=== PATIENT | female | born 1955 | race Caucasian/White ===

== ENCOUNTER → 2022-06-27 13:56 | Outpatient (BNVA) | payer MEDICARE, SELFPAY | PROVIDERS: PCP Internal Medicine; Referring Provider Family Medicine; Visit Provider Internal Medicine Cardiovascular Disease | DX: R00.2 Palpitations (principal) | CPT/HCPCS: 93005; 99202 ==

== ENCOUNTER → 2022-07-16 07:16 | Outpatient (REF) | payer MEDICARE, SELFPAY ==
--- NOTE | 2022-07-16 07:19 | HM_ITS ---
conclusion: 1. Patient was monitored for total period of 14 days 2. Baseline was normal sinus rhythm with average heart of 75 beats per minute 3. No significant pauses or bradycardia noted 4. Rare PACs noted with total burden of 0.03% 5. Five SVT events with longest lasting 11 beats and the fastest at 145 beats per minute 6. Patient reported 12 events including chest pain and fluttering in her chest correlated with sinus rhythm MTDD
== END ==
LOC: HO.CARD 07:16
PROVIDERS: PCP Family Medicine; Visit Provider Internal Medicine Cardiovascular Disease
DX: R00.2 Palpitations (principal)
CPT/HCPCS: 93246

== ENCOUNTER → 2022-08-26 14:53 | Outpatient (BNVA) | payer MEDICARE, SELFPAY | PROVIDERS: PCP Family Medicine; Referring Provider Family Medicine; Visit Provider Internal Medicine Cardiovascular Disease | DX: I49.9 Cardiac arrhythmia, unspecified (principal) | CPT/HCPCS: 99212 ==

== ENCOUNTER 2023-09-12 13:55 | Outpatient (AMB) | payer MEDICARE, SELFPAY ==
[2023-09-12 13:57] VITALS: BP 141/63; PULSE 92; BMI 20.5
--- NOTE | 2023-09-12 13:57 | A.OFFVIS_ITS ---
Vital Signs 09/12/23 13:57 Height 5 ft Weight 105 lb BMI 20.5 BP 141/63 H Blood Pressure Location Lt brachial Position Sitting Pulse 92 Comment Wt stated per PT Intake Visit Reasons: Gastroparesis Intake Note: New patient in office today for gastroparesis. CC:Patient states that she is a double mastectomy breast cancer survivor, with gastroparesis as a result of chemotherapy treatment. She states that she also fought SIBO . Per patient she ended up in the hospital with constipation and was given of lactulose and sent home, per patient the sugar from the lactulose exacerbated her SIBO. Patient states that her weight was 140 lb and that in the morning when she weights herself she is now 105.5 lb. She states that she is not able to eat because she gets a lot of abdominal pain and everything blows up because I'm so constipated . She also c/o gas. 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 Accompanied by: partner Allergies Benzodiazepines Allergy (Severe, Verified 09/12/23 14:21) Agitated codeine Allergy (Severe, Verified 09/12/23 14:21) Vomiting gluten Allergy (Severe, Verified 09/12/23 14:21) Gastrointestinal Upset hydroxyzine Allergy (Severe, Verified 09/12/23 14:21) Agitated metoprolol Allergy (Severe, Verified 09/12/23 14:21) throat swelling, confusion Milk Containing Products (Dairy) Allergy (Severe, Verified 09/12/23 14:21) Gastrointestinal Upset propranolol Allergy (Severe, Verified 09/12/23 14:21) Throat swelling, confusion soy Allergy (Severe, Verified 09/12/23 14:21) gastric problems levofloxacin [From Levaquin] Allergy (Mild, Verified 09/12/23 14:21) Rash pseudoephedrine [From Sudafed] Adverse Reaction (Intermediate, Verified 09/12/23 14:21) Palpitations Sulcrafate Allergy (Severe, Uncoded 05/26/23 10:23) Swelling in throat HPI HPI Gastroparesis: Details: 67-year-old female with past medical history of hypothyroidism, hyponatremia since April of 2023, anxiety, bilateral breast malignant neoplasm and bilateral mastectomy in 1999, SIBO, gastroparesis is here today for initial consultation. Patient was supposed to be seen by Nadira Urena CNP today, however provider absent. Patient reports that her cell phone has no service as she lives in [place], in the [facility]. Patient came hoping to be seen by a provider. Patient was very upset in the waiting room, tearful. This provider agreed to see patient today. Total of 33 lb weight loss since March. Patient reports that back in April she end up with hyponatremia and was hospitalized. Upon reviewing ED records from April and then May patient had normal blood work her April visit sodium was 131 and normal blood work in May. Patient developed epigastric discomfort inability to move her bowels regularly, not having the urge to move her bowels or urinating. Patient had upper endoscopy diagnosed with inflammation and no other significant report was given to her. Prior to that patient was treated with Xifaxan for SIBO 1 round, however was never retested. Patient states that she was given lactulose and that is what irritated her stomach and it caused all those issues that she has been dealing with. Patient also reports that she was going through radiation therapy and that is also why she is having so many issues. During the visit patient is extremely anxious. Patient is accompanied by her . Patient is tearful, multiple times I had to redirect her so she can focus on telling me her history. Patient has seen multiple GI specialist as well as alternative medicine doctors. Patient traveled as far as to [place] to see a functional medicine provider. Patient was placed on SIBO diet. Was given medication other than [id number] Senokot although she did try smooth move tea that did not help her to go to the bathroom. Patient tried herbal supplement that included josesito and turmeric that could be also causing her to have abdominal pain and bloating. Patient currently is not drinking protein shakes. Patient brought with her shakes that she is trying to replace electolytes as she was diagnosed h yponatremia, however these shakes to not have any protein. Patient has lost weight. Is only eating few things. Her reports that she is only eating carrots that are cooked and blended, white fish. Patient states that she tried chicken, however she felt like she had a histamine reaction to it. Patient reports that she was unable to move her bowels and she was very bloated. Patient reports that she has gastroparesis, however I do not believe that there was any testing mentioned to truly diagnosed her with gastroparesis. Patient is having trouble moving her bowels and feeling constipated. No postprandial fullness. Patient denies any melena or hematochezia. Patient denies any nausea or vomiting. [facility] Surgical History History of esophagogastroduodenoscopy (EGD) H/O wrist surgery History of hysterectomy History of appendectomy H/O bilateral mastectomy Hx of colonoscopy with polypectomy Family History Father No problems noted. Mother No problems noted. Brother Heart valve replaced Social History Patient Tobacco Use Status: Never used Tobacco Physical Exam Vital Signs: Last Vital Signs Pulse 92 09/12/23 13:57 BP 141/63 H 09/12/23 13:57 BMI result Body Mass Index 20.5 Assessment & Plan Assessment & Plan (1) Multiple food allergies: Code(s): Z91.018 - Allergy to other foods Category: Medical (2) Panic disorder: Code(s): F41.0 - Panic disorder [episodic paroxysmal anxiety] Category: Medical (3) Hyponatremia: Code(s): E87.1 - Hypo-osmolality and hyponatremia Category: Medical (4) Constipation: Code(s): K59.00 - Constipation, unspecified Qualifiers: Constipation type: slow transit constipation Qualified Code(s): K59.01 - Slow transit constipation (5) Postprandial abdominal bloating: Code(s): R14.0 - Abdominal distension (gaseous) (6) Abdominal pain: Code(s): R10.9 - Unspecified abdominal pain Qualifiers: Abdominal location: generalized Qualified Code(s): R10.84 - Generalized abdominal pain Plan Patient was encouraged to increase protein in her diet. We did discuss low FODMAP diet. List of food recommended as well as list of food to avoid given to patient. Patient was encouraged to try to stay come and reasonable throughout the whole visit. Will rule out pancreatic insufficiency and H pylori. Will rule out celiac disease and will check her lipase as well. Patient will be started on senna, she can take it after breakfast. Patient would like not to take it in the evening as she is having trouble sleeping and would like to avoid going to the bathroom at night time.. Patient can take sucralfate at bedtime, we did discuss this that this could be little constipating for her, however if Senokot will not be helpful we can use Dulcolax tablets or add MiraLax in the morning. She will try to take Nexium 1st thing in the morning. Patient had other blood work done by her PCP. Patient was encouraged to eat smaller meals and more often. Patient will stop supplements that include garlic, josesito as th is could also be the culprit. She will follow-up with Dr. Zimmerman next week. Patient is scheduled for the . Please get upper endoscopy results and any other testing that patient had in the past that would include CT scan of abdomen and pelvis, barium swallow, gastric emptying study. Patient was to stop taking supplements that most likely are causing her to have those symptoms. Stress reduction techniques encouraged. Patient was encouraged to see therapist to help her deal with her emotions better. Patient was extremely anxious. Patient's states that patient has been like this for the past few months. Both patient and her are agreeable to current plan of care and verbalize understanding of instructions. They were given the opportunity to ask questions and all questions answered. Thank you for allowing me to participate in her care Orders: Orders Pancreatic Elastase-1 Today R10.9 - Unspecified abdominal pain Vitamin B12 and Folate Today R19.7 - Diarrhea, unspecified Vitamin D 25-OH (D2 and D3) Today E55.9 - Vitamin D deficiency, unspecified H pylori Ag Stool Today K21.9 - Gastro-esophageal reflux disease without esophagitis Transglutaminase Ab IgG Today R10.9 - Unspecified abdominal pain Transglutaminase IgA Today R10.9 - Unspecified abdominal pain Lipase Today R10.9 - Unspecified abdominal pain Magnesium Today N18.9 - Chronic kidney disease, unspecified Medications: New esomeprazole magnesium (Nexium 24HR) 20 mg PO DAILY 30 tabs 2RF sennosides (Natural Senna Laxative) 17.2 mg (2 x 8.6 mg) PO BEDTIME 60 tabs 3RF constipation K59.00 - Constipation, unspecified Coding Level of Care Code New Pt Level 5 (28862) Diagnoses Multiple food allergies Z91.018 Panic disorder F41.0 Hyponatremia E87.1 Slow transit constipation K59.01 Constipation type: slow transit constipation Postprandial abdominal bloating R14.0 Generalized abdominal pain R10.84 Abdominal location: generalized Time Spent (min) 55 Comment 35 minutes spent with patient and additional 20 minutes spent reviewing her records
== END 2023-09-12 15:38 | disposition home or self-care (01) ==
LOC: HO.HGI 13:55
PROVIDERS: PCP Family Medicine; Visit Provider Nurse Practitioner Family
DX: K59.01 Slow transit constipation (principal); R14.0 Abdominal distension (gaseous); Z91.018 Allergy to other foods; E87.1 Hypo-osmolality and hyponatremia; F41.0 Panic disorder [episodic paroxysmal anxiety]
CPT/HCPCS: 99205

== ENCOUNTER 2023-09-12 13:55 | Outpatient (REF) | payer MEDICARE, SELFPAY ==
[2023-09-12 16:38] LABS: Lipase 45 U/L (8-78); Magnesium 2.3 mg/dL (1.6-2.6)
[2023-09-12 17:11] LABS: Folate 7.6 ng/mL (> or = 4.0); Vitamin B12 916 pg/mL (200-900)
[2023-09-18 13:17] LABS: Vitamin D 25-OH, D2 <4 ng/mL; Vitamin D 25-OH, D3 33 ng/mL; Vitamin D 25-OH, Total 33 ng/mL (30-100)
[2023-09-19 12:58] LABS: Transglutaminase Ab IgG <1.0 U/mL; Transglutaminase IgA <1.0 U/mL
== END 2023-09-12 13:56 | disposition home or self-care (01) ==
LOC: HO.LAB 13:55
PROVIDERS: PCP Family Medicine; Visit Provider Nurse Practitioner Family
DX: R19.7 Diarrhea, unspecified (principal); E55.9 Vitamin D deficiency, unspecified; R10.9 Unspecified abdominal pain; N18.9 Chronic kidney disease, unspecified; K31.84 Gastroparesis; T45.1X5A Adverse effect of antineoplastic and immunosuppressive drugs, initial encounter; F41.0 Panic disorder [episodic paroxysmal anxiety]; E87.1 Hypo-osmolality and hyponatremia; K59.01 Slow transit constipation; R14.0 Abdominal distension (gaseous); R10.84 Generalized abdominal pain; X58.XXXA Exposure to other specified factors, initial encounter; Y93.9 Activity, unspecified; Y92.9 Unspecified place or not applicable; Y99.9 Unspecified external cause status; Z85.3 Personal history of malignant neoplasm of breast; Z90.13 Acquired absence of bilateral breasts and nipples; Z91.018 Allergy to other foods
CPT/HCPCS: 36415; 82306; 82607; 82746; 83690; 83735; 86364; 99202

== ENCOUNTER 2023-09-15 | Outpatient (REF) | payer MEDICARE, SELFPAY ==
[2023-09-23 20:54] LABS: Pancreatic Elastase-1 >500 mcg/g
== END 2023-09-15 00:01 | disposition home or self-care (01) ==
LOC: HO.LNP
PROVIDERS: Visit Provider Nurse Practitioner Family
DX: R10.9 Unspecified abdominal pain (principal); K21.9 Gastro-esophageal reflux disease without esophagitis
CPT/HCPCS: 82656; 87338

== ENCOUNTER 2023-09-17 15:20 | Outpatient (AMB) | payer MEDICARE, SELFPAY ==
--- NOTE | 2023-09-17 15:22 | MHC.OFFVIS ---
Vital Signs 09/17/23 15:26 Height 5 ft Weight 105 lb BMI 20.5 BP 142/74 H Blood Pressure Location Lt brachial Position Sitting Pulse 85 Intake Visit Reasons: Follow up 2nd opinion Intake Note: Rufina presents in the office as a follow up 2nd opinion. CC: She states that she was seen by Alyssa and that was a mistake - states she was meant to see July. She is having pains in her stomach. She states they have been going on for so long it is effecting her life. She states she has been fighting to be seen by a Dr. Nothing seems to be working for her. Cognitive skills are dropping, cannot stand up, weak, weight loss. She is unable to care for herself. Allergies Benzodiazepines Allergy (Severe, Verified 09/17/23 15:26) Agitated codeine Allergy (Severe, Verified 09/17/23 15:26) Vomiting gluten Allergy (Severe, Verified 09/17/23 15:26) Gastrointestinal Upset hydroxyzine Allergy (Severe, Verified 09/17/23 15:26) Agitated metoprolol Allergy (Severe, Verified 09/17/23 15:26) throat swelling, confusion Milk Containing Products (Dairy) Allergy (Severe, Verified 09/17/23 15:26) Gastrointestinal Upset propranolol Allergy (Severe, Verified 09/17/23 15:26) Throat swelling, confusion soy Allergy (Severe, Verified 09/17/23 15:26) gastric problems levofloxacin [From Levaquin] Allergy (Mild, Verified 09/17/23 15:26) Rash pseudoephedrine [From Sudafed] Adverse Reaction (Intermediate, Verified 09/17/23 15:26) Palpitations Sulcrafate Allergy (Severe, Uncoded 09/17/23 15:26) Swelling in throat HPI Comments Details: 67 y.o F who is here for abd pain and unintentional weight loss ongoing x 6 months. Pt reports similar constellation of sx back in 2009 - saw Dr García and was determined to have gastroparesis and SIBO. Pt recalls getting a GES and EGD as part of work up. Was started on Senna/smooth move tea. Was doing well until 2021 until she had back to back 3 colonoscopies and then sx worsened. [place] was done was flat 2-3 cm T.A with HGD (Dr Mcnair, [facility]). Tried to manage sx through most of 2022 but got significantly worse in 2023. Pt reports sx started in end of Jan 2023. At that time pain was primarily in the center of her chest and therefore main focus was cardiac work up. Had an echo through her PCP. (of note, also noted to have seen cardiology in spring of last year for chest discomfort, shortness of breath and palpitations and workup at time was negative) By the beginning of this year, she had significantly declined. Reports has very little appetite due to the severe pains she gets. Has gone from riding horses around Feb 2023 to not being able to take a shower and now wheelchair bound. Lost around 20lbs in this duration. Presented to [facility] for lower chest/upper abd pain as well as confusion. Pt reports at that time Na was 120 and was admitted for 4 days for management. No GI workup was pursued at that time. She then was seen by [facility] as outpatient in the following months and reports having an upper endoscopy as well as a repeat gastric emptying study. EGD per her report was normal. Gastric emptying study showed rapid emptying of her stomach. Records are not available at this time. Meds so far: Sucralfate didnt help- made her constipated. Xifaxan 550 - June 2023. Was better on it but reports stool consistency was off . Famotidine PPIs Pt also reports severe constipation. Has been seen by [facility] as well as Colorectal surgery for this. Had testing done through Dr. Tammy Jasso including defecography and noted to have rectocele and pelvic floor dysfunction. Previously had terrible experience with lactulose enema and p.o. lactulose for treatment of constipation at [facility]. Is also concerned whether the chemotherapy that she had for breast cancer in early is causing GI toxicity. [facility] Surgical History History of esophagogastroduodenoscopy (EGD) H/O wrist surgery History of hysterectomy History of appendectomy H/O bilateral mastectomy Hx of colonoscopy with polypectomy Family History Father No problems noted. Mother No problems noted. Brother Heart valve replaced Social History Patient Tobacco Use Status: Never used Tobacco Review of Systems Const All systems reviewed & are unremarkable except as noted in HPI and below Physical Exam Vital Signs: Last Vital Signs Pulse 85 09/17/23 15:26 BP 142/74 H 09/17/23 15:26 BMI result Body Mass Index 20.5 Frail elderly female Nonicteric Alert and oriented x3 Seated in a wheelchair Assessment & Plan Assessment & Plan (1) Gastroparesis: Code(s): K31.84 - Gastroparesis Category: Medical (2) Abdominal pain: Code(s): R10.9 - Unspecified abdominal pain Category: Medical (3) Pelvic floor dysfunction: Code(s): M62.89 - Other specified disorders of muscle Category: Medical (4) Unintentional weight loss: Code(s): R63.4 - Abnormal weight loss Category: Medical (5) Frailty: Code(s): R54 - Age-related physical debility Category: Medical Plan Attempted to set expectations that will likely not be able to go through her entire constellation of GI issues today, but will attempt to address the most bothersome symptoms to her. We also reviewed that at this time, we do not have records from [facility] and [facility] for review. - reassured her that chemotherapy related GI toxicity generally last the duration of treatment, and very unlikely that it is still present 2 decades after chemo has been completed. In addition, her recent colonoscopies document normal mucosa. - In terms of her abdominal pain with unintentional weight loss, will need to rule out chronic infection, malignancy, chronic mesenteric ischemia, gastroparesis etc. She seems to have had workup done recently for this through [facility] as well, so we will obtain those records to make sure we are not ordering repeat testing such as CTA. (already requested by Dayanara Smith NP). - For ?SIBO - given severe constipation, there is a chance that this is IMO and may need combo neomycin and rifaximin for complete response. We discussed breath testing, patient is hesitant to proceed, as previously whenever she is taken lactulose for relief of constipation and has made her more bloated. I educated her that is a known side effect of lactulose since it is a nonabsorbable disaccharide however this will only be a 1 time dose for the breath test, and not prescribing her for long-term treatment for constipation. - Agree with testing to r/o celiac which is pending. Stool tests results pending as well. - lastly I informed her, that she will be seeing a different provider (Nadira Urena SEAM RUBBING MACHINE OPERATOR) for follow-up, as this production underwriter will will not be in office at the time of her next follow-up appointment. Patient has already been in contact with her and agreeable to seeing her for next visit. - in the meantime, since her main complaint is abdominal bloating which cause her discomfort, she was encouraged to take simethicone. Patient tends to do better with pediatric formulations of medications - okay to take mylicon. - her function declined is quite worrisome, and I strongly encouraged her to talk to her PCP for PT evaluation. She may even need for short stay at acute rehab/SNF. - cont protein shakes as reviewed by previous provider. Follow up in 4 weeks Coding Level of Care Code Est Pt Level 5 (20585) Diagnoses Gastroparesis K31.84 Abdominal pain R10.9 Pelvic floor dysfunction M62.89 Unintentional weight loss R63.4 Frailty R54
[2023-09-17 15:26] VITALS: BP 142/74; PULSE 85; BMI 20.5
== END 2023-09-17 16:28 | disposition home or self-care (01) ==
LOC: HO.HGI 15:20
PROVIDERS: PCP Family Medicine; Visit Provider Internal Medicine
DX: K31.84 Gastroparesis (principal); M62.89 Other specified disorders of muscle; R63.4 Abnormal weight loss; R54 Age-related physical debility
CPT/HCPCS: 99214

== ENCOUNTER → 2023-09-17 15:20 | Outpatient (BNVA) | payer MEDICARE, SELFPAY | PROVIDERS: PCP Family Medicine; Visit Provider Internal Medicine | DX: R63.4 Abnormal weight loss (principal); K31.84 Gastroparesis; R10.9 Unspecified abdominal pain; M62.89 Other specified disorders of muscle; R54 Age-related physical debility; Z99.3 Dependence on wheelchair | CPT/HCPCS: 99212 ==

== ENCOUNTER 2023-09-24 12:20 | Outpatient (AMB) | payer MEDICARE, SELFPAY ==
--- NOTE | 2023-09-24 12:23 | A.OFFVIS_ITS ---
Vital Signs 09/24/23 12:27 Height 5 ft Weight 105 lb BMI 20.5 BP 135/72 Blood Pressure Location Lt brachial Position Sitting Pulse 91 Intake Visit Reasons: 1 week follow up Intake Note: Rufina presents in the office as a 1 week follow up. CC: She states nexium made the burn even worse. Senior Auditor Required: No Allergies Benzodiazepines Allergy (Severe, Verified 10/10/23 13:33) Agitated codeine Allergy (Severe, Verified 10/10/23 13:33) Vomiting gluten Allergy (Severe, Verified 10/10/23 13:33) Gastrointestinal Upset hydroxyzine Allergy (Severe, Verified 10/10/23 13:33) Agitated metoprolol Allergy (Severe, Verified 10/10/23 13:33) throat swelling, confusion Milk Containing Products (Dairy) Allergy (Severe, Verified 10/10/23 13:33) Gastrointestinal Upset propranolol Allergy (Severe, Verified 10/10/23 13:33) Throat swelling, confusion soy Allergy (Severe, Verified 10/10/23 13:33) gastric problems levofloxacin [From Levaquin] Allergy (Mild, Verified 10/10/23 13:33) Rash pseudoephedrine [From Sudafed] Adverse Reaction (Intermediate, Verified 10/10/23 13:33) Palpitations Sulcrafate Allergy (Severe, Uncoded 09/24/23 12:26) Swelling in throat HPI HPI 1 week follow up: Details: 67-YEAR-OLD female here for initial evaluation of gastroparesis. She is referred by [facility] in [place]. PMX History of breast cancer Hypothyroid Hyponatremia Atrial septal aneurysm Attention deficit disorder Gastroparesis Migraines Depression/panic disorder/insomnia Pelvic floor dysfunction Visceral hypersensitivity Atrophic vaginitis Urinary incontinence * SURGICAL HISTORY Bilateral mastectomy Wrist tendon repair Appendectomy Hysterectomy * ALLERGIES Albuterol Buspirone Codeine Gluten Levaquin Lorazepam Metoprolol Mirtazapine Motegrity Omeprazole Pantoprazole Propranolol Risperidone Sertraline Sudafed Zolpidem Caffeine General anesthesia Dairy, soy, bone broth, gluten [employer] LABS: Laboratory Tests 09/12/23 09/15/23 15:48 07:35 Magnesium 2.3 Lipase 45 Vitamin B12 916 H 25-OH Vitamin D Total 33 Folate 7.6 Stool Pancreat Elastase >500 Stool H. pylori Ag negative Tiss Transglutamin IgG <1.0 Tiss Transglutamin IgA <1.0 Ordered by Alyssa Pancreatic Elastase-1 Today R10.9 - Unspecified abdominal pain Vitamin B12 and Folate Today R19.7 - Diarrhea, unspecified Vitamin D 25-OH (D2 and D3) Today E55.9 - Vitamin D deficiency, unspecified H pylori Ag Stool Today K21.9 - Gastro-esophageal reflux disease without esophagitis Transglutaminase Ab IgG Today R10.9 - Unspecified abdominal pain Transglutaminase IgA Today R10.9 - Unspecified abdominal pain Lipase Today R10.9 - Unspecified abdominal pain Magnesium Today N18.9 - Chronic kidney disease, unspecified Medications: New esomeprazole magnesium (Nexium 24HR) 20 mg PO DAILY 30 tabs 2RF sennosides (Natural Senna Laxative) 17.2 mg (2 x 8.6 mg) PO BEDTIME [address] Reynaldo humphrey On 09/18/23 @ 11:22 Farnaz Tabor Wrote To Juanita Zimmerman [employer] covers Medicare. I placed order slip on your desk. It requires your signature, the dx and what kit you are requesting. I will be out of the office tomorrow, just FYI! but Katelyn can fax it once it is complete to #[phone] On 09/18/23 @ 10:58 Juanita Zimmerman Wrote To Farnaz Tabor Yohan, could you pls send out a request for SIBO testing for her? Thank you! On 09/18/23 @ 10:58 Juanita Zimmerman Wrote To Nadira Urena (2) Katie, when you get these, kindly forward to July, thanks! On 09/12/23 @ 21:09 Dayanara Smith Wrote To Katie Rosales Please call Shante Carvaj[facility] and [facility] to see if we can get any records on CT scan of abdomen and pelvis, barium swallow, gastric emptying testing. You may also call PCP T see if patient has any records. She is seeing Dr. Zimmerman next week. Please see if we can get the before the patient comes TODAY'S VISIT She is accompanied today by her who seems overwhelmed by his 's illness She saw a senior systems software engineer recently. She has been unable to eat well since her chemo adrymycin and cytoxin caused her stomach problems. She had a double mastectomy as well. She was dx'ed with gastroparesis by Dr. Zhang, then she went natruopathic. 04/2023 she was hospitalized for stomach burning, ? Confusion and weakness and her Na+ was only 120. She feels the low Na was r/t her poor intake - she was on a special naturopathic diet for SIBO at the time. This was [facility]. She typically has trouble with bloating, burning and gas. This will cause her to stop eating. She was also admitted almost every month since then - she also was seen at [facility] as well for this. She says she CAN eat but if she does she will hve severe bloating and abd pain. There is so much gas it upsets her pelvic floor and will cause urinary incontinence and fecal incontinence. He was to have a rectal manometry in July at [facility] but she ended up hospitalized at [facility]. She used to have horses and she was very active in 2021. She lost her job at [employer] r/t this. She now has to use a commode and she is so weak she can't stand alone. She was sent to SNF for some physical rehab but they could not feed me. Her care is a burden for her at [facility] as well. The pain will start in the upper abd and spread across then down the midline and across the lower abd into the linda area. She is also having a sharp pain, Like you ran a sword through me in her chest. It is a burning pain in the abdomen. She has CIC but she has been able to manage this with smooth move tea. She has tried senna pills but they caused severe burning. Her PCP thinks that mast cell syndrome may be a problems as she has histamine problems, she had seen Dr. Garcia in the past but she does not do well with pharmaceuticals . She can't remember if she tried reglan in the past. Her sleep is poor r/t pain. They have tried feeding her small frequent meals 5-6 times a day. She has multiple food allergies. She had an EGD at [facility] that she was told was normal. She will have odynophagia along the esophagus with swallowing food. BUT even drinking water will cause belching and she does not pass much gas. She has had some mild relief in the past with xifaxin, but was only treated once last time and she had some fecal problems. We may revisit this. I think we will try reglan 1/2 tablet qid for a week, then creon the next week, and since she has not been able to use PPI's baking soda dissolved in water bid- tid. ROV 2 weeks. Getting fecal calprotectin to address her inflammation concerns..... [facility] Surgical History History of esophagogastroduodenoscopy (EGD) H/O wrist surgery History of hysterectomy History of appendectomy H/O bilateral mastectomy Hx of colonoscopy with polypectomy Family History Father No problems noted. Mother No problems noted. Brother Heart valve replaced Social History Patient Tobacco Use Status: Never used Tobacco Review of Systems Const Reports fatigue, Denies fever(s), Denies night sweats, Denies poor appetite, Reports weakness and Reports weight loss Eyes Details: glasses Reports requires corrective lenses ENT Reports Normal hearing present, Denies dental pain, Denies dysphagia, Reports vertigo, Denies hearing loss, Denies mouth pain, Denies odynophagia, Denies throat swelling, Denies tongue swelling and Reports other (Dentition adequate) Card Reports chest pain Resp Reports no additional complaints GI Details: Reports abdominal pain, Denies melena, Reports bloating, Denies hematochezia, Reports constipation, Denies GI cramping, Denies dysphagia, Denies excessive flatus, Denies early satiety, Reports heartburn, Denies diarrhea, Denies nausea, Denies odynophagia, Denies vomiting and Denies hematemesis Reports difficulty voiding Musc Reports muscle weakness Skin/Breast Denies pruritus, Denies lesions, Denies rash and Denies jaundice Neuro Reports Normal hearing present, Denies Abnormal speech present, Reports vertigo, Reports memory loss and Reports weakness Psych Reports abnormal sleep pattern, Reports anxiety, Reports change in appetite and Reports memory loss Endo Reports fatigue Aller/Immun Reports GI upset with certain foods, Denies throat swelling and Denies tongue swelling Physical Exam Vital Signs: Last Vital Signs Pulse 91 09/24/23 12:27 BP 135/72 09/24/23 12:27 BMI result Body Mass Index 20.5 Const General: cooperative, no acute distress, well developed, anxious and well groomed Nutritional Appearance: average body habitus and well nourished Orientation/consciousness: oriented to person, oriented to place and oriented to time Limitations: No language barrier and wheelchair HEENT Head: Yes normocephalic and Yes atraumatic Eyes General: appearance normal, both eyes and all related structures Pupils: Equal, round and reactive pupils present Neck Neck: Yes normal visual inspection and Yes no lymphadenopathy Thyroid: Thyroid normal Resp Effort & Inspection: normal respiratory effort and able to speak in complete sentences Auscultation: clear to auscultation bilaterally Cardio Rate: regular rate Rhythm: regular rhythm Heart sounds: Normal, physiologic split S2 sound present Peripheral pulses: radial pulses present and posterior tibial pulses present GI Inspection: No distended and No Abdominal panniculus present Palpation (GI): Soft to palpation, Tenderness to palpation present (GI) in the RLQ and periumbilically, no guarding, not rigid and No hepatosplenomegaly present Percussion: Yes normal to percussion Auscultation: normal bowel sounds Rectal Exam - Female: deferred Back/Spine/Pelvis Other: LEVOSCOLIOSIS Skin Other: MULTIPLE SENILE NEVI General skin exam: no rashes or lesions noted, turgor normal, skin not dry, no jaundice, No spider nevi and no striae Rashes: no rashes Nails: normal Neuro General: oriented to person, oriented to place and oriented to time Cranial nerves: Yes Equal, round and reactive pupils present and Yes Normal hearing present Speech: No Abnormal speech present Extrem General: Yes normal to inspection, No clubbing, No cyanosis and No edema Psych Appearance: grossly normal and well kempt Mental Status: mental status grossly normal Speech and movement: Pressured speech present Affect: Labile affect present, Sad affect present and Anxious affect present Attitude: cooperative Thought process: Circumstantial thought process present, not confabulating, Impoverished thought process present and Perseverating thought process present Thought content: Depressive thoughts present and Obsession(s) present Insight: Poor insight present (Psych) Judgement: Poor judgement present (Psych) Results Reviewed Results Reviewed: Laboratory Tests 09/12/23 09/15/23 15:48 07:35 Magnesium 2.3 Lipase 45 Vitamin B12 916 H 25-OH Vitamin D Total 33 Folate 7.6 Stool Pancreat Elastase >500 Stool H. pylori Ag negative Tiss Transglutamin IgG <1.0 Tiss Transglutamin IgA <1.0 Assessment & Plan Assessment & Plan (1) Multiple food allergies: Code(s): Z91.018 - Allergy to other foods Category: Medical (2) Adult failure to thrive: Code(s): R62.7 - Adult failure to thrive Category: Medical (3) Abdominal pain: Code(s): R10.9 - Unspecified abdominal pain Category: Medical (4) Gastroparesis: Code(s): K31.84 - Gastroparesis Category: Medical Plan She is accompanied today by her who seems overwhelmed by his 's illness She saw a senior systems software engineer recently. She has been unable to eat well since her chemo adrymycin and cytoxin caused her stomach problems. She had a double mastectomy as well. She was dx'ed with gastroparesis by Dr. Zhang, then she went natruopathic. 04/2023 she was hospitalized for stomach burning, ? Confusion and weakness and her Na+ was only 120. She feels the low Na was r/t her poor intake - she was on a special naturopathic diet for SIBO at the time. This was [facility]. She typically has trouble with bloating, burning and gas. This will cause her to stop eating. She was also admitted almost every month since then - she also was seen at [facility] as well for this. She says she CAN eat but if she does she will hve severe bloating and abd pain. There is so much gas it upsets her pelvic floor and will cause urinary incontinence and fecal incontinence. He was to have a rectal manometry in July at [facility] but she ended up hospitalized at [facility]. She used to have horses and she was very active in 2021. She lost her job at [employer] r/t this. She now has to use a commode and she is so weak she can't stand alone. She was sent to SNF for some physical rehab but they could not feed me. Her care is a burden for her at [facility] as well. The pain will start in the upper abd and spread across then down the midline and across the lower abd into the linda area. She is also having a sharp pain, Like you ran a sword through me in her chest. It is a burning pain in the abdomen. She has CIC but she has been able to manage this with smooth move tea. She has tried senna pills but they caused severe burning. Her PCP thinks that mast cell syndrome may be a problems as she has histamine problems, she had seen Dr. Garcia in the past but she does not do well with pharmaceuticals . She can't remember if she tried reglan in the past. Her sleep is poor r/t pain. They have tried feeding her small frequent meals 5-6 times a day. She has multiple food allergies. She had an EGD at [facility] that she was told was normal. She will have odynophagia along the esophagus with swallowing food. BUT even drinking water will cause belching and she does not pass much gas. She has had some mild relief in the past with xifaxin, but was only treated once last time and she had some fecal problems. We may revisit this. I think we will try reglan 1/2 tablet qid for a week, then creon the next week, and since she has not been able to use PPI's baking soda dissolved in water bid- tid. ROV 2 weeks. Getting fecal calprotectin to address her inflammation concerns..... Orders: Orders Calprotectin, Fecal 09/30/23 R10.9 - Unspecified abdominal pain Medications: New metoclopramide HCl (Reglan) 0.5 mg (0.1 x 5 mg) PO QIDACHS 60 tabs 3RF K31.84 - Gastroparesis ilxyyz-fttzrsoh-tixqscm 3,000-9,500- 15,000 unit (Creon) do not exceed 10,000 unit/kg lipase per 24 hrs 2 caps PO BID 120 caps 3RF 30 days K59.04 - Chronic idiopathic constipation Coding Level of Care Code Est Pt Level 4 (65163) Diagnoses Multiple food allergies Z91.018 Adult failure to thrive R62.7 Abdominal pain R10.9 Gastroparesis K31.84 Time Spent (min) 47
[2023-09-24 12:27] VITALS: BP 135/72; PULSE 91; BMI 20.5
== END 2023-09-24 15:30 | disposition home or self-care (01) ==
LOC: HO.HGI 12:20
PROVIDERS: PCP Family Medicine; Visit Provider Nurse Practitioner
DX: Z91.018 Allergy to other foods (principal); R62.7 Adult failure to thrive; R10.9 Unspecified abdominal pain; K31.84 Gastroparesis
CPT/HCPCS: 99214

== ENCOUNTER → 2023-09-24 12:20 | Outpatient (BNVA) | payer MEDICARE, SELFPAY | PROVIDERS: PCP Family Medicine; Visit Provider Nurse Practitioner | DX: K31.84 Gastroparesis (principal); R10.9 Unspecified abdominal pain; R62.7 Adult failure to thrive; Z91.018 Allergy to other foods | CPT/HCPCS: 99212 ==

== ENCOUNTER 2023-09-30 14:22 | Outpatient (REF) | payer MEDICARE, SELFPAY ==
[2023-10-04 20:54] LABS: Calprotectin, Fecal 18 mcg/g
== END 2023-09-30 14:23 | disposition home or self-care (01) ==
LOC: HO.LNP 14:22
PROVIDERS: Visit Provider Nurse Practitioner
DX: R10.9 Unspecified abdominal pain (principal)
CPT/HCPCS: 83993

== ENCOUNTER → 2023-10-10 13:22 | Outpatient (BNVA) | payer MEDICARE, SELFPAY | PROVIDERS: PCP Family Medicine; Visit Provider Nurse Practitioner ==

== ENCOUNTER 2023-10-14 13:25 | Outpatient (AMB) | payer MEDICARE, SELFPAY ==
--- NOTE | 2023-10-14 13:28 | A.OFFVIS_ITS ---
Vital Signs 10/14/23 13:33 Height 5 ft Weight 106 lb BMI 20.7 BP 102/58 L Blood Pressure Location Lt brachial Position Sitting Pulse 89 Intake Visit Reasons: Overdue follow-up Intake Note: Overdue follow-up has been waiting to get into in GI has not been able eat over the last 7 months low sodium bp has been low Chemical Educator Required: No Allergies Benzodiazepines Allergy (Severe, Verified 10/10/23 13:33) Agitated codeine Allergy (Severe, Verified 10/10/23 13:33) Vomiting gluten Allergy (Severe, Verified 10/10/23 13:33) Gastrointestinal Upset hydroxyzine Allergy (Severe, Verified 10/10/23 13:33) Agitated metoprolol Allergy (Severe, Verified 10/10/23 13:33) throat swelling, confusion Milk Containing Products (Dairy) Allergy (Severe, Verified 10/10/23 13:33) Gastrointestinal Upset propranolol Allergy (Severe, Verified 10/10/23 13:33) Throat swelling, confusion soy Allergy (Severe, Verified 10/10/23 13:33) gastric problems levofloxacin [From Levaquin] Allergy (Mild, Verified 10/10/23 13:33) Rash pseudoephedrine [From Sudafed] Adverse Reaction (Intermediate, Verified 10/10/23 13:33) Palpitations Sulcrafate Allergy (Severe, Uncoded 09/24/23 12:26) Swelling in throat Medication List - Last Reconciled 10/14/23 by Morris Sharpe MD [children's benadryl dye free 30 mL PO BEDTIME] cromolyn 200 mg PO QID PRN estradiol mcg vaginal [hystagest KATARZYNA 3 pills daily] sennosides (Natural Senna Laxative) 17.2 mg (2 x 8.6 mg) PO BEDTIME thyroid (pork) (FISHERIES TECHNICIAN Thyroid) 15 mg PO DAILY zolpidem 5 mg PO BID PRN HPI Comments Details: Rufina Selby comes accompanied by her in a wheelchair. She says since April she is lost about 35 lb due to not able to feed herself well. She says she is very malnourished and has lot of fatigue and difficulty doing any activity without having issues. She also complains of irregular heartbeat occasional fluttering in her chest. She is worried about flat lining although she says that her heart rate becomes plateau after a sudden time. The lowest heart rate she recorded watches a 59 beats per minute. She does have prior PACs and short runs of SVT. She occasionally feels flutter/strong heartbeat in her chest. She is worried about with her weight loss that she might have cardiac issues and complaints related to it as she is also having skeletal muscle loss. She has no heart failure syndrome. I extensively tried to comfort her by saying that a prior cardiac workup has been within normal limits an echocardiogram done at [facility] in April was within normal limits. She does not seem convinced that she does not have any cardiac issues related to malnourishment [facility] Surgical History History of esophagogastroduodenoscopy (EGD) H/O wrist surgery History of hysterectomy History of appendectomy H/O bilateral mastectomy Hx of colonoscopy with polypectomy Family History Father No problems noted. Mother No problems noted. Brother Heart valve replaced Social History Patient Tobacco Use Status: Never used Tobacco Review of Systems Const Denies chills, Denies fatigue, Denies fever(s), Denies frequent falls, Denies weakness, Denies weight gain and Denies weight loss ENT Denies dizziness Card Denies chest pain, Denies leg edema, Denies lightheadedness, Denies palpita tions, Denies dyspnea, Denies dyspnea on exertion, Denies orthopnea and Denies other (loss of consciousness) Resp Denies cough, Denies dyspnea and Denies dyspnea on exertion GI Denies hematochezia and Denies change in stool character Musc Denies abnormal gait, Denies muscle weakness, Denies numbness, Denies radiating pain into limb and Denies tingling Neuro Denies Abnormal speech present, Denies abnormal gait, Denies dizziness, Denies frequent falls, Denies numbness, Denies tingling and Denies weakness Endo Denies fatigue and Denies palpitations Physical Exam Vital Signs: Last Vital Signs Pulse 89 10/14/23 13:33 BP 102/58 L 10/14/23 13:33 BMI result Body Mass Index 20.7 Const General: cooperative, comfortable, no acute distress, alert, awake, Physically active and anxious Nutritional Appearance: other (Frail) Orientation/consciousness: patient oriented x3 Limitations: no limitations and wheelchair Neck Neck: Yes trachea midline, Yes supple and Yes no JVD Chest Chest palpation & inspection: normal inspection of the chest Resp Effort & Inspection: normal respiratory effort Auscultation: clear to auscultation bilaterally Cardio Jugular venous distension: no JVD Palpation: normal PMI Rate: regular rate and tachycardic Rhythm: regular rhythm Heart sounds: S1 normal heart sound present, S2 normal heart sound present, no click, no gallops and no murmurs Neuro General: patient oriented x3 and no focal motor deficits Speech: No Abnormal speech present Assessment & Plan Assessment & Plan (1) Cardiac arrhythmia: Code(s): I49.9 - Cardiac arrhythmia, unspecified Category: Medical Plan: Cardiac arrhythmias of PACs and short runs of SVT in this elderly woman with no active significant cardiac issues. She continues to have intermittent symptoms of palpitation although she has had significant weight loss in his result has low blood pressures now. She occasionally has orthostatic lightheadedness. Would not suggest that she be treated with any form pharmacotherapy and benign nature of her arrhythmias was discussed with her. However she has not convinced. Will suggest a 3 day Holter monitor. Also suggest echocardiogram on her insistence to assess LV systolic function. Otherwise no further cardiac workup is indicated. Stress mitigation strategies discussed. Should avoid stimulants. Will follow up in the clinic if need be. Orders: Orders CA echo limited Today I49.9 - Cardiac arrhythmia, unspecified ECG 3 day holter monitor Today I49.9 - Cardiac arrhythmia, unspecified Coding Level of Care Code Est Pt Level 3 (80554) Diagnoses Cardiac arrhythmia I49.9
[2023-10-14 13:33] VITALS: BP 102/58; PULSE 89; BMI 20.7
== END 2023-10-14 14:22 | disposition home or self-care (01) ==
PROVIDERS: PCP Family Medicine; Visit Provider Internal Medicine Cardiovascular Disease
DX: I49.9 Cardiac arrhythmia, unspecified (principal)
CPT/HCPCS: 99213

== ENCOUNTER → 2023-10-14 13:25 | Outpatient (BNVA) | payer MEDICARE, SELFPAY | PROVIDERS: PCP Family Medicine; Visit Provider Internal Medicine Cardiovascular Disease | DX: I49.9 Cardiac arrhythmia, unspecified (principal) | CPT/HCPCS: 99212 ==

== ENCOUNTER → 2023-10-17 12:20 | Outpatient (BNVA) | payer MEDICARE, SELFPAY | PROVIDERS: PCP Family Medicine; Visit Provider Nurse Practitioner ==

== ENCOUNTER → 2023-10-24 12:44 | Outpatient (BNVA) | payer MEDICARE, SELFPAY | PROVIDERS: PCP Family Medicine; Visit Provider Nurse Practitioner ==

== ENCOUNTER → 2023-11-12 11:00 | Outpatient (REF) | payer MEDICARE, SELFPAY ==
--- NOTE | 2023-11-12 11:03 | HM_ITS ---
Conclusion: 1. Patient was monitored for total period of 2 days and 23 hours 2. Baseline was normal sinus rhythm with average heart of 78 beats per minute 3. No significant pauses noted 4. Frequent mostly isolated PVCs noted with total burden of 2.8% 5. Patient complained of 5 events correlating with either fatigue or chest pain showing either normal sinus rhythm or isolated PVCs MTDD
--- NOTE | 2023-11-12 11:03 | CA_ITS ---
Transthoracic Echocardiogram Patient (Last, First, Middle): Rufina Reyes Ann Gender: Female Date of : 1955 Age: 67 Procedure Date: 11/12/2023 Procedure Type: Transthoracic Echocardiogram Location: OP Height: 152.4 cm Weight: 49.9 kg BSA: 1.45 m2 Heart Rate: bpm BP: 124 / 86 mmHg School Age Program Associate: TIEN Referring MD: Morris Sharpe MD Symptoms: I49.9 - Cardiac arrhythmia, unspecified Study Quality: Adequate Conclusions: - Normal LV ejection fraction at 60-65% with impaired relaxation filling pattern Findings Left Ventricle Normal left ventricular size, thickness, and systolic function. The visually estimated ejection fraction is between 60-65%. Spectral Doppler is indicative of an impaired relaxation filling pattern. E/E prime ratio is <8, consistent with normal filling pressures. Evidence suggests grade I (mild) diastolic dysfunction. Prior Study Comparison No prior study available for comparison. Measurements 2D Linear Measurements IVSd: 0.74 0.6-0.9/0.6-1.0 cm LVIDd: 3.82 3.9-5.3/4.2-5.9 cm LVIDd Index: 2.63 2.4-3.2/2.2-3.1 cm/m2 LVIDs: 2.86 2.0-3.6 cm LVPWd: 0.74 0.7-1.1 cm LA Diam: 2.60 2.7-3.8/3.0-4.0 cm LAIDs Index: 1.79 1.5-2.3 cm/m2 LV Mass: 96.60 67-162/88-224 g LV Mass Index: 66.62 43-95/49-115 g/m2 LVOT Diam: 2.00 3.0+(-)1.3 cm 2D Systolic Function EF 4C: 63.00 >55% EF 2C: 58.50 >55% EF BiP: 60.30 >55% Mitral Valve MV Pk E: 0.75 MV PK A: 0.93 MV Decel Time: 256.00 E/A: 0.80 E'Lateral: 7.07 E'Medial: 6.85 E/E' Med: 10.90 E/E' Lat: 10.60 PHT: 75.00 MVA PHT: 2.93 Decel George: 2.91 Aortic Valve AoV Pk Samm: 0.70 AoV Mn Samm: 0.46 AoV VTI: 0.15 AoV Pk Grad: 2.00 Aov Mn Grad: 1.00 LVOT LVOT Diam: 2.00 LVOT Area: 3.14 Diastolic Function MV Pk E: 0.75 MV Pk A: 0.93 E/A: 0.80 E'Medial: 6.85 E/E' Med: 10.90 E' Laterial: 7.07 E/E' Lat: 10.60 Tricuspid Valve RA Press: 3.00 Updated in Other Vendor System with Status of Final Morris Sharpe MD electronically signed on 11/13/2023 5:26:49 PM with status of Final
== END ==
LOC: HO.CARD 11:00
PROVIDERS: PCP Family Medicine; Visit Provider Internal Medicine Cardiovascular Disease
DX: I49.8 Other specified cardiac arrhythmias (principal)
CPT/HCPCS: 93242; 93308

== ENCOUNTER → 2023-11-12 11:03 | Outpatient (BNV) | payer MEDICARE, SELFPAY | PROVIDERS: PCP Family Medicine; Visit Provider Internal Medicine Cardiovascular Disease | DX: I49.3 Ventricular premature depolarization (principal) | CPT/HCPCS: 93244; 93308; 93321; 93325 ==

== ENCOUNTER 2023-11-18 13:29 | Outpatient (REF) | payer MEDICARE, SELFPAY ==
--- NOTE | ~2023-11-18 | MM_ITS ---
EXAMINATION: BONE DENSITOMETRY CLINICAL INDICATION: Osteoporosis. COMPARISON: This is the patient's baseline examination. TECHNIQUE: Using a [employer] DXA System (software version: 13.1) manufactured by [employer], dual-energy x-ray absorptiometry was performed of the lumbar spine and left hip. The images are of good technical quality. Summary results are attached. FINDINGS: LEFT FEMUR, NECK: BMD 0.625 g/cm2, Z-score -1.0, T-score -3.0, osteoporosis. LEFT FEMUR, TOTAL: BMD 0.651 g/cm2, Z-score -1.1, T-score -2.8, osteoporosis. AP SPINE L1-L2 (excluding L3 and L4): The data of L1-L4 has been changed to exclude the L3 and L4 vertebral bodies, because degenerative sclerosis at these levels may cause overestimation of lumbar spine density. BMD 0.795 g/cm2, Z-score -0.9, T-score -3.1, osteoporosis. IDENTIFIED RISK FACTORS: Osteoporosis, low calcium intake. Early menopause, secondary osteoporosis, hysterectomy, right oophorectomy. HISTORY OF FRACTURE: None listed. MEDICATIONS: None listed. MM/XR DEXA axial skeleton IMPRESSION: 1. DIAGNOSIS: Osteoporosis based on the lowest T-score value of -3.1 in the lumbar spine applying World Health Organization criteria. 2. 10-YEAR FRACTURE RISK PREDICTION, FRAX: According to the guidelines, FRAX calculation should only be performed on patients in the osteopenia bone density category. Therefore, FRAX was not performed on this patient. 3. Treatment Recommendations: NOF guidelines recommend consideration for treatment in postmenopausal women and men age 50 and older presenting with the following: -A hip or vertebral (clinical or morphometric) fracture. -T-score less than or equal to -2.5 at the femoral neck or spine after appropriate evaluation to exclude secondary causes. -Low bone mass at the hip or spine and a 10-year fracture probability by FRAX of greater than or equal to 3% for hip fracture or greater than or equal to 20% for major osteoporotic fracture based on the [place] adapted WHO algorithm. 4. Other Recommendations: All treatment decisions require clinical judgment and consideration of individual patient factors, including patient preferences, comorbidities, previous drug use, risk factors not captured in the FRAX model (e.g. frailty, falls, vitamin D deficiency, increased bone turnover, interval significant decline in bone density) and possible under or overestimation of fracture risk by FRAX. Additional medical evaluation for secondary cause of low bone mineral density may be appropriate. FUTURE SCAN RECOMMENDATION: People with diagnosed cases of osteoporosis or at high risk for fracture should have regular bone mineral density tests. For patients eligible for Medicare, routine testing is allowed once every 2 years. The testing frequency can be increased to one year for patients who have rapidly progressing disease, those who are receiving or discontinuing medical therapy to restore bone mass, or have additional risk factors.
[2023-11-18 14:53] LABS: MANUAL DIFF FLAG NO
[2023-11-18 15:32] LABS: Basophils Absolute Auto 0.1 X10*3/uL (0.0-0.2); Basophils Percent Auto 1.2 % (0-2); Eosinophils Absolute Auto 0.1 X10*3/uL (0.0-0.4); Hematocrit 42.3 % (37.0-47.0); Hemoglobin 13.7 g/dl (12.0-16.0); Imm Gran Abs Auto 0.02 X10*3/uL (0.00-0.03); Imm Gran Pct Auto 0.3 % (0.0-0.4); Lymphocytes Absolute Auto 1.3 X10*3/uL (1.2-4.9); Lymphocytes Percent Auto 19.2 % (20-40); Mean Corpuscular HGB Conc 32.4 g/dl (31.0-35.0); Mean Corpuscular Hemoglobin 29.2 pg (27.0-33.0); Mean Corpuscular Volume 90.2 fL (80.0-98.0); Mean Platelet Volume 10.4 fL (9.4-12.3); Monocytes Absolute Auto 0.5 X10*3/uL (0.1-1.2); Monocytes Percent Auto 7.1 % (2-11); Neutrophils Absolute Auto 4.9 x10*3/uL (2.0-8.3); Neutrophils Percent Auto 70.2 % (45-73); Platelet Count 276 X10*3/uL (160-400); Red Blood Count 4.69 X10*6/uL (4.20-5.50); Red Cell Distribution Width 14.7 % (11.0-16.0); White Blood Count 6.9 X10*3/uL (4.8-10.8)
[2023-11-18 16:05] LABS: Alanine Aminotransferase 16 U/L (0-31); Albumin Level 4.3 g/dL (3.5-5.0); Alkaline Phosphatase 92 U/L (39-117); Anion Gap 14 (12-20); Aspartate Amino Transferase 20 U/L (5-31); Bilirubin Total 0.3 mg/dL (0.0-1.0); Blood Urea Nitrogen 30 mg/dL (9-16); Calcium 9.9 mg/dL (8.4-10.2); Carbon Dioxide 26 mmol/L (22-29); Chloride 105 mmol/L (96-108); Estimated Glomerular Filt Rate > 60; Glucose Random 97 mg/dL (60-115); Phosphorus 4.2 mg/dL (2.7-4.5); Potassium 4.3 mmol/L (3.3-5.1); Sodium 141 mmol/L (135-145); Total Protein 7.5 g/dL (6.5-8.0)
[2023-11-18 16:15] LABS: Iron 73 mcg/dL (30-160); Magnesium 2.3 mg/dL (1.6-2.6); Percent Iron Saturation 22 % (15-50); Total Iron Binding Capacity 330 mcg/dL (228-428); Unsaturated Iron Binding 257 ug/dL
[2023-11-18 16:31] LABS: Ferritin 43 ng/mL (10-250)
== END 2023-11-18 13:30 | disposition home or self-care (01) ==
LOC: HO.MAMMO 13:29
PROVIDERS: Nurse Practitioner; PCP Family Medicine; Visit Provider Family Medicine
DX: E87.8 Other disorders of electrolyte and fluid balance, not elsewhere classified (principal); E46 Unspecified protein-calorie malnutrition; R53.83 Other fatigue; M81.0 Age-related osteoporosis without current pathological fracture
CPT/HCPCS: 36415; 77080; 80053; 82728; 83540; 83735; 84100; 84134; 85025

== ENCOUNTER → 2023-11-19 11:53 | Outpatient (BNVA) | payer MEDICARE, SELFPAY | PROVIDERS: PCP Family Medicine; Visit Provider Nurse Practitioner ==

== ENCOUNTER 2023-12-12 14:56 | Outpatient (REF) | payer MEDICARE, SELFPAY ==
[2023-12-12 16:52] LABS: Urine Cytology See Pathology rpt
== END 2023-12-12 14:57 | disposition home or self-care (01) ==
LOC: HO.LAB 14:56
PROVIDERS: PCP Family Medicine; Visit Provider Urology
DX: R32 Unspecified urinary incontinence (principal); N95.2 Postmenopausal atrophic vaginitis; M62.89 Other specified disorders of muscle; R39.14 Feeling of incomplete bladder emptying; N39.42 Incontinence without sensory awareness
CPT/HCPCS: 51798; 81003; 87086; 88112; 99202

== ENCOUNTER 2023-12-12 15:04 | Outpatient (AMB) | payer MEDICARE, SELFPAY ==
--- NOTE | 2023-12-12 13:27 | MHC.OFFVIS ---
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: No Allergies Benzodiazepines Allergy (Severe, Verified 12/12/23 13:30) Agitated codeine Allergy (Severe, Verified 12/12/23 13:30) Vomiting gluten Allergy (Severe, Verified 12/12/23 13:30) Gastrointestinal Upset hydroxyzine Allergy (Severe, Verified 12/12/23 13:30) Agitated metoprolol Allergy (Severe, Verified 12/12/23 13:30) throat swelling, confusion Milk Containing Products (Dairy) Allergy (Severe, Verified 12/12/23 13:30) Gastrointestinal Upset propranolol Allergy (Severe, Verified 12/12/23 13:30) Throat swelling, confusion soy Allergy (Severe, Verified 12/12/23 13:30) gastric problems levofloxacin [From Levaquin] Allergy (Mild, Verified 12/12/23 13:30) Rash pseudoephedrine [From Sudafed] Adverse Reaction (Intermediate, Verified 12/12/23 13:30) Palpitations Sulcrafate Allergy (Severe, Uncoded 12/12/23 13:30) Swelling in throat HPI Comments Details: Rufina Selby (Sola) is here with complaints of changes in urination. She states that in April, she was hospitalized for low sodium. She was rehospitalized in May, june, and July. She states that she has had issues with her GI system and has lost about 25 lb since April,. She states that she leaks urine. She states she was treated for urinary tract infection. She does not feel like she completely empties her bladder. States had hysterectomy age 27 for endometriosis and then she states she was told she did not have endometriosis. On examination- vaginal atrophy, no pelvic floor prolapse visualized, positive leakage with coughing. Catheterized urine 160 mL. [facility], [facility] Surgical History History of esophagogastroduodenoscopy (EGD) H/O wrist surgery History of hysterectomy History of appendectomy H/O bilateral mastectomy Hx of colonoscopy with polypectomy Family History Father No problems noted. Mother No problems noted. Brother Heart valve replaced Social History Patient Tobacco Use Status: Never used Tobacco Review of Systems Const All systems reviewed & are unremarkable except as noted in HPI and below Reports no additional complaints Eyes Reports no additional complaints ENT Reports no additional complaints Card Reports no additional complaints Resp Reports no additional complaints GI Reports no additional complaints Reports as per HPI Musc Reports no additional complaints Skin/Breast Reports system reviewed and no additional complaints, except as documented Neuro Reports no additional complaints Psych Reports no additional complaints Endo Reports no additional complaints Eleazar/Lymph Reports no additional complaints Aller/Immun Reports no additional complaints Physical Exam Const General: cooperative, healthy appearing and no acute distress Orientation/consciousness: patient oriented x3 HEENT Head: Yes normal to inspection, Yes normocephalic and Yes atraumatic Eyes Conjunctivae: conjunctivae normal Neck Neck: Yes normal visual inspection and Yes trachea midline Chest Chest palpation & inspection: normal inspection of the chest Resp Effort & Inspection: normal respiratory effort Cardio Rate: regular rate GI Inspection: Yes normal to inspection Palpation (GI): Soft to palpation General: No no CVA tenderness External Female Exam: normal external appearance Speculum Exam - Vagina: vagina atrophic Back/Spine/Pelvis Back: No no CVA tenderness Skin General skin exam: no rashes or lesions noted Neuro General: patient oriented x3 Extrem General: No edema Psych Appearance: grossly normal Office Procedures Post Void Residual Post Residual Void Post Void Residual (PVR): 83 [id number] Void Residual by ultrasound Results AMB Urinalysis, Automated UA Leukoctes 0 Boo/uL Last Edit by Demetrio Langford LPN on 12/12/23 16:49 UA Nitrite Negative Last Edit by Demetrio Langford LPN on 12/12/23 16:49 UA Urobilinogen 0.2 mg/dL Last Edit by Demetrio Langford LPN on 12/12/23 16:49 UA Protein 15 mg/dL Last Edit by Demetrio Langford LPN on 12/12/23 16:49 UA pH 6.5 Last Edit by Demetrio Langford LPN on 12/12/23 16:49 UA Blood 25 Omid/uL Last Edit by Demetrio Langford LPN on 12/12/23 16:49 UA Specific [place] 1.010 Last Edit by Demetrio Langford LPN on 12/12/23 16:49 UA Ketone Negative Last Edit by Demetrio Langford LPN on 12/12/23 16:49 UA Bilirubin 0 mg/dL Last Edit by Demetrio Langford LPN on 12/12/23 16:49 UA Glucose 0 mg/dL Last Edit by Demetrio Langford LPN on 12/12/23 16:49 Assessment & Plan Assessment & Plan (1) Urinary incontinence: Code(s): R32 - Unspecified urinary incontinence Category: Medical (2) Feeling of incomplete bladder emptying: Code(s): R39.14 - Feeling of incomplete bladder emptying Category: Medical (3) Urinary incontinence without sensory awareness: Code(s): N39.42 - Incontinence without sensory awareness Category: Medical Plan Renal Bladder US Urodynamics Orders: Orders US retroperitoneal comp Today R32 - Unspecified urinary incontinence, R39.14 - Feeling of incomplete bladder emptying AMB Post Void Residual by ultrasound Today M62.89 - Other specified disorders of muscle, R32 - Unspecified urinary incontinence Urine Culture Today N95.2 - Postmenopausal atrophic vaginitis, R32 - Unspecified urinary incontinence Urine Cytology Today M62.89 - Other specified disorders of muscle, N95.2 - Postmenopausal atrophic vaginitis, R32 - Unspecified urinary incontinence AMB Urinalysis Automated Today M62.89 - Other specified disorders of muscle, N95.2 - Postmenopausal atrophic vaginitis, R32 - Unspecified urinary incontinence Patient Instructions: The patient had an opportunity to ask questions regarding treatment plan. The patient expressed understanding and agreement with the above treatment plan. The patient is aware they should contact our office by phone for worsening of their current condition or the appearance of new symptoms. Compliance is encouraged with any medications and followup testing that is ordered. It is a privilege to be allowed the opportunity to participate in the urologic care of your patient. If you have any questions or concerns regarding treatment for the above conditions please do not hesitate to contact me. The office telephone contact is [phone]. This note is constructed in part using voice recognition software. While every effort has been made to ensure accuracy associate professor of criminal justice errors may have been included. Yours sincerely, Yasmin Walsh MD Coding Level of Care Code New Pt Level 4 (17606) Diagnoses Urinary incontinence R32 Feeling of incomplete bladder emptying R39.14 Urinary incontinence without sensory awareness N39.42 CPT Codes Post Residual Void - PVR CPT Code: 52690-Dkbl Void Residual by ultrasound ([id number])
== END 2023-12-12 16:06 | disposition home or self-care (01) ==
PROVIDERS: PCP Family Medicine; Visit Provider Urology
DX: R39.14 Feeling of incomplete bladder emptying (principal); N39.42 Incontinence without sensory awareness; N95.2 Postmenopausal atrophic vaginitis; M62.89 Other specified disorders of muscle
CPT/HCPCS: 99204

== ENCOUNTER → 2023-12-17 11:54 | Outpatient (BNVA) | payer MEDICARE, SELFPAY | PROVIDERS: PCP Family Medicine; Visit Provider Nurse Practitioner ==

== ENCOUNTER 2024-01-09 11:25 | Outpatient (AMB) | payer MEDICARE, SELFPAY ==
--- NOTE | 2024-01-09 11:36 | A.OFFVIS_ITS ---
Vital Signs 01/09/24 11:38 Height 5 ft Weight 107 lb 2 oz BMI 20.9 BP 143/77 H Blood Pressure Location Lt brachial Position Sitting Pulse 96 Intake Visit Reasons: MAST CELL SYNDROME (Nadira Urena pt) Intake Note: Umm presents in the office as a follow up. CC: States she was supposed to see Lisandra to begin with. Allergies Benzodiazepines Allergy (Severe, Verified 01/09/24 11:38) Agitated codeine Allergy (Severe, Verified 01/09/24 11:38) Vomiting gluten Allergy (Severe, Verified 01/09/24 11:38) Gastrointestinal Upset hydroxyzine Allergy (Severe, Verified 01/09/24 11:38) Agitated metoprolol Allergy (Severe, Verified 01/09/24 11:38) throat swelling, confusion Milk Containing Products (Dairy) Allergy (Severe, Verified 01/09/24 11:38) Gastrointestinal Upset propranolol Allergy (Severe, Verified 01/09/24 11:38) Throat swelling, confusion soy Allergy (Severe, Verified 01/09/24 11:38) gastric problems levofloxacin [From Levaquin] Allergy (Mild, Verified 01/09/24 11:38) Rash pseudoephedrine [From Sudafed] Adverse Reaction (Intermediate, Verified 01/09/24 11:38) Palpitations Sulcrafate Allergy (Severe, Uncoded 01/09/24 11:38) Swelling in throat HPI HPI MAST CELL SYNDROME (Nadira Urena pt): Details: 68 yr old f w hx of breast ca and b/l mastectomy here for f/u She has histamine intolerance, she has issues with abdominal pain with food she can get immediate pain with food she has tried rifaximin and it maybe helped --tried 07/19 she has belching and bloating she is scared to eat she was taking simethicone she is wheelchair bound now and waiting to see neurologist --up till recently she was independent and horse riding etc so dramatic change she has tingling in hands and feet she had colonoscopy 2021- surgical resection --repeat colonoscopy was ok last EGD 2022--- normal she has raynauds she denies joint swelling EXAM: GENERAL: The patient is well developed and nontoxic. VITAL SIGNS:see workflow HEENT: Nonicteric sclerae, PERRLA, EOMI. Oropharynx clear. Moist mucous membranes. Conjunctivae appear well perfused. No thyroid mass. CHEST: Chest wall is nontender. HEART: Regular rate and rhythm without murmurs. LUNGS: Clear to auscultation bilaterally. ABDOMEN: Soft, positive bowel sounds, nontender, no organomegaly.no flank tenderness SKIN: No rash, no excessive bruising, petechiae, or purpura. NEUROLOGIC: Cranial nerves II-XII intact, some past pointing, some redish discoloration of toes -slightly cold, unable to stand and walk Psych: normal affect A/P: 1/ Sitophobia, weight loss, neurological sx, and raynauds, need to r/o vasculitis, mesenteric ischemia etc, small nerve fiber neuropathy, SLE, less likely FMF, porphyria or phaechromocytoma, maybe related to her prior exposure chemo exposure for breast ca 20 yrs ago. PLAN: 1/ PCP ordered MR brain 2/ I will order doppler, if pos then CTA 3/ meantime labs as below incl heavy metal screen, EP, tick serologies, CPK, anti neuronal AB 4/ might need skin bx for nerve fiber neuropathy 5/ for nutrition might need PEG, vs PEJ or TPN 6/ meantime repeat course of rifaximin and can try probiotic see if helps some of her bloating, although this may be due to dysmotility. [facility] Surgical History History of esophagogastroduodenoscopy (EGD) H/O wrist surgery History of hysterectomy History of appendectomy H/O bilateral mastectomy Hx of colonoscopy with polypectomy Family History Father No problems noted. Mother No problems noted. Brother Heart valve replaced Social History Patient Tobacco Use Status: Never used Tobacco Physical Exam Vital Signs: Last Vital Signs Pulse 96 01/09/24 11:38 BP 143/77 H 01/09/24 11:38 BMI result Body Mass Index 20.9 Assessment & Plan Assessment & Plan (1) Abdominal pain: Code(s): R10.9 - Unspecified abdominal pain Category: Medical Plan: see above (2) Unintentional weight loss: Code(s): R63.4 - Abnormal weight loss Category: Medical Plan: see above (3) Adult failure to thrive: Code(s): R62.7 - Adult failure to thrive Category: Medical Plan: see above (4) Small intestinal bacterial overgrowth (SIBO), hydrogen subtype: Code(s): K63.8211 - Small intestinal bacterial overgrowth, hydrogen-subtype Category: Medical Plan: see Orders: Orders Comprehensive Met. Panel Today K63.8211 - Small intestinal bacterial overgrowth, hydrogen-subtype, K75.81 - Nonalcoholic steatohepatitis (PEARL), R10.9 - Unspecified abdominal pain, R62.7 - Adult failure to thrive, R63.4 - Abnormal weight loss C Reactive Protein Today K63.8211 - Small intestinal bacterial overgrowth, hydrogen-subtype, R10.9 - Unspecified abdominal pain, R62.7 - Adult failure to thrive, R63.4 - Abnormal weight loss Lactoferrin, Fecal, Quant. Today K51.50 - Left sided colitis without complications, K63.8211 - Small intestinal bacterial overgrowth, hydrogen- subtype, R10.9 - Unspecified abdominal pain, R62.7 - Adult failure to thrive, R63.4 - Abnormal weight loss Angiotensin Converting Enzyme Today K63.8211 - Small intestinal bacterial overgrowth, hydrogen-subtype, R10.9 - Unspecified abdominal pain, R62.7 - Adult failure to thrive, R63.4 - Abnormal weight loss ANCA Vasculitides Today K63.8211 - Small intestinal bacterial overgrowth, hydrogen-subtype, R10.9 - Unspecified abdominal pain, R62.7 - Adult failure to thrive, R63.4 - Abnormal weight loss LEEROY Reflex Titer and Pattern Today K63.8211 - Small intestinal bacterial overgrowth, hydrogen-subtype, R10.9 - Unspecified abdominal pain, R62.7 - Adult failure to thrive, R63.4 - Abnormal weight loss, R79.82 - Elevated C-reactive protein (CRP) H pylori Ag Stool Today K63.8211 - Small intestinal bacterial overgrowth, hydrogen-subtype, R10.9 - Unspecified abdominal pain, R62.7 - Adult failure to thrive, R63.4 - Abnormal weight loss TSH reflex Free T4 Today K63.8211 - Small intestinal bacterial overgrowth, hydrogen-subtype, R10.9 - Unspecified abdominal pain, R62.7 - Adult failure to thrive, R63.4 - Abnormal weight loss Magnesium Today K63.8211 - Small intestinal bacterial overgrowth, hydrogen- subtype, R10.9 - Unspecified abdominal pain, R62.7 - Adult failure to thrive, R63.4 - Abnormal weight loss Vitamin B6 Today K63.8211 - Small intestinal bacterial overgrowth, hydrogen- subtype, R10.9 - Unspecified abdominal pain, R62.7 - Adult failure to thrive, R63.4 - Abnormal weight loss Vitamin C Today K63.8211 - Small intestinal bacterial overgrowth, hydrogen- subtype, R10.9 - Unspecified abdominal pain, R62.7 - Adult failure to thrive, R63.4 - Abnormal weight loss Vitamin E Today K63.8211 - Small intestinal bacterial overgrowth, hydrogen- subtype, R10.9 - Unspecified abdominal pain, R62.7 - Adult failure to thrive, R63.4 - Abnormal weight loss Zinc Today K63.8211 - Small intestinal bacterial overgrowth, hydrogen-subtype, R10.9 - Unspecified abdominal pain, R62.7 - Adult failure to thrive, R63.4 - Abnormal weight loss Protein Electrophoresis, Serum Today K63.8211 - Small intestinal bacterial overgrowth, hydrogen-subtype, R10.9 - Unspecified abdominal pain, R62.7 - Adult failure to thrive, R63.4 - Abnormal weight loss Protein Electrophoresis,Ran Ur Today K63.8211 - Small intestinal bacterial overgrowth, hydrogen-subtype, R10.9 - Unspecified abdominal pain, R62.7 - Adult failure to thrive, R63.4 - Abnormal weight loss Fecal Fat Qualitative Today K63.8211 - Small intestinal bacterial overgrowth, hydrogen-subtype, R10.9 - Unspecified abdominal pain, R62.7 - Adult failure to thrive, R63.4 - Abnormal weight loss Ferritin Today K63.8211 - Small intestinal bacterial overgrowth, hydrogen- subtype, R10.9 - Unspecified abdominal pain, R62.7 - Adult failure to thrive, R63.4 - Abnormal weight loss Erythrocyte Sedimentation Rate Today K63.8211 - Small intestinal bacterial overgrowth, hydrogen-subtype, R10.9 - Unspecified abdominal pain, R62.7 - Adult failure to thrive, R63.4 - Abnormal weight loss Ehrlichia Anaplasma Ab Panel Today K63.8211 - Small intestinal bacterial overgrowth, hydrogen-subtype, R10.9 - Unspecified abdominal pain, R62.7 - Adult failure to thrive, R63.4 - Abnormal weight loss Lyme IgG/IgM w/reflex to WB Today K63.8211 - Small intestinal bacterial overgrowth, hydrogen-subtype, R10.9 - Unspecified abdominal pain, R62.7 - Adult failure to thrive, R63.4 - Abnormal weight loss Lipase Today K63.8211 - Small intestinal bacterial overgrowth, hydrogen- subtype, R10.9 - Unspecified abdominal pain, R62.7 - Adult failure to thrive, R63.4 - Abnormal weight loss Complete Blood Count Auto Diff Today K63.8211 - Small intestinal bacterial overgrowth, hydrogen-subtype, R10.9 - Unspecified abdominal pain, R62.7 - Adult failure to thrive, R63.4 - Abnormal weight loss Aldolase Today K63.8211 - Small intestinal bacterial overgrowth, hydrogen- subtype, R10.9 - Unspecified abdominal pain, R62.7 - Adult failure to thrive, R63.4 - Abnormal weight loss Transglutaminase Ab IgG Today G89.29 - Other chronic pain, K63.8211 - Small intestinal bacterial overgrowth, hydrogen-subtype, R10.33 - Periumbilical pain, R10.9 - Unspecified abdominal pain, R62.7 - Adult failure to thrive, R63.4 - Abnormal weight loss Transglutaminase IgA Today K63.8211 - Small intestinal bacterial overgrowth, hydrogen-subtype, R10.9 - Unspecified abdominal pain, R62.7 - Adult failure to thrive, R63.4 - Abnormal weight loss Tryptase Today K63.8211 - Small intestinal bacterial overgrowth, hydrogen- subtype, R10.9 - Unspecified abdominal pain, R19.7 - Diarrhea, unspecified, R62.7 - Adult failure to thrive, R63.4 - Abnormal weight loss UA CC w/rflx Micro + Cult Today K63.8211 - Small intestinal bacterial overgrowth, hydrogen-subtype, R10.9 - Unspecified abdominal pain, R30.0 - Dysuria, R62.7 - Adult failure to thrive, R63.4 - Abnormal weight loss Vitamin A Today K63.8211 - Small intestinal bacterial overgrowth, hydrogen- subtype, R10.9 - Unspecified abdominal pain, R62.7 - Adult failure to thrive, R63.4 - Abnormal weight loss Vitamin B1 Today K63.8211 - Small intestinal bacterial overgrowth, hydrogen- subtype, R10.9 - Unspecified abdominal pain, R62.7 - Adult failure to thrive, R63.4 - Abnormal weight loss Vitamin B12 and Folate Today K63.8211 - Small intestinal bacterial overgrowth, hydrogen-subtype, R10.9 - Unspecified abdominal pain, R62.7 - Adult failure to thrive, R63.4 - Abnormal weight loss Vitamin B3 (Niacin) Today K63.8211 - Small intestinal bacterial overgrowth, hydrogen-subtype, R10.9 - Unspecified abdominal pain, R62.7 - Adult failure to thrive, R63.4 - Abnormal weight loss Vitamin B5 (Pantothenic Acid) Today K63.8211 - Small intestinal bacterial overgrowth, hydrogen-subtype, R10.9 - Unspecified abdominal pain, R62.7 - Adult failure to thrive, R63.4 - Abnormal weight loss Vitamin D 25-OH Total Today K63.8211 - Small intestinal bacterial overgrowth, hydrogen-subtype, R10.9 - Unspecified abdominal pain, R62.7 - Adult failure to thrive, R63.4 - Abnormal weight loss Vitamin K1 Today K63.8211 - Small intestinal bacterial overgrowth, hydrogen- subtype, R10.9 - Unspecified abdominal pain, R62.7 - Adult failure to thrive, R63.4 - Abnormal weight loss Metanephrines, Plasma Today K63.8211 - Small intestinal bacterial overgrowth, hydrogen-subtype, R10.9 - Unspecified abdominal pain, R62.7 - Adult failure to thrive, R63.4 - Abnormal weight loss Immunoglobulins,IgG IgA IgM Today K63.8211 - Small intestinal bacterial overgrowth, hydrogen-subtype, R10.9 - Unspecified abdominal pain, R62.7 - Adult failure to thrive, R63.4 - Abnormal weight loss Immunoglobulin E Today K63.8211 - Small intestinal bacterial overgrowth, hydrogen-subtype, R10.9 - Unspecified abdominal pain, R62.7 - Adult failure to t hrive, R63.4 - Abnormal weight loss Histamine Plasma Today K63.8211 - Small intestinal bacterial overgrowth, hydrogen-subtype, R10.9 - Unspecified abdominal pain, R62.7 - Adult failure to thrive, R63.4 - Abnormal weight loss Hepatitis A,B,C Profile Today K63.8211 - Small intestinal bacterial overgrowth, hydrogen-subtype, R10.9 - Unspecified abdominal pain, R62.7 - Adult failure to thrive, R63.4 - Abnormal weight loss Heavy Metals Screen Blood Today K63.8211 - Small intestinal bacterial overgrowth, hydrogen-subtype, R10.9 - Unspecified abdominal pain, R62.7 - Adult failure to thrive, R63.4 - Abnormal weight loss HU Antibody Today K63.8211 - Small intestinal bacterial overgrowth, hydrogen- subtype, R10.9 - Unspecified abdominal pain, R62.7 - Adult failure to thrive, R63.4 - Abnormal weight loss Creatine Kinase Total Today K63.8211 - Small intestinal bacterial overgrowth, hydrogen-subtype, R10.9 - Unspecified abdominal pain, R62.7 - Adult failure to thrive, R63.4 - Abnormal weight loss Babesia IgG/IgM Today K63.8211 - Small intestinal bacterial overgrowth, hydrogen-subtype, R10.9 - Unspecified abdominal pain, R62.7 - Adult failure to thrive, R63.4 - Abnormal weight loss US duplex arterial venous comp Today R10.9 - Unspecified abdominal pain Medications: New rifaximin 550 mg PO TID 42 tabs 0RF 2 weeks Discontinued sod phos di, mono-K phos mono 250 mg (Phosphorous) Discontinued Reason: Patient no longer taking 1 tab PO TID 90 tabs 6RF E87.8 - Other disorders of electrolyte and fluid balance, not elsewhere classified sennosides (Natural Senna Laxative) Discontinued Reason: Patient no longer taking 17.2 mg (2 x 8.6 mg) PO BEDTIME 60 tabs 3RF constipation K59.00 - Constipation, unspecified potassium, sodium phosphates 280-160-250 mg (Phosphorous Supplement) Discontinued Reason: Patient no longer taking 1 packet PO QID 100 ea 6RF E87.8 - Other disorders of electrolyte and fluid balance, not elsewhere classified Coding Level of Care Code Est Pt Level 4 (16933) Diagnoses Abdominal pain R10.9 Unintentional weight loss R63.4 Adult failure to thrive R62.7 Small intestinal bacterial overgrowth (SIBO), hydrogen subtype K63.8211
[2024-01-09 11:38] VITALS: BP 143/77; PULSE 96; BMI 20.9
== END 2024-01-09 13:34 | disposition home or self-care (01) ==
PROVIDERS: PCP Family Medicine; Visit Provider Internal Medicine Gastroenterology
DX: R10.9 Unspecified abdominal pain (principal); R63.4 Abnormal weight loss; R62.7 Adult failure to thrive; K63.8211 Small intestinal bacterial overgrowth, hydrogen-subtype
CPT/HCPCS: 99214

== ENCOUNTER 2024-01-09 11:25 | Outpatient (REF) | payer MEDICARE, SELFPAY | END 2024-01-09 11:26 | disposition home or self-care (01) | LOC: HO.LAB 11:25 | PROVIDERS: PCP Family Medicine; Visit Provider Internal Medicine Gastroenterology | DX: K63.8211 Small intestinal bacterial overgrowth, hydrogen-subtype (principal); K75.81 Nonalcoholic steatohepatitis (NASH); K59.00 Constipation, unspecified; R63.4 Abnormal weight loss; R62.7 Adult failure to thrive; E87.8 Other disorders of electrolyte and fluid balance, not elsewhere classified | CPT/HCPCS: 99212 ==

== ENCOUNTER 2024-01-12 14:27 | Outpatient (REF) | payer MEDICARE, SELFPAY ==
[2024-01-12 15:59] LABS: MANUAL DIFF FLAG NO
[2024-01-12 16:16] LABS: Basophils Absolute Auto 0.1 X10*3/uL (0.0-0.2); Basophils Percent Auto 0.9 % (0-2); Eosinophils Absolute Auto 0.1 X10*3/uL (0.0-0.4); Eosinophils Percent Auto 1.2 % (0-4); Hematocrit 44.4 % (37.0-47.0); Hemoglobin 14.8 g/dl (12.0-16.0); Imm Gran Abs Auto 0.03 X10*3/uL (0.00-0.03); Imm Gran Pct Auto 0.4 % (0.0-0.4); Lymphocytes Absolute Auto 1.9 X10*3/uL (1.2-4.9); Lymphocytes Percent Auto 24.1 % (20-40); Mean Corpuscular HGB Conc 33.3 g/dl (31.0-35.0); Mean Corpuscular Hemoglobin 29.1 pg (27.0-33.0); Mean Corpuscular Volume 87.2 fL (80.0-98.0); Mean Platelet Volume 10.5 fL (9.4-12.3); Monocytes Absolute Auto 0.5 X10*3/uL (0.1-1.2); Monocytes Percent Auto 6.2 % (2-11); Neutrophils Absolute Auto 5.4 x10*3/uL (2.0-8.3); Neutrophils Percent Auto 67.2 % (45-73); Platelet Count 308 X10*3/uL (160-400); Red Blood Count 5.09 X10*6/uL (4.20-5.50); Red Cell Distribution Width 14.2 % (11.0-16.0)
[2024-01-12 16:47] LABS: Alanine Aminotransferase 17 U/L (0-31); Albumin Level 4.8 g/dL (3.5-5.0); Alkaline Phosphatase 113 U/L (39-117); Anion Gap 15 (12-20); Aspartate Amino Transferase 21 U/L (5-31); Bilirubin Total 0.4 mg/dL (0.0-1.0); Blood Urea Nitrogen 28 mg/dL (9-16); C Reactive Protein < 0.10 mg/dL (< or = 0.50); Calcium 10.4 mg/dL (8.4-10.2); Carbon Dioxide 25 mmol/L (22-29); Chloride 100 mmol/L (96-108); Estimated Glomerular Filt Rate > 60; Glucose Random 99 mg/dL (60-115); Lipase 62 U/L (8-78); Magnesium 2.2 mg/dL (1.6-2.6); Potassium 3.9 mmol/L (3.3-5.1); Sodium 136 mmol/L (135-145); Total Protein 8.6 g/dL (6.5-8.0)
[2024-01-12 17:10] LABS: Ferritin 66 ng/mL (10-250); TSH reflex Free T4 1.62 uIU/mL (0.32-4.0); Vitamin D 25-OH Total 48.7 ng/mL (>30)
[2024-01-12 17:21] LABS: Erythrocyte Sedimentation Rate 17 MM/HR (0-20)
[2024-01-12 17:26] LABS: Folate 8.4 ng/mL (> or = 4.0); Vitamin B12 931 pg/mL (200-900)
[2024-01-13 08:27] LABS: HBS Num1 0.61 mIU/mL (0-7.99); HBc Num1 0.13 S/CO (0.00-0.79); HBsAGNum1 0.42 S/CO (0.00-0.99); Hepatitis B Core Antibody Nonreactive (Nonreactive); Hepatitis B Surface Antigen Negative (Negative); ~HepC Num1 0.31 S/CO (0.00-0.79); ~Hepatitis A Antibody IgM Nonreactive (Nonreactive); ~Hepatitis B Surface Antibody NONREACTIVE (Nonreactive); ~Hepatitis C Antibody Nonreactive (Nonreactive)
[2024-01-13 20:34] LABS: Myeloperoxidase Antibody <1.0 AI; Proteinase 3 PR3 Antibodies <1.0 AI
[2024-01-13 20:38] LABS: Prot Elec - Albumin 4.8 g/dL (3.8-4.8); Prot Elec - Alpha1 0.3 g/dL (0.2-0.3); Prot Elec - Alpha2 0.7 g/dL (0.5-0.9); Prot Elec - Beta 1 0.5 g/dL (0.4-0.6); Prot Elec - Beta 2 0.5 g/dL (0.2-0.5); Prot Elec - Gamma 1.3 g/dL (0.8-1.7); Prot Elec - Total Protein 8.1 g/dL (6.1-8.1)
[2024-01-13 20:42] LABS: Transglutaminase Ab IgG <1.0 U/mL; Transglutaminase IgA <1.0 U/mL
[2024-01-13 22:13] LABS: IgA 353 mg/dL (70-320); IgG 1328 mg/dL (600-1540); IgM 195 mg/dL (50-300)
[2024-01-13 22:43] LABS: Lyme Abs Screen <0.90 index
[2024-01-15 22:48] LABS: Aldolase 3.6 U/L (<=8.1); Arsenic, Blood 117 mcg/L (<23); Lead, Blood 3.1 mcg/dL (<3.5); Mercury, Blood 76 mcg/L (<=10)
[2024-01-15 22:52] LABS: Immunoglobulin E 13 kU/L (<OR=114)
[2024-01-16 00:18] LABS: Angiotensin Converting Enzyme 43 U/L (9-67)
[2024-01-16 01:13] LABS: Zinc 62 mcg/dL (60-130)
[2024-01-16 06:58] LABS: Babesia IgG <1:64 titer (<1:64); Babesia IgM <1:20 titer (<1:20)
[2024-01-16 07:08] LABS: Anti Nuclear Antibody Screen POSITIVE (NEGATIVE)
[2024-01-16 17:08] LABS: Histamine Plasma <1.5 ng/mL (< OR = 1.8)
[2024-01-16 17:18] LABS: Vitamin B6 14.5 ng/mL (2.1-21.7)
[2024-01-16 17:59] LABS: Beta-Gamma Tocopherol <1.0 mg/L (<=4.3)
[2024-01-16 18:18] LABS: Vitamin A 73 mcg/dL (38-98)
[2024-01-17 12:33] LABS: Nicotinamide <20 ng/mL (see note); Vit B3 - Nicotinic Acid <20 ng/mL (see note)
[2024-01-17 14:28] LABS: Vitamin B5 (Pantothenic Acid) <=40 ng/mL (<275)
[2024-01-18 07:54] LABS: Metanephrine, Free 35 pg/mL (<=57); Normetanephrines, Free 70 pg/mL (<=148); Total Metanephrine, Free 105 pg/mL (<=205)
[2024-01-18 20:54] LABS: Fecal Fat Qualitative Normal (Normal)
[2024-01-18 21:59] LABS: A. Phagocytophilum Ab IgG <1:64 (<1:64); A. Phagocytophilum Ab IgM <1:20 (<1:20); E. Chaffeensis Ab IgG <1:64 (<1:64); E. Chaffeensis Ab IgM <1:20 (<1:20)
[2024-01-19 06:18] LABS: Vitamin B1 8 nmol/L (8-30)
[2024-01-21 21:33] LABS: Lactoferrin, Fecal, Quant. <6.25 mcg/mL (<7.25)
[2024-01-22 22:33] LABS: Hu Antibody Screen, IFA Serum FLUORESCENCE NOTED (NEGATIVE); Hu Antibody Western Blot NEGATIVE (NEGATIVE)
== END 2024-01-12 14:28 | disposition home or self-care (01) ==
LOC: HO.LAB 14:27
PROVIDERS: PCP Family Medicine; Visit Provider Internal Medicine Gastroenterology
DX: K51.50 Left sided colitis without complications (principal); R79.82 Elevated C-reactive protein (CRP); K75.81 Nonalcoholic steatohepatitis (NASH); G89.29 Other chronic pain; R10.33 Periumbilical pain; K63.8211 Small intestinal bacterial overgrowth, hydrogen-subtype; R62.7 Adult failure to thrive; R63.4 Abnormal weight loss; R10.9 Unspecified abdominal pain; R30.0 Dysuria; R19.7 Diarrhea, unspecified
CPT/HCPCS: 80053; 82085; 82164; 82175; 82180; 82306; 82550; 82607; 82705; 82728; 82746; 82784; 82785; 83088; 83520; 83631; 83655; 83690; 83735; 83825; 83835; 84165; 84181; 84207; 84425; 84443; 84446; 84590; 84591; 84630; 85025; 85652; 86021; 86038; 86039; 86140; 86255; 86256; 86364; 86617; 86618; 86666; 86704; 86706; 86709; 86753; 86803; 87338; 87340

== ENCOUNTER 2024-01-16 11:15 | Outpatient (REF) | payer MEDICARE, SELFPAY ==
--- NOTE | ~2024-01-16 | MR_ITS ---
EXAMINATION: MR BRAIN WITHOUT CONTRAST CLINICAL INFORMATION: Transient vision loss bilaterally. COMPARISON: None available. TECHNIQUE: MRI of the brain was obtained using routine sequences without contrast. FINDINGS: No focal restricted diffusion is demonstrated to suggest acute or subacute cerebral ischemia. No evidence of acute or chronic hemorrhagic products on heme-sensitive imaging. Scattered periventricular and deep white matter T2 FLAIR hyperintensities consistent with mild underlying microangiopathy. Proportional prominence of the ventricles and sulcal spaces without evidence of obstructive hydrocephalus. No abnormal mass effect. No midline shift. Normal appearance of the pituitary gland. Normal positioning of the cerebellar tonsils. Normal arterial and venous vascular flow voids are present. Normal, homogeneous marrow signal. Mild mucosal thickening of the paranasal sinuses. No signal abnormalities within the mastoids. No demonstrated abnormalities of the orbits on limited evaluation. MR/MR head/brain wo con IMPRESSION: 1. No acute intracranial abnormalities. 2. Mild underlying microangiopathy and generalized cerebral volume loss. Electronically signed by: Sidney Dailey DO 02/06/2024 10:44 PM EDT
== END 2024-01-16 11:16 | disposition home or self-care (01) ==
LOC: HO.MRI 11:15
PROVIDERS: PCP Family Medicine; Visit Provider Family Medicine
DX: H53.123 Transient visual loss, bilateral (principal)
CPT/HCPCS: 70551

== ENCOUNTER 2024-01-16 18:42 | Inpatient (IN) | payer MEDICARE, OTHER, SELFPAY ==
--- NOTE | ~2024-01-16 | US_ITS ---
EXAMINATION: Ultrasound abdominal arterial Doppler CLINICAL INFORMATION: Abdominal pain with eating, weight loss. COMPARISON: None. TECHNIQUE: Doppler abdominal ultrasound was done to evaluate the visceral arteries for celiac artery compression syndrome. Grayscale, color Doppler, and spectral Doppler evaluation was performed with provocative maneuvers. FINDINGS: ABDOMINAL AORTA: Proximal to SMA: PSV 89 cm/s. Normal waveform. Distal to SMA: PSV 62 cm/s. Normal waveform. CELIAC ARTERY: Supine inspiration: PSV 139 cm/s. Normal waveform. Supine expiration: PSV 182 cm/s. Normal waveform. Erect inspiration: PSV 167 cm/s. Normal waveform. Erect expiration: PSV 154 cm/s. Normal waveform. SUPERIOR MESENTERIC ARTERY: Proximal: PSV 121 cm/s. Normal waveform. Mid: PSV 116 cm/s. Normal waveform. Distal: PSV 161 cm/s. Normal waveform. GERRY: PSV 146 cm/s. Normal waveform. SPLENIC ARTERY: PSV 71 cm/s. Normal waveform. HEPATIC ARTERY: PSV 73 cm/s. Normal waveform. An irregular rhythm is intermittently noted. US/US SMA IMPRESSION: Mesenteric ischemia and/or vasculitis cannot be excluded solely by ultrasound and requires clinical correlation. No evidence of hemodynamically significant large vessel disease. Intermittent irregular heart rhythm is noted. Electronically signed by: Wisam Dunaway MD 01/21/2024 10:56 AM EDT
--- NOTE | ~2024-01-16 | US_ITS ---
EXAMINATION: US RETROPERITONEAL COMPLETE (RENAL) CLINICAL INFORMATION: Incontinence. COMPARISON: None available. TECHNIQUE: Real-time imaging of the kidneys and bladder. FINDINGS: RIGHT KIDNEY: 10.3 x 3.4 x 4.8 cm (SAG x AP x TRV). The kidney is normal in size, contour, and echogenicity. Renal cortical thickness is normal. No calculi or focal parenchymal lesions. There is mild fullness in the right renal pelvis without caliectasis or significant hydronephrosis. LEFT KIDNEY: 11.3 x 3.6 x 4.4 cm (SAG x AP x TRV). The kidney is normal in size, contour, and echogenicity. Renal cortical thickness is normal. No focal parenchymal lesions or hydronephrosis. There is an echogenic focus measuring 4 mm in the upper pole of the left kidney consistent with a nonobstructing calculus. BLADDER: Well distended and normal. Right ureteral jet is demonstrated; left is not. Prevoid bladder volume is 234 mL. Postvoid bladder volume is 5.0 mL. US/US retroperitoneal comp IMPRESSION: Nonobstructing 4 mm left upper pole renal calculus. Electronically signed by: Wu Lopez MD 01/22/2024 08:54 AM EDT
--- NOTE | 2024-01-16 18:58 | ECG_ITS ---
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 Rate : 083 BPM Atrial Rate : 083 BPM P-R Int : 178 ms QRS Dur : 090 ms QT Int : 400 ms P-R-T Axes : 065 076 057 degrees QTc Int : 470 ms Sinus rhythm with occasional Premature ventricular complexes Otherwise normal ECG No previous ECGs available Referred By: Venus Ferro Electronically Signed By:LISY SAMUEL
[2024-01-16 19:04] VITALS: BP 166/86; BP 172/88; PULSE 94; RESP 16; TEMP 36.9; O2SAT 98; BMI 22.0
--- NOTE | 2024-01-16 19:27 | PC.NURSE ---
called poison contral R/T the mercury levels and arsenic level. Poison control recommends no treatment based on the results, r/t to the fact that pt eats a lot of fish and had fish right before she had the lab work done
--- NOTE | 2024-01-16 19:30 | PC.NURSE ---
Dr Ferro aware of what the Poison control recommendation
[2024-01-16 19:41] LABS: MANUAL DIFF FLAG NO
[2024-01-16 19:45] LABS: Basophils Absolute Auto 0.1 X10*3/uL (0.0-0.2); Basophils Percent Auto 1.2 % (0-2); Eosinophils Absolute Auto 0.1 X10*3/uL (0.0-0.4); Eosinophils Percent Auto 1.7 % (0-4); Hematocrit 42.9 % (37.0-47.0); Hemoglobin 14.5 g/dl (12.0-16.0); Imm Gran Abs Auto 0.02 X10*3/uL (0.00-0.03); Imm Gran Pct Auto 0.3 % (0.0-0.4); Lymphocytes Percent Auto 26.4 % (20-40); Mean Corpuscular HGB Conc 33.8 g/dl (31.0-35.0); Mean Corpuscular Hemoglobin 29.1 pg (27.0-33.0); Mean Platelet Volume 10.1 fL (9.4-12.3); Monocytes Absolute Auto 0.7 X10*3/uL (0.1-1.2); Monocytes Percent Auto 8.4 % (2-11); Neutrophils Absolute Auto 4.8 x10*3/uL (2.0-8.3); Platelet Count 284 X10*3/uL (160-400); Red Blood Count 4.99 X10*6/uL (4.20-5.50); Red Cell Distribution Width 14.4 % (11.0-16.0); White Blood Count 7.7 X10*3/uL (4.8-10.8)
[2024-01-16 19:47] LABS: Appearance Urine Clear; Color Urine Yellow; Glucose Urine UA Negative (Negative); Leukocyte Esterase Urine Negative (Negative); Nitrite Urine Negative (Negative); PH 6.5 (5.0-9.0); UMIC TRIGGER UACC YES; Urine Blood Trace (Negative); Urine Ketones Negative (Negative); Urine Protein Negative (Neg-Trace)
[2024-01-16 19:49] LABS: Bacteria Urine None Seen (None Seen); Hyaline Casts Urine 0-2 /LPF (0-2); RBC Urine 0-2 /HPF (0-2); Squamous Epithelial Cell Urine 0-2 /HPF (0-2); WBC Urine 0-5 /HPF (0-5)
[2024-01-16 19:50] LABS: INTERNATIONAL NORM RATIO 0.9 (0.9-1.1); Prothrombin Time 10.7 SEC (10.9-12.4)
--- NOTE | 2024-01-16 20:01 | PC.NURSE ---
spoke with nurse from [facility] and per pt's permission, update given
[2024-01-16 20:04] LABS: Alanine Aminotransferase 14 U/L (0-31); Albumin Level 4.3 g/dL (3.5-5.0); Alkaline Phosphatase 99 U/L (39-117); Amphetamine Screen Urine Not Detected (Not Detect); Anion Gap 14 (12-20); Aspartate Amino Transferase 20 U/L (5-31); Barbiturates, Urine Not Detected (Not Detect); Benzodiazepines Screen Urine Not Detected (Not Detect); Bilirubin Direct 0.1 mg/dL (0.0-0.5); Bilirubin Total 0.3 mg/dL (0.0-1.0); Blood Urea Nitrogen 26 mg/dL (9-16); Buprenorphine Scr Not Detected (Not Detect); Calcium 9.7 mg/dL (8.4-10.2); Cannabinoid Screen Urine Not Detected (Not Detect); Carbon Dioxide 25 mmol/L (22-29); Chloride 104 mmol/L (96-108); Cocaine Screen Urine Not Detected (Not Detect); Creatinine Clr Calc Pharmacy 64.6; Estimated Glomerular Filt Rate > 60; Fentanyl, urine Not Detected (Not Detect); Glucose Random 102 mg/dL (60-115); Magnesium 2.3 mg/dL (1.6-2.6); Methadone Screen, Urine Not Detected (Not Detect); Opiate Screen Urine Not Detected (Not Detect); Oxycodone Screen Urine Not Detected (Not Detect); Phencyclidine Screen Urine Not Detected (Not Detect); Potassium 3.6 mmol/L (3.3-5.1); Sodium 139 mmol/L (135-145); Total Protein 7.7 g/dL (6.5-8.0)
[2024-01-16 20:11] LABS: Troponin-I High Sensitivity 6.1 ng/L (<3.5-17.0)
--- NOTE | 2024-01-16 22:37 | PC.NURSE ---
Dr Ferro in room, with pt and pt is crying, loudly. Pt is very upset about the plan of care .
[2024-01-16 23:58] LABS: Ethanol < 10 mg/dL
[2024-01-17] VITALS (8 sets, daily range): BP systolic 92–136; BP diastolic 49–84; PULSE 61–86; RESP 16–18; TEMP 36–37.3; O2SAT 98–100
--- NOTE | 2024-01-17 00:03 | ED_ITS ---
HPI - General Adult General Chief complaint: General Medical Stated complaint: ABNORMAL BLOODWORK Time Seen by Provider: 01/16/24 18:46 Source: patient and EMS Mode of arrival: EMS Limitations: no limitations History of Present Illness ED Provider: Dr. Venus Ferro HPI narrative: Patient comes to the emergency room via ambulance from home. Earlier today, she received a phone call from Dr. 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 Patient states that for almost 9 months, she has been complaining of various symptoms including severe abdominal pain, numbness tingling in both arms. Patient has had multiple workups in different hospitals and has never gotten an answer. Patient had blood work done for heavy metals and tested positive for mercury and arsenic. Patient arrives crying, very anxious. Patient has no new symptoms, all of her symptoms are chronic for at least 9 months. Patient states that the only thing that she can think of that would have exposed her to mercury and arsenic, patient eats white fish t.i.d. every day for several months. Patient states that she has a significant history of intolerance to foods and the only thing that she can eat is white fish Related Data Home Medications ?Medication ?Instructions ?Recorded ?Confirmed thyroid (pork) 15 mg tablet (SERVICE ADMINISTRATOR 15 mg PO DAILY 06/27/22 10/14/23 Thyroid) children's benadryl dye free 30 ml PO BEDTIME 09/12/23 10/14/23 estradiol 10 mcg vaginal tablet mcg vaginal 09/17/23 10/14/23 zolpidem 5 mg tablet 5 mg PO BID PRN 09/17/23 10/14/23 cromolyn 100 mg/5 mL oral 200 mg PO QID PRN 10/14/23 10/14/23 concentrate Previous Rx's ?Medication ?Instructions ?Recorded rifaximin 550 mg tablet 550 mg PO TID 2 weeks #42 tabs 01/09/24 Allergies Allergy/AdvReac Type Severity Reaction Status Date / Time Benzodiazepines Allergy Severe Agitated Verified 01/16/24 19:08 codeine Allergy Severe Vomiting Verified 01/16/24 19:08 gluten Allergy Severe Gastrointestinal Verified 01/16/24 19:08 Upset hydroxyzine Allergy Severe Agitated Verified 01/16/24 19:08 metoprolol Allergy Severe throat Verified 01/16/24 19:08 swelling, confusion Milk Containing Products Allergy Severe Gastrointestinal Verified 01/16/24 19:08 (Dairy) Upset propranolol Allergy Severe Throat Verified 01/16/24 19:08 swelling, confusion soy Allergy Severe gastric Verified 01/16/24 19:08 problems levofloxacin [From Levaquin] Allergy Mild Rash Verified 01/16/24 19:08 pseudoephedrine AdvReac Intermediate Palpitation Verified 01/16/24 19:08 [From Sudafed] s Sulcrafate Allergy Severe Swelling Uncoded 01/09/24 11:38 in throat Review of Systems 2 Review of Systems: Constitutional : Reports weight loss and months due to the inability to eat No Fever, No Chills, No Night Sweats, No Fatigue, No Malaise ENT/Mouth : No Hearing loss, No Ear Pain, No Nasal Congestion, No Sinus Pain, No Hoarseness, No sore throat, No Rhinorrhea, No Swallowing Difficulty Eyes: No Eye Pain, No Swelling, No Redness, No Foreign Body, No Discharge, No Vision Changes Cardiovascular : No Chest Pain, No SOB, No Dyspnea on Exertion, No Orthopnea, No Edema, No Palpitations Respiratory : No Cough, No Sputum, No Wheezing, No Smoke Exposure, No Dyspnea Gastrointestinal : Complaining of severe intolerance to any food, severe abdominal pain with eating on a daily basis Genitourinary : no irregular bleeding, No Dysuria, No Urinary Frequency, No Hematuria, No Urinary Incontinence, No Urgency, No Flank Pain, No Urinary Flow Changes, No Hesitancy Musculoskeletal : No joint pain, No Myalgias, No Joint Swelling Skin : No Skin Lesions, No rash Neuro : Complaining of severe weakness in all extremities for months, severe nerve pain in all extremities and the whole-body Psych : No Anxiety/Panic, No Depression, No SI/HI/AH/VH, No Social Issues, Heme/Lymph: No Bruising, No Bleeding,No Lymphadenopathy Endocrine : No Polyuria, No Polydipsia, No Temperature Intolerance [facility] Past Medical History Medical History (Updated 01/17/24 @ 01:17 by Venus Ferro MD) Depression with anxiety Panic disorder Adult failure to thrive 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 Mother No problems noted. Brother Heart valve replaced Social History Social History Patient Tobacco Use Status: Never used Tobacco Smoked in Last 30 Days: No Use of substances other than those prescribed or required for medical reasons: No Advance Directives: No Advance Directives Information Provided: No Do you have a plan to hurt others: No Plan Physical Exam ED Vital Signs: Vital Signs - 24 hr 01/16/24 19:04 Temperature 98.4 F Pulse Rate 94 Respiratory Rate 16 Blood Pressure 166/86 H Pulse Oximetry 98 Oxygen Delivery Method Room Air BMI result Body Mass Index 22.0 Const Other: Appearance: Alert. Oriented X3. Significantly anxious, crying Eyes: Pupils equal, round and reactive to light. ENT: Pharynx normal. Neck: Normal inspection. Neck supple. No lymph nodes noted. No crepitus CVS: Normal heart rate and rhythm. Pulses normal. Normal S1 and S2 Respiratory: No respiratory distress. Breath sounds normal. No Wheezing. No rales Abdomen: Soft and nontender. No rigidity. No distention. Skin: Skin warm and dry. Normal skin color. Normal skin turgor. Extremities: No lower extremity edema. No Lacerations. No Rash Neuro: Oriented X 3. No motor deficit. No sensory deficit. Moving all extremities. No slurred speech. CN 2 through 12 grossly intact Psych: Very anxious Course Course Course Narrative: -I discussed the patient with poison control. At this time, they are sending levels can be managed by not eating fish same as mercury. chelation tx not needed. -when I discussed with the patient that her side laster staple Dr. Fry is not on-call, patient went to another full-blown panic attack. We called poison control, patient's levels of arsenic and mercury, may be secondary to eating white fish TID for months. However, at this time, chelation is not indicated for Hg at this levels, for arsenic, they only treatment would be avoiding the source which for the patient most likely is fish. -overall, the main treatment for the patient is to stop eating fish. When patient was told that she can not eat fish, patient started having at [place] which eventually turned into a full-blown panic attack, stating that that is the only thing that she can eat, if she goes home she will not be able to eat anything else, then she will start herself to , stating that she no longer wants to live this way. -after a very prolonged conversation with the patient and her , seems that most of patient's symptoms are driven by very high anxiety. Patient has been treated for anxiety in the past but not by provider, seems that PCP manages her medications. I believe the patient may have underlying OCD, maybe? For sure she has severe anxiety and vague SI. Overall, after an exhaustive conversation, patient admits to be evaluated by psych for anxiety. -I discussed the above-mentioned with Dr. Fry from Gastroenterology. The best course of action for this patient would be to keep her in the hospital in inpatient Del psych aunt on Friday, they can consult medicine and gastroenterology if needed. At this time, there is no reason to admit the patient to the medical floor. However, if patient goes home, she will refused to eat and drink, patient feeling hopeless the nothing else other than fish can nurse her -Patient's at bedside, would like very much to have his evaluated for anxiety. According to the patient's , the anxiety is so severe home that she can not function Medical Decision Making Medical Decision Making MDM Narrative: We called poison control, patient's levels of arsenic and mercury, may be secondary to eating white fish TID for months. However, at this time, chelation is not indicated for Hg at this levels, for arsenic, they only treatment would be avoiding the source which for the patient most likely is fish. -overall, the main treatment for the patient is to stop eating fish. When patient was told that she can not eat fish, patient started having at [place] which eventually turned into a full-blown panic attack, stating that that is the only thing that she can eat, if she goes home she will not be able to eat anything else, then she will start herself to , stating that she no longer wants to live this way. -after a very prolonged conversation with the patient and her , seems that most of patient's symptoms are driven by very high anxiety. Patient has been treated for anxiety in the past but not by provider, seems that PCP manages her medications. I believe the patient may have underlying OCD, maybe? For sure she has severe anxiety and vague SI. Overall, after an exhaustive conversation, patient admits to be evaluated by psych for anxiety. -I discussed the above-mentioned with Dr. Fry from Gastroenterology. Dr. Fry on I believe that the best course of action for this patient would be to keep the patient in as inpatient Del psych. This would significantly help to facilitate patient's treatment and consult with Gastroenterology if needed. On Friday, psychiatry can consult medicine and gastroenterology if needed. At this time, there is no reason to admit the patient to the medical floor. However, if patient goes home, she will refused to eat and drink, patient feeling hopeless the nothing else other than fish can nurse her -Patient's at bedside, would like very much to have his evaluated for anxiety and agrees with the above-mentioned. According to the patient's , the anxiety is so severe home that she can not function -I discussed the patient with the care team, patient would significantly benefit from inpatient level of care and a full psychiatric evaluation Differential Diagnosis Differential Diagnoses: The differential diagnosis associated with the presentation includes (Anxiety, depression, OCD, arsenic toxicity, Hg toxicity) Admission/Observation Consideration of admission/observation: Escalation of care including admission/observation considered (Patient will likely need inpatient level of care) Lab Data MDM Lab Attestation statement: I reviewed the patient's lab results. 01/16/24 19:35 01/16/24 19:35 Labs: Lab Results 01/16/24 01/16/24 Range/Units 19:35 23:36 WBC 7.7 (4.8-10.8) X10*3/uL RBC 4.99 (4.20-5.50) X10*6/uL Hgb 14.5 (12.0-16.0) g/dl Hct 42.9 (37.0-47.0) % MCV 86.0 (80.0-98.0) fL MCH 29.1 (27.0-33.0) pg MCHC 33.8 (31.0-35.0) g/dl RDW 14.4 (11.0-16.0) % Plt Count 284 (160-400) X10*3/uL MPV 10.1 (9.4-12.3) fL Immature Gran % (Auto) 0.3 (0.0-0.4) % Neut % (Auto) 62.0 (45-73) % Lymph % (Auto) 26.4 (20-40) % [place] % (Auto) 8.4 (2-11) % Eos % (Auto) 1.7 (0-4) % Baso % (Auto) 1.2 (0-2) % Lymph # (Auto) 2.0 (1.2-4.9) X10*3/uL [place] # (Auto) 0.7 (0.1-1.2) X10*3/uL Eos # (Auto) 0.1 (0.0-0.4) X10*3/uL Baso # (Auto) 0.1 (0.0-0.2) X10*3/uL Abs Immat Gran (auto) 0.02 (0.00-0.03) X10*3/uL Absolute Neuts (auto) 4.8 (2.0-8.3) x10*3/uL Absolute Nucleated RBC 0.000 (0.0-0.012) X10*3/uL Nucleated RBC % (auto) 0.0 (0.0-0.2) /100WBC PT 10.7 L (10.9-12.4) SEC INR 0.9 (0.9-1.1) Sodium 139 (135-145) mmol/L Potassium 3.6 (3.3-5.1) mmol/L Chloride 104 (96-108) mmol/L Carbon Dioxide 25 (22-29) mmol/L Anion Gap 14 (12-20) BUN 26 H (9-16) mg/dL Creatinine 0.62 (0.5-1.4) mg/dL Estim Creat Clear Calc 64.6 Estimated GFR > 60 Random Glucose 102 (60-115) mg/dL Calcium 9.7 D (8.4-10.2) mg/dL Magnesium 2.3 (1.6-2.6) mg/dL Total Bilirubin 0.3 (0.0-1.0) mg/dL Direct Bilirubin 0.1 (0.0-0.5) mg/dL AST 20 (5-31) U/L ALT 14 (0-31) U/L Alkaline Phosphatase 99 (39-117) U/L Troponin I High Sens 6.1 (<3.5-17.0) ng/L Total Protein 7.7 (6.5-8.0) g/dL Albumin 4.3 (3.5-5.0) g/dL Urine Color Yellow Urine Appearance Clear Urine pH 6.5 (5.0-9.0) Ur Specific [place] 1.010 (1.005-1.025) Urine Protein Negative (Neg-Trace) mg/dL Urine Glucose (UA) Negative (Negative) mg/dL Urine Ketones Negative (Negative) mg/dL Urine Blood Trace H (Negative) Urine Nitrite Negative (Negative) Ur Leukocyte Esterase Negative (Negative) Urine RBC 0-2 (0-2) /HPF Urine WBC 0-5 (0-5) /HPF Ur Squamous Epith Cells 0-2 (0-2) /HPF Urine Bacteria None Seen (None Seen) Hyaline Casts 0-2 (0-2) /LPF Urine Opiates Screen Not Detected (Not Detect) Ur Buprenorphine Scrn Not Detected (Not Detect) ng/mL Ur Oxycodone Screen Not Detected (Not Detect) ng/mL Urine Methadone Screen Not Detected (Not Detect) ng/mL Urine Fentanyl Screen Not Detected (Not Detect) Ur Barbiturates Screen Not Detected (Not Detect) Ur Phencyclidine Scrn Not Detected (Not Detect) Ur Amphetamines Screen Not Detected (Not Detect) U Benzodiazepines Scrn Not Detected (Not Detect) Urine Cocaine Screen Not Detected (Not Detect) U Marijuana (THC) Screen Not Detected (Not Detect) Ethyl Alcohol < 10 mg/dL Critical Care Time Critical Care Time Critical Care Time: Yes Total Critical Care Time: 90 Attestation: I have personally provided critical care time. Time includes review of lab data, radiology results, discussion with consultants, and monitoring for potential decompensation. Intervention performed as documented. Discharge Plan Discharge Clinical Impression: Mild arsenic poisoning, Organic mercury poisoning, Severe anxiety Patient Disposition: Still a Patient Prescriptions: No Action cromolyn 100 mg/5 mL concentrate 200 mg PO QID PRN Rx Instructions: 1 vial TID thyroid (pork) [SERVICE ADMINISTRATOR Thyroid] 15 mg tablet 15 mg PO DAILY rifaximin 550 mg tablet 550 mg PO TID 14 Days Qty: 42 0RF estradiol 10 mcg tablet vaginal children's benadryl dye free 30 ml PO BEDTIME zolpidem 5 mg tablet 5 mg PO BID PRN Rx Instructions: one tablet at bedtime and one tablet if PT wakes up in the middle of the night. Print Language: Spanish
--- NOTE | 2024-01-17 02:02 | MHC.EDTECH ---
This pct assumed care of Patient at 0130 ,,Patient was change into green gown by this pct and security ,all Patient belongings are locked up in [place] locker # c2 ,Vitals taken ,Pure wick canister empty for 1100 ml ,Call brown within Pt reach ,Patient belongings list done .Snacks and fluids offer ,and Pt refused .
[2024-01-17] MEDS: Zolpidem Tartrate 5 MG TABLET PO ×2 (02:08→22:14)
[2024-01-17] MEDS: diphenhydrAMINE HCl 12.5 MG/5 ML LIQUID 25 MG PO (02:08)
[2024-01-17] MEDS: OLANZapine 10 MG TABLET PO (02:08)
--- NOTE | 2024-01-17 02:55 | PC.NURSE ---
after medication, pt resting quetly, with eyes closed, resp with ease,
--- NOTE | 2024-01-17 06:15 | PC.NURSE ---
resting quietly, on stretcher, eyes closed, resp with ease,
--- NOTE | 2024-01-17 06:24 | MHC.EDTECH ---
0600 rounding done ,Patient awake ,vitals taken ,600 ml empty from purewick canister ,Call brown within Pt reach .
--- NOTE | 2024-01-17 06:56 | PC.NURSE ---
report given to Bruna ORTIZ
--- NOTE | 2024-01-17 08:28 | MHC.EDTECH ---
pt partner called- meghan, was worried about pt, pt awake, given her cell phone so she can reach out to Meghan. RN aware, call brown within reach.
--- NOTE | 2024-01-17 11:10 | PC.NURSE ---
Call received from Mandy self/ [facility] who reports she is working with Pt. Mandy would like to be updated with Pts plan of care as things progress. She can be reached at [phone]
--- NOTE | 2024-01-17 14:00 | PC.NURSE ---
PT at bedside for eval, pt had an episode of diaphoresis, warm to touch, not answering questions. pt improved after a few minutes of rest, vss, ED provider notified in change of pt condition. PT returned to bedside and completed eval - 1 assist w ambulation recommended. pt appears increasingly anxious, has questions regarding plan of care w regard to GI consult and cont'd testing for GI issues. reviewed plan of care w pt and partner at bedside: per provider note from last night plan for [facility] bed search d/t increased anxiety/vague SI statements in relation to her undiagnosed GI issues. pt continues to have questions regarding plan and location in pod. explained to pt and partner that the pod is part of the emergency department, but offers a single room w closed door and some decreased stimulation in comparison to the main ED. CARE team notified of pt and partners questions regarding plan of care.
--- NOTE | 2024-01-17 15:52 | PC.NURSE ---
spoke w [facility] regarding plan of care, per chart pt is an inpt [facility] bed search, no additional labs/consults ordered at this time - deferred to psychiatry per MD note. rn case manager mentioned that pt has been [facility] [place]. pt recently completed an intake meeting, and is waiting for bed availability to open up.
--- NOTE | 2024-01-17 16:59 | PC.NURSE ---
pt expressing concern at missing poss outpt u/d appts organized by Dr Fry's office and would like to make sure that she is still able to go to the appt/get the testing performed while in the ED. med rec completed w pt and partner at bedside. JENNIFER coreas'mar Jade and damien orourke at nursing desk pending pharmacy. per pharmacy they will mixing picker tender meds.
--- NOTE | 2024-01-17 19:31 | PC.NURSE ---
patient appears to remain at rest- t/w contacted pharmacy in an attempt to enter patients meds from home which the arnica gel has a broken seal (not ok) and benadryl we have in our formulary. patient appears to remain at rest at present.
[2024-01-18 05:39] VITALS: BP 109/68; PULSE 81; RESP 16; TEMP 36.7; O2SAT 98
[2024-01-18] MEDS: Thyroid,Pork 30 MG TABLET 15 MG PO (06:27)
--- NOTE | 2024-01-18 07:36 | PC.NURSE ---
Assumed care of patient at 0645, patient appears to be in no apparent distress this am, calm and cooperative, offering no complaints or concerns to this RN. Pt ambulating around [facility] pod independently to the bathroom and around her room. Pt ate breakfast as well. Continue plan of care for inpatient bedsearch at this time
--- NOTE | 2024-01-18 10:38 | MHC.CARE ---
PT seen today for ongoing crisis assessment, she remains agreeable to inpatient level of care for diagnostic clarification and medication evaluation. Patient is an inpatient [facility]-bed search. Please see ongoing assessment in [facility] for more details.
[2024-01-18] MEDS: rifAXIMin 550 MG TABLET PO (11:06)
--- NOTE | 2024-01-18 13:06 | PC.NURSE ---
Addendum entered by Katherine Alexander 01/18/24 16:06: Pt was provided with clear ensure for lunch however, she declined it stating that it had too many carbs. This RN explained to the patient that due to her limited food intake the amount of carbs in the ensure drink would be okay to have in her diet. Pt remained skeptical of this and reported she would try it if she got hungry Original Note: This RN sat and spoke with patient who explained her diet thoroughly to this RN. Pt reports her safe foods recently have been fish, carrots, blueberries, cucumbers and under-ripe bananas. This RN made the suggestion of adding clear ensures to her diet in order to maintain a proper nutrition balance, pt on board with this idea. diet order updated. She also reports that she is good with eggs and gluten free toast for breakfast
--- NOTE | 2024-01-18 19:28 | PC.NURSE ---
patient making phone calls and relaxing in milieu asked staff to put food in fridge. patient appears in no distress
[2024-01-18 19:46] VITALS: BP 134/72; PULSE 87; RESP 18; O2SAT 99
[2024-01-18] MEDS: Zolpidem Tartrate 5 MG TABLET PO (21:04)
[2024-01-19] MEDS: Zolpidem Tartrate 5 MG TABLET PO ×3 (01:19→23:10)
[2024-01-19] MEDS: Thyroid,Pork 30 MG TABLET 15 MG PO (06:21)
--- NOTE | 2024-01-19 07:26 | PC.NURSE ---
Assumed care of patient at 0645. At this time the patient is eating breakfast in their room. No signs of distress observed.
[2024-01-19 08:13] VITALS: BP 91/62; PULSE 91; RESP 12; O2SAT 100
--- NOTE | 2024-01-19 16:24 | PC.NURSE ---
Nursing Communication - Medications Patient reports taking Benadryl 12.5mg/5mL - 25mg/10mL PO TID with meals as well as HS for sleep. Patient also reports taking Ambien 5mg PO HS for sleep and having another 5mg available incase the patient wakes up. MD was made aware. No new orders.
[2024-01-19 17:34] VITALS: BMI 20.5
[2024-01-19 17:36] VITALS: BP 158/81; PULSE 90; RESP 18; TEMP 36.2; O2SAT 99
--- NOTE | 2024-01-19 17:49 | PC.NURSE ---
Call from Dr. Paulson, patient's PCP varsha. She would like to be called tomorrow morning by patient's MD to go over patient's care including special diet. Numbers are [phone] or [phone] [facility].
--- NOTE | 2024-01-19 18:10 | PC.ADMIT ---
Patient was transferred to the unit from the POD at 1650 on a CV for treatment of SI and depression with anxiety. Patient was initially admitted to [facility] after being directed by her teaching pastor DR. Fry, who stated the patient had high levels of metal in her blood . Upon admission to the ED, elevated levels or Mercury and Arsenic were noted and reported to be related to high consumptions of fish. Patient presented as severely anxious in the POD and stated she just wanted to . Upon admission to our unit, patient continues to be anxious, is somatically focused and has been perseverating on her GI issues throughout the admission assessment. She denies SI/HI/AVH but reports poor sleep at night and relying on medications such as Benadryl in order to sleep. Patient also reports poor po intake r/t her GI issues, when assessing foods she is able to eat or asking pt to describe her GI symptoms to better understand, patient becomes agitated and emotional, crying hysterically and states I'm not mentally capable right now to go through explaining everything again! This was a mistake being here . Patient is independent with ADL's reports needing a wheelchair for getting around due to malnutrition but has been noted ambulating independently out in the milieu this evening. A skin check was completed with another nurse (all skin is warm, dry and intact), vitals obtained and patient has been placed on 5 minute checks.
[2024-01-19 20:00] VITALS: BP 127/88; PULSE 88; RESP 18; TEMP 36.2; O2SAT 100
[2024-01-20] MEDS: Thyroid,Pork 30 MG TABLET 15 MG PO (05:59)
[2024-01-20 08:00] VITALS: BP 123/79; PULSE 103; RESP 18; TEMP 36.1; O2SAT 98
[2024-01-20 08:04] LABS: Estimated Average Glucose 108 mg/dL; Hemoglobin A1c % 5.4 % (<6.0)
[2024-01-20 08:30] LABS: Alanine Aminotransferase 17 U/L (0-31); Albumin Level 4.4 g/dL (3.5-5.0); Alkaline Phosphatase 100 U/L (39-117); Anion Gap 12 (12-20); Aspartate Amino Transferase 20 U/L (5-31); Bilirubin Total 0.4 mg/dL (0.0-1.0); Blood Urea Nitrogen 20 mg/dL (9-16); Calcium 10.3 mg/dL (8.4-10.2); Carbon Dioxide 27 mmol/L (22-29); Chloride 106 mmol/L (96-108); Cholesterol 197 mg/dL (<200); Creatinine Clr Calc Pharmacy 56.4; Estimated Glomerular Filt Rate > 60; Glucose Fasting 108 mg/dL (60-99); HDL Cholesterol 54 mg/dL (>40); LDL Cholesterol Calculated 126 mg/dL (<100); Potassium 4.1 mmol/L (3.3-5.1); Sodium 141 mmol/L (135-145); Total Protein 7.8 g/dL (6.5-8.0); Triglycerides 89 mg/dL (<150)
[2024-01-20 08:44] LABS: Thyroid Stimulating Hormone 1.71 uIU/mL (0.32-4.0)
--- NOTE | 2024-01-20 09:35 | PC.NURSE ---
Patient requested it'd be documented that she is experiencing some burning after breakfast this morning. I want it noted that this is happening after meals and I need my Benadryl changed to PRN post-meals in order to prevent this . Provider Jennifer Najera notified.
--- NOTE | 2024-01-20 09:49 | HO.PSYADMNOT ---
HPI Date of Service: 01/21/24 Chief Complaint: si Sources of Information: patient interviewed, chart reviewed and crisis/core team assessment reviewed Additional Sources of Information: - Patrick HPI Subjective Notes: Shafer Warning and Conditional Voluntary Narrative: Mrs. Lux is a 68 year-old woman who self presented with her initially at the recommendation of her GI physician due to recent results of high arsenic (117) and mercury (76). Pt has been experiencing for the past 9 months severe abdominal pain when eating, tingling and burning sensation on upper and lower extremities. She has lost over 10% of her body weight due to abdominal pain, bloating limited food options as most exacerbate symptoms. While in the ED, poison control was called. They recommended removing source of arcenic, which pt suspect most likely is white fish which is one of the few things she can eat. They did not recommend chelation. She recently saw Dr. Fry who ordered blood work to rule out inflammatory causes, mesenteric ischemia, vasculitis, small nerve neuropathy. While in the ED, pt was very overwhelmed with recommendation to limit even more options to eat and ongoing pain without clear cause. She made statements related to not wanting to live like this anymore but denied any plan or intent to end her life. On the unit, pt presents as very dysphoric. She is tearful, feels unheard by healthcare system and discourage as she has not been given definite diagnosis for her symptoms that are progressing. She reports feeling overwhelmed, defeated but recently after meeting Dr. Fry pt had a glimpse of hope to once again have new work up and possible finding cause cause of her symptoms. She expressed suicidal ideation but denies any plan or intent. She also reports poor sleep. No hx of VH/AH. No hx of delusions. She has been on medication for anxiety and depression but has had side effects. She is hesitant to start antidepressant due to sensitivity to medications. Past Psychiatric History: Inpt: none OP: none Past medical hx: sertraline (unclear side effect, thinks it increase anxiety), remeron (sedating), olanzapine (apparently prescribed by GI in [place], sedating), ativan (groggy, blurry vision, out of it ), amitriptyline (groggy), gabapentin (too sedating). Medical Evaluation Reviewed: Yes [facility] Medical History (Updated 01/24/24 @ 00:02 by Background Daemon) Depression with anxiety Panic disorder Adult failure to thrive Refeeding syndrome Urinary incontinence without sensory awareness Surgical History History of esophagogastroduodenoscopy (EGD) H/O wrist surgery History of hysterectomy History of appendectomy H/O bilateral mastectomy Hx of colonoscopy with polypectomy Family History: none Social History: Pt has been with current partner for 30 years. 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 No children. Substance History: none Trauma History: medical trauma Diagnostics Vital Signs (24Hr): Vital Signs - 24 hr 01/19/24 17:36 01/19/24 20:00 01/20/24 08:00 Temperature 97.2 F 97.1 F 97 F Pulse Rate 90 88 103 H Respiratory Rate 18 18 18 Blood Pressure 158/81 H 127/88 123/79 Pulse Oximetry 99 100 98 Oxygen Delivery Method Room Air Room Air Room Air BMI result Body Mass Index 20.5 Labs 01/16/24 19:35 01/20/24 07:50 Labs: Laboratory Results - last 48 hr 01/20/24 07:50 Sodium 141 Potassium 4.1 Chloride 106 Carbon Dioxide 27 Anion Gap 12 BUN 20 H Creatinine 0.71 Estim Creat Clear Calc 56.4 Estimated GFR > 60 Fasting Glucose 108 H Estimat Average Glucose 108 Hemoglobin A1c % 5.4 Calcium 10.3 H D Total Bilirubin 0.4 AST 20 ALT 17 Alkaline Phosphatase 100 Total Protein 7.8 Albumin 4.4 Triglycerides 89 Cholesterol 197 LDL Cholesterol, Calc 126 H HDL Cholesterol 54 TSH 1.71 Meds/Allergies Meds Home Medications ?Medication ?Instructions ?Recorded ?Confirmed ?Type Benadryl Dye-Free Allergy 12.5 - 25 mg PO BEDTIME PRN 01/17/24 01/17/24 History Insomnia arnica 1 ea topical TID PRN Joint Pain 01/17/24 01/17/24 History rifaximin 550 mg tablet (Xifaxan) 550 mg PO TID 01/17/24 01/17/24 History thyroid (pork) 15 mg tablet ([employer]PERATOR 15 mg PO DAILY@0630 01/17/24 01/17/24 History Thyroid) zolpidem 5 mg tablet 5 - 10 mg PO BEDTIME PRN Insomnia 01/17/24 01/17/24 History Allergies Allergies Allergy/AdvReac Type Severity Reaction Status Date / Time Benzodiazepines Allergy Severe Agitated Verified 01/16/24 19:08 codeine Allergy Severe Vomiting Verified 01/16/24 19:08 gluten Allergy Severe Gastrointestinal Verified 01/16/24 19:08 Upset hydroxyzine Allergy Severe Agitated Verified 01/16/24 19:08 metoprolol Allergy Severe throat Verified 01/16/24 19:08 swelling, confusion Milk Containing Products Allergy Severe Gastrointestinal Verified 01/16/24 19:08 (Dairy) Upset propranolol Allergy Severe Throat Verified 01/16/24 19:08 swelling, confusion soy Allergy Severe gastric Verified 01/16/24 19:08 problems levofloxacin [From Levaquin] Allergy Mild Rash Verified 01/16/24 19:08 pseudoephedrine AdvReac Intermediate Palpitation Verified 01/16/24 19:08 [From Sudafed] s Sulcrafate Allergy Severe Swelling Uncoded 01/09/24 11:38 in throat Mental Status Exam Mental Status Exam Narrative: Appearance: wearing hospital gown, fair hygiene, in NAD Behavior: cooperative Psychomotor: no agitation or retardation noted Speech: clear, talkative, not pressured, spontaneous TP: tangential TC: wanting to have medical answers to her symptoms Mood: overwhelmed Affect: congruent, dysphoric SI: passive HI: none VH/AH: none Delusions: none Insight/judgment: fair x 2. Memory/cog: alert, oriented x 3. pending MOCA/ACL. Assessment & Plan Assessment & Plan (1) MDD (major depressive disorder), recurrent episode, moderate: Status: Acute Code(s): F33.1 - Major depressive disorder, recurrent, moderate Plan Mrs. Reyes is a 68 year-old woman who initially presented to [facility] ED at request of her GI physician due to results of high arcenic and mercury. poison control contracted but did not recommend chelation. Pt has been experiencing severe abdominal pain, tingling and burning sensation of upper and lower extremities in context of eating. She has lost significant weight as most food trigger symptoms. Pt increasingly more overwhelmed and frustrated due to unclear etiology of symptoms. We discussed risks, benefits and alternative treatment options, discussed trial of effexor as antidepressant given that may have some effect on neuropathic pain. PLAN 1. Admit to S1, CV, 5 minutes checks 2. start effexor 37.5mg po daily 3. collateral information gathered from her , dr. Fry (GI) and her PCP Dr. Paulson. 4. aftercare planning. Patient educated on: diagnosis and medication risk/benefits Informed Consent: understands Reason for continued inpatient stay Substantial Risk for: inability to function Statement Statement: I have reviewed the history and physical and performed a pertinent examination on my patient. No changes have occurred unless specified. If the History and Physical was not performed prior to admission, the Hospitalist's service will be consulted for completing the admission physical. Time Spent With Patient Time: Total time managing care of this patient today ____ minutes.
--- NOTE | 2024-01-20 14:02 | PM.NEUROCN ---
History of Present Illness Data of Consult Service Date: 01/20/24 Primary Care Provider: Katrin Paulson MD HPI Reason for consult: numbness and tingling and multiple somatic complaints 68 yr old woman with h/o Depression with anxiety, Panic disorder and adult failure to thrive cam ein because of elevated WBC levels of Arsenic and mercury. She eats fish daily. Also reports Urinary incontinence without sensory awareness. MRI brain normal. Has been losing weight for the last 9-12 months and has had vague diffuse abdominal pain and some numbness and tingling across her lower chest. About 6 months ago she started noticing tingling and numbness in her hands and feet with the hands that come and go and feet that are fairly persistent sometimes going up to the knees. She also feels that she has difficulty walking. Past History of esophagogastroduodenoscopy (EGD), H/O wrist surgery, hysterectomy, appendectomy, bilateral mastectomy, colonoscopy with polypectomy PMFSH Past Medical History Medical History (Updated 01/21/24 @ 15:02 by Nathaly Conner MD) Depression with anxiety Panic disorder Adult failure to thrive Refeeding syndrome Urinary incontinence without sensory awareness Family History Family History Father No problems noted. Mother No problems noted. Brother Heart valve replaced Surgical History Surgical History History of esophagogastroduodenoscopy (EGD) H/O wrist surgery History of hysterectomy History of appendectomy H/O bilateral mastectomy Hx of colonoscopy with polypectomy Social History Social History Household Members: Significant Other Housing: House Do you presently have visiting nurse or other home services: Yes Patient Tobacco Use Status: Never used Tobacco Smoked in Last 30 Days: No e-Cigarette/Vaping Use: Never Used Patient Interested in Nicotine Replacement: No Patient Given Instructions on How to Stop Smoking: No Second Hand Smoke Exposure: No Use of substances other than those prescribed or required for medical reasons: No Currently Displaying Signs/Symptoms of Drug Intoxication Withdrawal: No Any prior treatment program specific to substance use: No Have you been hit, kicked, punched, or otherwise hurt by someone within the past year? If so, by whom?: No Do you feel safe in your current relationship?: No Is there a partner from a previous relationship who is making you feel unsafe now?: No Are you made to feel afraid or neglected: No Advance Directives: No Advance Directives Information Provided: No Do you have thoughts of harming others: None Do you have a plan to hurt others: No Plan Recently lost weight without trying: Yes How much weight loss: 24-33 pounds Eating poorly because of decreased appetite: No Nutrition screen score: 5 Nutrition Risks: Binging/Purging Patient : No : No Poor oral hygiene: No service: No Sexual orientation: Straight/Heterosexual Meds Allergies Allergy/AdvReac Type Severity Reaction Status Date / Time Benzodiazepines Allergy Severe Agitated Verified 01/16/24 19:08 codeine Allergy Severe Vomiting Verified 01/16/24 19:08 gluten Allergy Severe Gastrointestinal Verified 01/16/24 19:08 Upset hydroxyzine Allergy Severe Agitated Verified 01/16/24 19:08 metoprolol Allergy Severe throat Verified 01/16/24 19:08 swelling, confusion Milk Containing Products Allergy Severe Gastrointestinal Verified 01/16/24 19:08 (Dairy) Upset propranolol Allergy Severe Throat Verified 01/16/24 19:08 swelling, confusion soy Allergy Severe gastric Verified 01/16/24 19:08 problems levofloxacin [From Levaquin] Allergy Mild Rash Verified 01/16/24 19:08 pseudoephedrine AdvReac Intermediate Palpitation Verified 01/16/24 19:08 [From Sudafed] s Sulcrafate Allergy Severe Swelling Uncoded 01/09/24 11:38 in throat Active Medications: Current Medications Acetaminophen (Acetaminophen 325 Mg Tablet) 650 mg PO Q6H PRN PRN Reason: Headache/Pain Mild Scale (1-3) Al Hydroxide/Mg Hydroxide (Magnesium Hydrox/Alum Hydrox 30 Ml Oral.Susp) 30 ml PO Q6H PRN PRN Reason: Heartburn/Nausea Magnesium Hydroxide (Milk Of Magnesia 30 Ml Oral.Susp) 30 ml PO DAILY PRN PRN Reason: Constipation Patient Own Medication ( Diphenhydramine Hcl 12.5 Mg/5 Ml Liquid) 1 each PO Q3H PRN; Protocol PRN Reason: allergic rx, sleep Last Admin: 01/20/24 11:54 Dose: 1 each Rifaximin (Rifaximin 550 Mg Tablet) 550 mg PO TID [facility] Last Admin: 01/20/24 10:09 Dose: Not Given Thyroid (Thyroid,Pork 30 Mg Tablet) 15 mg PO DAILY@0600 [facility] Last Admin: 01/20/24 05:59 Dose: 15 mg Trazodone HCl (Trazodone Hcl 50 Mg Tablet) 50 mg PO BEDTIME MRX1 PRN PRN Reason: Insomnia Zolpidem Tartrate (Zolpidem Tartrate 5 Mg Tablet) 5 mg PO BEDTIME [facility] Last Admin: 01/19/24 21:16 Dose: 5 mg Zolpidem Tartrate (Zolpidem Tartrate 5 Mg Tablet) 5 mg PO BEDTIME PRN PRN Reason: Insomnia Last Admin: 01/19/24 23:10 Dose: 5 mg Home Medications ?Medication ?Instructions ?Recorded ?Confirmed ?Last Taken ?Type Benadryl Dye-Free Allergy 12.5 - 25 mg PO BEDTIME PRN 01/17/24 01/17/24 Unknown History Insomnia arnica 1 ea topical TID PRN Joint Pain 01/17/24 01/17/24 Unknown History rifaximin 550 mg tablet (Xifaxan) 550 mg PO TID 01/17/24 01/17/24 Unknown History thyroid (pork) 15 mg tablet (TACK PICKER 15 mg PO DAILY@0630 01/17/24 01/17/24 Unknown History Thyroid) zolpidem 5 mg tablet 5 - 10 mg PO BEDTIME PRN Insomnia 01/17/24 01/17/24 Unknown History Physical Exam Vital Signs: Vital Signs: Last Vital Signs Temp 97 F 01/20/24 08:00 Pulse 103 H 01/20/24 08:00 Resp 18 01/20/24 08:00 BP 123/79 01/20/24 08:00 Pulse Ox 98 01/20/24 08:00 O2 Del Method Room Air 01/20/24 08:00 BMI result Body Mass Index 20.5 Neuro: Other: Cranial nerves II through XII are normal. Muscle tone and strength are normal in all 4 extremities. Reflexes are absent in the lower extremities. Plantar response are flexor. No definite sensory deficits to touch, vibration, position and pinprick. Results Labs 01/16/24 19:35 01/20/24 07:50 Labs: BMP 01/20/24 07:50 Sodium 141 Potassium 4.1 Chloride 106 Carbon Dioxide 27 BUN 20 H Creatinine 0.71 Calcium 10.3 H D Liver Function 01/20/24 Range/Units 07:50 Total Bilirubin 0.4 (0.0-1.0) mg/dL AST 20 (5-31) U/L ALT 17 (0-31) U/L Alkaline Phosphatase 100 (39-117) U/L Albumin 4.4 (3.5-5.0) g/dL Assessment and Plan (1) Paresthesia: Status: Acute For limb paresthesia or for several months, some persistent another transient. Rule out sensory neuropathy Recommendations: 24-hour urine for heavy metal screen. Urine porphobilinogen. Nerve conduction EMG study of upper and lower extremities, either as inpatient or outpatient. A repeat WBC arsenic and mercury levels Procedures Date of Service Date of Service: 01/21/24
[2024-01-20 20:00] VITALS: BP 113/61; PULSE 85; RESP 18; TEMP 36.6; O2SAT 98
[2024-01-20] MEDS: Zolpidem Tartrate 5 MG TABLET PO ×2 (21:16→23:33)
[2024-01-21 08:07] VITALS: BP 134/73; PULSE 86; RESP 18; TEMP 36.8; O2SAT 100
[2024-01-21] MEDS: Thyroid,Pork 30 MG TABLET 15 MG PO (08:53)
--- NOTE | 2024-01-21 15:22 | P.PNPSI_ITS ---
Subjective Subjective Date of Service: 01/21/24 Reason For Visit: si Subjective Notes: Conditional Voluntary Interim History: Pt slept about 6 hrs. She presents less dysphoric. She denies SI/HI. She had abdominal doppler. She was also seen by neurology, they recommend nerve conduction studies done OP. Did not take effexor, worried about side effects. Medication Compliance: Yes Side effects from medications: No Attending Groups: No Diagnostics Vital Signs (24Hr): Vital Signs - 24 hr 01/20/24 20:00 01/21/24 08:07 Temperature 97.8 F 98.2 F Pulse Rate 85 86 Respiratory Rate 18 18 Blood Pressure 113/61 134/73 Pulse Oximetry 98 100 Oxygen Delivery Method Room Air Room Air BMI result Body Mass Index 20.5 Labs 01/16/24 19:35 01/20/24 07:50 Labs: Laboratory Results - last 48 hr 01/20/24 07:50 Sodium 141 Potassium 4.1 Chloride 106 Carbon Dioxide 27 Anion Gap 12 BUN 20 H Creatinine 0.71 Estim Creat Clear Calc 56.4 Estimated GFR > 60 Fasting Glucose 108 H Estimat Average Glucose 108 Hemoglobin A1c % 5.4 Calcium 10.3 H D Total Bilirubin 0.4 AST 20 ALT 17 Alkaline Phosphatase 100 Total Protein 7.8 Albumin 4.4 Triglycerides 89 Cholesterol 197 LDL Cholesterol, Calc 126 H HDL Cholesterol 54 TSH 1.71 Imaging Radiology Impressions: ITS Impressions Mesenteric US 01/21/24 07:23 IMPRESSION: Mesenteric ischemia and/or vasculitis cannot be excluded solely by ultrasound and requires clinical correlation. No evidence of hemodynamically significant large vessel disease. Intermittent irregular heart rhythm is noted. Electronically signed by: Wisam Dunaway MD 01/21/2024 10:56 AM EDT Medications Medications Current Medications Acetaminophen (Acetaminophen 325 Mg Tablet) 650 mg PO Q6H PRN PRN Reason: Headache/Pain Mild Scale (1-3) Al Hydroxide/Mg Hydroxide (Magnesium Hydrox/Alum Hydrox 30 Ml Oral.Susp) 30 ml PO Q6H PRN PRN Reason: Heartburn/Nausea Magnesium Hydroxide (Milk Of Magnesia 30 Ml Oral.Susp) 30 ml PO DAILY PRN PRN Reason: Constipation Patient Own Medication ( Diphenhydramine Hcl 12.5 Mg/5 Ml Liquid) 1 each PO Q3H PRN; Protocol PRN Reason: allergic rx, sleep Last Admin: 01/21/24 13:32 Dose: 1 each Patient Own Medication ( Electropure Hydration) 1 each PO BID [facility] Last Admin: 01/21/24 08:45 Dose: 1 each Non-Formulary Medication (Patient Own Medication) 1 each PO BEDTIME [facility] Rifaximin (Rifaximin 550 Mg Tablet) 550 mg PO TID [facility] Last Admin: 01/21/24 14:13 Dose: Not Given Simethicone (Simethicone 40 Mg/0.6 Ml Oral.Susp) 10 mg PO QID PRN PRN Reason: bloating Thyroid (Thyroid,Pork 30 Mg Tablet) 15 mg PO DAILY@0600 [facility] Last Admin: 01/21/24 08:53 Dose: 15 mg Trazodone HCl (Trazodone Hcl 50 Mg Tablet) 50 mg PO BEDTIME MRX1 PRN PRN Reason: Insomnia Venlafaxine HCl (Venlafaxine Hcl Er 37.5 Mg Cap.Er.24h) 37.5 mg PO DAILY [facility] Last Admin: 01/21/24 12:42 Dose: Not Given Zolpidem Tartrate (Zolpidem Tartrate 5 Mg Tablet) 5 mg PO BEDTIME [facility] Last Admin: 01/20/24 21:16 Dose: 5 mg Zolpidem Tartrate (Zolpidem Tartrate 5 Mg Tablet) 5 mg PO BEDTIME PRN PRN Reason: Insomnia Last Admin: 01/20/24 23:33 Dose: 5 mg Allergies Allergies Allergy/AdvReac Type Severity Reaction Status Date / Time Benzodiazepines Allergy Severe Agitated Verified 01/16/24 19:08 codeine Allergy Severe Vomiting Verified 01/16/24 19:08 gluten Allergy Severe Gastrointestinal Verified 01/16/24 19:08 Upset hydroxyzine Allergy Severe Agitated Verified 01/16/24 19:08 metoprolol Allergy Severe throat Verified 01/16/24 19:08 swelling, confusion Milk Containing Products Allergy Severe Gastrointestinal Verified 01/16/24 19:08 (Dairy) Upset propranolol Allergy Severe Throat Verified 01/16/24 19:08 swelling, confusion soy Allergy Severe gastric Verified 01/16/24 19:08 problems levofloxacin [From Levaquin] Allergy Mild Rash Verified 01/16/24 19:08 pseudoephedrine AdvReac Intermediate Palpitation Verified 01/16/24 19:08 [From Sudafed] s Sulcrafate Allergy Severe Swelling Uncoded 01/09/24 11:38 in throat Assessment & Plan Assessment & Plan (1) MDD (major depressive disorder), recurrent episode, moderate: Status: Acute Code(s): F33.1 - Major depressive disorder, recurrent, moderate (2) Paresthesia: Status: Acute Code(s): R20.2 - Paresthesia of skin Assessment and Plan: For limb paresthesia or for several months, some persistent another transient. Rule out sensory neuropathy Recommendations: 24-hour urine for heavy metal screen. Urine porphobilinogen. Nerve conduction EMG study of upper and lower extremities, either as inpatient or outpatient. A repeat WBC arsenic and mercury levels Plan 01/20 may dc effexor. planning for dc on 01/22 or 01/21. Reason for continued inpatient stay Substantial Risk for: inability to function Time Spent With Patient Time: Total time managing care of this patient today ____ minutes.
[2024-01-21 20:00] VITALS: BP 133/59; PULSE 82; RESP 18; TEMP 36.3
[2024-01-21] MEDS: Zolpidem Tartrate 5 MG TABLET PO ×2 (20:04→23:04)
[2024-01-22 07:00] VITALS: BMI 20.9
[2024-01-22 08:40] VITALS: BP 135/63; PULSE 90; RESP 18; TEMP 35.9; O2SAT 99
[2024-01-22] MEDS: Venlafaxine HCl ER 37.5 MG CAP.ER.24H PO (08:59)
[2024-01-22] MEDS: Thyroid,Pork 30 MG TABLET 15 MG PO (09:04)
--- NOTE | 2024-01-22 10:04 | P.DS_ITS ---
DS: Providers Provider Date of Service: 01/22/24 Date of admission: 01/19/24 15:02 Date of discharge: 01/22/24 Primary care physician: Katrin Paulson MD Consults: 01/20/24 12:44 Consult to Neurology Routine Consulting Provider: [facility] Reason for consultation: tingling/burning UE/LE after eating Has provider been notified: Yes Discharging clinician: Jennifer Najera DS: Diagnosis Discharge Diagnosis (1) MDD (major depressive disorder), recurrent episode, moderate: Status: Acute (2) Paresthesia: Status: Deleted DS: Medications Discharge Medications Home Medications: Home Medications ?Medication ?Instructions ?Recorded ?Confirmed Benadryl Dye-Free Allergy 12.5 - 25 mg PO BEDTIME PRN 01/17/24 01/17/24 Insomnia arnica 1 ea topical TID PRN Joint Pain 01/17/24 01/17/24 rifaximin 550 mg tablet (Xifaxan) 550 mg PO TID 01/17/24 01/17/24 thyroid (pork) 15 mg tablet (OUTSIDE PRODUCTION INSPECTOR 15 mg PO DAILY@0630 01/17/24 01/17/24 Thyroid) zolpidem 5 mg tablet 5 - 10 mg PO BEDTIME PRN Insomnia 01/17/24 01/17/24 Mental Status Exam Mental Status Exam Narrative: Appearance: wearing hospital gown, fair hygiene, in NAD Behavior: cooperative Psychomotor: no agitation or retardation noted Speech: clear, talkative, not pressured, spontaneous TP: tangential TC: wanting to have medical answers to her symptoms Mood: better Affect: less dysphoric SI:none HI: none VH/AH: none Delusions: none Insight/judgment: fair x 2. Memory/cog: alert, oriented x 3. Data Data Completed and Pending Completed studies during hospitalization [Text1]: 01/16/24 01/16/24 01/20/24 19:35 23:36 07:50 WBC 7.7 RBC 4.99 Hgb 14.5 Hct 42.9 MCV 86.0 MCH 29.1 MCHC 33.8 RDW 14.4 Plt Count 284 MPV 10.1 Immature Gran % (Auto) 0.3 Neut % (Auto) 62.0 Lymph % (Auto) 26.4 Caroline % (Auto) 8.4 Eos % (Auto) 1.7 Baso % (Auto) 1.2 Lymph # (Auto) 2.0 Caroline # (Auto) 0.7 Eos # (Auto) 0.1 Baso # (Auto) 0.1 Abs Immat Gran (auto) 0.02 Absolute Neuts (auto) 4.8 Absolute Nucleated RBC 0.000 Nucleated RBC % (auto) 0.0 PT 10.7 L INR 0.9 Sodium 139 141 Potassium 3.6 4.1 Chloride 104 106 Carbon Dioxide 25 27 Anion Gap 14 12 BUN 26 H 20 H Creatinine 0.62 0.71 Estim Creat Clear Calc 64.6 56.4 Estimated GFR > 60 > 60 Random Glucose 102 Fasting Glucose 108 H Estimat Average Glucose 108 Hemoglobin A1c % 5.4 Calcium 9.7 D 10.3 H D Magnesium 2.3 Total Bilirubin 0.3 0.4 Direct Bilirubin 0.1 AST 20 20 ALT 14 17 Alkaline Phosphatase 99 100 Troponin I High Sens 6.1 Total Protein 7.7 7.8 Albumin 4.3 4.4 Triglycerides 89 Cholesterol 197 LDL Cholesterol, Calc 126 H HDL Cholesterol 54 TSH 1.71 Urine Color Yellow Urine Appearance Clear Urine pH 6.5 Ur Specific [place] 1.010 Urine Protein Negative Urine Glucose (UA) Negative Urine Ketones Negative Urine Blood Trace H Urine Nitrite Negative Ur Leukocyte Esterase Negative Urine RBC 0-2 Urine WBC 0-5 Ur Squamous Epith Cells 0-2 Urine Bacteria None Seen Hyaline Casts 0-2 Stool Fat, Qual Stool Lactoferrin Stool H. pylori Ag Urine Opiates Screen Not Detected Ur Buprenorphine Scrn Not Detected Ur Oxycodone Screen Not Detected Urine Methadone Screen Not Detected Urine Fentanyl Screen Not Detected Ur Barbiturates Screen Not Detected Ur Phencyclidine Scrn Not Detected Ur Amphetamines Screen Not Detected U Benzodiazepines Scrn Not Detected Urine Cocaine Screen Not Detected U Marijuana (THC) Screen Not Detected Ethyl Alcohol < 10 01/21/24 15:57 WBC RBC Hgb Hct MCV MCH MCHC RDW Plt Count MPV Immature Gran % (Auto) Neut % (Auto) Lymph % (Auto) Caroline % (Auto) Eos % (Auto) Baso % (Auto) Lymph # (Auto) Caroline # (Auto) Eos # (Auto) Baso # (Auto) Abs Immat Gran (auto) Absolute Neuts (auto) Absolute Nucleated RBC Nucleated RBC % (auto) PT INR Sodium Potassium Chloride Carbon Dioxide Anion Gap BUN Creatinine Estim Creat Clear Calc Estimated GFR Random Glucose Fasting Glucose Estimat Average Glucose Hemoglobin A1c % Calcium Magnesium Total Bilirubin Direct Bilirubin AST ALT Alkaline Phosphatase Troponin I High Sens Total Protein Albumin Triglycerides Cholesterol LDL Cholesterol, Calc HDL Cholesterol TSH Urine Color Urine Appearance Urine pH Ur Specific [place] Urine Protein Urine Glucose (UA) Urine Ketones Urine Blood Urine Nitrite Ur Leukocyte Esterase Urine RBC Urine WBC Ur Squamous Epith Cells Urine Bacteria Hyaline Casts Stool Fat, Qual Pending Stool Lactoferrin Pending Stool H. pylori Ag Pending Urine Opiates Screen Ur Buprenorphine Scrn Ur Oxycodone Screen Urine Methadone Screen Urine Fentanyl Screen Ur Barbiturates Screen Ur Phencyclidine Scrn Ur Amphetamines Screen U Benzodiazepines Scrn Urine Cocaine Screen U Marijuana (THC) Screen Ethyl Alcohol Imaging Diagnostic Imaging Impressions Mesenteric US 01/21/24 07:23 IMPRESSION: Mesenteric ischemia and/or vasculitis cannot be excluded solely by ultrasound and requires clinical correlation. No evidence of hemodynamically significant large vessel disease. Intermittent irregular heart rhythm is noted. Electronically signed by: Wisam Dunaway MD 01/21/2024 10:56 AM EDT RP Retroperitoneum Ultrasound 01/21/24 17:11 IMPRESSION: Nonobstructing 4 mm left upper pole renal calculus. Electronically signed by: Wu Lopez MD 01/22/2024 08:54 AM EDT RP DS: Summary Hospital Course Hospital Course: Mrs. Lux is a 68 year-old woman who self presented with her initially at the recommendation of her GI physician due to recent results of high arsenic (117) and mercury (76). Pt has been experiencing for the past 9 months severe abdominal pain when eating, tingling and burning sensation on upper and lower extremities. She has lost over 10% of her body weight due to abdominal pain, bloating limited food options as most exacerbate symptoms. While in the ED, poison control was called. They recommended removing source of arcenic, which pt suspect most likely is white fish which is one of the few things she can eat. They did not recommend chelation. She recently saw Dr. Fry who ordered blood work to rule out inflammatory causes, mesenteric ischemia, vasculitis, small nerve neuropathy. While in the ED, pt was very overwhelmed with recommendation to limit even more options to eat and ongoing pain without clear cause. She made statements related to not wanting to live like this anymore but denied any plan or intent to end her life. On the unit, pt presents as very dysphoric. She is tearful, feels unheard by healthcare system and discourage as she has not been given definite diagnosis for her symptoms that are progressing. She reports feeling overwhelmed, defeated but recently after meeting Dr. Fry pt had a glimpse of hope to once again have new work up and possible finding cause cause of her symptoms. She expressed suicidal ideation but denies any plan or intent. She also reports poor sleep. No hx of VH/AH. No hx of delusions. She has been on medication for anxiety and depression but has had side effects. She is hesitant to start antidepressant due to sensitivity to medications. Past Psychiatric History: Inpt: none OP: none Past medical hx: sertraline (unclear side effect, thinks it increase anxiety), remeron (sedating), olanzapine (apparently prescribed by GI in [place], sedating), ativan (groggy, blurry vision, out of it ), amitriptyline (groggy), gabapentin (too sedating). Medical Evaluation Reviewed: Yes HOSPITAL COURSE On the unit, pt was admitted on a CV and placed on 15 minutes checks for safety. She reported abdominal pain, buring and tingling sensation to upper and lower extremities when eating. She expressed frustration as to worsening medical con dition with no definite medical diagnosis. She had recently seen GI Dr. Fry and pending few medical exams, including doppler of abdomen to r/o mesenteric ischemia, vasculitis. She was also seen by neurologist for tingling/numbing sensation who recommended OP nerve conduction studies. In terms of antidepressant for depression, we discussed trial of effexor with idea that since it has norepinephrine properties may aid with what seems to be neuropathic pain of some sort. She was started on low dose of effexor 37.5mg po daily. She was sleeping with ambien and benadryl. She denied SI/HI. No psychosis or delusions. Periods of dysphoric mood in setting of feeling overwhelmed by medical condition.There were no incidences of disruptive behaviors nor need for restraints. Status at Discharge Cognitive/behavioral status at discharge: Pt with brighter, non labile affect. No SI/HI. No VH/AH. No delusions. Sleeping fairly well with ambien. Future oriented. Functional status at discharge: uses cane/walker Overall status at discharge: patient is progressing back to baseline Time Spent with Patient Time attestation: Total time managing care of this patient today ___35_ minutes. Time spent: Greater than 30 minutes Discharge Plan Discharge Anticipated Discharge Date/Time: 01/22/24 10:10 Patient Disposition: Home, Self-Care Discharge Diagnosis: MDD, recurrent, moderate Referrals: Margaux Dougherty MS PMHNP Psychiatry [Other] - 02/03/24 9:40 am (Your scheduled appointment with outpatient psychiatry behavioral health team is scheduled in person on 02/03/24 at 9:40am. Following this in person appointment virtual appointments are available. ) [facility] [Other] - 02/10/24 10:30 am (Your first scheduled appointment with a skilled nursing therapist at [facility] is scheduled for 02/10/24 at 10:30am and these appointments will be virtual. You will receive a link for the appointment via your email. ) [facility] [Other] - 01/23/24 (Request to resume your services was made with [facility]. ) Chuy Fry MD [Physician] - 1 Week Nathaly Conner MD [Physician] - 03/24/24 2:30 pm Katrin Paulson MD [Primary Care Provider] - 02/04/24 12:00 pm (Your next appointment with your PCP is scheduled for 02/04/24 at 12PM.) Discharge Medications: New venlafaxine 37.5 mg Capsule,Extended Release 24hr 37.5 mg PO DAILY Qty: 30 0RF Continued zolpidem 5 mg tablet 5 - 10 mg PO BEDTIME PRN (Reason: Insomnia) thyroid (pork) [OUTSIDE PRODUCTION INSPECTOR Thyroid] 15 mg tablet 15 mg PO DAILY@0630 Rx Instructions: 30 min prior to food Benadryl Dye-Free Allergy 12.5 mg/5 ml liquid 12.5 - 25 mg PO BEDTIME PRN (Reason: Insomnia) arnica Tincture 1 ea TOPICAL TID PRN (Reason: Joint Pain) Xifaxan 550 mg tablet 550 mg PO TID Discharge Orders: Discharge Order (Routine); Ordered 01/22/24 Ordered By: Jennifer Najera Diet: Regular diet Activity on Discharge: As tolerated Stand Alone Forms: Patient Portal Discharge page, Community Support Print Language: Azeri Care Plan Goals: maintain mood no si/hi Health Concerns: follow up with PCP follow up with urology follow up with GI follow up with neurology Plan of Treatment: 1. take medications as prescribed 2. go to nearest ED or call 911 in event of emergency Assessment: Pt with less dysphoric affect. No SI/HI. future oriented. No signs of VH/AH. Discharge Date/Time: 01/22/24 12:59
[2024-01-25 13:19] LABS: Fecal Fat Qualitative Normal (Normal)
[2024-01-28 14:23] LABS: Lactoferrin, Fecal, Quant. <6.25 mcg/mL (<7.25)
== END 2024-01-22 12:59 | disposition home or self-care (01) | DRG 885 ==
LOC: HO.ED 01-17 11:43 → HO.PGERI 01-19 15:13
PROVIDERS: Admitting Provider Social Worker; Emergency Provider Emergency Medicine; PCP Family Medicine; Visit Provider Social Worker
DX: F33.1 Major depressive disorder, recurrent, moderate (principal); R20.2 Paresthesia of skin; R78.79 Finding of abnormal level of heavy metals in blood; Z79.899 Other long term (current) drug therapy
CPT/HCPCS: 36415; 76770; 80048; 80053; 80061; 80076; 80307; 81001; 82705; 83036; 83631; 83735; 84443; 84484; 85025; 85610; 87338; 93005; 93976; 97162; 99285; S9485

== ENCOUNTER → 2024-01-19 15:02 | Outpatient (BNV) | payer MEDICARE, SELFPAY | PROVIDERS: Admitting Provider Social Worker; Emergency Provider Emergency Medicine; PCP Family Medicine; Visit Provider Psychiatry & Neurology Neurology | DX: R20.2 Paresthesia of skin (principal) | CPT/HCPCS: 99221 ==

== ENCOUNTER → 2024-01-19 15:02 | Outpatient (BNV) | payer MEDICARE, SELFPAY | PROVIDERS: Admitting Provider Social Worker; Emergency Provider Emergency Medicine; PCP Family Medicine; Visit Provider Social Worker | DX: F33.1 Major depressive disorder, recurrent, moderate (principal); R20.2 Paresthesia of skin | CPT/HCPCS: 90792; 99232; 99239 ==

== ENCOUNTER 2024-01-28 13:45 | Outpatient (REF) | payer MEDICARE, OTHER, SELFPAY ==
[2024-01-28 15:50] LABS: Appearance Urine Clear; Color Urine Yellow; Glucose Urine UA Negative (Negative); Leukocyte Esterase Urine Negative (Negative); Nitrite Urine Negative (Negative); Urine Blood Negative (Negative); Urine Ketones Negative (Negative); Urine Protein Negative (Neg-Trace)
[2024-02-01 00:44] LABS: Arsenic, Blood 31 mcg/L (<23); Lead, Blood 2.8 mcg/dL (<3.5); Mercury, Blood 67 mcg/L (<=10)
== END 2024-01-28 13:46 | disposition home or self-care (01) ==
LOC: HO.LAB 13:45
PROVIDERS: PCP Family Medicine; Visit Provider Internal Medicine Gastroenterology
DX: K63.8211 Small intestinal bacterial overgrowth, hydrogen-subtype (principal); R62.7 Adult failure to thrive; R63.4 Abnormal weight loss; R10.9 Unspecified abdominal pain; R30.0 Dysuria; T57.0X1A Toxic effect of arsenic and its compounds, accidental (unintentional), initial encounter
CPT/HCPCS: 81003; 82175; 83655; 83825

== ENCOUNTER 2024-01-29 13:08 | Outpatient (AMB) | payer MEDICARE, SELFPAY ==
[2024-01-29 13:11] VITALS: BP 122/62; PULSE 91; O2SAT 97; BMI 21.3
--- NOTE | 2024-01-29 13:11 | HO.NEPHOV_ITS ---
Vital Signs 01/29/24 13:11 Height 5 ft Weight 109 lb BMI 21.3 BP 122/62 Blood Pressure Location Lt brachial Position Sitting Pulse 91 Pulse Source Pulse Oximeter Pulse Oximetry (%) 97 Oxygen Delivery Method Room Air Intake Visit Reasons: Hypo-osmolality and hyponatremia/ Conf [place] Ere[employer] Helper Required: No Accompanied by: Spouse Allergies Benzodiazepines Allergy (Severe, Verified 01/29/24 13:15) Agitated codeine Allergy (Severe, Verified 01/29/24 13:15) Vomiting gluten Allergy (Severe, Verified 01/29/24 13:15) Gastrointestinal Upset hydroxyzine Allergy (Severe, Verified 01/29/24 13:15) Agitated metoprolol Allergy (Severe, Verified 01/29/24 13:15) throat swelling, confusion Milk Containing Products (Dairy) Allergy (Severe, Verified 01/29/24 13:15) Gastrointestinal Upset propranolol Allergy (Severe, Verified 01/29/24 13:15) Throat swelling, confusion soy Allergy (Severe, Verified 01/29/24 13:15) gastric problems levofloxacin [From Levaquin] Allergy (Mild, Verified 01/29/24 13:15) Rash pseudoephedrine [From Sudafed] Adverse Reaction (Intermediate, Verified 01/29/24 13:15) Palpitations Sulcrafate Allergy (Severe, Uncoded 01/09/24 11:38) Swelling in throat Medication List - Last Reconciled 01/29/24 by Sterling Pritchett MD [Benadryl Dye-Free Allergy 12.5 - 25 mg PO BEDTIME PRN] thyroid (pork) (PREPARATION SUPERVISOR Thyroid) 15 mg PO DAILY@0630 zolpidem 5 - 10 mg PO BEDTIME PRN HPI Comments Details: Rufina Selby is a pleasant 68-year-old woman who has been referred for hyponatremia. In April of 2023 she had significant hyponatremia in the range of 123 millimoles. Since then she has been on p.o. water restriction and she has been consuming excessive amounts of salt to maintain serum sodium in the normal range. The recent serum sodium has been between 135 and 142 millimoles. Renal function has been stable with a creatinine of 0.9 mg/dL. She has a history of hypothyroidism and she is on supplementation. History of breast cancer more than 20 years ago she was treated with mastectomy and Adriamycin and cyclophosphamide. No history of radiation. Since April she has lost about 30 lb in voluntarily. She is undergoing GI workup. Recent blood work revealed elevated arsenic level of 117 and elevated Mercury and lead levels in her blood. No history of smoking or alcohol abuse. No history of smoking. Up until April she was able to walk and ride a horse however currently she is in a wheelchair she is unable to walk because of weakness. She is waiting for neurological evaluation. Review of system was positive for loss of weight of about 30 lb which is involuntary. She is she is having difficulty eating foods which causes pain all over her abdomen and upper chest and sensation of flushing. She has weakness and tingling in her extremities. No definite polyuria or polydipsia. No hematuria. 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 Mother No problems noted. Brother Heart valve replaced Social History Household Members: Significant Other Housing: House Do you presently have visiting nurse or other home services: Yes Patient Tobacco Use Status: Never used Tobacco e-Cigarette/Vaping Use: Never Used Second Hand Smoke Exposure: No service: No Sexual orientation: Straight/Heterosexual Physical Exam Vital Signs: Last Vital Signs Pulse 91 01/29/24 13:11 BP 122/62 01/29/24 13:11 Pulse Ox 97 01/29/24 13:11 Oxygen Delivery Method Room Air 01/29/24 13:11 BMI result Body Mass Index 21.3 Tyesha is in a wheelchair she was very emotional. Neck supple no JVD mucosa is moist Lungs equal to percussion no rales heart has been S2 heard no gallop no rub abdomen is slightly distended soft nontender bowel sounds normal neuro she is alert and awake . No involuntary movements gait not tested Extremities no edema. No rash. Results Reviewed Nephrology Results: Hgb 14.5 g/dl (12.0-16.0) 01/16/24 WBC 7.7 X10*3/uL (4.8-10.8) 01/16/24 Plt Count 284 X10*3/uL (160-400) 01/16/24 Sodium 141 mmol/L (135-145) 01/20/24 Potassium 4.1 mmol/L (3.3-5.1) 01/20/24 Chloride 106 mmol/L (96-108) 01/20/24 Carbon Dioxide 27 mmol/L (22-29) 01/20/24 BUN 20 mg/dL (9-16) H 01/20/24 Creatinine 0.71 mg/dL (0.5-1.4) 01/20/24 Calcium 10.3 mg/dL (8.4-10.2) H 01/20/24 Urine Protein Negative mg/dL (Neg-Trace) 01/28/24 Assessment & Plan Assessment & Plan (1) Hyponatremia: Code(s): E87.1 - Hypo-osmolality and hyponatremia Category: Medical (2) Unintentional weight loss: Code(s): R63.4 - Abnormal weight loss Category: Medical (3) Hypothyroid: Code(s): E03.9 - Hypothyroidism, unspecified Category: Medical Plan . 68-year-old woman with unexplained weight loss of 30 lb with significant GI symptoms has had hyponatremia. Currently serum sodium is in normal range with salt supplementation. Initiated workup for hyponatremia. Check urine for sodium, osmolality, creatinine. Check serum osmolality TSH and cortisol levels. Meantime she should be on a p.o. water restriction Agree with salt supplementation since this seems to be maintaining serum sodium in the normal range. Obtain 24 hour urine collection to document the volume and to calculate creatinine clearance. He is source of elevated arsenic and lead in blood remains unclear. Await GI workup She needs neurological evaluation as well. She will follow along with the team. Orders: Orders Creatinine Urine Today E03.9 - Hypothyroidism, unspecified, E87.1 - Hypo- osmolality and hyponatremia, R35.89 - Other polyuria, R63.4 - Abnormal weight loss UA and rflx microscopic Today E03.9 - Hypothyroidism, unspecified, E87.1 - Hypo-osmolality and hyponatremia, R35.89 - Other polyuria, R63.4 - Abnormal weight loss Total Protein Urine Random Today E03.9 - Hypothyroidism, unspecified, E87.1 - Hypo-osmolality and hyponatremia, R35.89 - Other polyuria, R63.4 - Abnormal weight loss Sodium Urine Random Today E03.9 - Hypothyroidism, unspecified, E87.1 - Hypo- osmolality and hyponatremia, R35.89 - Other polyuria, R63.4 - Abnormal weight loss Creatinine, 24 Hr Group Today E03.9 - Hypothyroidism, unspecified, E87.1 - Hypo-osmolality and hyponatremia, R35.89 - Other polyuria, R63.4 - Abnormal weight loss Cortisol, Free Today E03.9 - Hypothyroidism, unspecified, E87.1 - Hypo- osmolality and hyponatremia, R35.89 - Other polyuria, R63.4 - Abnormal weight loss Comprehensive Met. Panel Today E03.9 - Hypothyroidism, unspecified, E87.1 - Hypo-osmolality and hyponatremia, R35.89 - Other polyuria, R63.4 - Abnormal weight loss Osmolality, Serum Today E03.9 - Hypothyroidism, unspecified, E87.1 - Hypo- osmolality and hyponatremia, R35.89 - Other polyuria, R63.4 - Abnormal weight loss Uric Acid Today E03.9 - Hypothyroidism, unspecified, E87.1 - Hypo-osmolality and hyponatremia, R35.89 - Other polyuria, R63.4 - Abnormal weight loss TSH reflex Free T4 Today E03.9 - Hypothyroidism, unspecified, E87.1 - Hypo- osmolality and hyponatremia, R35.89 - Other polyuria, R63.4 - Abnormal weight loss Sodium, 24Hr Urine Group Today E03.9 - Hypothyroidism, unspecified, E87.1 - Hypo-osmolality and hyponatremia, R35.89 - Other polyuria, R63.4 - Abnormal weight loss Parathyroid Hormone Intact Today E03.9 - Hypothyroidism, unspecified, E87.1 - Hypo-osmolality and hyponatremia, R35.89 - Other polyuria, R63.4 - Abnormal weight loss Phosphorus Today E03.9 - Hypothyroidism, unspecified, E87.1 - Hypo-osmolality and hyponatremia, R35.89 - Other polyuria, R63.4 - Abnormal weight loss Complete Blood Count Auto Diff Today E03.9 - Hypothyroidism, unspecified, E87.1 - Hypo-osmolality and hyponatremia, R35.89 - Other polyuria, R63.4 - Abnormal weight loss Osmolality Urine Today E03.9 - Hypothyroidism, unspecified, E87.1 - Hypo- osmolality and hyponatremia, R35.89 - Other polyuria, R63.4 - Abnormal weight loss Calcium, 24 Hr Ur Today E03.9 - Hypothyroidism, unspecified, E87.1 - Hypo- osmolality and hyponatremia, R35.89 - Other polyuria, R63.4 - Abnormal weight loss Magnesium Today E03.9 - Hypothyroidism, unspecified, E87.1 - Hypo-osmolality and hyponatremia, R35.89 - Other polyuria, R63.4 - Abnormal weight loss Coding Level of Care Code New Pt Level 5 (90162) Diagnoses Hyponatremia E87.1 Unintentional weight loss R63.4 Hypothyroid E03.9
== END 2024-01-29 14:05 | disposition home or self-care (01) ==
LOC: HO.HKA 13:08
PROVIDERS: PCP Family Medicine; Referring Provider Nurse Practitioner; Visit Provider Internal Medicine Hypertension Specialist
DX: E87.1 Hypo-osmolality and hyponatremia (principal); R63.4 Abnormal weight loss; E03.9 Hypothyroidism, unspecified
CPT/HCPCS: 99204

== ENCOUNTER → 2024-01-29 13:08 | Outpatient (BNVA) | payer MEDICARE, SELFPAY | PROVIDERS: PCP Family Medicine; Referring Provider Nurse Practitioner; Visit Provider Internal Medicine Hypertension Specialist | DX: E87.1 Hypo-osmolality and hyponatremia (principal); E03.9 Hypothyroidism, unspecified; R63.4 Abnormal weight loss | CPT/HCPCS: 99202 ==

== ENCOUNTER 2024-02-02 08:36 | Outpatient (REF) | payer MEDICARE, SELFPAY ==
[2024-02-06 04:33] LABS: Arsenic, 24H Urine <10 mcg/L (<=80); Cadmium, 24H Urine <0.5 mcg/L (<=5.0); Lead, 24H Urine <10 mcg/L (<80); Mercury, 24H Urine <4 mcg/L (<=20)
== END 2024-02-02 08:37 | disposition home or self-care (01) ==
LOC: HO.LNP 08:36
PROVIDERS: Visit Provider Internal Medicine Gastroenterology
DX: T56.1X1A Toxic effect of mercury and its compounds, accidental (unintentional), initial encounter (principal); T57.0X1A Toxic effect of arsenic and its compounds, accidental (unintentional), initial encounter
CPT/HCPCS: 82175; 82300; 83655; 83825

== ENCOUNTER 2024-02-10 14:50 | Outpatient (REF) | payer MEDICARE, SELFPAY ==
--- NOTE | ~2024-02-10 | CT_ITS ---
EXAMINATION: CT ANGIOGRAM ABDOMEN AND PELVIS CLINICAL INFORMATION: Postprandial abdominal pain with weight loss. COMPARISON: None available. TECHNIQUE: Multiple axial images were obtained through the abdomen and pelvis following the administration of 80 mL of Omnipaque 350 intravenous contrast. Images were reviewed on a dedicated 3-D workstation. This CT examination was performed using dose optimization techniques as appropriate, variously including the following: *Automated exposure control *Adjustment of mA and/or kV according to patient size (this includes techniques or standardized protocols for targeted exams where dose is matched to indication/reason for exam; i.e. extremities or head) *Use of iterative reconstruction technique DLP: 162 mGy-cm FINDINGS: VASCULAR: 1. Mesenteric arteries: Normal variant origin of the right hepatic artery from the superior mesenteric artery. Otherwise unremarkable no evidence of hemodynamically significant stenosis. 2. Renal arteries: Unremarkable. 3. Abdominal aorta: Unremarkable. 4. Right iliofemoral system: Unremarkable. 5. Left iliofemoral system: Unremarkable. 6. Other: Normal variant retroaortic left renal vein. NONVASCULAR ABDOMEN/PELVIS: Lung Bases: Liver, Gallbladder, Biliary Tree: The liver appears unremarkable in size, shape, and attenuation. No focal hepatic lesion or biliary ductal dilatation is appreciated. Unremarkable appearance of the gallbladder. Pancreas: Unremarkable. Spleen: Unremarkable. Adrenal Glands: Unremarkable. Kidneys and Ureters: The kidneys appear unremarkable in size, shape, and attenuation. No hydronephrosis or hydroureter or calculi seen. Bladder: Unremarkable. Gastrointestinal Tract: The small and large bowel appear unremarkable. No diverticulosis. Normal-appearing distal ileum. No evidence of appendicitis. Abdominal Wall: No hernia is appreciated. Lymph Nodes: No evidence of adenopathy by size criteria. Pelvic Viscera: Status post hysterectomy. Osseous Structures: Decreased bone mineral density. Degenerative changes of the spine with thoracolumbar levoscoliosis. Disc space narrowing most notable at L3-L4. CT/CT angio abdomen pelvis IMPRESSION: No evidence of significant mesenteric arterial abnormality. Additional findings as above. Electronically signed by: Constantin Trinidad MD 02/11/2024 09:21 AM EDT
[2024-02-10] MEDS: iohexoL 350 MG/ML 100 ML INFUS..BTL IV (15:55)
== END 2024-02-10 14:51 | disposition home or self-care (01) ==
LOC: HO.CT 14:50
PROVIDERS: PCP Family Medicine; Visit Provider Internal Medicine Gastroenterology
DX: R10.9 Unspecified abdominal pain (principal)
CPT/HCPCS: 74174; Q9967

== ENCOUNTER 2024-02-13 12:12 | Outpatient (REF) | payer MEDICARE, SELFPAY ==
[2024-02-13 14:23] LABS: MANUAL DIFF FLAG NO
[2024-02-13 14:54] LABS: Basophils Percent Auto 0.4 % (0-2); Eosinophils Absolute Auto 0.1 X10*3/uL (0.0-0.4); Eosinophils Percent Auto 1.1 % (0-4); Hematocrit 42.3 % (37.0-47.0); Hemoglobin 14.1 g/dl (12.0-16.0); Imm Gran Abs Auto 0.03 X10*3/uL (0.00-0.03); Imm Gran Pct Auto 0.4 % (0.0-0.4); Lymphocytes Absolute Auto 1.6 X10*3/uL (1.2-4.9); Lymphocytes Percent Auto 22.2 % (20-40); Mean Corpuscular HGB Conc 33.3 g/dl (31.0-35.0); Mean Corpuscular Hemoglobin 29.4 pg (27.0-33.0); Mean Corpuscular Volume 88.1 fL (80.0-98.0); Mean Platelet Volume 9.9 fL (9.4-12.3); Monocytes Absolute Auto 0.5 X10*3/uL (0.1-1.2); Neutrophils Absolute Auto 4.8 x10*3/uL (2.0-8.3); Neutrophils Percent Auto 68.9 % (45-73); Platelet Count 292 X10*3/uL (160-400); Red Cell Distribution Width 13.7 % (11.0-16.0)
[2024-02-13 14:55] LABS: Appearance Urine Clear; Color Urine Yellow; Glucose Urine UA Negative (Negative); Leukocyte Esterase Urine Negative (Negative); Nitrite Urine Negative (Negative); UMIC TRIGGER UA YES; Urine Blood Trace (Negative); Urine Ketones Negative (Negative); Urine Protein Negative (Neg-Trace)
[2024-02-13 14:57] LABS: Bacteria Urine None Seen (None Seen); Hyaline Casts Urine 0-2 /LPF (0-2); RBC Urine 0-2 /HPF (0-2); Squamous Epithelial Cell Urine 0-2 /HPF (0-2); WBC Urine 0-5 /HPF (0-5)
[2024-02-13 15:21] LABS: Parathyroid Hormone Intact 73.9 pg/mL (8.7-77.1)
[2024-02-13 15:23] LABS: Alanine Aminotransferase 17 U/L (0-31); Albumin Level 4.4 g/dL (3.5-5.0); Alkaline Phosphatase 94 U/L (39-117); Anion Gap 11 (12-20); Aspartate Amino Transferase 21 U/L (5-31); Bilirubin Total 0.6 mg/dL (0.0-1.0); Blood Urea Nitrogen 12 mg/dL (9-16); Calcium 9.8 mg/dL (8.4-10.2); Carbon Dioxide 27 mmol/L (22-29); Chloride 98 mmol/L (96-108); Estimated Glomerular Filt Rate > 60; Glucose Random 104 mg/dL (60-115); Magnesium 2.1 mg/dL (1.6-2.6); Phosphorus 3.1 mg/dL (2.7-4.5); Potassium 4.6 mmol/L (3.3-5.1); Sodium 131 mmol/L (135-145); Total Protein 7.6 g/dL (6.5-8.0); Uric Acid 2.8 mg/dL (2.4-5.7)
[2024-02-13 15:30] LABS: Creatinine Urine 30.64 mg/dL; Total Protein Urine Random < 7 mg/dL (<12)
[2024-02-13 15:37] LABS: TSH reflex Free T4 1.26 uIU/mL (0.32-4.0)
[2024-02-13 15:52] LABS: Osmolality, Serum 281 mosm/kg (281-305)
[2024-02-13 15:52] LABS: Osmolality Urine 296 mosm/kg (373-1093)
[2024-02-17 07:49] LABS: PEU-Protein Creat Ratio Rand 0.121 (0.024-0.184); PEU-Rand. Prot/Creat Ratio 121 mg/g creat (24-184); PEU-Random Ur. Gamma Globulin 0 %; PEU-Random Urine A1 Globulin 0 %; PEU-Random Urine A2 Globulin 0 %; PEU-Random Urine Albumin 100 %; PEU-Random Urine Beta Globulin 0 %; PEU-Random Urine Creatinine 33 mg/dL (20-275); PEU-Random Urine Protein 4 mg/dL (5-24)
[2024-02-17 16:58] LABS: Arsenic, Blood 10 mcg/L (<23); Mercury, Blood 60 mcg/L (<=10)
[2024-02-19 13:07] LABS: Vitamin C 1.5 mg/dL (0.3-2.7)
[2024-02-20 00:48] LABS: Vitamin K1 674 pg/mL (130-1500)
[2024-02-21 17:49] LABS: Cortisol, Free 1.34 mcg/dL
== END 2024-02-13 12:13 | disposition home or self-care (01) ==
LOC: HO.LAB 12:12
PROVIDERS: Absent Provider Internal Medicine Hypertension Specialist; PCP Family Medicine; Visit Provider Internal Medicine Gastroenterology
DX: R63.4 Abnormal weight loss (principal); E87.1 Hypo-osmolality and hyponatremia; E03.9 Hypothyroidism, unspecified; R35.89 Other polyuria; G93.9 Disorder of brain, unspecified; R07.9 Chest pain, unspecified; R19.7 Diarrhea, unspecified; R10.13 Epigastric pain; G62.9 Polyneuropathy, unspecified; Z91.018 Allergy to other foods; T57.0X Toxic effect of arsenic and its compounds; X58.XXXA Exposure to other specified factors, initial encounter; Y93.9 Activity, unspecified; Y92.9 Unspecified place or not applicable; Y99.9 Unspecified external cause status
CPT/HCPCS: 36415; 80053; 81001; 82175; 82180; 82530; 82570; 83655; 83735; 83825; 83930; 83935; 83970; 84100; 84156; 84166; 84300; 84443; 84550; 84597; 85025; 86003; 99212

== ENCOUNTER 2024-02-13 12:12 | Outpatient (AMB) | payer MEDICARE, SELFPAY ==
--- NOTE | 2024-02-13 12:17 | MHC.OFFVIS ---
Vital Signs 02/13/24 12:22 Height 5 ft 7 in BP 130/76 Blood Pressure Location Lt brachial Position Sitting Pulse 84 Intake Visit Reasons: 4 week follow up Intake Note: Patient follow up Patient cc: severe pain chest and her abdomen, loose stool, no tolerance the food due the pain. Wheel Assembler Required: No Accompanied by: Self / Same As Patient Allergies Benzodiazepines Allergy (Severe, Verified 02/16/24 13:57) Agitated codeine Allergy (Severe, Verified 02/16/24 13:57) Vomiting gluten Allergy (Severe, Verified 02/16/24 13:57) Gastrointestinal Upset hydroxyzine Allergy (Severe, Verified 02/16/24 13:57) Agitated metoprolol Allergy (Severe, Verified 02/16/24 13:57) throat swelling, confusion Milk Containing Products (Dairy) Allergy (Severe, Verified 02/16/24 13:57) Gastrointestinal Upset propranolol Allergy (Severe, Verified 02/16/24 13:57) Throat swelling, confusion soy Allergy (Severe, Verified 02/16/24 13:57) gastric problems levofloxacin [From Levaquin] Allergy (Mild, Verified 02/16/24 13:57) Rash pseudoephedrine [From Sudafed] Adverse Reaction (Intermediate, Verified 02/16/24 13:57) Palpitations Sulcrafate Allergy (Severe, Uncoded 02/16/24 13:57) Swelling in throat HPI HPI 4 week follow up: Details: 68 yr old f w hx of breast ca and b/l mastectomy here for f/u RECAP: She has histamine intolerance, she has issues with abdominal pain with food she can get immediate pain with food she has tried rifaximin and it maybe helped --tried 07/19 she has belching and bloating she is scared to eat she was taking simethicone she is wheelchair bound now and waiting to see neurologist --up till recently she was independent and horse riding etc so dramatic change she has tingling in hands and feet she had colonoscopy 2021- surgical resection --repeat colonoscopy was ok last EGD 2022--- normal she has raynauds she denies joint swelling I checked her labs which revealed high levels of arsenic and mercury she was advised to come to the ED she was seen by psych and advised to stop eating fish, considered as likely cause of her elevated heavy metals I had ordered a CTA-- no evidence of vasculitis, no ischemia, or impingement syndromes, degenerative pain noted in spine LABS: Tick serologies- neg INTERIM: she has ongoing pain with food she is also having pins and needles in hands and feet very weepy, pressure of speech she has difficulty walking as well ongoing not done all labs from renal EXAM: GENERAL: The patient is well developed and nontoxic. VITAL SIGNS:see workflow HEENT: Nonicteric sclerae, PERRLA, EOMI. Oropharynx clear. Moist mucous membranes. Conjunctivae appear well perfused. No thyroid mass. CHEST: Chest wall is nontender. HEART: Regular rate and rhythm without murmurs. LUNGS: Clear to auscultation bilaterally. ABDOMEN: Soft, positive bowel sounds, nontender, no organomegaly.no flank tenderness SKIN: No rash, no excessive bruising, petechiae, or purpura. NEUROLOGIC: Cranial nerves II-XII intact, some past pointing, some redish discoloration of toes -slightly cold, unable to stand and walk Psych: normal affect A/P: 1/ Sitophobia, weight loss, neurological sx, and raynauds, need to r/o vasculitis, mesenteric ischemia etc, small nerve fiber neuropathy, SLE, less likely FMF, porphyria or phaechromocytoma, maybe related to her prior exposure chemo exposure for breast ca 20 yrs ago. 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 Mother No problems noted. Brother Heart valve replaced Social History Household Members: Significant Other Housing: House Do you presently have visiting nurse or other home services: Yes Patient Tobacco Use Status: Never used Tobacco e-Cigarette/Vaping Use: Never Used Second Hand Smoke Exposure: No service: No Sexual orientation: Straight/Heterosexual Physical Exam Vital Signs: Last Vital Signs Pulse 84 02/13/24 12:22 BP 130/76 02/13/24 12:22 Assessment & Plan Assessment & Plan (1) Postprandial epigastric pain: Code(s): R10.13 - Epigastric pain Category: Medical Plan: see above (2) Neuropathy: Code(s): G62.9 - Polyneuropathy, unspecified Category: Medical Plan: see above Orders: Orders Rast Allergen 02/13/24 Z91.018 - Allergy to other foods [place] small bowel follow through 02/13/24 R10.13 - Epigastric pain Referrals Neurology Referral G62.9 - Polyneuropathy, unspecified Coding Level of Care Code Est Pt Level 4 (99606) Diagnoses Postprandial epigastric pain R10.13 Neuropathy G62.9
[2024-02-13 12:22] VITALS: BP 130/76; PULSE 84
== END 2024-02-13 13:07 | disposition home or self-care (01) ==
PROVIDERS: PCP Family Medicine; Visit Provider Internal Medicine Gastroenterology
DX: R10.13 Epigastric pain (principal); G62.9 Polyneuropathy, unspecified
CPT/HCPCS: 99214

== ENCOUNTER 2024-02-16 13:53 | Outpatient (AMB) | payer MEDICARE, SELFPAY ==
--- NOTE | 2024-02-16 13:57 | MHC.OFFVIS ---
Vital Signs 02/16/24 13:59 Height 5 ft 7 in Weight 107 lb 8 oz BMI 16.8 Intake Visit Reasons: 1 week follow up Intake Note: Umm presents in the office as a 1 week follow up. CC: states that she lost her sight last night - that is something new. Still pains all over her body and everyday that her symptoms get worse. She wants to change around some tests that Fry wants to get done. As soon as she ate when she got in the car today her pulse goes up - at the moment it is 106 just sitting here. In her chest heart area she feels like there is sharp pains. Informatics Specialist Required: No Allergies Benzodiazepines Allergy (Severe, Verified 02/16/24 13:57) Agitated codeine Allergy (Severe, Verified 02/16/24 13:57) Vomiting gluten Allergy (Severe, Verified 02/16/24 13:57) Gastrointestinal Upset hydroxyzine Allergy (Severe, Verified 02/16/24 13:57) Agitated metoprolol Allergy (Severe, Verified 02/16/24 13:57) throat swelling, confusion Milk Containing Products (Dairy) Allergy (Severe, Verified 02/16/24 13:57) Gastrointestinal Upset propranolol Allergy (Severe, Verified 02/16/24 13:57) Throat swelling, confusion soy Allergy (Severe, Verified 02/16/24 13:57) gastric problems levofloxacin [From Levaquin] Allergy (Mild, Verified 02/16/24 13:57) Rash pseudoephedrine [From Sudafed] Adverse Reaction (Intermediate, Verified 02/16/24 13:57) Palpitations Sulcrafate Allergy (Severe, Uncoded 02/16/24 13:57) Swelling in throat HPI HPI 1 week follow up: Details: 68 yr old f here for focussed exam for neuro assessment she had visual loss, sudden onset both eyes slowly improving she had expressive dysphasia as well speech was slurred she had no facial droop tingling in her face and head she had numbness in her hand --2 fingers and also left foot as well burning pain in legs EXAM: GENERAL: The patient is thin VITAL SIGNS:see workflow HEENT: Nonicteric sclerae, PERRLA, EOMI. Oropharynx clear. Moist mucous membranes. Conjunctivae appear well perfused. No thyroid mass. CHEST: Chest wall is nontender. HEART: Regular rate and rhythm without murmurs. LUNGS: Clear to auscultation bilaterally. ABDOMEN: Soft, positive bowel sounds, nontender, no organomegaly.no flank tenderness SKIN: No rash, no excessive bruising, petechiae, or purpura. NEUROLOGIC: Cranial nerves II-XII --facial symmetry noted, pupils dilated, poor response to light and accommodation, optic discs look normal, Right side, global reduced power 3/5 upper and lower, reduced reflexes Left- hyperreflexia left side with few myoclonic beats, Gait- unable to stand unaided, pin prick normal, proprioception normal fie touch, reduced left foot Psych: hysteria, weepy at times, A/P: 1/ Multitude of sx, suspect this is mostly neurological in origin, possibly from arsenic and mercury poisioning or another pathology, CT Abdo neg for vasculitis, other labs neg thus far--ddx: CJD or other neurodegenerative disease PLAN: 1/ await referral to neuro--may nee dMEG< repet MRI with contrast or skin bx 2/ cancel GES as she had one CDH which was normal 3/ await last labs few days back incl repeat heavy metal screen 4/ if has further attack advised to go to ED [facility] Medical History Depression with anxiety Panic disorder Adult failure to thrive 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 Mother No problems noted. Brother Heart valve replaced Social History Household Members: Significant Other Housing: House Do you presently have visiting nurse or other home services: Yes Patient Tobacco Use Status: Never used Tobacco e-Cigarette/Vaping Use: Never Used Second Hand Smoke Exposure: No service: No Sexual orientation: Straight/Heterosexual Physical Exam Vital Signs: BMI result Body Mass Index 16.8 Assessment & Plan Assessment & Plan (1) Neuropathy: Code(s): G62.9 - Polyneuropathy, unspecified Category: Medical Plan: see above Orders: Orders Comprehensive Met. Panel Today K75.81 - Nonalcoholic steatohepatitis (PEARL) Coding Level of Care Code Est Pt Level 4 (40834) Diagnoses Neuropathy G62.9
[2024-02-16 13:59] VITALS: BMI 16.8
== END 2024-02-16 14:58 | disposition home or self-care (01) ==
PROVIDERS: PCP Family Medicine; Visit Provider Internal Medicine Gastroenterology
DX: G62.9 Polyneuropathy, unspecified (principal)
CPT/HCPCS: 99214

== ENCOUNTER → 2024-02-16 13:53 | Outpatient (BNVA) | payer MEDICARE, SELFPAY | PROVIDERS: PCP Family Medicine; Visit Provider Internal Medicine Gastroenterology | DX: G62.9 Polyneuropathy, unspecified (principal); K75.81 Nonalcoholic steatohepatitis (NASH) | CPT/HCPCS: 99212 ==

== ENCOUNTER 2024-02-18 12:55 | Outpatient (REF) | payer MEDICARE, SELFPAY ==
[2024-02-18 13:07] LABS: Appearance Urine Clear; Color Urine Yellow; Glucose Urine UA Negative (Negative); Leukocyte Esterase Urine Negative (Negative); Nitrite Urine Negative (Negative); PH 6.5 (5.0-9.0); Urine Blood Negative (Negative); Urine Ketones Negative (Negative); Urine Protein Negative (Neg-Trace)
[2024-02-18 13:57] LABS: CDiff Gene PCR NEGATIVE (Negative)
[2024-02-22 21:53] LABS: Fecal Fat Qualitative Normal (Normal)
[2024-02-26 00:48] LABS: Lactoferrin, Fecal, Quant. <6.25 mcg/mL (<7.25)
[2024-02-28 02:24] LABS: Pancreatic Elastase-1 >500 mcg/g
== END 2024-02-18 12:56 | disposition home or self-care (01) ==
LOC: HO.LNP 12:55
PROVIDERS: Internal Medicine Hypertension Specialist; Visit Provider Internal Medicine Gastroenterology
DX: R19.7 Diarrhea, unspecified (principal); K51.50 Left sided colitis without complications; R63.4 Abnormal weight loss; E87.1 Hypo-osmolality and hyponatremia; E03.9 Hypothyroidism, unspecified; R35.89 Other polyuria
CPT/HCPCS: 81003; 82656; 82705; 83631; 87329; 87493

== ENCOUNTER 2024-02-19 08:21 | Outpatient (REF) | payer MEDICARE, SELFPAY ==
[2024-02-19 09:17] LABS: Creatinine, mg/dL 31.66
[2024-02-19 09:39] LABS: Sodium 24 Hr Urine 137.6 mmol/Day (40-220); Total Volume 24 Hour Urine 3200 mL
[2024-02-20 16:48] LABS: Calcium, 24 Hr Urine 304 mg/24 h; Calcium/Creatinine Ratio 279 mg/g creat (30-275); Creatinine 24Hr Urine 1.09 g/24 h (0.50-2.15)
== END 2024-02-19 08:22 | disposition home or self-care (01) ==
LOC: HO.LNP 08:21
PROVIDERS: Visit Provider Internal Medicine Hypertension Specialist
DX: R63.4 Abnormal weight loss (principal); E87.1 Hypo-osmolality and hyponatremia; E03.9 Hypothyroidism, unspecified; R35.89 Other polyuria
CPT/HCPCS: 82340; 84300

== ENCOUNTER 2024-02-23 12:01 | Emergency (ER) | payer MEDICARE, SELFPAY ==
--- NOTE | ~2024-02-23 | XR_ITS ---
EXAMINATION: XR CHEST CLINICAL INFORMATION: Chest pain. COMPARISON: None available. TECHNIQUE: 2 views of the chest were obtained. FINDINGS: The lungs appear hyperexpanded. No focal consolidation. No pleural effusion. Cardiac silhouette is within normal limits. There are surgical clips in the right axilla. XR/XR chest 2V IMPRESSION: Hyperexpanded lungs. Electronically signed by: Suleiman Rockwell MD 02/23/2024 02:49 PM EDT
[2024-02-23 12:10] VITALS: BP 152/76; PULSE 82; O2SAT 95
[2024-02-23 12:17] VITALS: BP 170/87; PULSE 91; RESP 20; TEMP 36.5; O2SAT 100; BMI 21.3
--- NOTE | 2024-02-23 12:18 | ECG_ITS ---
Test Reason : CHEST PAIN Blood Pressure : / mmHG Vent. Rate : 080 BPM Atrial Rate : 080 BPM P-R Int : 170 ms QRS Dur : 080 ms QT Int : 384 ms P-R-T Axes : 044 059 047 degrees QTc Int : 442 ms Normal sinus rhythm Normal ECG When compared with ECG of 16-JAN-2024 19:09, Premature ventricular complexes are no longer Present Referred By: Vamshi Ann Electronically Signed By:MANI SINGH
--- NOTE | 2024-02-23 12:19 | ED.CHESTPAIN ---
HPI - Chest Pain General Chief Complaint: Chest Pain Stated Complaint: BURNING CP TO L ARM,HR 89,BP182/79,SEEN RECENTLY Time Seen by Provider: 02/23/24 12:12 Source: patient Mode of arrival: EMS History of Present Illness HPI narrative: This is 68 years old patient presented to the emergency department with a chief complaint of chest pain radiated to the left arm. She has history of anxiety disorder MD complaint: chest pain Onset (ago): day(s) (3) Timing of current episode: constant Onset: during rest Pain location: substernal Pain radiation: left arm Severity: moderate Quality: aching Relieving factors: nothing Exacerbating factors: nothing Context: recent illness Associated symptoms: nausea Risk Factors Thoracic aortic dissection risk factors: none Related Data Home Medications ?Medication ?Instructions ?Recorded ?Confirmed Benadryl Dye-Free Allergy 12.5 - 25 mg PO BEDTIME PRN 01/17/24 02/24/24 Insomnia thyroid (pork) 15 mg tablet (ORTHOPAEDIC TECHNOLOGIST 15 mg PO DAILY@0630 01/17/24 02/24/24 Thyroid) zolpidem 5 mg tablet 5 - 10 mg PO BEDTIME PRN Insomnia 01/17/24 02/24/24 Previous Rx's ?Medication ?Instructions ?Recorded clonazepam 0.5 mg tablet 0.5 mg PO BID ANXIETY #10 tabs 02/23/24 cinacalcet 30 mg tablet 30 mg PO DAILY #30 tabs 02/24/24 Allergies Allergy/AdvReac Type Severity Reaction Status Date / Time Benzodiazepines Allergy Severe Agitated Verified 02/24/24 10:23 codeine Allergy Severe Vomiting Verified 02/24/24 10:23 gluten Allergy Severe Gastrointestinal Verified 02/24/24 10:23 Upset hydroxyzine Allergy Severe Agitated Verified 02/24/24 10:23 metoprolol Allergy Severe throat Verified 02/24/24 10:23 swelling, confusion Milk Containing Products Allergy Severe Gastrointestinal Verified 02/24/24 10:23 (Dairy) Upset propranolol Allergy Severe Throat Verified 02/24/24 10:23 swelling, confusion soy Allergy Severe gastric Verified 02/24/24 10:23 problems levofloxacin [From Levaquin] Allergy Mild Rash Verified 02/24/24 10:23 pseudoephedrine AdvReac Intermediate Palpitation Verified 02/24/24 10:23 [From Sudafed] s Sulcrafate Allergy Severe Swelling Uncoded 02/16/24 13:57 in throat Review of Systems Constitutional: Constitutional: Reports no additional constitutional complaints Eyes: Eyes: Reports no additional eye complaints ENT: Reports system reviewed and no additional complaints, except as documented Cardiovascular: Cardiovascular: Reports no additional cardiovascular complaints PMFSH Past Medical History Attestation statement: The following information was validated with the patient. Medical History Depression with anxiety Panic disorder Adult failure to thrive 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 Mother No problems noted. Brother Heart valve replaced Social History Social History Household Members: Significant Other Housing: House Do you presently have visiting nurse or other home services: Yes Patient Tobacco Use Status: Never used Tobacco e-Cigarette/Vaping Use: Never Used Second Hand Smoke Exposure: No service: No Sexual orientation: Straight/Heterosexual Physical Exam Vital Signs: Vital Signs: Last Vital Signs Temp 97.6 F 02/23/24 16:22 Pulse 87 02/23/24 16:22 Resp 16 02/23/24 16:22 BP 147/81 H 02/23/24 16:22 Pulse Ox 99 02/23/24 16:22 O2 Del Method Room Air 02/23/24 16:22 BMI result Body Mass Index 21.3 Const: General: cooperative Nutritional Appearance: average body habitus Orientation/consciousness: patient oriented x3 Limitations: no limitations HEENT: Head: Yes normal to inspection Ears: hearing grossly normal bilaterally Neck: Neck: Yes normal visual inspection and Yes full ROM Chest: Chest palpation & inspection: normal inspection of the chest Resp: Effort & Inspection: normal respiratory effort Auscultation: clear to auscultation bilaterally Cardio: Jugular venous distension: no JVD Rate: regular rate Rhythm: regular rhythm GI: Inspection: Yes normal to inspection Palpation (GI): Soft to palpation, not firm and nontender Percussion: Yes normal to percussion Skin: General skin exam: no rashes or lesions noted and elasticity normal Neuro: General: patient oriented x3 Course Reevaluation(s) Reevaluation #1: PATIENT 1ST TROPONIN IS NEGATIVE EKG IS NORMAL, SHE IS EXTREMELY ANXIOUS CRYING, SHE IS HAVING SEVERE ANXIETY. SHE IS REFUSING BENZODIAZEPINE SHE STATES SHE IS ALLERGIC TO BENZODIAZEPINE. I THINK IT IS REASONABLE TO CONSULT CARE TEAM Time: 14:59 Reevaluation #2: DELTA TROP IS FLAT AT THIS POINT I THINK THE PATIENT CAN BE DISCHARGED HOME SHE APPEAR VERY ANXIOUS SHE DOES NOT WANT TO WAIT FOR CARE TEAM, I THINK SHE PANIC ATTACK. I DISCUSSED WITH PATIENT TREATMENT SHE IS WILLING TO TRY CLONAZEPAM 0.5 MG AT THIS POINT WE WILL DISCHARGE THE PATIENT HOME I WILL GIVE 10. TABLETS OF 0.5 CLONAZEPAM. THE PATIENT IS VERY COMFORTABLE WITH THIS Time: 15:59 Medical Decision Making Medical Decision Making MDM Narrative: Patient presented to the emergency department with a chief complaint of chest pain radiated to left arm, we will check labs EKG chest x-ray and reassessed Differential Diagnosis ACS /pericarditis/noncardiac chest pain/anxiety Lab Data 02/23/24 12:52 02/23/24 12:52 Labs: Lab Results 02/23/24 02/23/24 02/23/24 Range/Units 12:51 12:52 13:28 WBC 7.5 (4.8-10.8) X10*3/uL RBC 5.15 (4.20-5.50) X10*6/uL Hgb 15.1 (12.0-16.0) g/dl Hct 44.9 (37.0-47.0) % MCV 87.2 (80.0-98.0) fL MCH 29.3 (27.0-33.0) pg MCHC 33.6 (31.0-35.0) g/dl RDW 13.9 (11.0-16.0) % Plt Count 366 D (160-400) X10*3/uL MPV 9.1 L (9.4-12.3) fL Immature Gran % (Auto) 0.1 (0.0-0.4) % Neut % (Auto) 72.6 (45-73) % Lymph % (Auto) 18.5 L (20-40) % [place] % (Auto) 7.2 (2-11) % Eos % (Auto) 0.8 (0-4) % Baso % (Auto) 0.8 (0-2) % Lymph # (Auto) 1.4 (1.2-4.9) X10*3/uL [place] # (Auto) 0.5 (0.1-1.2) X10*3/uL Eos # (Auto) 0.1 (0.0-0.4) X10*3/uL Baso # (Auto) 0.1 (0.0-0.2) X10*3/uL Abs Immat Gran (auto) 0.01 (0.00-0.03) X10*3/uL Absolute Neuts (auto) 5.4 (2.0-8.3) x10*3/uL Absolute Nucleated RBC 0.000 (0.0-0.012) X10*3/uL Nucleated RBC % (auto) 0.0 (0.0-0.2) /100WBC Sodium 133 L (135-145) mmol/L Potassium 4.6 (3.3-5.1) mmol/L Chloride 99 (96-108) mmol/L Carbon Dioxide 26 (22-29) mmol/L Anion Gap 13 (12-20) BUN 14 (9-16) mg/dL Creatinine 0.68 (0.5-1.4) mg/dL Estim Creat Clear Calc 56.0 Estimated GFR > 60 Random Glucose 119 H (60-115) mg/dL Calcium 10.2 (8.4-10.2) mg/dL Total Bilirubin 0.4 (0.0-1.0) mg/dL AST 29 (5-31) U/L ALT 20 (0-31) U/L Alkaline Phosphatase 98 (39-117) U/L Troponin I High Sens < 2.7 D (<3.5-17.0) ng/L Total Protein 7.7 (6.5-8.0) g/dL Albumin 4.4 (3.5-5.0) g/dL Urine Color Yellow Urine Appearance Clear Urine pH 7.0 (5.0-9.0) Ur Specific [place] 1.010 (1.005-1.025) Urine Protein Negative (Neg-Trace) mg/dL Urine Glucose (UA) Negative (Negative) mg/dL Urine Ketones Negative (Negative) mg/dL Urine Blood Negative (Negative) Urine Nitrite Negative (Negative) Ur Leukocyte Esterase Negative (Negative) Urine RBC 0-2 (0-2) /HPF Urine WBC 0-5 (0-5) /HPF Ur Squamous Epith Cells 0-2 (0-2) /HPF Urine Bacteria None Seen (None Seen) Hyaline Casts 0-2 (0-2) /LPF Urine Opiates Screen Not Detected (Not Detect) Ur Buprenorphine Scrn Not Detected (Not Detect) ng/mL Ur Oxycodone Screen Not Detected (Not Detect) ng/mL Urine Methadone Screen Not Detected (Not Detect) ng/mL Urine Fentanyl Screen Not Detected (Not Detect) Ur Barbiturates Screen Not Detected (Not Detect) Ur Phencyclidine Scrn Not Detected (Not Detect) Ur Amphetamines Screen Not Detected (Not Detect) U Benzodiazepines Scrn Not Detected (Not Detect) Urine Cocaine Screen Not Detected (Not Detect) U Marijuana (THC) Screen Not Detected (Not Detect) 02/23/24 Range/Units 15:09 WBC (4.8-10.8) X10*3/uL RBC (4.20-5.50) X10*6/uL Hgb (12.0-16.0) g/dl Hct (37.0-47.0) % MCV (80.0-98.0) fL MCH (27.0-33.0) pg MCHC (31.0-35.0) g/dl RDW (11.0-16.0) % Plt Count (160-400) X10*3/uL MPV (9.4-12.3) fL Immature Gran % (Auto) (0.0-0.4) % Neut % (Auto) (45-73) % Lymph % (Auto) (20-40) % [place] % (Auto) (2-11) % Eos % (Auto) (0-4) % Baso % (Auto) (0-2) % Lymph # (Auto) (1.2-4.9) X10*3/uL [place] # (Auto) (0.1-1.2) X10*3/uL Eos # (Auto) (0.0-0.4) X10*3/uL Baso # (Auto) (0.0-0.2) X10*3/uL Abs Immat Gran (auto) (0.00-0.03) X10*3/uL Absolute Neuts (auto) (2.0-8.3) x10*3/uL Absolute Nucleated RBC (0.0-0.012) X10*3/uL Nucleated RBC % (auto) (0.0-0.2) /100WBC Sodium (135-145) mmol/L Potassium (3.3-5.1) mmol/L Chloride (96-108) mmol/L Carbon Dioxide (22-29) mmol/L Anion Gap (12-20) BUN (9-16) mg/dL Creatinine (0.5-1.4) mg/dL Estim Creat Clear Calc Estimated GFR Random Glucose (60-115) mg/dL Calcium (8.4-10.2) mg/dL Total Bilirubin (0.0-1.0) mg/dL AST (5-31) U/L ALT (0-31) U/L Alkaline Phosphatase (39-117) U/L Troponin I High Sens < 2.7 (<3.5-17.0) ng/L Total Protein (6.5-8.0) g/dL Albumin (3.5-5.0) g/dL Urine Color Urine Appearance Urine pH (5.0-9.0) Ur Specific [place] (1.005-1.025) Urine Protein (Neg-Trace) mg/dL Urine Glucose (UA) (Negative) mg/dL Urine Ketones (Negative) mg/dL Urine Blood (Negative) Urine Nitrite (Negative) Ur Leukocyte Esterase (Negative) Urine RBC (0-2) /HPF Urine WBC (0-5) /HPF Ur Squamous Epith Cells (0-2) /HPF Urine Bacteria (None Seen) Hyaline Casts (0-2) /LPF Urine Opiates Screen (Not Detect) Ur Buprenorphine Scrn (Not Detect) ng/mL Ur Oxycodone Screen (Not Detect) ng/mL Urine Methadone Screen (Not Detect) ng/mL Urine Fentanyl Screen (Not Detect) Ur Barbiturates Screen (Not Detect) Ur Phencyclidine Scrn (Not Detect) Ur Amphetamines Screen (Not Detect) U Benzodiazepines Scrn (Not Detect) Urine Cocaine Screen (Not Detect) U Marijuana (THC) Screen (Not Detect) Independent Interpretation I performed an independent interpretation of an: EKG Interpretation: Normal sinus rhythm rate [address]-T changes normal EKG EKG was reviewed interpreted by me Discharge Plan Discharge Clinical Impression: Chest pain, Anxiety Patient Disposition: Home, Self-Care Instructions: Chest Pain (DC) Additional Instructions: FOLLOW-UP WITH YOUR PRIMARY CARE PHYSICIAN . I DISCUSSED WITH YOU POSSIBLE CLONAZEPAM FOR ANXIETY I WILL GIVE YOU A 0.5 MG 10 TABLETS I SENT HER TO [facility] Prescriptions: New clonazepam 0.5 mg tablet 0.5 mg PO BID Qty: 10 0RF No Action zolpidem 5 mg tablet 5 - 10 mg PO BEDTIME PRN (Reason: Insomnia) thyroid (pork) [ORTHOPAEDIC TECHNOLOGIST Thyroid] 15 mg tablet 15 mg PO DAILY@0630 Rx Instructions: 30 min prior to food Benadryl Dye-Free Allergy 12.5 mg/5 ml liquid 12.5 - 25 mg PO BEDTIME PRN (Reason: Insomnia) cinacalcet 30 mg tablet 30 mg PO DAILY Qty: 30 3RF Referrals: Katrin Paulson MD [Primary Care Provider] - 2 days Interventions: ED Discharge Assessment Last Done: 02/23/24 16:22 Discharge Date/Time: 02/23/24 16:25 Print Language: Tuvaluan
[2024-02-23 12:56] LABS: MANUAL DIFF FLAG NO
[2024-02-23 12:58] LABS: Basophils Absolute Auto 0.1 X10*3/uL (0.0-0.2); Basophils Percent Auto 0.8 % (0-2); Eosinophils Absolute Auto 0.1 X10*3/uL (0.0-0.4); Eosinophils Percent Auto 0.8 % (0-4); Hematocrit 44.9 % (37.0-47.0); Hemoglobin 15.1 g/dl (12.0-16.0); Imm Gran Abs Auto 0.01 X10*3/uL (0.00-0.03); Imm Gran Pct Auto 0.1 % (0.0-0.4); Lymphocytes Absolute Auto 1.4 X10*3/uL (1.2-4.9); Lymphocytes Percent Auto 18.5 % (20-40); Mean Corpuscular HGB Conc 33.6 g/dl (31.0-35.0); Mean Corpuscular Hemoglobin 29.3 pg (27.0-33.0); Mean Corpuscular Volume 87.2 fL (80.0-98.0); Mean Platelet Volume 9.1 fL (9.4-12.3); Monocytes Absolute Auto 0.5 X10*3/uL (0.1-1.2); Monocytes Percent Auto 7.2 % (2-11); Neutrophils Absolute Auto 5.4 x10*3/uL (2.0-8.3); Neutrophils Percent Auto 72.6 % (45-73); Platelet Count 366 X10*3/uL (160-400); Red Blood Count 5.15 X10*6/uL (4.20-5.50); Red Cell Distribution Width 13.9 % (11.0-16.0); White Blood Count 7.5 X10*3/uL (4.8-10.8)
[2024-02-23 12:59] LABS: Appearance Urine Clear; Color Urine Yellow; Glucose Urine UA Negative (Negative); Leukocyte Esterase Urine Negative (Negative); Nitrite Urine Negative (Negative); Urine Blood Negative (Negative); Urine Ketones Negative (Negative); Urine Protein Negative (Neg-Trace)
[2024-02-23 13:01] LABS: Bacteria Urine None Seen (None Seen); Hyaline Casts Urine 0-2 /LPF (0-2); RBC Urine 0-2 /HPF (0-2); Squamous Epithelial Cell Urine 0-2 /HPF (0-2); WBC Urine 0-5 /HPF (0-5)
[2024-02-23 13:13] LABS: Alanine Aminotransferase 20 U/L (0-31); Albumin Level 4.4 g/dL (3.5-5.0); Alkaline Phosphatase 98 U/L (39-117); Anion Gap 13 (12-20); Aspartate Amino Transferase 29 U/L (5-31); Bilirubin Total 0.4 mg/dL (0.0-1.0); Blood Urea Nitrogen 14 mg/dL (9-16); Calcium 10.2 mg/dL (8.4-10.2); Carbon Dioxide 26 mmol/L (22-29); Chloride 99 mmol/L (96-108); Estimated Glomerular Filt Rate > 60; Glucose Random 119 mg/dL (60-115); Potassium 4.6 mmol/L (3.3-5.1); Sodium 133 mmol/L (135-145); Total Protein 7.7 g/dL (6.5-8.0)
[2024-02-23 13:23] LABS: Troponin-I High Sensitivity < 2.7 ng/L (<3.5-17.0)
[2024-02-23 13:46] LABS: Amphetamine Screen Urine Not Detected (Not Detect); Barbiturates, Urine Not Detected (Not Detect); Benzodiazepines Screen Urine Not Detected (Not Detect); Buprenorphine Scr Not Detected (Not Detect); Cannabinoid Screen Urine Not Detected (Not Detect); Cocaine Screen Urine Not Detected (Not Detect); Fentanyl, urine Not Detected (Not Detect); Methadone Screen, Urine Not Detected (Not Detect); Opiate Screen Urine Not Detected (Not Detect); Oxycodone Screen Urine Not Detected (Not Detect); Phencyclidine Screen Urine Not Detected (Not Detect)
[2024-02-23 14:11] VITALS: BP 156/84; PULSE 81; RESP 16; TEMP 36.2; O2SAT 99
[2024-02-23 15:35] LABS: Troponin-I High Sensitivity < 2.7 ng/L (<3.5-17.0)
[2024-02-23 16:22] VITALS: BP 147/81; PULSE 87; RESP 16; TEMP 36.4; O2SAT 99
== END 2024-02-23 16:25 | disposition home or self-care (01) ==
PROVIDERS: Emergency Provider Emergency Medicine; PCP Family Medicine
DX: R07.9 Chest pain, unspecified (principal); F41.9 Anxiety disorder, unspecified; Z79.899 Other long term (current) drug therapy
CPT/HCPCS: 36415; 71046; 80053; 80307; 81001; 84484; 85025; 93005; 99284

== ENCOUNTER → 2024-02-23 12:18 | Outpatient (BNV) | payer MEDICARE, SELFPAY | PROVIDERS: Emergency Provider Emergency Medicine; PCP Family Medicine; Visit Provider Internal Medicine | DX: R07.9 Chest pain, unspecified (principal) | CPT/HCPCS: 93010 ==

== ENCOUNTER 2024-02-24 10:16 | Outpatient (AMB) | payer MEDICARE, SELFPAY ==
--- NOTE | 2024-02-24 10:18 | HO.NEPHOV_ITS ---
Vital Signs 02/24/24 10:19 02/24/24 10:53 Height 5 ft 7 in BP 98/56 L 120/70 Blood Pressure Location Lt brachial Lt brachial Position Sitting Sitting Pulse 93 Pulse Source Pulse Oximeter Pulse Oximetry (%) 98 Oxygen Delivery Method Room Air Intake Visit Reasons: 2-3 wk follow up/ Conf Clothing Examiner Required: No Accompanied by: Spouse Allergies Benzodiazepines Allergy (Severe, Verified 02/24/24 10:23) Agitated codeine Allergy (Severe, Verified 02/24/24 10:23) Vomiting gluten Allergy (Severe, Verified 02/24/24 10:23) Gastrointestinal Upset hydroxyzine Allergy (Severe, Verified 02/24/24 10:23) Agitated metoprolol Allergy (Severe, Verified 02/24/24 10:23) throat swelling, confusion Milk Containing Products (Dairy) Allergy (Severe, Verified 02/24/24 10:23) Gastrointestinal Upset propranolol Allergy (Severe, Verified 02/24/24 10:23) Throat swelling, confusion soy Allergy (Severe, Verified 02/24/24 10:23) gastric problems levofloxacin [From Levaquin] Allergy (Mild, Verified 02/24/24 10:23) Rash pseudoephedrine [From Sudafed] Adverse Reaction (Intermediate, Verified 02/24/24 10:23) Palpitations Sulcrafate Allergy (Severe, Uncoded 02/16/24 13:57) Swelling in throat Medication List - Last Reconciled 02/24/24 by Sterling Pritchett MD [Benadryl Dye-Free Allergy 12.5 - 25 mg PO BEDTIME PRN] clonazepam 0.5 mg PO BID thyroid (pork) (EXTRUDING DEPARTMENT SUPERVISOR Thyroid) 15 mg PO DAILY@0630 zolpidem 5 - 10 mg PO BEDTIME PRN HPI Comments Details: Rufina Selby is a pleasant 68-year-old woman who has been referred for hyponatremia. In April of 2023 she had significant hyponatremia in the range of 123 millimoles. Since then she has been on p.o. water restriction and she has been consuming excessive amounts of salt to maintain serum sodium in the normal range. The recent serum sodium has been between 135 and 142 millimoles. Renal function has been stable with a creatinine of 0.9 mg/dL. She has a history of hypothyroidism and she is on supplementation. History of breast cancer more than 20 years ago she was treated with mastectomy and Adriamycin and cyclophosphamide. No history of radiation. Since April she has lost about 30 lb in voluntarily. She is undergoing GI workup. Recent blood work revealed elevated arsenic level of 117 and elevated Mercury and lead levels in her blood. No history of smoking or alcohol abuse. No history of smoking. Up until April she was able to walk and ride a horse however currently she is in a wheelchair she is unable to walk because of weakness. She is waiting for neurological evaluation. Review of system was positive for loss of weight of about 30 lb which is involuntary. She is she is having difficulty eating foods which causes pain all over her abdomen and upper chest and sensation of flushing. She has weakness and tingling in her extremities. No definite polyuria or polydipsia. No hematuria. 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 Mother No problems noted. Brother Heart valve replaced Social History Household Members: Significant Other Housing: House Do you presently have visiting nurse or other home services: Yes Patient Tobacco Use Status: Never used Tobacco e-Cigarette/Vaping Use: Never Used Second Hand Smoke Exposure: No service: No Sexual orientation: Straight/Heterosexual Physical Exam Vital Signs: Last Vital Signs Pulse 93 02/24/24 10:19 BP 120/70 02/24/24 10:53 Pulse Ox 98 02/24/24 10:19 Oxygen Delivery Method Room Air 02/24/24 10:19 Const General: comfortable; No acute distress Orientation/consciousness: patient oriented x3 Eyes General: appearance normal, both eyes and all related structures Visual Rangel: normal visual rangel by confrontation Neck Neck: Yes supple and Yes no JVD Resp Effort & Inspection: normal respiratory effort and respiratory effort not decreased Auscultation: rhonchi Cardio Palpation: no palpable S3 and no palpable S4 Heart sounds: no rubs GI Inspection: Yes normal to inspection Palpation (GI): Soft to palpation Percussion: Yes normal to percussion Auscultation: normal bowel sounds General: Yes no CVA tenderness Back/Spine/Pelvis Back: no CVA tenderness Skin General skin exam: no petechiae and no purpura Neuro General: patient oriented x3 and no focal motor deficits Extrem General: No clubbing and No edema Results Reviewed Nephrology Results: Hgb 15.1 g/dl (12.0-16.0) 02/23/24 WBC 7.5 X10*3/uL (4.8-10.8) 02/23/24 Plt Count 366 X10*3/uL (160-400) 02/23/24 Sodium 133 mmol/L (135-145) L 02/23/24 Potassium 4.6 mmol/L (3.3-5.1) 02/23/24 Chloride 99 mmol/L (96-108) 02/23/24 Carbon Dioxide 26 mmol/L (22-29) 02/23/24 BUN 14 mg/dL (9-16) 02/23/24 Creatinine 0.68 mg/dL (0.5-1.4) 02/23/24 Calcium 10.2 mg/dL (8.4-10.2) 02/23/24 Phosphorus 3.1 mg/dL (2.7-4.5) 02/13/24 PTH Intact 73.9 pg/mL (8.7-77.1) 02/13/24 Urine Protein Negative mg/dL (Neg-Trace) 02/23/24 Urine Creatinine 30.64 mg/dL 02/13/24 Protein/Creatinin Ratio 121 mg/g creat (24-184) 02/13/24 Assessment & Plan Assessment & Plan (1) Hyponatremia: Code(s): E87.1 - Hypo-osmolality and hyponatremia Category: Medical (2) Unintentional weight loss: Code(s): R63.4 - Abnormal weight loss Category: Medical (3) Hypothyroid: Code(s): E03.9 - Hypothyroidism, unspecified Category: Medical (4) Polyuria: Code(s): R35.89 - Other polyuria Category: Medical (5) Hypercalcemia: Code(s): E83.52 - Hypercalcemia Category: Medical Plan . 68-year-old woman with unexplained weight loss of 30 lb with significant GI symptoms has had hyponatremia. Mild hyponatremia due to decreased free water clearance and excessive free water intake. TSH/Cortisol were normal UOsm 296. Serum osm 281 Currently serum sodium is in normal range with salt supplementation. she should be on a p.o. water restriction 24 hour urine collection shows volume of 3200 cc ; She has polyuria Most likely due to hypercalcemia vs polydipsia With hypercalcemia and borderline elevation of iPTH and hypercalcemia, she probably has primary hyperparathyroidism Await completion of GI workup Await neurological follow up including EMG/Nerve conduction study Orders: Orders Basic Metabolic Panel 1 Month E83.52 - Hypercalcemia, R35.89 - Other polyuria Electrolytes 2 Weeks E87.1 - Hypo-osmolality and hyponatremia, R35.89 - Other polyuria Calcium 6 Weeks E83.52 - Hypercalcemia, E87.1 - Hypo-osmolality and hyponatremia Electrolytes 03/09/24 E83.52 - Hypercalcemia, R35.89 - Other polyuria Electrolytes 03/23/24 E83.52 - Hypercalcemia, R35.89 - Other polyuria Electrolytes 04/06/24 E83.52 - Hypercalcemia, R35.89 - Other polyuria Calcium 2 Weeks R35.89 - Other polyuria Electrolytes 4 Weeks E83.52 - Hypercalcemia, R35.89 - Other polyuria Calcium 4 Weeks E83.52 - Hypercalcemia, R35.89 - Other polyuria Electrolytes 6 Weeks E83.52 - Hypercalcemia, E87.1 - Hypo-osmolality and hyponatremia Electrolytes Today E83.52 - Hypercalcemia, R35.89 - Other polyuria Calcium Today E83.52 - Hypercalcemia, R35.89 - Other polyuria Electrolytes Today E83.52 - Hypercalcemia, R35.89 - Other polyuria Electrolytes 04/20/24 E83.52 - Hypercalcemia, R35.89 - Other polyuria Electrolytes 05/04/24 E83.52 - Hypercalcemia, R35.89 - Other polyuria Medications: New cinacalcet 30 mg PO DAILY 30 tabs 3RF Coding Level of Care Code Est Pt Level 4 (88982) Diagnoses Hyponatremia E87.1 Unintentional weight loss R63.4 Hypothyroid E03.9 Polyuria R35.89 Hypercalcemia E83.52
[2024-02-24 10:19] VITALS: BP 98/56; PULSE 93; O2SAT 98
[2024-02-24 10:53] VITALS: BP 120/70
== END 2024-02-24 10:59 | disposition home or self-care (01) ==
LOC: HO.HKA 10:17
PROVIDERS: PCP Family Medicine; Visit Provider Internal Medicine Hypertension Specialist
DX: E87.1 Hypo-osmolality and hyponatremia (principal); R63.4 Abnormal weight loss; E03.9 Hypothyroidism, unspecified; R35.89 Other polyuria; E83.52 Hypercalcemia
CPT/HCPCS: 99214

== ENCOUNTER → 2024-02-24 10:16 | Outpatient (BNVA) | payer MEDICARE, SELFPAY | PROVIDERS: PCP Family Medicine; Visit Provider Internal Medicine Hypertension Specialist | DX: E87.1 Hypo-osmolality and hyponatremia (principal); R35.89 Other polyuria; R63.4 Abnormal weight loss; E03.9 Hypothyroidism, unspecified; E83.52 Hypercalcemia | CPT/HCPCS: 99212 ==

== ENCOUNTER 2024-04-09 10:44 | Outpatient (REF) | payer MEDICARE, SELFPAY | END 2024-04-09 10:45 | disposition home or self-care (01) | LOC: HO.LAB 10:44 | PROVIDERS: PCP Family Medicine; Referring Provider Psychiatry & Neurology Neurology; Visit Provider Internal Medicine Gastroenterology | DX: G62.9 Polyneuropathy, unspecified (principal); I73.00 Raynaud's syndrome without gangrene | CPT/HCPCS: 99212 ==

== ENCOUNTER 2024-04-09 10:44 | Outpatient (AMB) | payer MEDICARE, SELFPAY ==
--- NOTE | 2024-04-09 10:52 | A.OFFVIS_ITS ---
Vital Signs 04/09/24 11:09 Height 5 ft 7 in Weight 122 lb BMI 19.1 BP 145/84 H Blood Pressure Location Lt brachial Position Sitting Pulse 89 Intake Visit Reasons: 4 week follow up r/s from 03/15 Intake Note: Patient follow up for Neuropathy. Patient cc: Nauseas, abdominal pain with bloating, fatigue with headaches, and acid reflex. Automotive Drivability Technician Required: No Accompanied by: Spouse Allergies Benzodiazepines Allergy (Severe, Verified 04/09/24 11:02) Agitated codeine Allergy (Severe, Verified 04/09/24 11:02) Vomiting gluten Allergy (Severe, Verified 04/09/24 11:02) Gastrointestinal Upset hydroxyzine Allergy (Severe, Verified 04/09/24 11:02) Agitated metoprolol Allergy (Severe, Verified 04/09/24 11:02) throat swelling, confusion Milk Containing Products (Dairy) Allergy (Severe, Verified 04/09/24 11:02) Gastrointestinal Upset propranolol Allergy (Severe, Verified 04/09/24 11:02) Throat swelling, confusion soy Allergy (Severe, Verified 04/09/24 11:02) gastric problems levofloxacin [From Levaquin] Allergy (Mild, Verified 04/09/24 11:02) Rash pseudoephedrine [From Sudafed] Adverse Reaction (Intermediate, Verified 04/09/24 11:02) Palpitations Sulcrafate Allergy (Severe, Uncoded 02/16/24 13:57) Swelling in throat HPI HPI 4 week follow up r/s from 03/15: Details: 68 yr old f w hx of breast ca and b/l mastectomy here for f/u RECAP: She has histamine intolerance, she has issues with abdominal pain with food she can get immediate pain with food she has tried rifaximin and it maybe helped --tried 07/19 she has belching and bloating she is scared to eat she was taking simethicone she is wheelchair bound now and waiting to see neurologist --up till recently she was independent and horse riding etc so dramatic change she has tingling in hands and feet she had colonoscopy 2021- surgical resection --repeat colonoscopy was ok last EGD 2022--- normal she has raynauds she denies joint swelling I checked her labs which revealed high levels of arsenic and mercury she was advised to come to the ED she was seen by psych and advised to stop eating fish, considered as likely cause of her elevated heavy metals I had ordered a CTA-- no evidence of vasculitis, no ischemia, or impingement syndromes, degenerative pain noted in spine LABS: Tick serologies- neg INTERIM: She was admitted to [facility] while there she lost her eye sight and had MR brain which was normal PCP checked heavy metals, and improving-also referred her to [facility] for comp assessment she saw dr Conner and having work up, waiting for EMG walking has improved slightly no real Gi sx apart from burning abdominal pain, whihc I suspect is neurological in origin EXAM: GENERAL: The patient is thin VITAL SIGNS:see workflow HEENT: Nonicteric sclerae, PERRLA, EOMI. Oropharynx clear. Moist mucous membranes. Conjunctivae appear well perfused. No thyroid mass. CHEST: Chest wall is nontender. HEART: Regular rate and rhythm without murmurs. LUNGS: Clear to auscultation bilaterally. ABDOMEN: Soft, positive bowel sounds, nontender, no organomegaly.no flank tenderness SKIN: No rash, no excessive bruising, petechiae, or purpura. NEUROLOGIC: Cranial nerves II-XII --facial symmetry noted, pupils dilated, poor response to light and accommodation, optic discs look normal, Right side, global reduced power 3/5 upper and lower, reduced reflexes Left- hyperreflexia left side with few myoclonic beats, Gait- unable to stand unaided, pin prick normal, proprioception normal fie touch, reduced left foot Psych: apropariate A/P: 1/ Multitude of sx, suspect this is mostly neurological in origin, possibly from arsenic and mercury poisioning or another pathology, CT Abdo neg for vasculitis, other labs neg thus far--ddx: CJD or other neurodegenerative disease PLAN: 1/ hold on further GI w/u, await neuro assessmen and [facility] referal, depending on that might cnsider rescoping and biopsies [facility] Medical History Depression with anxiety Panic disorder Adult failure to thrive 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 Mother No problems noted. Brother Heart valve replaced Social History Household Members: Significant Other Housing: House Do you presently have visiting nurse or other home services: Yes Patient Tobacco Use Status: Never used Tobacco e-Cigarette/Vaping Use: Never Used Second Hand Smoke Exposure: No service: No Sexual orientation: Straight/Heterosexual Physical Exam Vital Signs: Last Vital Signs Pulse 89 04/09/24 11:09 BP 145/84 H 04/09/24 11:09 BMI result Body Mass Index 19.1 Assessment & Plan Assessment & Plan (1) Neuropathy: Code(s): G62.9 - Polyneuropathy, unspecified Category: Medical Plan: as above Orders: Orders Heavy Metals Screen Blood 04/09/24 G62.9 - Polyneuropathy, unspecified Medications: New cromolyn 200 mg (10 mL) PO QID 1,200 mL 3RF 30 days Coding Level of Care Code Est Pt Level 3 (77347) Diagnoses Neuropathy G62.9
[2024-04-09 11:09] VITALS: BP 145/84; PULSE 89; BMI 19.1
== END 2024-04-09 12:51 | disposition home or self-care (01) ==
PROVIDERS: PCP Family Medicine; Visit Provider Internal Medicine Gastroenterology
DX: G62.9 Polyneuropathy, unspecified (principal)
CPT/HCPCS: 99213

== ENCOUNTER 2024-04-24 07:43 | Outpatient (REF) | payer MEDICARE, SELFPAY ==
[2024-05-01 10:49] LABS: Coproporphyrin I, 24Hr 26.5 mcg/24 h (7.1-48.7); Coproporphyrin III, 24Hr 67.8 mcg/24 h (11.0-148.5); Heptacarboxylporphyrin, 24U 1.9 mcg/24 h (< OR = 3.3); Total Volume, Porphyrins 24Hr 2650 mL; Uroporphyrin I, 24 Hr 8.2 mcg/24 h (4.1-22.4); Uroporphyrin III, 24Hr 1.6 mcg/24 h (0.7-7.4)
[2024-05-10 10:38] LABS: Porphobilinogen, 24U 0.196
== END 2024-04-24 07:44 | disposition home or self-care (01) ==
LOC: HO.LNP 07:43
PROVIDERS: Visit Provider Psychiatry & Neurology Neurology
DX: I73.00 Raynaud's syndrome without gangrene (principal)
CPT/HCPCS: 84110; 84120

== ENCOUNTER 2024-06-01 15:02 | Outpatient (AMB) | payer MEDICARE, SELFPAY ==
--- NOTE | 2024-06-01 15:01 | HO.NEPHOV_ITS ---
Vital Signs 06/01/24 15:03 Height 5 ft 7 in BP 112/60 Blood Pressure Location Rt brachial Position Sitting Pulse 82 Pulse Source Pulse Oximeter Pulse Oximetry (%) 98 Oxygen Delivery Method Room Air Intake Visit Reasons: Hypercalcemia/ Conf Sap Senior Developer Required: No Accompanied by: Spouse Allergies Benzodiazepines Allergy (Severe, Verified 06/01/24 15:13) Agitated codeine Allergy (Severe, Verified 06/01/24 15:13) Vomiting gluten Allergy (Severe, Verified 06/01/24 15:13) Gastrointestinal Upset hydroxyzine Allergy (Severe, Verified 06/01/24 15:13) Agitated metoprolol Allergy (Severe, Verified 06/01/24 15:13) throat swelling, confusion Milk Containing Products (Dairy) Allergy (Severe, Verified 06/01/24 15:13) Gastrointestinal Upset propranolol Allergy (Severe, Verified 06/01/24 15:13) Throat swelling, confusion soy Allergy (Severe, Verified 06/01/24 15:13) gastric problems levofloxacin [From Levaquin] Allergy (Mild, Verified 06/01/24 15:13) Rash nortriptyline Allergy (Unknown, Verified 06/01/24 15:13) Unknown pseudoephedrine [From Sudafed] Adverse Reaction (Intermediate, Verified 06/01/24 15:13) Palpitations Sulcrafate Allergy (Severe, Uncoded 02/16/24 13:57) Swelling in throat Medication List - Last Reconciled 06/01/24 by Sterling Pritchett MD [Benadryl Dye-Free Allergy 12.5 - 25 mg PO BEDTIME PRN] cromolyn 200 mg (10 mL) PO QID 30 days thyroid (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 In April of 2023 she had significant hyponatremia in the range of 123 millimoles. Since then she has been on p.o. water restriction and she has been consuming excessive amounts of salt to maintain serum sodium in the normal range. The recent serum sodium has been between 135 and 142 millimoles. Renal function has been stable with a creatinine of 0.9 mg/dL. She has a history of hypothyroidism and she is on supplementation. History of breast cancer more than 20 years ago she was treated with mastectomy and Adriamycin and cyclophosphamide. No history of radiation. Since April she has lost about 30 lb in voluntarily. She is undergoing GI workup. Recent blood work revealed elevated arsenic level of 117 and elevated Mercury and lead levels in her blood. No history of smoking or alcohol abuse. No history of smoking. Up until April she was able to walk and ride a horse however currently she is in a wheelchair she is unable to walk because of weakness. She is waiting for neurological evaluation. Review of system was positive for loss of weight of about 30 lb which is involuntary. She is she is having difficulty eating foods which causes pain all over her abdomen and upper chest and sensation of flushing. She has weakness and tingling in her extremities. No definite polyuria or polydipsia. No hematuria. 06/01/2024 Here for follow-up Currently being seen at [facility] for GI she was. She had hypercalcemia in the past which has resolved recent serum calcium was normal She claims to see some Crystal's when she urinates [facility] Medical History Depression with anxiety Panic disorder Adult failure to thrive 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 Mother No problems noted. Brother Heart valve replaced Social History Household Members: Significant Other Housing: House Do you presently have visiting nurse or other home services: Yes Patient Tobacco Use Status: Never used Tobacco e-Cigarette/Vaping Use: Never Used Second Hand Smoke Exposure: No service: No Sexual orientation: Straight/Heterosexual Physical Exam Vital Signs: Last Vital Signs Pulse 82 06/01/24 15:03 BP 112/60 06/01/24 15:03 Pulse Ox 98 06/01/24 15:03 Oxygen Delivery Method Room Air 06/01/24 15:03 Const General: comfortable; No acute distress Orientation/consciousness: patient oriented x3 Eyes General: appearance normal, both eyes and all related structures Visual Rangel: normal visual rangel by confrontation Neck Neck: Yes supple and Yes no JVD Resp Effort & Inspection: normal respiratory effort and respiratory effort not decreased Auscultation: rhonchi Cardio Palpation: no palpable S3 and no palpable S4 Heart sounds: no rubs GI Inspection: Yes normal to inspection Palpation (GI): Soft to palpation Percussion: Yes normal to percussion Auscultation: normal bowel sounds General: Yes no CVA tenderness Back/Spine/Pelvis Back: no CVA tenderness Skin General skin exam: no petechiae and no purpura Neuro General: patient oriented x3 and no focal motor deficits Extrem General: No clubbing and No edema Results Reviewed Nephrology Results: Hgb 15.1 g/dl (12.0-16.0) 02/23/24 WBC 7.5 X10*3/uL (4.8-10.8) 02/23/24 Plt Count 366 X10*3/uL (160-400) 02/23/24 Sodium 133 mmol/L (135-145) L 02/23/24 Potassium 4.6 mmol/L (3.3-5.1) 02/23/24 Chloride 99 mmol/L (96-108) 02/23/24 Carbon Dioxide 26 mmol/L (22-29) 02/23/24 BUN 14 mg/dL (9-16) 02/23/24 Creatinine 0.68 mg/dL (0.5-1.4) 02/23/24 Calcium 10.2 mg/dL (8.4-10.2) 02/23/24 Urine Protein Negative mg/dL (Neg-Trace) 02/23/24 Assessment & Plan Assessment & Plan (1) Hyponatremia: Code(s): E87.1 - Hypo-osmolality and hyponatremia Category: Medical (2) Unintentional weight loss: Code(s): R63.4 - Abnormal weight loss Category: Medical (3) Hypothyroid: Code(s): E03.9 - Hypothyroidism, unspecified Category: Medical (4) Polyuria: Code(s): R35.89 - Other polyuria Category: Medical (5) Hypercalcemia: Code(s): E83.52 - Hypercalcemia Category: Medical Plan . 68-year-old woman with unexplained weight loss of 30 lb with significant GI symptoms has had hyponatremia. Mild hyponatremia due to decreased free water clearance and excessive free water intake. TSH/Cortisol were normal UOsm 296. Serum osm 281 Currently serum sodium is in normal range with salt supplementation. she should be on a p.o. water restriction 24 hour urine collection shows volume of 3200 cc ; Repeat 24 hour urine collection showed a volume of 2950. Hypokalemia stance corrected. Since she has lost some crystals I will repeat a 24 urine collection. Orders: Orders Sodium, 24Hr Urine Group 06/01/24 E83.52 - Hypercalcemia Creatinine, 24 Hr Group 06/01/24 E83.52 - Hypercalcemia Oxalate, 24 Hr 06/01/24 E83.52 - Hypercalcemia UA and rflx microscopic 06/01/24 E83.52 - Hypercalcemia Calcium, 24 Hr Ur 06/01/24 E83.52 - Hypercalcemia Citric Acid 24hr Urine 06/01/24 E83.52 - Hypercalcemia Coding Level of Care Code Est Pt Level 4 (43862) Diagnoses Hyponatremia E87.1 Unintentional weight loss R63.4 Hypothyroid E03.9 Polyuria R35.89 Hypercalcemia E83.52
[2024-06-01 15:03] VITALS: BP 112/60; PULSE 82; O2SAT 98
--- OUTSIDE RECORDS SUMMARY | 2024-06-01 15:05 | XMS_ITS | Clinical Summary ---
Author Organization [facility] Address [address] [place] [address] Care Team Providers Care Silk Spooler Name Role Phone Katrin Paulson Primary Care Provider [phone] Allergies No known active allergies Medications thyroid (ARMOUR THYROID) 30 mg tablet Take 15 mg by mouth daily. Active zolpidem (AMBIEN) 5 mg tablet Take 10 mg by mouth nightly as needed for sleep. Pt states taking 2 tablets at night 5mg a piece 1 at bedtime 1 when you wake up during the night. Active diphenhydrAMINE (BENADRYL) 12.5 mg/5 mL liquid Take 12.5 mg by mouth every 6 hours as needed for itching. 5,10 ml at bed time then 5ml as needed during the day Active estradioL (VAGIFEM) 10 mcg tablet Insert 10 mcg into the vagina once a day. 2 times weekly if needed Active Social History Tobacco Use Types Packs/Day Years Used Date Smoking Tobacco: Never Assessed Comments Unknown Sex and Gender Information Value Date Recorded Sex Assigned at Female 12/27/2023 12:17 PM EDT Legal Sex Female 8:54 AM EDT Gender Identity Female 12/27/2023 12:17 PM EDT Sexual Orientation Straight 12/27/2023 12 :17 PM EDT Last Filed Vital Signs Vital Sign Reading Time Taken Comments Blood Pressure 132/64 01/02/2024 10:38 AM EDT Pulse 104 01/02/2024 10:38 AM EDT Temperature 36.8 ??C (98.2 ??F) 01/02/2024 10:38 AM E DT Respiratory Rate 18 01/02/2024 10:38 AM EDT Oxygen Saturation - - Inhaled Oxygen Concentration - - Weight 49.9 kg (110 lb) 01/02/2024 10:38 AM EDT Height - - Body Mass Index - - Plan of Treatment Upcoming Encounters Date Type Department Care Team (Late st Contact Info) Description 10/06/2024 10:30 AM EDT Office Visit [facility] [address] [place] [address] Vladimir Rodas MD [address] [place] [id number] Scheduled Procedures Name Priority Associated Diagnoses Date/Ti me UPPER ENDOSCOPY WITH POSSIBL E BIOPSY AND/OR POLYPECTOMY AND POSSIBLE MODERATE SEDATION Functional dyspepsia Bloating Health Maintenance Due Date Last Done Comments Cologuard 1954 Colon Cancer Screening 1954 Colonoscopy 1954 FOBT / Fit Test 1954 Hepatitis C Screening 1954 Sigmoidoscopy 1954 Mammogram 1994 Osteoporosis Screening 2004 Zoster Vaccines (1 of 2) 2004 Pneumococcal Vaccine: 65+ Years (1 of 1 - PCV) 11/25/2019 DTaP,Tdap,and Td Vaccines (2 - Td or Tdap) 04/28/2021 04/28/2011 COVID-19 Vaccine (1 - 2023-2 5 season) 2023 Influenza Vaccine (#1) 2023 0, 02/11/2019 Alcohol/Substance Use Screening 04/28/2024 Depression Screening and Follow-Up 04/28/2024 Health Care Proxy Review 04/28/2024 Social Drivers of Health Annual Screening 04/28/2024 RSV Vaccine (60+ years old a nd patients) (1 - 1-dose 75+ series) 2029 Hepatitis B Vaccines Aged Out No long er eligible based on patient's age to complete this topic Insurance BCBS MCR REPLACE PPO Care Teams Silk Spooler Relationship Specialty Start Date End Date Katrin Paulson [address] [place] [id number] PCP - General 12/23/23
--- OUTSIDE RECORDS SUMMARY | 2024-06-01 15:05 | XMS_ITS | Clinical Summary ---
Author Organization [facility] Facility Address [address] [address] Care Team Providers Care Boring Machine Feeder Name Role Phone Katrin Paulson MD Primary Care Provider Social History Tobacco Use Types Packs/Day Years Used Date Smoking Tobacco: Never Assessed Comments Unknown Sex and Gender Information Value Date Recorded Sex Assigned at Not on file Legal Sex Female 10:18 AM EST Gender Identity Not on file Sexual Orientation Not on file Plan of Treatment Health Maintenance Due Date Last Done Comments Breast Cancer Screening 1954 Pneumococcal Vaccine: 65+ Years (1 of 2 - PCV) 1960 Colorectal Cancer Screening: Annual FOBT 11/25/2003 Colorectal Cancer Screening: Colonoscopy 11/25/2003 Colorectal Cancer Screening: Sigmoidoscopy 11/25/2003 Influenza Vaccine (#1) 2023 0, 02/11/2019 Hepatitis B Vaccine Aged Out No longe r eligible based on patient's age to complete this topic Insurance [facility] Care Teams Boring Machine Feeder Relationship Specialty Start Date End Date Katrin Paulson MD [address] [place] [phone] PCP - General Family Medicine 05/15/23
--- OUTSIDE RECORDS SUMMARY | 2024-06-01 15:05 | XMS_ITS | Data Portability ---
Author Organization [facility], FP, EHC, OFFICE Address [address] [place] [address] Care Team Providers Care Respiratory Scientist Name Role Phone PAULSON ALEX Primary Care Provider [phone] [facility] OTHER [phone] [facility] R[facility]K ASSESSMENT O THER SLICK ROGER Brim Stiffener JORGE MANCIA General Surgeon DELFINA [facility] Phys. Med. & R ehab [facility] Votator Machine Operator RU FLYNN Recreation Programmer VINNIE BARBOSA Wildlife Technician [phone] NAMRATA LOPEZ Urologist CALLY JOHNSON Wildlife Technician [phone] Assessment Encounter Date Assessment Date Assessment LastModified by Organization Details LastModified Time 03/31/2024 03/31/2024 Patient agreed t o this visit via a secure telehealth platform. Patient understands this is a scheduled visit and the usual procedures with regard to billing and confidentiality apply. Patient was notified that the provider [place] [facility] [place] During the visit the patient? s medical history and medical record were reviewed. The patient was notified to call our office for worsening or urgent symptoms. Over 40 minutes spent coordinating care, conducting visit, coming up with follow-up plan and contacting other specialist. Not available 03/31/2024 12:44:20 05/04/2024 05/04/2024 Patient agreed t o this visit via a secure telehealth platform. Patient understands this is a scheduled visit and the usual procedures with regard to billing and confidentiality apply. Patient was notified that the provider location is [facility] [place] During the visit the patient? s medical history and medical record were reviewed. The patient was notified to call our office for worsening or urgent symptoms. Not available 05/04/2024 13:09:05 05/11/2024 05/11/2024 Patient agreed t o this visit via a secure telehealth platform. Patient understands this is a scheduled visit and the usual procedures with regard to billing and confidentiality apply. Patient was notified that the provider location is [facility] [place] During the visit the patient? s medical history and medical record were reviewed. The patient was notified to call our office for worsening or urgent symptoms. Over 40 minutes spent with patient and reviewing specialist notes and making plan Not available 05/11/2024 12:26:37 05/20/2024 05/20/2024 Pt seeking psychopharm consultation management of: Sleep difficulty and overwhelm in the context of elevated blood pressure and history of aneurysm with head chest pain and tingling. Primary care at: [facility] Initial Therapy History: Working with [email or web address]'s therapist on and off. Prior to 2021 had been working with other therapist more longitudinally in [place]. Also works with a [employer] Linda Hernandez. Initial HISTORIC (Dx/ Tx/ life events): in 1979. Lives with partner Patrick with whom he tries but he does not know how to help me... Terminated into long term with redundancy at age 63. 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 Originally from this area [place]. Only family in the areas of brother in [place]. No prior psychiatric hospitalizations, but was interested in a BH/ detox assistance from [facility] when she last went to the ED but was directed to a medical hospitalization for hyponatremia. No prior suicide attempts. No prior psychosis. No prior zack. Some history of difficulties with depression disappointment and stress reaction, but considers main behavioral health difficulties be insomnia historically. Primary CARE provider was interested in alternative to Ambien continued since cancer treatment. Working with other psychopharmacologic performance management consultant here, was offered trials for alternatives. Patient recalls these alternatives to be unhelpful. Connects this with her naturapath assessment for having a problematic histamine pathway but a good erma pathway... However her naturapath is feels that her symptoms are beyond what she can help her with. Patient directed herself for alternative consultation with these questions: Is Ativan out of my system? (Yes.) Is there any way that stopping Ativan 1.5 mg per day after 3 months could have messed up my system? (Not this duration). Currently most bothered by concern for starting and stopping medications, to which she feels she experiences paradoxical effects if not initially later. She is most concerned for her blood pressure and the possibility that her heart will blow up. Secondary concern for chest and head pain as well as tingling both persistent and flaring with anxious overwhelm. Her chief concern regarding behavioral health medication, is for continued access to Ambien as the only behavioral health medication she is consistently felt to be helpful. UPDATE Apr 2024: Since a prior consult encounter Apr 2023 reports that soon after this was hospitalized for low sodium and loosing 30# ([facility] hosp Apr-Jun) feeling destroyed... A psychiatric hosp was offered to coordinate BH and GI distress at [facility] (did not find it theraputic) May 2023. Quickly signed out. At home feeling Patrick couldn't/ wouldn't provided sufficient support. Subsequent medical hosp could not arrange the level of a care she feel she needs. Currently feels doesn't believe her needs and limitations. Worked with [facility] she was not happy with and changed to [facility] (was horrific). Reports continued terrible pain, weakness and frustration about her diet continues. Now regrets that her difficulty is, by some, misattributed to being (functional) because of anxiety/ stress. Not feeling she can drive, care for herself, and using wheelchair due to weakness. An additional psychiatric hosp followed Hg and arsenic level elevation she attributed to eating white fish 3x day. When told to stop she expressed hopelessness about her diet and care. This distressed interpreted she might be suicidal related to this. A baljit-psych stay was offered, again hoping for a team support, but didn't have gains. Very upset by this. Today asking for recommendation/ endorsements for supports. Review that much of what should would like is outside of my scope. Is receptive to an novel antidepressant trial with lower risk of [Na] effects. CURRENT psycho/ social context and associated dysfunction: See HPI. Initial Subs Discussion: Denies. Initial Biologic factors of note: See chart. UPDATE Apr 2024: See ?functional GI distress with dietary concerns and low sodium issues. Initial Review of lab work: See chart. Initial Encounter Exam findings: Intense please do not hang up on me... Mildly circumferential. Ultimately engageable, after she is allowed to ventilate. Initial Encounter DDx Discussion: Adjustment with anxiety, generalized anxiety with secondary insomnia versus other insomnia. Initial Encounter Medication Discussion: Discussed adverse effects of current and considered medication: pt understands and accepts risk. Prior medications reported as ineffective or not tolerated: See prior consultations. Patient giving specific critique of, noneffective single dose of gabapentin, poor effect of mirtazapine and trazodone and SSRI's SNRI's. Prior medications reported as beneficial: Ambien. Currently taking Ambien 7.5 mg at the start of sleep (a 1.5 5mg tabs) and a repeat 5mg after 4 hours of sleep allowing 2 additional hours. Patient very hesitant to consider any alternatives. Specifically declines any alternative benzodiazepine, but perhaps clonazepam could be discussed. She reports no prior experience with quetiapine, but likely a better result of considering this trial outside of current priority for blood pressure management. Unclear if applicable ability of clonidine for blood pressure management would or would not be appropriate with amlodipine which she hopes to resume given her 1 dose negative opinion of diltiazem this morning. Current psych med discussion: ambien 5-10 mg nightly continues. nortriptyline 10mg qHS is from GI. Low dosing hopefully with low [Na] effect. Today receptive to target stress/ adjustment concerns with trial of novel SNRI milnacipran with low dose titration 12.5-25mg in divided dosing (range 50-100 could be goal if tolerated). Initial Risk and strengths: Low/ moderate. Illness anxiety potential complicating factor Follow up in: 1-2 mo. At follow up consider: f/u on milnacipran trial. f/u on any response from f/u any PCP coordination about meeting with leadership coach. [email or web address] Not available 05/20/2024 09:40:49 Plan of Treatment Reminders Order Date Submit Date Provider Last Modified By Organization Details Last Modified Time Details Appointments Virtual Visit 2024 02:30P Kasandra Paulson MD Not available Not available Not available Follow Up, 2024 11:30A Kasandra Paulson MD Not available Not available Not available Virtual Visit 2024 02:30P Kasandra Paulson MD Not available Not available Not available [facility] Virtual 2024 10:30A Kasandra Duarte MD Not available Not available Not available Follow Up, 2024 11:45A Kasandra Paulson MD Not available Not available Not available Follow Up, 2024 11:45A Kasandra Paulson MD Not available Not available Not available Follow Up, 2024 10:45A Kasandra Paulson MD Not available Not available Not available Follow Up, 2024 11:30A Kasandra Paulson MD Not available Not available Not available Lab mercury, blood 2023 024 [facility], [address] [place] [address], [id number], 04/06/2024 21:36:47 lead, blood [address] Lab, [address] [place] [address], [id number], 05/11/2024 12:56:06 arsenic, blood 2023 024 [facility], [address] [place] [address], [id number], 04/06/2024 21:36:41 urinalysi s, complete 2024 025 [facility] (Outpatient), [address] [place] [address], [id number], 05/11/2024 13:00:50 culture, urine 2024 025 [facility] (Outpatient), [address] [place] [address], [id number], 05/11/2024 13:00:50 mercury, blood 2024 025 [facility] (Outpatient), [address] [place] [address], [id number], 05/11/2024 13:00:50 arsenic, blood 2024 025 [facility] (Outpatient), [address] [place] [address], [id number], 05/11/2024 13:00:50 Referral None recorded. Procedures None recorded. Surgeries None recorded. Imaging None recorded. Medication Orders pregabali n 25 mg capsule [address] [facility][id number], [address], [place], [id number], 05/11/2024 12:09:22 milnacipr an 12.5 mg tablet [address] [facility] #[id number], [address], [place], [id number], 05/20/2024 09:25:20 Patient TargetsNo targets recorded. Patient Instructions Encounter Date Encounter Id Patient Instructions Last Modified By Organization Details Last Modified Time 03/31/2024 [id number] -CBC, CMP, prealbumin and phos are standing -I added the mercury, arsenic, and lead (will be at desk) -Non-medication options for managing gas and bloating - anise (licorice tea) can help, so can dill, evelyne, and joey seed -Deglycyrrhizinate d licorice coats and soothes the gut -Will make sure the cook helper dessert referral is in for Jareth -Keep appointments with GI and neurology -I will clarify and portal exactly what referrals is sending over, and make it clear we need a new look at all of this without repeating testing if possible given your exhausting and pain limiting your ability to complete tests. Not available 03/31/2024 13:11:17 04/15/2024 [id number] -Please see if t he pharmacist says that you can open the capsules for the pregabalin because if so, I would have you open this into something you are eating -I would have you start with pregabalin 25mg with the goal to increase to 3x daily over time -Let me know how you are tolerating this in a week -Check with [facility] - they are in [place] and have walk-in hours for therapists (I believe around 11AM) -Keep other provider appointments as scheduled -Follow-up as scheduled alek Not available 04/15/2024 15:34:58 05/04/2024 [id number] -Standard treatment for ulcers and reflux are antacids - pantoprazole and omeprazole gave you a rash, famotidine didn't help at the time BUT we could -Sulcralfate caused constipation -Deglycyrrhizinate d licorice taken 3-4 daily (with meals and bedtime) OR take half doses before more frequent meals - check at [place] -Xonb-qne-jzyseey options that help with reflux are Maalox (aluminum, magnesium, and simethicone - remember to shake bottle) and tums which is basically calcium (can cause constipation) -50mg of benadryl can be sedating for some people so can be used for anxiety prior to procedure -Nortriptyline is a reasonable thing to try [email or web address] Not available 05/04/2024 13:09:51 05/11/2024 [id number] -Mary is almas cynthia to find out if the EGD is approved and get back in touch with you - she's going to talk to referrals -Let Jareth know what happened with the slip and I put the order in, but you haven't been able to go yet. -I think if you have concerns over the nortriptyline keeping you awake, taking it earlier makes sense -You should be able to easily move a carotid artery ultrasound appointment -I'll add a urine test to the other labwork if you can do it, if not doing worry about it [email or web address] Not available 05/11/2024 12:24:03 Reason for Referral None Reported. Results Created Date Observation Date Name Description Value Unit Range Abnormal Flag Note LastModifiedBy Organization Detail LastModifiedTime 03/22/2003/22/2024 CBC WBC 6.89 K/uL 4.00-1 1.00 Not Available [facility] (Out[facility]) [address] [place] [address], [id number], 03/22/2024 14:32:20 03/22/20 24 03/22/2024 CBC RBC 4.67 M/uL 4.00-5 .20 Not Available [facility] (Outpatient) [address] [place] [address], [id number], 03/22/2024 14:32:20 03/22/2003/22/2024 CBC HGB 13.6 g/dL 12.0-1 6.0 Not Available [facility] (Outpatient) [address] [place] [address], [id number], 03/22/2024 14:32:20 03/22/2003/22/2024 CBC HCT 42.9 % 36.0-4 6.0 Not Available [facility] (Outpatient) [address] [place] [address], [id number], 03/22/2024 14:32:20 03/22/2003/22/2024 CBC plt 344 K/uL 150-45 0 Not Available [facility] (Outpatient) [address] [place] [address], [id number], 03/22/2024 14:32:20 03/22/20 24 03/22/2024 CBC MCV 91.9 fL 80.0-1 00.0 Not Available [facility] (Outpatient) [address] [place], [id number], 03/22/2024 14:32:20 03/22/20 24 03/22/2024 CBC MCH 29.1 pg 27.0-3 1.0 Not Available [facility] (Outpatient) [address] [place], [id number], 03/22/2024 14:32:20 03/22/20 24 03/22/2024 CBC MCHC 31.7 g/dL 32.0-3 6.0 low Not Available [facility] (Outpatient) [address] [place], [id number], 03/22/2024 14:32:20 03/22/20 24 03/22/2024 CBC RDW 14.7 % 11.5-1 4.5 high Not Available [facility] (Outpatient) [address] [place], [id number], 03/22/2024 14:32:20 03/22/20 24 03/22/2024 CBC MPV 9.7 fL 8.4-12 .0 Not Available [facility] (Out[facility]) [address] [place], [id number], 03/22/2024 14:32:20 03/22/20 24 03/22/2024 CBC NRBC 0.00 /100_ WBCs 0.00 Not Available [facility] (Out[facility]) [address] [place], [id number], 03/22/2024 14:32:20 03/22/20 24 03/22/2024 CBC absolute NRBC 0.00 K/uL 0.00 Not Available [facility] (Out[facility]) [address] [place], [id number], 03/22/2024 14:32:20 03/22/20 24 03/22/2024 COMPR EHENS RONY METAB OLIC PANEL sodium 138 mmol/ L 133-14 6 Not Available [facility] (Outpatient) [address] [place], [id number], 03/22/2024 14:57:38 03/22/20 24 03/22/2024 COMPR EHENS RONY METAB OLIC PANEL potassium 5.0 mmol/ L 3.3-5. 1 Not Available [facility] (Out[facility]) [address] [place], [id number], 03/22/2024 14:57:38 03/22/20 24 03/22/2024 COMPR EHENS RONY METAB OLIC PANEL chloride 101 mmol/ L 96-108 Not Available [facility] (Outpatient) [address] [place], [id number], 03/22/2024 14:57:38 03/22/20 24 03/22/2024 COMPR EHENS RONY METAB OLIC PANEL CO2 28 mmol/ L 21-35 Not Available [facility] (Out[facility]) [address] [place], [id number], 03/22/2024 14:57:38 03/22/20 24 03/22/2024 COMPR EHENS RONY METAB OLIC PANEL BUN 28 mg/dL 6-19 high Not Available [facility] (Out[facility]) [address] [place], [id number], 03/22/2024 14:57:38 03/22/20 24 03/22/2024 COMPR EHENS RONY METAB OLIC PANEL creatinine 0.70 mg/dL 0.5-1. 5 Not Available [facility] (Outpatient) [address] [place], [id number], 03/22/2024 14:57:38 03/22/20 24 03/22/2024 COMPR EHENS RONY METAB OLIC PANEL glucose 94 mg/dL 70-99 Not Available [facility] (Outpatient) [address] [place], [id number], 03/22/2024 14:57:38 03/22/20 24 03/22/2024 COMPR EHENS RONY METAB OLIC PANEL albumin 4.2 g/dL 3.9-4. 8 Not Available [facility] (Outpatient) [address] [place], [id number], 03/22/2024 14:57:38 03/22/20 24 03/22/2024 COMPR EHENS RONY METAB OLIC PANEL total protein 7.5 g/dL 6.5-8. 0 Not Available [facility] (Outpatient) [address] [place], [id number], 03/22/2024 14:57:38 03/22/20 24 03/22/2024 COMPR EHENS RONY METAB OLIC PANEL calcium 9.8 mg/dL 8.4-10 .3 Not Available [facility] (Out[facility]) [address] [place], [address], 03/22/2024 14:57:38 03/22/20 24 03/22/2024 COMPR EHENS RONY METAB OLIC PANEL alkaline phosphatase 103 U/L 39-117 Not Available [facility] (Outpatient) [address] [place] [address], [id number], 03/22/2024 14:57:38 03/22/20 24 03/22/2024 COMPR EHENS RONY METAB OLIC PANEL total bilirubin <0.2 mg/dL 0.0-1. 2 Not Available [facility] (Outpatient) [address] [place] [address], [id number], 03/22/2024 14:57:38 03/22/20 24 03/22/2024 COMPR EHENS RONY METAB OLIC PANEL AST 21 U/L 0-37 Not Available [facility] (Outpatient) [address] [place], [id number], 03/22/2024 14:57:38 03/22/20 24 03/22/2024 COMPR EHENS RONY METAB OLIC PANEL ALT 22 U/L 0-40 Not Available [facility] (Outpatient) [address] [place], [id number], 03/22/2024 14:57:38 03/22/20 24 03/22/2024 COMPR EHENS RONY METAB OLIC PANEL globulin 3.3 g/dL 1-4.8 Not Available [facility] (Out[facility]) [address] [place], [id number], 03/22/2024 14:57:38 03/22/20 24 03/22/2024 COMPR EHENS RONY METAB OLIC PANEL eGFR 94 mL/mi n/1.7 3m2 >59 Estim ated glome rular filtr ation rate calcu lated using the CKD-E PI refit equat ion. Not Available [facility] (Out[facility]) [address] [place], [id number], 03/22/2024 14:57:38 03/22/20 24 03/22/2024 COMPR EHENS RONY METAB OLIC PANEL anion gap 14 mmol/ L 10-20 Not Available [facility] (Out[facility]) [address] [place], [id number], 03/22/2024 14:57:38 03/22/20 24 03/22/2024 PHOSP HORUS phosphorus 4.3 mg/dL 2.7-4. 5 Not Available [facility] (Out[facility]) [address] [place], [id number], 03/22/2024 14:57:40 03/22/20 24 03/22/2024 PREAL BUMIN prealbumin 37 mg/dL 20-40 Not Available [facility] (Out[facility]) [address] [place], [id number], 03/22/2024 14:59:31 04/02/20 24 04/02/2024 CBC WBC 6.46 K/uL 4.00-1 1.00 Not Available [facility] (Out[facility]) [address] [place], [id number], 04/02/2024 16:11:01 04/02/20 24 04/02/2024 CBC RBC 4.90 M/uL 4.00-5 .20 Not Available [facility] (Out[facility]) [address] [place], [id number], 04/02/2024 16:11:01 04/02/20 24 04/02/2024 CBC HGB 14.5 g/dL 12.0-1 6.0 Not Available [facility] (Out[facility]) [address] [place], [id number], 04/02/2024 16:11:01 04/02/20 24 04/02/2024 CBC HCT 44.4 % 36.0-4 6.0 Not Available [facility] (Out[facility]) [address] [place], [id number], 04/02/2024 16:11:01 04/02/20 24 04/02/2024 CBC plt 323 K/uL 150-45 0 Not Available [facility] (Out[facility]) [address] [place] [address], [id number], 04/02/2024 16:11:01 04/02/20 24 04/02/2024 CBC MCV 90.6 fL 80.0-1 00.0 Not Available [facility] (Out[facility]) [address] [place], [id number], 04/02/2024 16:11:01 04/02/20 24 04/02/2024 CBC MCH 29.6 pg 27.0-3 1.0 Not Available [facility] (Out[facility]) [address] [place], [id number], 04/02/2024 16:11:01 04/02/20 24 04/02/2024 CBC MCHC 32.7 g/dL 32.0-3 6.0 Not Available [facility] (Out[facility]) [address] [place], [address], 04/02/2024 16:11:01 04/02/20 24 04/02/2024 CBC RDW 14.6 % 11.5-1 4.5 high Not Available [facility] (Outpatient) [address] [place], [id number], 04/02/2024 16:11:01 04/02/20 24 04/02/2024 CBC MPV 9.7 fL 8.4-12 .0 Not Available [facility] (Out[facility]) [address] [place], [address], 04/02/2024 16:11:01 04/02/20 24 04/02/2024 CBC NRBC 0.00 /100_ WBCs 0.00 Not Available [facility] (Out[facility]) [address] [place], [address], 04/02/2024 16:11:01 04/02/20 24 04/02/2024 CBC absolute NRBC 0.00 K/uL 0.00 Not Available [facility] (Out[facility]) [address] [place], [id number], 04/02/2024 16:11:01 04/02/20 24 04/02/2024 PREAL BUMIN prealbumin 36 mg/dL 20-40 Not Available [facility] ([facility]) [address] [place] [address], [id number], 04/02/2024 16:42:09 04/02/20 24 04/02/2024 COMPR EHENS RONY METAB OLIC PANEL sodium 138 mmol/ L 133-14 6 Not Available [facility] (Out[facility]) [address] [place] [address], [id number], 04/02/2024 16:45:05 04/02/20 24 04/02/2024 COMPR EHENS RONY METAB OLIC PANEL potassium 4.6 mmol/ L 3.3-5. 1 Not Available [facility] (Out[facility]) [address] [place], [address], 04/02/2024 16:45:05 04/02/20 24 04/02/2024 COMPR EHENS RONY METAB OLIC PANEL chloride 100 mmol/ L 96-108 Not Available [facility] (Out[facility]) [address] [place], [id number], 04/02/2024 16:45:05 04/02/20 24 04/02/2024 COMPR EHENS RONY METAB OLIC PANEL CO2 29 mmol/ L 21-35 Not Available [facility] (Out[facility]) [address] [place], [address], 04/02/2024 16:45:05 04/02/20 24 04/02/2024 COMPR EHENS RONY METAB OLIC PANEL BUN 17 mg/dL 6-19 Not Available [facility] (Out[facility]) [address] [place], [address], 04/02/2024 16:45:05 04/02/20 24 04/02/2024 COMPR EHENS RONY METAB OLIC PANEL creatinine 0.60 mg/dL 0.5-1. 5 Not Available [facility] (Outpatient) [address] [place], [address], 04/02/2024 16:45:05 04/02/20 24 04/02/2024 COMPR EHENS RONY METAB OLIC PANEL glucose 96 mg/dL 70-99 Not Available [facility] (Out[facility]) [address] [place], [address], 04/02/2024 16:45:05 04/02/20 24 04/02/2024 COMPR EHENS RONY METAB OLIC PANEL albumin 4.4 g/dL 3.9-4. 8 Not Available [facility] (Out[facility]) [address] [place], [id number], 04/02/2024 16:45:05 04/02/20 24 04/02/2024 COMPR EHENS RONY METAB OLIC PANEL total protein 7.9 g/dL 6.5-8. 0 Not Available [facility] (Outpatient) [address] [place], [id number], 04/02/2024 16:45:05 04/02/20 24 04/02/2024 COMPR EHENS RONY METAB OLIC PANEL calcium 10.0 mg/dL 8.4-10 .3 Not Available [facility] (Outpatient) [address] [place], [address], 04/02/2024 16:45:05 04/02/20 24 04/02/2024 COMPR EHENS RONY METAB OLIC PANEL alkaline phosphatase 115 U/L 39-117 Not Available [facility] (Outpatient) [address] [place], [address], 04/02/2024 16:45:05 04/02/20 24 04/02/2024 COMPR EHENS RONY METAB OLIC PANEL total bilirubin 0.3 mg/dL 0.0-1. 2 Not Available [facility] (Outpatient) [address] [place], [address], 04/02/2024 16:45:05 04/02/20 24 04/02/2024 COMPR EHENS RONY METAB OLIC PANEL AST 21 U/L 0-37 Not Available [facility] (Outpatient) [address] [place], [address], 04/02/2024 16:45:05 04/02/20 24 04/02/2024 COMPR EHENS RONY METAB OLIC PANEL ALT 15 U/L 0-40 Not Available [facility] (Outpatient) [address] [place], [address], 04/02/2024 16:45:05 04/02/20 24 04/02/2024 COMPR EHENS RONY METAB OLIC PANEL globulin 3.5 g/dL 1-4.8 Not Available [facility] (Outpatient) [address] [place], [address], 04/02/2024 16:45:05 04/02/20 24 04/02/2024 COMPR EHENS RONY METAB OLIC PANEL eGFR 97 mL/mi n/1.7 3m2 >59 Estim ated glome rular filtr ation rate calcu lated using the CKD-E PI refit equat ion. Not Available [facility] (Outpatient) [address] [place], [address], 04/02/2024 16:45:05 04/02/20 24 04/02/2024 COMPR EHENS RONY METAB OLIC PANEL anion gap 14 mmol/ L 10 Not Available [facility] (Outpatient) [address] [place], [address], 04/02/2024 16:45:05 04/02/20 24 04/06/2024 MARGA IC, BLOOD arsenic 5 NG/mL <13 (NOTE ) ----- ----- ----- ----A DDITI ONAL INFOR MATIO N---- ----- ----- ----- This test was varinder vital and its perfo rmanc e rhett cteri stics deter mined by [employer] in a maday r consi stent with CLIA requi remen ts. This test has not been clear ed or appro chino by the U.S. Food and Drug Admin istra tion. Not Available [facility] (Outpatient) [address] [place], [address], 04/06/2024 21:36:41 04/02/20 24 04/06/2024 MERCU RY, BLOOD bld mercury 25 NG/mL <10 high (NOTE ) ----- ----- ----- ----A DDITI ONAL INFOR MATIO N---- ----- ----- ----- This test was trishel opluis and its perfo rmanc e rhett cteri stics deter mined by [facility] [employer] in a maday r consi stent with CLIA requi remen ts. This test has not been clear ed or appro chino by the U.S. Food and Drug Admin istra tion. Not Available [facility] (Outpatient) [address] [place], [address], 04/06/2024 21:36:47 05/06/1905/06/2024 CBC WBC 6.70 K/uL 4.00-1 1.00 Not Available [facility] (Outpatient) [address] [place], [address], 05/06/2024 13:45:19 05/06/19 25 05/06/2024 CBC RBC 4.94 M/uL 4.00-5 .20 Not Available [facility] (Outpatient) [address] [place], [address], 05/06/2024 13:45:19 05/06/19 25 05/06/2024 CBC HGB 14.5 g/dL 12.0-1 6.0 Not Available [facility] (Outpatient) [address] [place] [address], [id number], 05/06/2024 13:45:19 05/06/19 25 05/06/2024 CBC HCT 45.0 % 36.0-4 6.0 Not Available [facility] (Outpatient) [address] [place], [id number], 05/06/2024 13:45:19 05/06/19 25 05/06/2024 CBC plt 293 K/uL 150-45 0 Not Available [facility] (Outpatient) [address] [place], [address], 05/06/2024 13:45:19 05/06/19 25 05/06/2024 CBC MCV 91.1 fL 80.0-1 00.0 Not Available [facility] (Outpatient) [address] [place], [address], 05/06/2024 13:45:19 05/06/19 25 05/06/2024 CBC MCH 29.4 pg 27.0-3 1.0 Not Available [facility] (Outpatient) [address] [place], [address], 05/06/2024 13:45:19 05/06/19 25 05/06/2024 CBC MCHC 32.2 g/dL 32.0-3 6.0 Not Available [facility] (Outpatient) [address] [place], [address], 05/06/2024 13:45:19 05/06/19 25 05/06/2024 CBC RDW 13.7 % 11.5-1 4.5 Not Available [facility] (Outpatient) [address] [place], [address], 05/06/2024 13:45:19 05/06/19 25 05/06/2024 CBC MPV 10.3 fL 8.4-12 .0 Not Available [facility] (Outpatient) [address] [place], [address], 05/06/2024 13:45:19 05/06/19 25 05/06/2024 CBC NRBC 0.00 /100_ WBCs 0.00 Not Available [facility] (Outpatient) [address] [place], [address], 05/06/2024 13:45:19 05/06/19 25 05/06/2024 CBC absolute NRBC 0.00 K/uL 0.00 Not Available [facility] (Outpatient) [address] [place], [id number], 05/06/2024 13:45:19 05/06/19 25 05/06/2024 COMPR EHENS RONY METAB OLIC PANEL sodium 138 mmol/ L 133-14 6 Not Available [facility] (Outpatient) [address] [place], [address], 05/06/2024 14:06:32 05/06/19 25 05/06/2024 COMPR EHENS RONY METAB OLIC PANEL potassium 4.3 mmol/ L 3.3-5. 1 Speci men sligh tly hemol yzed, resul t may be false ly eleva chau. Not Available [facility] (Out[facility]) [address] [place] [address], [id number], 05/06/2024 14:06:32 05/06/19 25 05/06/2024 COMPR EHENS RONY METAB OLIC PANEL chloride 102 mmol/ L 96-108 Not Available [facility] (Outpatient) [address] [place], [address], 05/06/2024 14:06:32 05/06/19 25 05/06/2024 COMPR EHENS RONY METAB OLIC PANEL CO2 26 mmol/ L 21-35 Not Available [facility] (Outpatient) [address] [place] [address], [id number], 05/06/2024 14:06:32 05/06/19 25 05/06/2024 COMPR EHENS RONY METAB OLIC PANEL BUN 18 mg/dL 6-19 Not Available [facility] (Outpatient) [address] [place] [address], [id number], 05/06/2024 14:06:32 05/06/19 25 05/06/2024 COMPR EHENS RONY METAB OLIC PANEL creatinine 0.60 mg/dL 0.5-1. 5 Not Available [facility] (Outpatient) [address] [place] [address], [address], 05/06/2024 14:06:32 05/06/19 25 05/06/2024 COMPR EHENS RONY METAB OLIC PANEL glucose 107 mg/dL 70-99 high Not Available [facility] (Outpatient) [address] [place] [address], [id number], 05/06/2024 14:06:32 05/06/19 25 05/06/2024 COMPR EHENS RONY METAB OLIC PANEL albumin 4.1 g/dL 3.9-4. 8 Not Available [facility] (Outpatient) [address] [place], [address], 05/06/2024 14:06:32 05/06/19 25 05/06/2024 COMPR EHENS RONY METAB OLIC PANEL total protein 7.8 g/dL 6.5-8. 0 Not Available [facility] (Outpatient) [address] [place], [address], 05/06/2024 14:06:32 05/06/19 25 05/06/2024 COMPR EHENS RONY METAB OLIC PANEL calcium 9.5 mg/dL 8.4-10 .3 Not Available [facility] (Outpatient) [address] [place], [address], 05/06/2024 14:06:32 05/06/19 25 05/06/2024 COMPR EHENS RONY METAB OLIC PANEL alkaline phosphatase 128 U/L 39-117 high Not Available [facility] (Outpatient) [address] [place], [address], 05/06/2024 14:06:32 05/06/19 25 05/06/2024 COMPR EHENS RONY METAB OLIC PANEL total bilirubin <0.2 mg/dL 0.0-1. 2 Not Available [facility] (Outpatient) [address] [place], [address], 05/06/2024 14:06:32 05/06/19 25 05/06/2024 COMPR EHENS RONY METAB OLIC PANEL AST 22 U/L 0-37 Not Available [facility] (Outpatient) [address] [place], [address], 05/06/2024 14:06:32 05/06/19 25 05/06/2024 COMPR EHENS RONY METAB OLIC PANEL ALT 16 U/L 0-40 Not Available [facility] (Outpatient) [address] [place], [address], 05/06/2024 14:06:32 05/06/19 25 05/06/2024 COMPR EHENS RONY METAB OLIC PANEL globulin 3.7 g/dL 1-4.8 Not Available [facility] (Outpatient) [address] [place] [address], [address], 05/06/2024 14:06:32 05/06/19 25 05/06/2024 COMPR EHENS RONY METAB OLIC PANEL eGFR 97 mL/mi n/1.7 3m2 >59 Estim ated glome rular filtr ation rate calcu lated using the CKD-E PI refit equat ion. Not Available [facility] (Outpatient) [address] [place] [address], [address], 05/06/2024 14:06:32 05/06/19 25 05/06/2024 COMPR EHENS RONY METAB OLIC PANEL anion gap 14 mmol/ L 10-20 Not Available [facility] (Out[facility]) [address] [place] [address], [address], 05/06/2024 14:06:32 05/06/19 25 05/06/2024 PHOSP HORUS phosphorus 3.5 mg/dL 2.7-4. 5 Not Available [facility] (Outpatient) [address] [place] [address], [address], 05/06/2024 14:06:34 05/06/19 25 05/06/2024 PREAL BUMIN prealbumin 30 mg/dL 20-40 Not Available [facility] (Outpatient) [address] [place] [address], [address], 05/06/2024 14:06:41 05/26/19 25 05/26/2024 CBC WBC 7.34 K/uL 4.00-1 1.00 Not Available [facility] (Outpatient) [address] [place] [address], [address], 05/26/2024 13:21:42 05/26/19 25 05/26/2024 CBC RBC 5.25 M/uL 4.00-5 .20 high Not Available [facility] (Outpatient) [address] [place] [address], [address], 05/26/2024 13:21:42 05/26/19 25 05/26/2024 CBC HGB 15.2 g/dL 12.0-1 6.0 Not Available [facility] (Outpatient) [address] [place] [address], [id number], 05/26/2024 13:21:42 05/26/19 25 05/26/2024 CBC HCT 47.6 % 36.0-4 6.0 high Not Available [facility] (Outpatient) [address] [place] [address], [address], 05/26/2024 13:21:42 05/26/19 25 05/26/2024 CBC plt 302 K/uL 150-45 0 Not Available [facility] (Outpatient) [address] [place] [address], [address], 05/26/2024 13:21:42 05/26/19 25 05/26/2024 CBC MCV 90.7 fL 80.0-1 00.0 Not Available [facility] (Outpatient) [address] [place] [address], [address], 05/26/2024 13:21:42 05/26/19 25 05/26/2024 CBC MCH 29.0 pg 27.0-3 1.0 Not Available [facility] (Outpatient) [address] [place] [address], [address], 05/26/2024 13:21:42 05/26/19 25 05/26/2024 CBC MCHC 31.9 g/dL 32.0-3 6.0 low Not Available [facility] (Outpatient) [address] [place] [address], [id number], 05/26/2024 13:21:42 05/26/19 25 05/26/2024 CBC RDW 13.5 % 11.5-1 4.5 Not Available [facility] (Outpatient) [address] [place], [address], 05/26/2024 13:21:42 05/26/19 25 05/26/2024 CBC MPV 10.3 fL 8.4-12 .0 Not Available [facility] (Outpatient) [address] [place], [address], 05/26/2024 13:21:42 05/26/19 25 05/26/2024 CBC NRBC 0.00 /100_ WBCs 0.00 Not Available [facility] (Outpatient) [address] [place], [address], 05/26/2024 13:21:42 05/26/19 25 05/26/2024 CBC absolute NRBC 0.00 K/uL 0.00 Not Available [facility] (Outpatient) [address] [place], [address], 05/26/2024 13:21:42 05/26/19 25 05/26/2024 PREAL BUMIN prealbumin 34 mg/dL 20-40 Not Available [facility] (Outpatient) [address] [place], [address], 05/26/2024 13:25:30 05/26/19 25 05/26/2024 PHOSP HORUS phosphorus 3.6 mg/dL 2.7-4. 5 Not Available [facility] (Outpatient) [address] [place], [address], 05/26/2024 13:26:02 05/26/19 25 05/26/2024 COMPR EHENS RONY METAB OLIC PANEL sodium 138 mmol/ L 133-14 6 Not Available [facility] (Outpatient) [address] [place], [address], 05/26/2024 13:26:05 05/26/19 25 05/26/2024 COMPR EHENS RONY METAB OLIC PANEL potassium 4.4 mmol/ L 3.3-5. 1 Not Available [facility] (Outpatient) [address] [place], [address], 05/26/2024 13:26:05 05/26/19 25 05/26/2024 COMPR EHENS RONY METAB OLIC PANEL chloride 101 mmol/ L 96-108 Not Available [facility] (Outpatient) [address] [place], [address], 05/26/2024 13:26:05 05/26/19 25 05/26/2024 COMPR EHENS RONY METAB OLIC PANEL CO2 26 mmol/ L 21-35 Not Available [facility] (Outpatient) [address] [place], [address], 05/26/2024 13:26:05 05/26/19 25 05/26/2024 COMPR EHENS RONY METAB OLIC PANEL BUN 20 mg/dL 6-19 high Not Available [facility] (Outpatient) [address] [place], [address], 05/26/2024 13:26:05 05/26/19 25 05/26/2024 COMPR EHENS RONY METAB OLIC PANEL creatinine 0.60 mg/dL 0.5-1. 5 Not Available [facility] (Outpatient) [address] [place], [address], 05/26/2024 13:26:05 05/26/19 25 05/26/2024 COMPR EHENS RONY METAB OLIC PANEL glucose 105 mg/dL 70-99 high Not Available [facility] (Outpatient) [address] [place], [address], 05/26/2024 13:26:05 05/26/19 25 05/26/2024 COMPR EHENS RNOY METAB OLIC PANEL albumin 4.1 g/dL 3.9-4. 8 Not Available [facility] (Outpatient) [address] [place], [address], 05/26/2024 13:26:05 05/26/19 25 05/26/2024 COMPR EHENS RONY METAB OLIC PANEL total protein 8.1 g/dL 6.5-8. 0 high Not Available [facility] (Outpatient) [address] [place], [address], 05/26/2024 13:26:05 05/26/19 25 05/26/2024 COMPR EHENS RONY METAB OLIC PANEL calcium 10.0 mg/dL 8.4-10 .3 Not Available [facility] (Outpatient) [address] [place], [address], 05/26/2024 13:26:05 05/26/19 25 05/26/2024 COMPR EHENS RONY METAB OLIC PANEL alkaline phosphatase 125 U/L 39-117 high Not Available [facility] (Out[facility]) [address] [place], [address], 05/26/2024 13:26:05 05/26/19 25 05/26/2024 COMPR EHENS RONY METAB OLIC PANEL total bilirubin 0.3 mg/dL 0.0-1. 2 Not Available [facility] (Outpatient) [address] [place], [address], 05/26/2024 13:26:05 05/26/19 25 05/26/2024 COMPR EHENS RONY METAB OLIC PANEL AST 25 U/L 0-37 Not Available [facility] (Outpatient) [address] [place], [address], 05/26/2024 13:26:05 05/26/19 25 05/26/2024 COMPR EHENS RONY METAB OLIC PANEL ALT 19 U/L 0-40 Not Available [facility] (Outpatient) [address] [place], [address], 05/26/2024 13:26:05 05/26/19 25 05/26/2024 COMPR EHENS RONY METAB OLIC PANEL globulin 4.0 g/dL 1-4.8 Not Available [facility] (Outpatient) [address] [place], [address], 05/26/2024 13:26:05 05/26/19 25 05/26/2024 COMPR EHENS RONY METAB OLIC PANEL eGFR 97 mL/mi n/1.7 3m2 >59 Estim ated glome rular filtr ation rate calcu lated using the CKD-E PI refit equat ion. Not Available [facility] (Outpatient) [address] [place], [address], 05/26/2024 13:26:05 05/26/19 25 05/26/2024 COMPR EHENS RONY METAB OLIC PANEL anion gap 15 mmol/ L 10-20 Not Available [facility] (Outpatient) [address] [place], [address], 05/26/2024 13:26:05 05/26/19 25 05/27/2024 TISSU E TRANS GLUTA REECE E IGG ttg antibody IgG 4.0 U/mL <6.0 (negat rony) Not Available [facility] (Outpatient) [address] [place], [address], 05/27/2024 19:44:35 05/26/19 25 05/28/2024 GLIAD IN DEAMI DATED ANTIB LEEANNA, IGG/I GA gliadin Ab IgA <10.0 U <20.0 (negat rony) Not Available [facility] (Outpatient) [address] [place], [address], 05/28/2024 19:38:37 05/26/19 25 05/28/2024 GLIAD IN DEAMI DATED ANTIB LEEANNA, IGG/I GA gliadin Ab IgG <10.0 U <20.0 (negat rony) Not Available [facility] (Outpatient) [address] [place], [address], 05/28/2024 19:38:37 05/26/19 25 05/28/2024 TISSU E TRANS GLUTA REECE E IGA ttg IgA antibody <1.2 U/mL <4.0 (negat rony) Not Available [facility] (Outpatient) [address] [facility], [place], [address], 05/28/2024 19:38:39 Result Notes None recorded. Procedures Surgical History Date Name Laterality Status Provider Name and Address Organization Details Recorded Time 4 Emily - EGD completed Dieudonne Diaz MD [address] [place] [address], [phone] [facility] [place]13/[place]23 14:04:52 3 Emily - Colonoscopy completed Dieudonne Diaz MD [address] [place] [address], [phone], [facility] [place] 12/20/2022 12:45:26 Imaging Results None recorded. Procedure Notes None recorded. Medical Equipment None Reported. Allergies Allergen ID Allergen Name Allergen Category Reaction Reaction Severity Criticality Documentation Date Start Date Code Code System Note Provider Name and Address Organization Details Recorded Time 884401 codeine medicatio n vomiting Not available Not available 12/19/2022 2670 RxNorm Hermelinda Cali RN null, [facility] 3 15:40:08 [id number] Levaquin medicatio n rash Not available Not available 12/19/2022 71657 2 RxNorm Hermelinda Cali RN null, [facility] 3 15:40:22 [id number] Sudafed medicatio n rash Not available Not available 12/19/2022 58401 2 RxNorm Hermelinda Cali RN null, [facility] 3 15:40:56 [id number] pantopraz ole medicatio n other Not available Not available 06/12/2023 64603 RxNorm pain Nancy Paige RN null, [facility] 4 13:43:27 [id number] Ativan medicatio n other Not available Not available 06/12/202384433 9 RxNorm hyper activ ity Nancy Paige, DIANA null, [facility] 4 13:44:08 [id number] propranol ol medicatio n confusion Not available Not available 06/12/2023 8787 RxNorm Nancy Salamancapati, DIANA null, [facility] 4 13:44:34 [id number] hydroxyzi ne Not available other Not available Not available 06/12/2023 5553 RxNorm unkno wn Nancy Paige RN null, [facility] 4 13:44:59 [id number] lisinopri l medicatio n Not available Not available Not available 06/12/2023 90829 RxNorm unkno wn rx Nancy Paige RN null, [facility] 4 13:45:14 Medications Name Sig Start Date Stop Date Status Note LastModified by Organization Details LastModified Time meclizine hcl 25 mg tabs 08/31 completed Not Available Not Available Not Available amitripty line hydrochlo ride 50 mg tabs 08/11 completed Not Available Not Available Not Available ondansetr on odt 4 mg tbdp 08/31 completed Not Available Not Available Not Available chlorhexi dine gluconate 0.12 % soln 08/11 completed Not Available Not Available Not Available propranol ol hydrochlo ride 20 mg tabs 11/03 completed Down to 5 mg will be off of it 08-26-18 Not Available Not Available Not Available amitripty line hcl 50 mg tabs 06/15 completed No longer taking x8 weeks 06/15/18- Not Available Not Available Not Available propranol ol hcl 20 mg tabs 06/15 completed Not Available Not Available Not Available buspirone 5 mg tablet TAKE 1 TABLET BY MOUTH TWICE DAILY 01/29 completed Not Available Not Available Not Available Augmentin 875 mg-125 mg tablet Take 1 tablet every 12 hours by oral route for 10 days. 01/21 completed Not Available Not Available Not Available hydralazi ne 10 mg tablet TAKE 1 TABLET BY MOUTH THREE TIMES DAILY 05/30 completed Not Available Not Available Not Available cromolyn 100 mg/5 mL oral concentra te TAKE 10 ML BY MOUTH FOUR TIMES DAILY active Not Available Not Available No t Available BD Alcohol Swabs Use twice daily as directed for monitori ng glucose, Dx: E16.2 active Not Available Not Available No t Available venlafaxi ne ER 37.5 mg capsule,e xtended release 24 hr 03/31 completed Per pt not taking 03/31/24 cc Not Available Not Available Not Available doxycycli ne hyclate 100 mg capsule TAKE 2 CAPSULES BY MOUTH ONCE DAILY 07/30 completed Not Available Not Available Not Available Carafate 100 mg/mL oral suspensio n Take 10 mL 4 times a day by oral route for 14 days. 05/30 completed does not take 05/30/23 KRB Not Available Not Available Not Available trazodone 50 mg tablet TAKE 1 TO 2 TABLETS BY MOUTH AT BEDTIME NEEDED 03/04 completed Not Available Not Available Not Available cetirizin e 10 mg tablet TK 1 T PO QD AT BEDTIME 09/14 completed Pt feels she's doing okay with the flonase - holding on this for now Not Available Not Available Not Available azithromy marline 250 mg tablet take 2 tablets by mouth today then take 1 tablet DAILY FOR 4 DAYS active Not Available Not Available No t Available Lidocaine Viscous 2 % mucosal solution TAKE 15 ML 3 TIMES A DAY BY ORAL ROUTE NEEDED. 05/30 completed Not Available Not Available Not Available ampicilli n 500 mg capsule 08/27 completed Not Available Not Available Not Available valacyclo vir 1 gram tablet TAKE 1 TABLET BY MOUTH EVERY 12 HOURS FOR 30 DAYS 01/29 completed not currentl y taking 08/15/22 Not Available Not Available Not Available senna 8.6 mg tablet TAKE 2 TABLETS BY MOUTH AT BEDTIME FOR CONSTIPA TION 11/02 completed does not take 10/09/23 KRB Not using 10/20/23 SD Not Available Not Available Not Available sucralfat e 1 gram tablet TAKE 1 TABLET BY MOUTH TWICE DAILY ON AN EMPTY STOMACH 06/03 completed Not Available Not Available Not Available famotidin e 40 mg tablet TAKE 1 TABLET BY MOUTH TWICE DAILY AT BEDTIME 05/30 completed does not take 05/30/23 KRB Not Available Not Available Not Available clonazepa m 0.5 mg tablet 03/31 completed Not taking 03/31/24 cc Not Available Not Available Not Available propranol ol ER 60 mg capsule,2 4 hr,extend ed release TAKE 1 CAPSULE BY MOUTH EVERY DAY active Not Available Not Available No t Available senna 8.8 mg/5 mL oral syrup take 5-10 ml every evening 11/02 completed Not using 10/20/23 SD Not using 11/03/23 SD Not Available Not Available Not Available risperido ne 0.25 mg tablet TAKE 1 TABLET BY MOUTH EVERY DAY AT BEDTIME 08/27 completed Not Available Not Available Not Available amlodipin e 2.5 mg tablet TAKE 1 TABLET BY MOUTH EVERY DAY 08/27 completed Not Available Not Available Not Available amlodipin e 5 mg tablet Take 0.5 tablets twice a day by oral route for 30 days. 07/27 completed stopped 07/03/23 Not Available Not Available Not Available olanzapin e 2.5 mg tablet 09/24 completed Not Available Not Available Not Available omeprazol e 40 mg capsule,d elayed release TAKE 1 CAPSULE BY MOUTH EVERY DAY 30 MINUTES BEFORE BREAKFAS T 05/27 completed Not Available Not Available Not Available amitripty line 50 mg tablet TAKE 1 TABLET BY MOUTH ONCE DAILY 06/15 completed No longer taking x8 weeks 06/15/18- ah Not Available Not Available Not Available cyprohept adine 4 mg tablet 11/02 completed Not taking 10/20/23 SD Not taking 11/03/23 SD Not Available Not Available Not Available ciclopiro x 8 % topical solution APPLY 1 ML TO THE AFFECTED AREA TWICE DAILY FOR 30 DAYS 05/30 completed Not Available Not Available Not Available propranol ol 10 mg tablet Take 1 tablet 4 times a day by oral route as needed. 05/21 completed Not Available Not Available Not Available famotidin e 20 mg tablet TAKE 1 TO 2 TABLETS BY MOUTH TWICE DAILY NEEDED 06/17 completed Not Available Not Available Not Available metoclopr amide 5 mg tablet TAKE ONE-HALF TABLET BY MOUTH EVERY DAY 4 TIMES A DAY BEFORE MEAL/BED TIME 11/02 completed does not take had severed reaction to 10/09/23 KRB Not taking 11/03/23 SD Not Available Not Available Not Available trazodone 100 mg tablet TAKE 1 TO 2 TABLETS BY MOUTH EVERY NIGHT NEEDED FOR INSOMNIA 05/01 completed on hold-try ing Gabapent in 05/01/23-p t not taking Not Available Not Available Not Available amitripty line 10 mg tablet TAKE 2 TABLETS EVERY DAY active Not Available Not Available No t Available meclizine 25 mg tablet take 1 tablet by mouth three times a day if needed 12/15 completed Not taking 0 SD Not taking 11/03/2019 SD, not taking 0 KRB Not Available Not Available Not Available erythromy marline 5 mg/gram (0.5 %) eye ointment APPLY 1 CM RIBBON INTO THE LOWER CONJUNCT IVAL SACS IN AFFECTED EYE(S) THREE TIMES DAILY FOR 7 DAYS 03/13 completed Not Available Not Available Not Available nortripty line 10 mg capsule active getting from [facility] Not Available Not Available Not Available clotrimaz ole-betam ethasone 1 %-0.05 % topical cream APPLY TOPICALL Y TO THE AFFECTED AND SURROUND ING AREAS TWICE DAILY IN THE MORNING AND IN THE EVENING FOR 4 WEEKS 05/30 completed Not Available Not Available Not Available hyoscyami ne 0.125 mg sublingua l tablet DISSOLVE 1 TABLET UNDER THE TONGUE EVERY 6 HOURS NEEDED FOR CRAMPING 03/31 completed Per pt not taking 03/31/24 cc Not Available Not Available Not Available propranol ol ER 80 mg capsule,2 4 hr,extend ed release TAKE 1 CAPSULE BY MOUTH EVERY DAY 05/21 completed Not Available Not Available Not Available lisinopri l 5 mg tablet TAKE 1 TABLET BY MOUTH DAILY 05/16 completed 05/14/23- stopped by [facility]- [facility] Not Available Not Available Not Available acyclovir 200 mg capsule 08/28 completed not currentl y taking 08/15/22 Not Available Not Available Not Available zolpidem 5 mg tablet TAKE 1 TO 2 TABLETS BY MOUTH AT BEDTIME NEEDED active Not Available Not Available No t Available gabapenti n 100 mg capsule TAKE 1 CAPSULE BY MOUTH NIGHTLY. CAN INCREASE BY 1 CAPSULE EVERY OTHER NIGHT UP TO 300MG FOR INSOMNIA 05/06 completed 05/01/23-r eviewed Not Available Not Available Not Available lorazepam 1 mg tablet TAKE 1/2 TO 1 TABLET BY MOUTH TWICE DAILY NEEDED FOR SEVERE ANXIETY AND PANIC ATTACKS 05/06 completed Not Available Not Available Not Available zolpidem 10 mg tablet Take 1 tablet every day by oral route for 30 days. 01/29 completed Not Available Not Available Not Available albuterol sulfate HFA 90 mcg/actua tion aerosol inhaler INHALE 2 PUFFS BY MOUTH THREE TIMES DAILY NEEDED 06/14 completed Not taking/a llergic YUAN Not Available Not Available Not Available diltiazem 30 mg tablet TAKE 1/2 TO 1 TABLET BY MOUTH THREE TIMES DAILY 06/25 completed Not Available Not Available Not Available propranol ol 20 mg tablet take 1 tablet by mouth twice a day 11/03 completed Not Available Not Available Not Available hydroxyzi ne HCl 10 mg tablet TAKE 1 TABLET BY MOUTH 3 TIMES DAILY NEEDED FOR ANXIETY AND 1-2 TABLETS AT BEDTIME NEEDED FOR ANXIETY/ SLEEP 05/21 completed Not Available Not Available Not Available ondansetr on 4 mg disintegr ating tablet DISSOLVE 1 TABLET ON THE TONGUE THREE TIMES DAILY FOR 10 DAYS 05/30 completed Not Available Not Available Not Available fluticaso ne propionat e 50 mcg/actua tion nasal spray,[employer] pension INSTILL 2 SPRAYS INTO EACH NOSTRIL EVERY DAY 05/30 completed PRN Not Available Not Available Not Available sertralin e 50 mg tablet TAKE 1 TABLET BY MOUTH EVERY DAY 01/29 completed Not Available Not Available Not Available ipratropi um bromide 21 mcg (0.03 %) nasal spray U 2 SPRAYS IEN BID 05/23 completed does not use 02/23/20 20 KRB Not Available Not Available Not Available esomepraz ole magnesium 20 mg capsule,d elayed release TAKE 1 CAPLET BY MOUTH DAILY 11/02 completed does not take 10/09/23 KRB Not taking 10/20/23 SD Not Available Not Available Not Available Wal-phed 30 mg tablet TK 2 TS PO IN THE MORNING AND AFTERNOO N FOR 14 DAYS 12/15 completed Not Available Not Available Not Available metoprolo l tartrate 25 mg tablet TAKE 1 TABLET BY MOUTH TWICE DAILY 05/25 completed Not Available Not Available Not Available cinacalce t 30 mg tablet TAKE 1 TABLET BY MOUTH DAILY 05/20 completed Not Available Not Available Not Available mirtazapi ne 7.5 mg tablet Take 1 tablet every day by oral route at bedtime. 03/07 completed Not Available Not Available Not Available nitrofura ntoin monohydra te/macroc rystals 100 mg capsule TAKE 1 CAPSULE BY MOUTH EVERY 12 HOURS FOR 7 DAYS 09/07 completed Not Available Not Available Not Available lactulose 10 gram/15 mL oral solution TAKE 30 ML BY MOUTH EVERY DAY NEEDED 06/17 completed Not Available Not Available Not Available eszopiclo ne 2 mg tablet 01/29 completed Not Available Not Available Not Available pregabali n 25 mg capsule TAKE 1 CAPSULE BY MOUTH EVERY DAY 05/11 completed not taking 05/04/24- lost sight and groggy Not Available Not Available Not Available pregabali n 75 mg capsule Take 1 capsule twice a day by oral route. 03/31 completed Per pt not taking 03/31/24 cc Not Available Not Available Not Available zolpidem ER 6.25 mg tablet,ex tended release,m ultiphase TAKE 1 TABLET BY MOUTH EVERY DAY 04/15 completed used only rarely for severe insomnia -not o be mixed with Lorazepa m or Gabapent in in pm Not Available Not Available Not Available chlorhexi dine gluconate 0.12 % mouthwash RINSE ONCE IN THE MORNING AND ONCE AT NIGHT 08/11 completed Not Available Not Available Not Available magnesium 11/25 completed on hold 10-27-17 JG Not Available Not Available Not Available calcium 08/11 completed Not Available Not Available Not Available propranol ol bid 20 mg a day active Not Available Not Available No t Available Benadryl Take 10mL as needed active Not Available Not Available No t Available Metamucil 10/27 completed Not Available Not Available Not Available ketotifen fumarate 03/31 completed 1 mg // Per pt not taking 03/31/24 cc Not Available Not Available Not Available Prilosec OTC 1 daily active Not Available Not Available Not Available quetiapin e 50 mg tablet 03/31 completed Per pt not taking 03/31/24 cc Not Available Not Available Not Available Savella 12.5 mg tablet active Not Available Not Available Not Available estradiol 10 mcg vaginal tablet INSERT 1 TABLET VAGINALL Y EVERY DAY FOR 14 DAYS THEN TWICE WEEKLY active prn Not Available Not Available No t Available Dexilant 60 mg capsule, delayed release TAKE 1 CAPSULE BY MOUTH ONCE DAILY active Not Available Not Available No t Available Dexilant 30 mg capsule, delayed release Take 1 capsule every day by oral route. active From [employer] Not Available Not Available Not Available Xifaxan 550 mg tablet Take 1 tablet 3 times a day by oral route. 05/20 completed PRN per pt Not Available Not Available Not Available Probiotic 08/11 completed Not Available Not Available Not Available [employer] Thyroid 30 mg tablet Take 1 tablet every day by oral route. 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 active Not Available Not Available No t Available riboflavi n (vitamin B2) 400 mg tablet TAKE 1 TABLET BY MOUTH EVERY DAY 11/07 completed Not Available Not Available Not Available [employer] Thyroid 15 mg tablet TAKE 1 TABLET BY MOUTH DAILY ON AN EMPTY STOMACH active Not Available Not Available No t Available Clenpiq 10 mg-3.5 gram-12 gram/160 mL oral solution Drink 160 mL x1, then drink >40 oz of clear liquid w/in 5h evening before procedur e; drink 160 mL x1, then drink >32 oz of clear liquid 2-5h before procedur e 05/30 completed PRN 04/02/23 KRB Not Available Not Available Not Available Phosphoro us Supplemen t 280 mg-160 mg-250 mg oral powder packet TAKE 1 PACKET BY MOUTH 4 TIMES A DAY 11/12 completed Not using 10/20/23 SD Not using 11/03/23 SD Not Available Not Available Not Available Motegrity 2 mg tablet 12/12 completed Not Available Not Available Not Available OneTouch Delica Plus Lancet 33 gauge USE DIRECTED TWICE DAILY 08/15 completed Not Available Not Available Not Available OneTouch Delica Plus Lancet 30 gauge USE DIRECTED TWICE DAILY active Not Available Not Available No t Available OneTouch Verio Reflect Meter USE DIRECTED 05/30 completed Not Available Not Available Not Available Dayvigo 10 mg tablet TAKE ONE-HALF TO 1 TABLET BY MOUTH NEEDED FOR SLEEP 03/13 completed Not Available Not Available Not Available BinaxNOW COVID-19 Ag Self Test kit USE 1 KIT NEEDED BY MISCELLA NEOUS ROUTE 05/20 completed Not Available Not Available Not Available Clenpiq 10 mg-3.5 gram-12 gram/175 mL oral solution DRINK FIRST DOSE EVENING BEFORE PROCEDUR E AND SECOND DOSE THE MORNING OF PROCEDUR E 01/07 completed Not Available Not Available Not Available Vitals None Recorded Social History Question Answer Notes LastModified by Organizat ion Details LastModified Time What Is Your Level Of Alcohol Consumption? None Information not available 04/30/2012 Do You Wear A Helmet When Biking? No N/a Information not available 07/18/2016 What Is Your Level Of Caffeine Consumption? None [email or web address] Information not available 07/18/2015 How Much Tobacco Do You Chew? None [email or web address] Information not available 07/18/2015 Are You Currently Employed? No Information not available 11/07/2022 What Type Of Diet Are You Following? VEGETARIAN No Gluten, Dairy, Soy, Sugar, Meat, [place], Nuts, Fruit, Chocolate (she Does Do Eggs And Seafood), And <15g Sugar/day Information not available 04/30/2012 Which Illicit Or Recreational Drugs Have You Used? None Information not available 07/18/2016 Do You Or Have You Ever Used E-cigarettes Or Vape? Never Used Electronic Cigarettes Information not available 05/12/2019 What Is The Highest Grade Or Level Of School You Have Completed Or The Highest Degree You Have Received? IR10240-8 Information not available 11/07/2022 What Is Your Occupation? Retired Position Terminated By Juan 07/07/2020, Pt Finally On [employer] Information not available 11/07/2022 Have There Been Any Changes To Your Family Or Social Situation? No Information not available 11/07/2022 Are There Any Guns Present In Your Home? Yes Secured Information not available 07/18/2016 Does The Patient Have Difficulty Speaking Vietnamese? No [email or web address] Information not available 07/18/2015 Does The Patient Have Difficulty Reading Vietnamese? No [email or web address] Information not available 07/18/2015 Patient Has Health Care Proxy Signed And In Chart Yes Information not available 09/18/2020 MOLST Form Signed And In Chart 09/14/2020 Information not available 09/18/2020 CCM Consent Discussion 10/12/2020 Information not available 10/16/2020 What Was The Date Of Your Most Recent Tobacco Screening? 03/31/2024 [email or web address] Information not available 03/31/2024 How Many Children Do You Have? 0 Information not available 04/30/2012 What Is Your Relationship Status? Domestic Partner Unsupportive - Patrick Mcrae Information not available 11/07/2022 Do You Use Your Seat Belt Or Car Seat Routinely? Yes Information not available 11/07/2022 Are You Sexually Active? No Information not available 04/30/2012 Do You Have Smoke And Carbon Monoxide Detectors In Your Home? Yes Information not available 11/07/2022 Are You Passively Exposed To Smoke? No Information not available 11/07/2022 Do You Or Have You Ever Used Smokeless Tobacco? Never Used Smokeless Tobacco Information not available 05/12/2019 How Much Tobacco Do You Smoke? No Information not available 05/12/2019 Do You Use Any Illicit Or Recreational Drugs? No [email or web address] Information not available 11/13/2023 Do You Use Sunscreen Routinely? Yes [email or web address] Information not available 07/18/2015 Do You Or Have You Ever Used Any Other Forms Of Tobacco Or Nicotine? No [email or web address] Information not available 04/02/2023 Sex: Female Functional Status Question Answer Note LastModified by Organizat ion Details LastModified Time What is your exercise level? Occasional Information not available 11/07/2022 Mental Status None recorded. Family History Relationship Description Onset Age of this Age Resolved Age Notes LastModified by Organization Details LastModified Time Mother Diabetes mellitus [email or web address] Not available 2015 13:36:24 Mother Cerebrovascu lar accident 70 85 Not available 09:05:20 Mother Hypertensive disorder Not available 05/06 12:39:03 Brother Heart disease valve replac ement at age 40 due to congen tial heart valve Not available 05/06/2023 12:39:45 Brother Lyme disease Not avai lable 06/19/2022 08:57:22 Father Problem 90 ?AAA Not available 06/19/2022 08:57:22 Notes:No family hx breast/co jorge alberto [place] Maternal aunts with pancreatic, ovarian, stomach Medical History Condition Response Lyme Disease Y GASTROINTESTINAL Y Breast Cancer Y Migraine Headaches Y Gynecological History Statement/Question Response Hysterectomy Y Age at Menarche 12 Obstetrics History GPAL:G 0 P 0 0 0 0 Past Encounters Encounter ID Performer Location Encounter Start Date Encounter Closed Date Diagnosis/Indication Diagnosis SNOMED-CT Code Diagnosis ICD10 Code Diagnosis Note [id number] Louise Stacy MD , [facility], OFFICE [address] [place] [address] 04/30/2012 08:56:53 04/30/2012 10:00:41 [id number] [facility], OFFICE [address] [place] [address] 6 06/23/2012 08:28:16 06/23/2012 09:43:51 [id number] Roxanna Mccauley [facility], OFFICE [address] [place] [address] 6 07/21/2012 09:14:35 07/21/2012 10:05:14 [id number] [facility], OFFICE [address] [place] [address] 6 10/20/2012 08:03:10 10/20/2012 08:47:09 [id number] Alex Paulson [facility], OFFICE [address] [place] [address] 6 12/03/2012 11:51:31 12/03/2012 12:30:11 [id number] Roxannawilliam Mccauley , [facility], OFFICE [address] [facility] [place] [address] 12/16/2012 08:11:02 12/16/2012 08:56:36 [id number] Emily Henson LPN , [facility], OFFICE [address] [facility] [place] [address] 01/11/2013 13:33:36 01/11/2013 14:06:58 [id number] Alex Paulson , [facility], OFFICE [address] [facility] [place] [address] 01/27/2013 11:54:29 01/27/2013 13:00:33 [id number] Kim Hernandez , [facility], OFFICE [address] [place] [address] 03/30/2013 07:58:43 03/30/2013 08:34:01 [id number] , [facility], OFFICE [address] [place] [address] 06/22/2013 08:01:23 06/22/2013 08:41:55 [id number] , [facility], OFFICE [address] [place] [address] 09/30/2013 09:17:58 09/30/2013 10:24:59 [id number] , [facility], OFFICE [address] [place] [address] 12/09/2013 08:49:06 12/09/2013 09:49:21 [id number] , [facility], OFFICE [address] [facility] [place] [address] 07/13/2014 08:08:36 07/13/2014 09:27:53 [id number] Delma Barton , [facility], OFFICE [address] [facility] [place] [address] 01/09/2015 08:01:10 01/09/2015 09:04:01 [id number] Mary Moralez , [facility], OFFICE [address] [place] [address] 07/18/2015 08:27:35 07/18/2015 09:47:33 [id number] Joaquim De La Fuente, DPM Podiatry, [facility] [address] [facility] [place] [address] 08/31/2015 10:44:14 08/31/2015 13:06:02 [id number] Alex MAYERS, [facility], OFF[address] [facility] [place] [address] 01/18/2016 08:02:08 01/18/2016 08:48:19 [id number] Alex MAYERS, [facility], OFFICE [address] [facility] [place] [address] 07/16/2016 08:00:21 07/16/2016 08:51:00 [id number] Alex MAYERS, [facility], OFFICE [address] [facility] [place] [address] 07/18/2016 08:18:14 07/18/2016 09:15:08 [id number] Alex MAYERS, [facility], OFFICE [address] [facility] [place] [address] 02/17/2017 11:35:31 02/17/2017 12:45:41 [id number] Alex MAYERS, [facility], OFFICE [address] [facility] [place] [address] 07/30/2017 08:25:26 07/30/2017 09:20:12 [id number] Alex MAYERS, [facility], OFFICE [address] [facility] [place] [address] 10/27/2017 12:05:07 10/27/2017 12:48:55 [id number] Alex MAYERS, [facility], OFFICE [address] [facility] [place] [address] 11/25/2017 16:22:54 11/25/2017 16:34:00 [id number] Alex MAYERS, [facility], OFFICE [address] [facility] [place] [address] 01/28/2018 08:54:54 01/28/2018 09:36:55 [id number] Alex MAYERS, [facility], OFFICE [address] [facility] [place] [address] 04/27/2018 11:26:53 04/27/2018 12:05:51 [id number] JOSE MARIA Fernando, [facility], OFF[facility] [address] [facility] [place] [address] 06/15/2018 08:07:50 06/15/2018 10:38:08 [id number] Dinora Holt, PhD , [facility] [address] [place] [address] 07/06/2018 12:36:55 07/06/2018 13:49:51 [id number] Dinora Holt, PhD , [facility] [address] [facility] [place] [address] 07/16/2018 14:44:25 07/16/2018 16:05:01 [id number] Dinora Holt, PhD , [facility] [address] [facility] [place] [address] 08/06/2018 11:53:23 08/06/2018 13:01:15 [id number] Alex MAYERS, [facility], OFF[facility] [address] [facility] [place] [address] 08/11/2018 15:40:40 08/12/2018 13:23:43 [id number] Dinora Holt, PhD , [facility] [address] [place] [address] 08/12/2018 11:43:18 08/12/2018 14:38:07 [id number] Dinora Holt, PhD , [facility] [address] [place] [address] 6 08/19/2018 11:48:38 08/19/2018 12:48:59 [id number] Dinora Holt, PhD , [facility] [address] [facility] [place] [address] 09/24/2018 11:50:41 09/24/2018 12:57:12 [id number] Alex MAYERS, [facility], OFFICE [address] [facility] [place] [address] 11/03/2018 14:31:12 11/03/2018 15:29:40 [id number] Alex MAYERS, [facility], OFF[facility] [address] [facility] [place] [address] 02/08/2019 10:08:28 02/08/2019 11:14:27 [id number] Alex MAYERS, [facility], OFF[facility] [address] [facility] [address] [facility] [place] [address] 04/15/2019 11:24:39 04/15/2019 14:10:22 [id number] Albina Ferreira NP FP, [facility], OFFICE [address] [facility] [address] [facility] [place] [address] 05/12/2019 15:46:05 05/12/2019 17:12:21 [id number] Alex MAYERS, [facility], OFFICE [address] [facility] [address] [facility] [place] [address] 06/21/2019 08:52:54 06/21/2019 09:46:57 [id number] Alex MAYERS, [facility], OFFICE [address] [facility] [place] [address] 09/01/2019 16:04:07 09/02/2019 15:09:10 [id number] Alex MAYERS, [facility], OFFICE [address] [facility] [place] [address] 11/03/2019 11:52:38 11/04/2019 13:52:07 [id number] Alex MAYERS, [facility], OFFICE [address] [facility] [place] [address] 11/17/2019 10:16:20 11/18/2019 13:03:35 [id number] Alex MAYERS, [facility], OFFICE [address] [facility] [place] [address] 12/16/2019 11:40:18 12/17/2019 12:58:29 [id number] Alex MAYERS, [facility], OFFICE [address] [facility] [place] [address] 02/23/2020 12:07:12 02/25/2020 19:20:21 [id number] Alex MAYERS, [facility], OFFICE [address] [facility] [place] [address] 05/23/2020 15:15:26 05/24/2020 16:53:21 [id number] Alex MAYERS, [facility], OFFICE [address] [facility] [place] [address] 09/14/2020 15:43:04 09/14/2020 17:12:45 [id number] Alex MAYERS, [facility], OFFICE [address] [facility] [place] [address] 10/12/2020 15:25:57 10/12/2020 16:46:17 [id number] Alex MAYERS, [facility], OFFICE [address] [facility] [place] [address] 03/13/2021 15:30:10 03/16/2021 16:46:19 [id number] MD RIANA Montilla, [facility], OFFICE [address] [facility] [place] [address] 04/17/2021 17:33:06 04/23/2021 15:18:24 [id number] Alex MAYERS, [facility], OFFICE [address] [facility] [place] [address] 04/24/2021 10:58:01 05/08/2021 12:57:49 [id number] Alex MAYERS, [facility], OFFICE [address] [facility] [place] [address] 05/07/2021 13:28:29 05/08/2021 13:49:37 [id number] Alex MAYERS, [facility], OFFICE [address] [facility] [place] [address] 06/14/2021 13:49:38 06/14/2021 15:19:13 [id number] Slick Roger MD [facility] shane, [address] [address] 07/30/2021 14:45:42 07/30/2021 19:41:02 [id number] Alex MAYERS, [facility], OFFICE [address] [facility] [place] [address] 6 08/16/2021 13:13:16 08/16/2021 14:29:02 [id number] MD RIANA Montilla, [facility], OFFICE [address] [facility] [place] [address] 11/13/2021 16:46:03 11/15/2021 11:47:55 [id number] Slick Roger MD Endocrino logy, [address] [address] 11/29/2021 14:22:58 12/04/2021 08:22:39 [id number] Alex MAYERS, [facility], OFFICE [address] [facility] [place] [address] 12/17/2021 09:58:58 12/17/2021 11:50:45 [id number] Mandy Kilpatrick RN [facility], [address] [address] 01/23/2022 11:27:51 01/23/2022 14:17:11 [id number] RIANA, [facility], OFFICE [address] [facility] [address] [facility] [place] [address] 02/07/2022 15:40:25 02/07/2022 16:55:52 [id number] Alex MAYERS, [facility], OFF[address] [facility] [place] [address] 02/20/2022 10:04:50 03/14/2022 13:38:25 [id number] Alex MAYERS, [facility], OFFICE [address] [facility] [place] [address] 03/14/2022 08:49:25 03/14/2022 09:59:08 [id number] Alex MAYERS, [facility], OFFICE [address] [facility] [place] [address] 6 04/24/2022 11:43:51 04/24/2022 13:28:53 [id number] Arlet Rodas RN , [facility], OFFICE [address] [facility] [place] [address] 04/25/2022 14:05:55 04/26/2022 15:52:37 [id number] Alex MAYERS, [facility], OFFICE [address] [facility] [place] [address] 06/19/2022 08:57:13 06/19/2022 10:29:26 [id number] Alex MAYERS, [facility], OFFICE [address] [facility] [place] [address] 07/23/2022 08:29:06 07/24/2022 11:44:44 [id number] Alex Paulson , [facility], OFFICE [address] [facility] [place] [address] 08/15/2022 13:23:01 08/15/2022 14:23:53 [id number] Alex MAYERS, [facility], OFFICE [address] [facility] [place] [address] 08/28/2022 13:49:35 08/28/2022 15:04:46 [id number] Alex MAYERS, [facility], OFFICE [address] [facility] [address] [facility] [place] [address] 09/12/2022 11:36:49 09/12/2022 12:58:04 [id number] Alex MAYERS, [facility], OFFICE [address] [facility] [address] [facility] [place] [address] 10/03/2022 11:58:12 10/03/2022 12:53:39 [id number] Alex MAYERS, [facility], OFFICE [address] [facility] [address] [facility] [place] [address] 11/07/2022 11:33:40 11/07/2022 13:09:58 [id number] Alex MAYERS, [facility], OFFICE [address] [facility] [address] [facility] [place] [address] 12/12/2022 10:50:33 12/12/2022 11:59:24 [id number] Katie Sinclair RN Endoscopy , [facility] [address] [place] [address] 12/20/2022 10:51:50 12/20/2022 13:29:31 [id number] Alex MAYERS, [facility], OFFICE [address] [facility] [address] 01/02/2023 11:27:49 01/02/2023 12:47:47 [id number] Alex MAYERS, [facility], OFFICE [address] [facility] [place] [address] 01/29/2023 10:52:38 01/29/2023 12:19:51 [id number] Alex Paulson , [facility], OFFICE [address] [facility] on [facility] [place] [place] [address] 02/06/2023 11:31:07 02/06/2023 12:37:23 [id number] CHARLES AkhtarP, DICE SPOTTER Psychiatr y, C [address] [facility] [place] [address] 03/04/2023 14:58:14 03/12/2023 15:21:15 [id number] Alex MAYERS, [facility], OFFICE [address] [facility] on [facility] [place] [place] [address] 03/13/2023 11:38:36 03/13/2023 13:18:29 [id number] Catarina De León , [facility], OFFICE [address] [facility] on [facility] [place] [place] [address] 04/02/2023 11:41:28 04/02/2023 12:59:58 [id number] CHARLES AkhtarP, DICE SPOTTER Psychiatr y, C [address] [facility] [place] [address] 04/07/2023 14:16:00 04/14/2023 11:17:55 [id number] Amanda MAYERS, [facility], OFFICE [address] [facility] on [facility] [place] [place] [address] 05/01/2023 14:57:23 05/05/2023 09:21:29 [id number] Alex MAYERS, [facility], OFFICE [address] [facility] on [facility] [place] [address] 05/06/2023 11:46:18 05/08/2023 10:15:39 [id number] Erlin Duarte MD Psychiatr y, [facility] [address] [place] [address] 05/22/2023 14:34:13 05/26/2023 12:32:15 [id number] RIAAN, [facility], OFFICE [address] [facility] on [facility] [place] [place] [address] 05/21/2023 12:01:51 05/21/2023 13:54:30 [id number] Alex MAYERS, [facility], OFFICE [address] [facility] [place] [place] [address] 05/27/2023 10:55:02 05/27/2023 12:47:08 [id number] MD RIANA Martinez, [facility], OFFICE [address] [facility] [place] [address] 05/30/2023 11:14:35 06/02/2023 12:10:57 [id number] Alex MAYERS, [facility], OFFICE [address] [facility] on [facility] [place] [address] 06/03/2023 11:39:56 06/03/2023 13:00:04 [id number] Roxann Almendarez RN Endoscopy , [address] [address] 06/13/2023 11:04:30 06/13/2023 14:11:38 [id number] Alex MAYERS, [facility], OFFICE [address] [facility] on [facility] [place] [address] 06/17/2023 11:24:51 06/18/2023 15:01:40 [id number] Alex MAYERS, [facility], OFFICE [address] [facility] [place] [address] 06/25/2023 12:04:00 06/26/2023 10:24:29 [id number] Alex MAYERS, [facility], OFFICE [address] [facility] [place] [address] 6 07/03/2023 12:12:47 07/04/2023 11:20:35 [id number] Alex MAYERS, [facility], OFFICE [address] [facility] [place] [address] 07/28/2023 13:27:12 07/29/2023 10:58:05 [id number] Alex MAYERS, [facility], OFFICE [address] [facility] [place] [address] 08/14/2023 13:57:47 08/14/2023 16:27:49 [id number] RIANA, [facility], OFFICE [address] [facility] [place] [address] 08/28/2023 12:16:38 08/29/2023 10:23:50 [id number] Alex MAYERS, [facility], OFFICE [address] [facility] [place] [address] 09/08/2023 11:27:45 09/09/2023 13:29:54 [id number] Alex MAYERS, [facility], OFFICE [address] [facility] [place] [address] 09/25/2023 14:23:20 09/25/2023 22:28:46 [id number] Alex MAYERS, [facility], OFFICE [address] [facility] [place] [address] 10/09/2023 11:31:00 10/09/2023 15:46:33 [id number] Alex MAYERS, [facility], OFFICE [address] [facility] [place] [address] 10/20/2023 12:08:45 10/20/2023 16:03:36 [id number] Alex MAYERS, [facility], OFFICE [address] [facility] [place] [address] 11/03/2023 11:57:59 11/05/2023 19:36:58 [id number] Alex MAYERS, [facility], OFFICE [address] [facility] [place] [address] 11/13/2023 14:25:56 11/13/2023 16:13:39 [id number] Alex MAYERS, [facility], OFFICE [address] [facility] [place] [place] [address] 11/26/2023 11:45:32 11/26/2023 12:44:41 [id number] Alex MAYERS, [facility], OFFICE [address] [facility] [place] [address] 12/01/2023 11:27:53 12/01/2023 14:44:48 [id number] Alex MAYERS, [facility], OFFICE [address] [facility] [place] [address] 12/11/2023 13:28:23 12/16/2023 10:45:22 [id number] Alex MAYERS, [facility], OFFICE [address] [facility] [place] [address] 12/25/2023 11:27:57 12/25/2023 13:08:54 [id number] Alex MAYERS, [facility], OFFICE [address] [facility] [place] [address] 01/08/2024 13:33:26 01/08/2024 14:47:00 [id number] STEFFANY Moreno, [facility], OFFICE [address] [facility] [place] [address] 02/12/2024 09:34:05 02/25/2024 08:54:26 [id number] STEFFANY Moreno, [facility], OFFICE [address] [facility] [place] [address] 02/25/2024 09:31:55 03/02/2024 11:09:07 [id number] STEFFANY Moreno, [facility], OFFICE [address] [facility] [place] [address] 03/17/2024 11:27:36 03/22/2024 16:03:36 [id number] Catarina MAYERS, [facility], OFFICE [address] [facility] [place] [address] 03/17/2024 12:15:40 03/17/2024 14:26:49 [id number] Alex MAYERS, [facility], OFFICE [address] [facility] [place] [address] 03/31/2024 12:04:40 03/31/2024 17:25:16 [id number] Alex MAYERS, [facility], OFFICE [address] [facility] [place] [address] 04/15/2024 14:27:24 04/15/2024 15:47:11 [id number] Alex MAYERS, [facility], OFFICE [address] [facility] [place] [address] 05/04/2024 12:16:13 05/06/2024 18:35:59 [id number] Alex MAYERS, [facility], OFFICE [address] [facility] [place] [address] 05/11/2024 11:30:04 05/11/2024 17:03:19 [id number] Erlin Duarte MD [facility], [facility] [address] [place] [address] 05/20/2024 08:32:36 05/27/2024 17:12:00 Health Concerns Section Related Observation LastModified by Organization Detai ls LastModified Time None Recorded Concern Status LastModified by Organization Details LastModified Time None Recorded Advance Directives Directive None Recorded Payers Encounter Date Sequence Insurance Name Policy Number Policy Santos Covered Member ID Santos Member ID Guarantor Name 03/31/2024 1 [facility] (MEDICARE REPLACEMENT PPO) [id number] Umm Hernandezloud [id number] Umm Guillen 04/15/2024 1 [facility] (MEDICARE REPLACEMENT PPO) [id number] Umm Hernandezloud [id number] Umm Hernandezloud 05/04/2024 1 [facility] (MEDICARE REPLACEMENT PPO) [id number] Umm Hernandezloud [id number] Umm Hernandezloud 05/11/2024 1 [facility] (MEDICARE REPLACEMENT PPO) [id number] Umm Hernandezloud [id number] Umm Hernandezloud 05/20/2024 1 [facility] (MEDICARE REPLACEMENT PPO) [id number] Umm Guillen [id number] Umm Guillen OBGyn Episode No OBEpisode recorded.
--- OUTSIDE RECORDS SUMMARY | 2024-06-01 15:05 | XMS_ITS | Referral Summary ---
Author Organization [facility] Address [address] [place] [address] Care Team Providers Care Singer Back Tender Name Role Phone Katrin Paulson Primary Care Provider [phone] Allergies No known active allergies Medications thyroid [...] Description 10/06/2024 10:30 AM EDT Office Visit [facility] [address] [place] [address] Vladimir Rodas MD [address] [place] [address] Scheduled Procedures Name Priority Associated Diagnoses Date/Ti me UPPER ENDOSCOPY WITH POSSIBL E BIOPSY AND/OR POLYPECTOMY AND POSSIBLE MODERATE SEDATION Functional dyspepsia Bloating Insurance BS MCR REPLACE PPO Care Teams Singer Back Tender Relationship Specialty Start Date End Date Katrin Paulson [address] [place] [address] PCP - General 12/23/23
== END 2024-06-01 15:36 | disposition home or self-care (01) ==
PROVIDERS: PCP Family Medicine; Visit Provider Internal Medicine Hypertension Specialist
DX: E87.1 Hypo-osmolality and hyponatremia (principal); R63.4 Abnormal weight loss; E03.9 Hypothyroidism, unspecified; R35.89 Other polyuria; E83.52 Hypercalcemia
CPT/HCPCS: 99214

== ENCOUNTER → 2024-06-01 15:02 | Outpatient (BNVA) | payer MEDICARE, SELFPAY | PROVIDERS: PCP Family Medicine; Visit Provider Internal Medicine Hypertension Specialist | DX: E87.1 Hypo-osmolality and hyponatremia (principal); E03.9 Hypothyroidism, unspecified; E83.52 Hypercalcemia; R63.4 Abnormal weight loss; R35.89 Other polyuria | CPT/HCPCS: 99212 ==

== ENCOUNTER 2024-06-25 16:30 | Outpatient (REF) | payer MEDICARE, SELFPAY ==
--- OUTSIDE RECORDS SUMMARY | 2024-06-25 18:03 | XMS_ITS | Clinical Summary ---
Author Organization [facility] Facility Address [address] [address] Care Team Providers Care Rubble Placer Name Role Phone Katrin Paulson MD Primary Care Provider [phone] Social History Tobacco Use Types Packs/Day Years [...] patient's age to complete this topic Insurance [facility] Care Teams Rubble Placer Relationship Specialty Start Date End Date Katrin Paulson MD [address] [place] [address] PCP - General Family Medicine 05/15/23
--- OUTSIDE RECORDS SUMMARY | 2024-06-25 18:03 | XMS_ITS | Referral Summary ---
Author Organization [facility] Address [address] [place] [address] Care Team Providers Care Candy Dipper Name Role Phone Katrin Paulson Primary Care Provider [phone] Allergies No known active allergies Medications thyroid [...] Description 10/06/2024 10:30 AM EDT Office Visit [facility] [address] [place] [address] Vladimir Rodas MD [address] [place] [address] Scheduled Procedures Name Priority Associated Diagnoses Date/Ti me UPPER ENDOSCOPY WITH POSSIBL E BIOPSY AND/OR POLYPECTOMY AND POSSIBLE MODERATE SEDATION Functional dyspepsia Bloating Insurance BS MCR REPLACE PPO Care Teams Candy Dipper Relationship Specialty Start Date End Date Katrin Paulson [address] [place] [address] PCP - General 12/23/23
--- OUTSIDE RECORDS SUMMARY | 2024-06-25 18:04 | XMS_ITS | Clinical Summary ---
Author Organization [facility] Address [address] [place] [address] Care Team Providers Care Asset Management Lead Name Role Phone Katrin Paulson Primary Care Provider [phone] Allergies No known active allergies Medications thyroid [...] Description 10/06/2024 10:30 AM EDT Office Visit [facility] [address] [place] [address] Vladimir Rodas MD [address] [place] [address] Scheduled Procedures Name Priority Associated Diagnoses Date/Ti me UPPER ENDOSCOPY WITH POSSIBL E BIOPSY AND/OR POLYPECTOMY AND POSSIBLE MODERATE SEDATION Functional dyspepsia Bloating Health Maintenance Due Date Last Done Comments Cologuard 1954 Colon Cancer Screening 1954 Colonoscopy 1954 FOBT / Fit Test 1954 Hepatitis C Screening 1954 Sigmoidoscopy 1954 Mammogram 1994 Osteoporosis Screening 2004 Pneumococcal Vaccine: 50+ Years (1 of 1 - PCV) 2004 Zoster Vaccines (1 of 2) 2004 DTaP,Tdap,and Td Vaccines (2 - Td or [...] Insurance BCBS MCR REPLACE PPO Care Teams Asset Management Lead Relationship Specialty Start Date End Date Katrin Paulson [address] [place] [phone] PCP - General 12/23/23
== END 2024-06-25 16:31 | disposition home or self-care (01) ==
LOC: HO.LNP 16:30
PROVIDERS: Visit Provider Urology
DX: R35.89 Other polyuria (principal); N39.42 Incontinence without sensory awareness; R39.14 Feeling of incomplete bladder emptying
CPT/HCPCS: 87086

== ENCOUNTER 2024-07-12 13:50 | Outpatient (REF) | payer MEDICARE, SELFPAY ==
--- NOTE | ~2024-07-12 | XR_ITS ---
EXAMINATION: XR ABDOMEN COMPLETE CLINICAL INDICATION: SITZ MARKER,,ABD PAIN,SLOW BOWELS COMPARISON: None available. TECHNIQUE: 2 views of the abdomen. FINDINGS: There are metallic rings in the left upper quadrant abdomen and right lower quadrant abdomen. There is no intestinal obstruction pattern. There is abundant stool within the right hemicolon. There is a levoconvex rotoscoliosis at the thoracolumbar junction and dextroconvex rotoscoliosis at the right lower lumbar spine. Degenerative changes in the coxofemoral joints. XR/XR KUB IMPRESSION: No intestinal obstruction pattern. The SITZ markers are in the left upper quadrant and right lower quadrant abdomen. Electronically signed by: Jaguar Cochran MD 07/15/2024 11:49 AM EDT
== END 2024-07-12 13:51 | disposition home or self-care (01) ==
LOC: HO.XRAY 13:50
PROVIDERS: PCP Family Medicine; Visit Provider Family Medicine
DX: R10.9 Unspecified abdominal pain (principal)
CPT/HCPCS: 74018

== ENCOUNTER 2024-07-13 13:30 | Outpatient (REF) | payer MEDICARE, SELFPAY ==
--- NOTE | ~2024-07-13 | XR_ITS ---
EXAMINATION: XR ABDOMEN KUB CLINICAL INDICATION: SITZ MARKER STUDY COMPARISON: None available. TECHNIQUE: AP view of the abdomen. FINDINGS: KUB was obtained on 07/14/2019 5832. There are 5 Sitzmarks markers visualized in the left and 2 6 markers in the right midabdomen/colon. Moderate stool is seen in colon. XR/XR KUB IMPRESSION: On day 2 there are total 7 Sitz tejeda visualized in colon. There is a corrected report. Electronically signed by: Sandeep Cast MD 08/06/2024 03:31 PM EDT
== END 2024-07-13 13:31 | disposition home or self-care (01) ==
LOC: HO.XRAY 13:30
PROVIDERS: PCP Family Medicine; Visit Provider Family Medicine
DX: R10.9 Unspecified abdominal pain (principal)
CPT/HCPCS: 74018

== ENCOUNTER → 2024-07-13 13:38 | Outpatient (BNV) | payer MEDICARE, SELFPAY | PROVIDERS: PCP Family Medicine; Visit Provider Radiology Diagnostic Radiology | DX: R10.9 Unspecified abdominal pain (principal) | CPT/HCPCS: 74018 ==

== ENCOUNTER 2024-07-14 14:50 | Outpatient (REF) | payer MEDICARE, SELFPAY | END 2024-07-14 14:51 | disposition home or self-care (01) | LOC: HO.XRAY 14:50 | PROVIDERS: Visit Provider Family Medicine | DX: R10.9 Unspecified abdominal pain (principal); R63.4 Abnormal weight loss | CPT/HCPCS: 74021 ==

== ENCOUNTER → 2024-07-14 15:15 | Outpatient (BNV) | payer MEDICARE, SELFPAY | PROVIDERS: PCP Family Medicine; Visit Provider Radiology Diagnostic Radiology | DX: R10.9 Unspecified abdominal pain (principal) | CPT/HCPCS: 74021 ==

== ENCOUNTER 2024-08-03 07:59 | Outpatient (REF) | payer MEDICARE, SELFPAY ==
--- NOTE | ~2024-08-03 | FL_ITS ---
EXAMINATION: XR UPPER GI SERIES WITH SMALL BOWEL CLINICAL INFORMATION: Esophageal pain, reflux disease. COMPARISON: None available. TECHNIQUE: Seen upper GI contrast study was performed in upright and lying position. An additional glass of thin barium was administered and small bowel follow-through was obtained. FINDINGS: Following oral administration of thick barium and effervescent valve upright view there is normal propagation bolus from the oral cavity through the pharynx, esophagus into stomach without any evidence of obstruction, narrowing or stricture. No intrinsic or extrinsic compression seen. No pooling of barium visualized in the valleculae or piriform sinuses. No laryngeal penetration or aspiration. On placing patient in supine and prone lying the course, caliber and peristalsis of the stomach, duodenal bulb and C-loop is normal. There is mild to moderate gastric secretions likely secondary to hyperacidity. There are multiple mucosal lesions suggestive of erosions likely follow hyperactivity. No definite ulcer was seen. The C-loop appears unremarkable. Sequential images obtained through the abdomen reveals a normal small bowel transit time of 70 minutes. The small bowel loops of normal caliber. The mucosal folds are normal. No mural thickening seen. Appendix is not visualized. Ileocolonic junction appears normal. FLUOROSCOPY TIME: 2 minute 9 seconds DOSE AREA PRODUCT: 182.5 uGy-m2 (microgray-meter squared) FL/FL upper GI w air w SBFT IMPRESSION: Increased gastric secretions and gastric erosions suggestive of hypervascularity. Esophagus appears unremarkable. The small bowel follow-through is unremarkable with a normal transit time of 70 minutes. No small bowel mural thickening or, mucosal abnormality seen. Electronically signed by: Sandeep Cast MD 08/03/2024 02:38 PM EDT
--- OUTSIDE RECORDS SUMMARY | 2024-08-03 08:04 | XMS_ITS | Referral Summary ---
Author Organization [facility] Address [address] [place] [address] Care Team Providers Care Global Transportation Manager Name Role Phone Katrin Paulson Primary Care Provider [phone] Allergies No known active allergies Medications thyroid [...] Description 10/06/2024 10:30 AM EDT Office Visit [facility] Gastroenter[facility] [address] [place] [address] Vladimir Rodas MD [address] [place] [address] Scheduled Procedures Name Priority Associated Diagnoses Date/Ti me UPPER ENDOSCOPY WITH POSSIBL E BIOPSY AND/OR POLYPECTOMY AND POSSIBLE MODERATE SEDATION Functional dyspepsia Bloating Insurance BS MCR REPLACE PPO Care Teams Global Transportation Manager Relationship Specialty Start Date End Date Katrin Paulson [address] [place] [address] PCP - General 12/23/23
--- OUTSIDE RECORDS SUMMARY | 2024-08-03 08:04 | XMS_ITS | Clinical Summary ---
Author Organization [facility] Address [address] [place] [address] Care Team Providers Care Pipe Puller Name Role Phone Katrin Paulson Primary Care Provider [phone] Allergies No known active allergies Medications thyroid [...] Description 10/06/2024 10:30 AM EDT Office Visit [facility]astroenter[facility] [address] [place] [address] Vladimir Rodas MD [address] [place] [address] Scheduled Procedures Name Priority Associated Diagnoses Date/Ti [...] Vaccine (1 - 2023-2 5 season) 2023 Alcohol/Substance Use Screening 04/28/2024 Depression Screening and Follow-Up 04/28/2024 Health Care Proxy Review 04/28/2024 Social Drivers of Health Annual Screening 04/28/2024 Influenza Vaccine (Season Ended) 2024 01/18/2020, 02/11/2019 RSV Vaccine (60+ years old a nd patients) (1 - 1-dose 75+ series) 2029 Hepatitis B Vaccines Aged Out No long er eligible based on patient's age to complete this topic Insurance BCBS MCR REPLACE PPO Care Teams Pipe Puller Relationship Specialty Start Date End Date Katrin Paulson [address] [place] [address] PCP - General 12/23/23
--- OUTSIDE RECORDS SUMMARY | 2024-08-03 08:04 | XMS_ITS | Clinical Summary ---
Author Organization [facility] Facility Address [address] [address] Care Team Providers Care Web Content Director Name Role Phone Katrin Paulson MD Primary [...] Colorectal Cancer Screening: Sigmoidoscopy 11/25/2003 Influenza Vaccine (Season Ended) 2024 01/18/2020, 02/11/2019 Hepatitis B Vaccine Aged Out No longe r eligible based on patient's age to complete this topic Insurance [facility] Care Teams Web Content Director Relationship Specialty Start Date End Date Katrin Paulson MD [address] [place] [address] PCP - General Family Medicine 05/15/23
--- OUTSIDE RECORDS SUMMARY | 2024-08-03 08:04 | XMS_ITS | Data Portability ---
Author Organization [facility] [employer] [employer], PATIENT'S HOME Address [address] [place] [phone] Assessment Encounter Date Assessment Date Assessment LastModified by Organization Details LastModified Time 07/23/2024 07/23/2024 Igg food profile, EBV panel, Lyme 2007 immunoblot, CMP amylase, lipase, 75 min spent with patient [email or web address] Not available 07/26/2024 22:24:20 Plan of Treatment Reminders Order Date Submit Date Provider Last Modified By Organization Details Last Modified Time Details Appointments ESTABLISH ED PATIENT 60 2024 01:00P M Dr. Ronald Collins Not available Not available Not available Lab None recorded. Referral None recorded. Procedures None recorded. Surgeries None recorded. Imaging None recorded. Medication Orders None recorded. Patient TargetsNo targets recorded. Patient InstructionsNo instructions recorded. Reason for Referral None Reported. Results Created Date Observation Date Name Description Value Unit Range Abnormal Flag Note LastModifiedBy Organization Detail LastModifiedTime 07/23/1908/13/2022 XR, defec ogram No observ ation record ed. [email or web address] Not Available 2024 16:11:55 07/23/19 25 06/08/2024 MRI, cervi thor spine , w/o contr ast No observ ation record ed. [email or web address] Not Available 2024 23:05:46 07/23/19 25 06/08/2024 MRI, thora cic spine , w/o contr ast No observ ation record ed. [email or web address] Not Available 2024 23:08:05 07/23/19 25 06/21/2024 CT, thora cic spine , w/o contr ast No observ ation record ed. [email or web address] Not Available 2024 18:39:28 07/24/19 25 08/27/2022 CT, abdom en + pelvi s, w/ contr ast No observ ation record ed. [email or web address] Not Available 2024 18:18:47 07/24/19 25 08/19/2023 XR, abdom en No observ ation record ed. [email or web address] Not Available 2024 18:22:08 07/24/19 25 01/21/2024 US, renal No observ ation record ed. Not Available 2024 17:34:27 07/24/19 25 01/21/2024 US, mesen teric arter y No observ ation record ed. Not Available 2024 17:36:34 07/24/19 25 11/18/2023 bone densi ty No observ ation record ed. [email or web address] Not Available 2024 17:38:51 07/24/19 25 01/16/2024 MRI, brain , w/o contr ast No observ ation record ed. [email or web address] Not Available 2024 17:40:30 07/24/19 25 11/12/2023 elvia r monit or No observ ation record ed. [email or web address] Not Available 2024 17:41:32 07/24/19 25 07/16/2022 elvia r monit or No observ ation record ed. [email or web address] Not Available 2024 17:44:13 07/24/19 25 02/23/2024 US, echoc ardio gram, trans thora cic, limit ed No observ ation record ed. [email or web address] Not Available 2024 17:47:02 07/24/19 25 02/23/2024 elect rocar diogr am No observ ation record ed. [email or web address] Not Available 2024 17:48:24 07/24/19 25 01/19/2024 elect rocar diogr am No observ ation record ed. [email or web address] Not Available 2024 17:49:06 07/24/19 CT, angio gram, abdom en + pelvi s, w/ contr ast No observ ation record ed. Not Available 2024 07:01:55 07/24/19 25 05/13/2023 MRI, brain , w/wo contr ast No observ ation record ed. [email or web address] Not Available 2024 18:23:17 07/24/19 25 08/19/2023 XR, chest , 2 view No observ ation record ed. [email or web address] Not Available 2024 18:24:08 07/24/19 25 05/11/2023 XR, chest , 2 view No observ ation record ed. [email or web address] Not Available 2024 18:25:18 07/24/19 25 05/09/2023 US, chest wall No observ ation record ed. Not Available 2024 18:28:07 07/24/19 25 05/26/2024 US, duple x, carot id arter y No observ ation record ed. Not Available 2024 18:32:25 07/24/19 25 05/21/2023 elect rocar diogr am No observ ation record ed. [email or web address] Not Available 2024 18:37:01 07/24/19 XR, chest No observ ation record ed. Not Available 2024 07:02:36 07/30/19 25 07/07/2023 imagi ng/di agnos tic resul t No observ ation record ed. [email or web address] Not Available 06/2024 10:24:50 07/30/19 25 05/04/2023 XR, chest , 2 view No observ ation record ed. [email or web address] Not Available 06/2024 10:26:11 07/30/19 25 04/29/2024 imagi ng/di agnos tic resul t No observ ation record ed. [email or web address] Not Available 06/2024 10:27:48 07/30/19 25 04/29/2024 imagi ng/di agnos tic resul t No observ ation record ed. [email or web address] Not Available 06/2024 10:29:21 07/30/19 25 05/21/2023 CT, head, w/o contr ast No observ ation record ed. [email or web address] Not Available 06/2024 10:36:27 07/30/19 25 04/07/2024 CT, chest , w/o contr ast No observ ation record ed. [email or web address] Not Available 06/2024 10:37:59 07/30/19 25 09/04/2023 CT, chest , w/o contr ast No observ ation record ed. [email or web address] Not Available 06/2024 10:51:15 07/30/19 25 11/16/2021 CT, abdom en + pelvi s, w/ contr ast No observ ation record ed. [email or web address] Not Available 06/2024 10:52:50 07/30/19 25 05/09/2023 US, chest wall No observ ation record ed. [email or web address] Not Available 06/2024 10:54:12 07/30/19 25 07/25/2023 CT, abdom en + pelvi s, w/ contr ast No observ ation record ed. [email or web address] Not Available 06/2024 10:55:49 07/30/19 25 08/08/2023 XR, abdom en No observ ation record ed. [email or web address] Not Available 06/2024 10:56:51 07/30/19 25 08/19/2023 MRI, lumba r spine , w/o contr ast No observ ation record ed. [email or web address] Not Available 06/2024 10:57:36 Result Notes None recorded. Problems Name Problem SNOMED Code Status Onset Date Resolution Date Notes Provider Name and Address Organization Details Recorded Time Constipati on 29696638 Active anal hypocontra ctility, rectal dyssynergy , inadequate rectal relaxation , Ronald Collins MD [address] [place], [place] [address]RA[place], [phone] [place] [address] 5 16:07:43 Internal hemorrhoid s 00180939 Active MILD, colonoscop y 12/20/22 Ronald Collins MD [address] [place], [place] [address]RE[place], [phone], [facility]ly [facility] 5 16:08:20 Anxiety 47715532 Active Ronald Collins MD [address] [place] [address], [phone] , [facility] 5 16:22:45 Malignant tumor of breast 929282641 Active right breast Jan 28, 2000; double mastectomy l LN dissection on right; chemo adriamycin , cytoxan Ronald Collins MD [address] [place] [address], [phone], [facility] 5 14:19:23 Polyp of colon 47604886 Active 2021- high grade dysplasia Ronald Collins MD [address] [place] [address], [phone] , [facility] 5 22:39:11 Posttrauma tic stress disorder 92263056 Active Ronald Collins MD [address] [place] [address], [phone], [facility] 5 22:47:38 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 ([place], [place] ([place], [place]); 2013, 2017, 2019; Ronald Collins MD [address] [place] [address], [phone], [facility] 5 14:31:34 Hyponatrem ia 52901846 Active Ronald Collins MD [address] [place] [address], [phone], [facility] 5 15:07:44 Small bowel bacterial overgrowth syndrome 580182628 Active diagnosed in 2021; diet issues Ronald Collins MD [address] [place] [address], [phone], [facility] 15:08:51 Problem Notes None recorded. Procedures Surgical History Date Name Laterality Status Provider Name and Address Organization Details Recorded Time 06/27/19 20 excision of bilateral breasts completed Ronald Collins MD [address] [place] [address], [phone], [facility] 07/22/2024 22:42:50 02/26/19 87 Appendectomy completed Ronald Collins MD [address] [place] [address], [phone], [facility] 07/23/2024 14:34:28 07/27/18 87 hysterectomy completed Ronald Collins MD [address] [place] [address], [phone], [facility] 07/23/2024 14:34:39 Imaging Results Imaging Date Name Status LastModified by Organization Details LastModified Time 08/13/2022 XR, defecogram completed [email or web address] Informatio n not available 07/22/2024 16:11:55 06/08/2024 MRI, cervical spine, w/o contrast completed [email or web address] Information not available 07/22/2024 23:05:46 06/08/2024 MRI, thoracic spine, w/o contrast completed Information not available 07/22/2024 23:08:05 06/21/2024 CT, thoracic spine, w/o contrast completed [email or web address] Information not available 07/26/2024 18:39:28 08/27/2022 CT, abdomen + pelvis, w/ contrast completed [email or web address] Information not available 07/26/2024 18:18:47 08/19/2023 XR, abdomen completed [email or web address] Information n ot available 07/26/2024 18:22:08 01/21/2024 US, renal completed Information no t available 07/26/2024 17:34:27 01/21/2024 US, mesenteric artery completed [email or web address] Information not available 07/26/2024 17:36:34 11/18/2023 bone density completed [email or web address] Information not available 07/26/2024 17:38:51 01/16/2024 MRI, brain, w/o contrast completed [email or web address] Information not available 07/26/2024 17:40:30 11/12/2023 holter monitor completed [email or web address] Informatio n not available 07/26/2024 17:41:32 07/16/2022 holter monitor completed [email or web address] Informatio n not available 07/26/2024 17:44:13 02/23/2024 US, echocardiogram, transthoracic, limited completed Information not available 07/26/2024 17:47:02 02/23/2024 electrocardiogram completed [email or web address] Informa tion not available 07/26/2024 17:48:24 01/19/2024 electrocardiogram completed [email or web address] Informa tion not available 07/26/2024 17:49:06 07/23/2024 CT, angiogram, abdomen + pelvis, w/ contrast completed Information not available 07/27/2024 07:01:55 05/13/2023 MRI, brain, w/wo contrast completed [email or web address] Information not available 07/26/2024 18:23:17 08/19/2023 XR, chest, 2 view completed [email or web address] Informa tion not available 07/26/2024 18:24:08 05/11/2023 XR, chest, 2 view completed [email or web address] Informa tion not available 07/26/2024 18:25:18 05/09/2023 US, chest wall completed [email or web address] Informatio n not available 07/26/2024 18:28:07 05/26/2024 US, duplex, carotid artery completed [email or web address] Information not available 07/26/2024 18:32:25 05/21/2023 electrocardiogram completed [email or web address] Informa tion not available 07/26/2024 18:37:01 07/23/2024 XR, chest completed Information no t available 07/27/2024 07:02:36 07/07/2023 imaging/diagnostic result completed [email or web address] Information not available 07/29/2024 10:24:50 05/04/2023 XR, chest, 2 view completed [email or web address] Inform ation not available 07/29/2024 10:26:11 04/29/2024 imaging/diagnostic result completed [email or web address] Information not available 07/29/2024 10:27:48 04/29/2024 imaging/diagnostic result completed [email or web address] Information not available 07/29/2024 10:29:21 05/21/2023 CT, head, w/o contrast completed [email or web address] Information not available 07/29/2024 10:36:27 04/07/2024 CT, chest, w/o contrast completed [email or web address] Information not available 07/29/2024 10:37:59 09/04/2023 CT, chest, w/o contrast completed [email or web address] Information not available 07/29/2024 10:51:15 11/16/2021 CT, abdomen + pelvis, w/ contrast completed [email or web address] Information not available 07/29/2024 10:52:50 05/09/2023 US, chest wall completed [email or web address] Informati on not available 07/29/2024 10:54:12 07/25/2023 CT, abdomen + pelvis, w/ contrast completed [email or web address] Information not available 07/29/2024 10:55:49 08/08/2023 XR, abdomen completed [email or web address] Information not available 07/29/2024 10:56:51 08/19/2023 MRI, lumbar spine, w/o contrast completed [email or web address] Information not available 07/29/2024 10:57:36 Procedure Notes None recorded. Medical Equipment None Reported. Medications Name Sig Start Date Stop Date Status Note LastModified by Organization Details LastModified Time cromolyn 100 mg/5 mL oral concentrate TAKE 10 ML BY MOUTH FOUR TIMES DAILY active Not Available Not Available No t Available venlafaxine ER 37.5 mg capsule,exte nded release 24 hr TAKE 1 CAPSULE BY MOUTH DAILY active Not Available Not Available Not Available senna 8.6 mg tablet TAKE 2 TABLETS BY MOUTH AT BEDTIME FOR CONSTIPATIO N active Not Available Not Available No t Available risperidone 0.25 mg tablet TAKE 1 TABLET BY MOUTH EVERY DAY AT BEDTIME active Not Available Not Available No t Available amlodipine 2.5 mg tablet TAKE 1 TABLET BY MOUTH EVERY DAY active Not Available Not Available No t Available cyproheptadi ne 4 mg tablet TAKE 1/2 TO 1 TABLET BY MOUTH AT BEDTIME active Not Available Not Available No t Available metocloprami de 5 mg tablet TAKE ONE-HALF TABLET BY MOUTH EVERY DAY 4 TIMES A DAY BEFORE MEAL/BEDTIM E active Not Available Not Available No t Available hyoscyamine 0.125 mg sublingual tablet DISSOLVE 1 TABLET UNDER THE TONGUE EVERY 6 HOURS NEEDED FOR CRAMPING active Not Available Not Available No t Available Infants Gas Relief 40 mg/0.6 mL oral drops,suspen melissa TAKE 1.8 ML BY MOUTH THREE TIMES DAILY BEFORE MEALS AND AT BEDTIME active Not Available Not Available N ot Available alcohol swabs USE TWICE DAILY DIRECTED FOR MONITORING GLUCOSE active Not Available Not Available No t Available zolpidem 5 mg tablet Take 2 tablets every day by oral route. active Not Available Not Available No t Available esomeprazole magnesium 20 mg capsule,jacinda yed release TAKE 1 CAPLET BY MOUTH DAILY active Not Available Not Available Not Available cinacalcet 30 mg tablet TAKE 1 TABLET BY MOUTH DAILY active Not Available Not Available Not Available nitrofuranto in monohydrate/ macrocrystal s 100 mg capsule TAKE 1 CAPSULE BY MOUTH EVERY 12 HOURS FOR 7 DAYS active Not Available Not Available N ot Available pregabalin 25 mg capsule TAKE 1 CAPSULE BY MOUTH EVERY DAY active Not Available Not Available No t Available pregabalin 75 mg capsule TAKE 1 CAPSULE BY MOUTH AT BEDTIME FOR A WEEK THEN 1 TWICE DAILY active Not Available Not Available No t Available simethicone infants; 1 tsp night;y active Not Available Not Available Not Available Benadryl 5-10mg qhs active Not Available Not Available Not Available quetiapine 50 mg tablet TAKE 1/2 TO 1 TABLET BY MOUTH TWICE DAILY NEEDED DIRECTED FOR ANXIETY OR INSOMNIA active Not Available Not Available Not Available Savella 12.5 mg tablet FOR 1ST WEEK TAKE 1 TABLET BY MOUTH DAILY THEN TAKE 1 TABLET TWICE DAILY TOLERATED active Not Available Not Available No t Available estradiol 10 mcg vaginal tablet INSERT 1 TABLET VAGINALLY EVERY DAY FOR 14 DAYS THEN TWICE WEEKLY active Not Available Not Available No t Available Xifaxan 550 mg tablet TAKE 1 TABLET BY MOUTH THREE TIMES DAILY FOR 2 WEEKS active Not Available Not Available Not Available C [employer] DEVELOPER Thyroid 15 mg tablet Take by oral route. active Not Available Not Available Not Available Phosphorous Supplement 280 mg-160 mg-250 mg oral powder packet TAKE 1 PACKET BY MOUTH 4 TIMES A DAY active Not Available Not Available Not Available BinaxNOW COVID-19 Ag Self Test kit USE 1 KIT NEEDED BY JESSENIA US ROUTE active Not Available Not Available No t Available Vitals Date Recorded Oxygen saturation Oxygen saturation in Arterial blood by Pulse oximetry Heart rate Body temperature Systolic blood pressure Diastolic blood pressure Provider Name and Address Organization Details Last Updated DateTime 97 % 97 % 90 /min 97.8 [degF] 120 mm[Hg] 72 mm[Hg] July [facility] 14:07:11 Social History Question Answer Notes LastModified by Organizat ion Details LastModified Time Are You Currently Employed? 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 Mental Status None recorded. Family History Nothing Reported. Medical History No medical history recorded. Gynecological HistoryNo gynecological history recorded. Obstetrics History GPAL:G 0 P 0 0 0 0 Past Encounters Encounter ID Performer Location Encounter Start Date Encounter Closed Date Diagnosis/Indication Diagnosis SNOMED-CT Code Diagnosis ICD10 Code Diagnosis Note [id number] Ronald Collins MD Main Office [address] [place] [phone] 07/23/2024 14:06:28 07/27/2024 08:03:44 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 669471763 T78.1XXA big hx of allergies Alletess, food eliminatio n is reasonable Malignant tumor of breast 754701276 C50.911 requested info Hyponatremia 57053259 E8 7.1 review prev workup Small judah l bacterial overgrowth syndrome 247157202 K63.8219 review findings of testing in past Abdominal pain 43449734 R10.9 considerat ions+ Gastroesop hageal Reflux Disease (GERD): gastropar in past- now better others+ Celiac disease- TTG neg in past+ Irritable bowel syndrome, or IBS,+ Functional Dyspepsia: + Gallbladde r Disease (Cholecyst itis or Cholelithi asis): HIDA being discussed+ Gas Abdominal+ Eosinophil ic Esophagiti s. rare+ Esophageal Spasm: Abnormal muscle+ Pancreatit is: Inflammati on of the pancreas+ Intestinal Obstructio n+ Mesenteric Artery ischemia review more records/pr ev work upfu soon Health Concerns Section Related Observation LastModified by Organization Detai ls LastModified Time None Recorded Concern Status LastModified by Organization Details LastModified Time None Recorded Advance Directives Directive None Recorded Payers Encounter Date Sequence Insurance Name Policy Number Policy Santos Covered Member ID Santos Member ID Guarantor Name 07/23/2024 2 [id number] (MEDICARE REPLACEMENT PPO) [id number] Umm Guillen [id number] Umm Guillen 07/23/2024 1 [place] [employer] Umm Guillen [id number] Umm Guillen Notes Date Note Type Note Provider Name and Address Organization Details Recorded Time 07/23/2024 text/html 68yo in relative ly good health, active,COVID Feb 2021forced mcc month old [employer]3 colonoscopies end 2021, early 2022- upper Gi issues - pain after eating- swallow acid or hot coals- shakes and stuff PAIN AFTER EATINGusually there is a delay of 60 pluslarge work up- wants a coordinator Apr 2023 felt fainthyponatremia Na 119 or so; hosp for 4 daysfeb 2023 low sodiumMarch 2023 ++pain low chest after eatingcan cause her to call outweak in a wheelchair turkey, sweet potatoe at noon todaypain comes after a delay ++pelvic painurinary changes- leaking peewhen rectum gets full bladder is affected ++legs- weakness ++hyponatremiaeating more salt Ronald Collins MD [address] [place] [address], [phone], [facility] 07/26/2024 22:26:41 OBGyn Episode No OBEpisode recorded.
== END 2024-08-03 08:00 | disposition home or self-care (01) ==
LOC: HO.XRAY 07:59
PROVIDERS: PCP Family Medicine; Visit Provider Internal Medicine Gastroenterology
DX: K21.9 Gastro-esophageal reflux disease without esophagitis (principal)
CPT/HCPCS: 74246; 74248

== ENCOUNTER → 2024-08-03 08:03 | Outpatient (BNV) | payer MEDICARE, SELFPAY | PROVIDERS: PCP Family Medicine; Visit Provider Radiology Diagnostic Radiology | DX: K21.9 Gastro-esophageal reflux disease without esophagitis (principal) | CPT/HCPCS: 74246 ==

== ENCOUNTER 2024-08-09 11:50 | Outpatient (AMB) | payer MEDICARE, SELFPAY ==
--- NOTE | 2024-08-09 11:51 | A.OFFVIS_ITS ---
Vital Signs 08/09/24 11:56 Height 5 ft 7 in Weight 136 lb BMI 21.3 BP 111/62 Blood Pressure Location Lt brachial Position Sitting Pulse 74 Pulse Oximetry (%) 100 Oxygen Delivery Method Room Air Intake Visit Reasons: 4 months f/u Intake Note: Patient 4 month follow up Neuropathy. Patient cc: nauseas, abdominal pain and bloating after eating with extreme gasses, chest burning sensation. Fixer Supervisor Required: No Accompanied by: Spouse Allergies Benzodiazepines Allergy (Severe, Verified 08/09/24 11:51) Agitated codeine Allergy (Severe, Verified 08/09/24 11:51) Vomiting gluten Allergy (Severe, Verified 08/09/24 11:51) Gastrointestinal Upset hydroxyzine Allergy (Severe, Verified 08/09/24 11:51) Agitated metoprolol Allergy (Severe, Verified 08/09/24 11:51) throat swelling, confusion Milk Containing Products (Dairy) Allergy (Severe, Verified 08/09/24 11:51) Gastrointestinal Upset propranolol Allergy (Severe, Verified 08/09/24 11:51) Throat swelling, confusion soy Allergy (Severe, Verified 08/09/24 11:51) gastric problems levofloxacin [From Levaquin] Allergy (Mild, Verified 08/09/24 11:51) Rash nortriptyline Allergy (Unknown, Verified 08/09/24 11:51) Unknown pseudoephedrine [From Sudafed] Adverse Reaction (Intermediate, Verified 08/09/24 11:51) Palpitations Sulcrafate Allergy (Severe, Uncoded 02/16/24 13:57) Swelling in throat HPI HPI 4 months f/u: Details: 68 yr old f w hx of breast ca and b/l mastectomy here for f/u RECAP: She has histamine intolerance, she has issues with abdominal pain with food she can get immediate pain with food she has tried rifaximin and it maybe helped --tried 07/19 she has belching and bloating she is scared to eat she was taking simethicone she is wheelchair bound now and waiting to see neurologist --up till recently she was independent and horse riding etc so dramatic change she has tingling in hands and feet she had colonoscopy 2021- surgical resection --repeat colonoscopy was ok last EGD 2022--- normal she has raynauds she denies joint swelling I checked her labs which revealed high levels of arsenic and mercury she was advised to come to the ED she was seen by psych and advised to stop eating fish, considered as likely cause of her elevated heavy metals I had ordered a CTA-- no evidence of vasculitis, no ischemia, or impingement syndromes, degenerative pain noted in spine LABS: Tick serologies- neg Imaging: Small bowel follow thru hypervascularity of stomach with gastric erosions INTERIM: she was disappointed with [facility] clinic she had an EGD but no bx she still has post prandial pain bloating and gas after eating she had EMG and bx for small fiber neuropathy --results not available' EXAM: GENERAL: The patient is thin VITAL SIGNS:see workflow HEENT: Nonicteric sclerae, PERRLA, EOMI. Oropharynx clear. Moist mucous membran es. Conjunctivae appear well perfused. No thyroid mass. CHEST: Chest wall is nontender. HEART: Regular rate and rhythm without murmurs. LUNGS: Clear to auscultation bilaterally. ABDOMEN: Soft, positive bowel sounds, nontender, no organomegaly.no flank tenderness SKIN: No rash, no excessive bruising, petechiae, or purpura. NEUROLOGIC: Cranial nerves II-XII -- Gait- unable to stand unaided, Psych: apropariate A/P: 1/ Multitude of sx, suspect this is mostly neurological in origin, possibly from arsenic and mercury poisioning or another pathology, CT Abdo neg for vasculitis, other labs neg thus far--ddx: CJD or other neurodegenerative disease --having mostly uppe rGI sx now, ? 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 Mother No problems noted. Brother Heart valve replaced Social History Household Members: Significant Other Housing: House Do you presently have visiting nurse or other home services: Yes Patient Tobacco Use Status: Never used Tobacco e-Cigarette/Vaping Use: Never Used Second Hand Smoke Exposure: No service: No Sexual orientation: Straight/Heterosexual Physical Exam Vital Signs: BMI result Body Mass Index 21.3 Assessment & Plan Assessment & Plan (1) Postprandial epigastric pain: Code(s): R10.13 - Epigastric pain Category: Medical Plan: see above Plan as above Orders: Orders Gastrin Today R10.13 - Epigastric pain Medications: New vonoprazan 10 mg PO DAILY 30 tabs 2RF sucralfate (Carafate) 1 g PO QIDACHS 90 tabs 1RF Coding Level of Care Code Est Pt Level 4 (44801) Diagnoses Postprandial epigastric pain R10.13
[2024-08-09 11:56] VITALS: BP 111/62; PULSE 74; O2SAT 100; BMI 21.3
--- OUTSIDE RECORDS SUMMARY | 2024-08-09 13:53 | XMS_ITS | Clinical Summary ---
Author Organization [facility] Address [address] [place] [address] Care Team Providers Care Kitchen Lead Name Role Phone Katrin Paulson Primary Care Provider [phone] Allergies No known active allergies Medications thyroid [...] Description 10/06/2024 10:30 AM EDT Office Visit [facility] [address] [place] [address] Vladimir Rodas MD [address] [place] [id number] Scheduled Procedures Name Priority Associated Diagnoses Date/Ti [...] Insurance [employer]BS MCR REPLACE PPO Care Teams Kitchen Lead Relationship Specialty Start Date End Date Katrin Paulson [address] [place] [address] PCP - General 12/23/23
--- OUTSIDE RECORDS SUMMARY | 2024-08-09 13:53 | XMS_ITS | Clinical Summary ---
Author Organization [facility] Facility Address [address] [address] Care Team Providers Care Needlemaker Name Role Phone Katrin Paulson MD Primary [...] Comments Breast Cancer Screening 1955 Pneumococcal Vaccine: 50+ Years (1 of 2 - PCV) 1973 Colorectal Cancer Screening: Annual FOBT 11/25/2003 Colorectal Cancer Screening: Colonoscopy 11/25/2003 Colorectal Cancer Screening: Sigmoidoscopy 11/25/2003 Influenza Vaccine (Season Ended) 2024 01/18/2020, 02/11/2019 Hepatitis B Vaccine Aged Out No longe r eligible based on patient's age to complete this topic Insurance [facility] Care Teams Needlemaker Relationship Specialty Start Date End Date Katrin Paulson MD [address] [place] [phone] PCP - General Family Medicine 05/15/23
--- OUTSIDE RECORDS SUMMARY | 2024-08-09 13:53 | XMS_ITS | Referral Summary ---
Author Organization [facility] Address [address] [place] [address] Care Team Providers Care Soldering Machine Operator Automatic Name Role Phone Katrin Paulson Primary Care Provider [phone] Allergies No known active allergies Medications thyroid [...] Description 10/06/2024 10:30 AM EDT Office Visit [facility] [address] [place] [address] Vladimir Rodas MD [address] [place] [id number] Scheduled Procedures Name Priority Associated Diagnoses Date/Ti me UPPER ENDOSCOPY WITH POSSIBL E BIOPSY AND/OR POLYPECTOMY AND POSSIBLE MODERATE SEDATION Functional dyspepsia Bloating Insurance BS MCR REPLACE PPO Care Teams Soldering Machine Operator Automatic Relationship Specialty Start Date End Date Katrin Paulson [address] [place] [address] PCP - General 12/23/23
--- OUTSIDE RECORDS SUMMARY | 2024-08-09 13:53 | XMS_ITS | Data Portability ---
Author Organization [facility] (formerly [facility])[3][employer], PATIENT'S HOME Address [address] [place] [phone] Assessment Encounter Date Assessment Date Assessment LastModified by Organization Details LastModified Time 07/23/2024 07/23/2024 Igg food profile, EBV panel, Lyme 2007 immunoblot, CMP amylase, lipase, 75 min spent with patient [email or web address] Not available 07/26/2024 22:24:20 08/06/2024 08/06/2024 heavy metals testing, SIBO test, allestess IgG 184 repeat, labs: EBV, HLA testing celiac, TSh SIBO treatment discussion gi effects appt... then GI MAP with zonulin 75 min spent with patient rx: NOW, rei alesia, ...add MB [email or web address] Not available 08/07/2024 21:24:31 Plan of Treatment Reminders Order Date Submit Date Provider Last Modified By Organization Details Last Modified Time Details Appointments ESTABLISH ED PATIENT 60 2024 02:00P M Dr. Ronald Collins Not available Not available Not available Lab None recorded. Referral None recorded. Procedures None recorded. Surgeries None recorded. Imaging None recorded. Medication Orders None recorded. Patient TargetsNo targets recorded. Patient InstructionsNo instructions recorded. Reason for Referral None Reported. Results Created Date Observation Date Name Description Value Unit Range Abnormal Flag Note LastModifiedBy Organization Detail LastModifiedTime 07/29/1907/28/2024 epste in bagley virus DNA, QN, viral load, PCR, serum or plasm a ebv PCR undete cted normal Not Available [address], [address], 07/31/2024 13:01:05 07/23/19 25 08/13/2022 XR, defec ogram No observ ation record ed. [email or web address] Not Available 2024 16:11:55 07/23/19 25 06/08/2024 MRI, cervi thor spine , w/o contr ast No observ ation record ed. Not Available 2024 23:05:46 07/23/19 25 06/08/2024 MRI, thora cic spine , w/o contr ast No observ ation record ed. Not Available 2024 23:08:05 07/23/19 25 06/21/2024 CT, thora cic spine , w/o contr ast No observ ation record ed. [email or web address] Not Available 2024 18:39:28 07/24/19 25 08/27/2022 CT, abdom en + pelvi s, w/ contr ast No observ ation record ed. Not Available 2024 18:18:47 07/24/19 25 08/19/2023 XR, abdom en No observ ation record ed. Not Available 2024 18:22:08 07/24/19 25 01/21/2024 US, renal No observ ation record ed. [email or web address] Not Available 2024 17:34:27 07/24/19 25 01/21/2024 US, mesen teric arter y No observ ation record ed. [email or web address] Not Available 2024 17:36:34 07/24/19 25 11/18/2023 bone densi ty No observ ation record ed. [email or web address] Not Available 2024 17:38:51 07/24/19 25 01/16/2024 MRI, brain , w/o contr ast No observ ation record ed. Not Available 2024 17:40:30 07/24/19 25 11/12/2023 elvia r monit or No observ ation record ed. [email or web address] Not Available 2024 17:41:32 07/24/19 25 07/16/2022 elvia r monit or No observ ation record ed. [email or web address] Not Available 2024 17:44:13 07/24/19 25 02/23/2024 US, echoc ardio gram, trans thora cic, limit ed No observ ation record ed. [email or web address] Not Available 2024 17:47:02 07/24/19 25 02/23/2024 elect rocar diogr am No observ ation record ed. [email or web address] Not Available 2024 17:48:24 07/24/19 25 01/19/2024 elect rocar diogr am No observ ation record ed. [email or web address] Not Available 2024 17:49:06 07/24/19 CT, angio gram, abdom en + pelvi s, w/ contr ast No observ ation record ed. Not Available 2024 07:01:55 07/24/19 25 05/13/2023 MRI, brain , w/wo contr ast No observ ation record ed. Not Available 2024 18:23:17 07/24/19 25 08/19/2023 XR, chest , 2 view No observ ation record ed. [email or web address] Not Available 2024 18:24:08 07/24/19 25 05/11/2023 XR, chest , 2 view No observ ation record ed. [email or web address] Not Available 2024 18:25:18 07/24/19 25 05/09/2023 US, chest wall No observ ation record ed. [email or web address] Not Available 2024 18:28:07 07/24/19 25 05/26/2024 US, duple x, carot id arter y No observ ation record ed. [email or web address] Not Available 2024 18:32:25 07/24/19 25 05/21/2023 elect rocar diogr am No observ ation record ed. [email or web address] Not Available 2024 18:37:01 07/24/19 XR, chest No observ ation record ed. Not Available 2024 07:02:36 07/30/19 25 07/07/2023 imagi ng/di agnos tic resul t No observ ation record ed. [email or web address] Not Available 06/2024 10:24:50 07/30/19 25 05/04/2023 XR, chest , 2 view No observ ation record ed. [email or web address] Not Available 06/2024 10:26:11 07/30/19 25 04/29/2024 US, duple x, pelvi s, limit ed No observ ation record ed. [email or web address] Not Available 2024 10:53:03 07/30/19 25 04/29/2024 US, pelvi s No observ ation record ed. [email or web address] Not Available 2024 10:51:18 07/30/19 25 05/21/2023 CT, head, w/o contr ast No observ ation record ed. [email or web address] Not Available 06/2024 10:36:27 07/30/19 25 04/07/2024 CT, chest , w/o contr ast No observ ation record ed. [email or web address] Not Available 06/2024 10:37:59 07/30/19 25 09/04/2023 CT, chest , w/o contr ast No observ ation record ed. Not Available 06/2024 10:51:15 07/30/19 25 11/16/2021 CT, abdom en + pelvi s, w/ contr ast No observ ation record ed. [email or web address] Not Available 06/2024 10:52:50 07/30/19 25 05/09/2023 US, chest wall No observ ation record ed. Not Available 06/2024 10:54:12 07/30/19 25 07/25/2023 CT, abdom en + pelvi s, w/ contr ast No observ ation record ed. [email or web address] Not Available 06/2024 10:55:49 07/30/19 25 08/08/2023 XR, abdom en No observ ation record ed. [email or web address] Not Available 06/2024 10:56:51 07/30/19 25 08/19/2023 MRI, lumba r spine , w/o contr ast No observ ation record ed. Not Available 06/2024 10:57:36 08/07/1908/03/2024 XR, upper gastr ointe milla l serie s No observ ation record ed. [email or web address] Not Available 2024 06:12:49 08/07/19 25 07/14/2024 XR, abdom en, compl ete No observ ation record ed. [email or web address] Not Available 2024 07:33:12 08/10/1912/21/2022 hydro gen breat h test (PROC ) No observ ation record ed. Not Available 2024 13:44:15 Result Notes None recorded. Problems Name Problem SNOMED Code Status Onset Date Resolution Date Notes Provider Name and Address Organization Details Recorded Time Constipati on 00970825 Active anal hypocontra ctility, rectal dyssynergy , inadequate rectal relaxation , Ronald Collins MD [address] [place] [address], [phone], [facility] 5 16:07:43 Internal hemorrhoid s 22382706 Active MILD, colonoscop y 12/20/22 Ronald Collins MD [address] [place] [address], [phone], [facility] 5 16:08:20 Anxiety 61841854 Active Ronald Collins MD [address] [place] [address], [address], [facility] 5 16:22:45 Malignant tumor of breast 915660016 Active right breast Jan 28, 2000; double mastectomy l LN dissection on right; chemo adriamycin , cytoxan Ronald Collins MD [address] [place] [address], [address], [facility] 5 14:19:23 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 Active 2021- high grade dysplasia Ronald Collins MD [address] [place] [address], [address] 6, [facility] 5 22:39:11 Posttrauma tic stress disorder 77520633 Active Ronald Collins MD [address] [place] [address], [address], [facility] 5 22:47:38 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 Active histamine intoleance , medication intoleranc e, GF, DF, soy free; Ronald Collins MD [address] [place] [address], [address], [facility] 5 14:32:44 Gastropare sis syndrome 694900214 Active 2011- lev adam; Dr Hoskins [place]; weight 105lb; [facility] ([place], [place]); 2013, 2016, 2018; Ronald Collins MD [address] [place] [address], [address] 6, [facility] 5 14:31:34 Hyponatrem ia 25213042 Active Ronald Collins MD [address] [place] [address], [address] 6, [facility] 5 15:07:44 Small bowel bacterial overgrowth syndrome 174986573 Active diagnosed in 2021; diet issues Ronald Collins MD [address] [place] [address], [phone] 6, [facility] 5 15:08:51 Arsenic measuremen t Active 2023 Ronald Collins MD [address] [place] [address], [phone], [facility] 5 17:10:04 Problem Notes None recorded. Procedures Surgical History Date Name Laterality Status Provider Name and Address Organization Details Recorded Time 06/27/19 20 excision of bilateral breasts completed Ronald Collins MD [address] [place] [address], [phone], [facility] 07/22/2024 22:42:50 02/26/19 87 Appendectomy completed Ronald Collins MD [address] [place] [address], [phone], [facility] 07/23/2024 14:34:28 07/27/18 87 hysterectomy completed Ronald Collins MD [address] [place], [phone], [facility] 07/23/2024 14:34:39 Imaging Results Imaging Date Name Status LastModified by Organization Details LastModified Time 08/13/2022 XR, defecogram completed [email or web address] Informatio n not available 07/22/2024 16:11:55 06/08/2024 MRI, cervical spine, w/o contrast completed [email or web address] Information not available 07/22/2024 23:05:46 06/08/2024 MRI, thoracic spine, w/o contrast completed [email or web address] Information not available 07/22/2024 23:08:05 06/21/2024 CT, thoracic spine, w/o contrast completed [email or web address] Information not available 07/26/2024 18:39:28 08/27/2022 CT, abdomen + pelvis, w/ contrast completed [email or web address] Information not available 07/26/2024 18:18:47 08/19/2023 XR, abdomen completed [email or web address] Information n ot available 07/26/2024 18:22:08 01/21/2024 US, renal completed [email or web address] Information no t available 07/26/2024 17:34:27 01/21/2024 US, mesenteric artery completed [email or web address] Information not available 07/26/2024 17:36:34 11/18/2023 bone density completed Information not available 07/26/2024 17:38:51 01/16/2024 MRI, brain, w/o contrast completed [email or web address] Information not available 07/26/2024 17:40:30 11/12/2023 holter monitor completed [email or web address] Informatio n not available 07/26/2024 17:41:32 07/16/2022 holter monitor completed [email or web address] Informatio n not available 07/26/2024 17:44:13 02/23/2024 US, echocardiogram, transthoracic, limited completed [email or web address] Information not available 07/26/2024 17:47:02 02/23/2024 electrocardiogram completed [email or web address] Informa tion not available 07/26/2024 17:48:24 01/19/2024 electrocardiogram completed [email or web address] Informa tion not available 07/26/2024 17:49:06 07/23/2024 CT, angiogram, abdomen + pelvis, w/ contrast completed Information not available 07/27/2024 07:01:55 05/13/2023 MRI, brain, w/wo contrast completed [email or web address] Information not available 07/26/2024 18:23:17 08/19/2023 XR, chest, 2 view completed Informa tion not available 07/26/2024 18:24:08 05/11/2023 XR, chest, 2 view completed Informa tion not available 07/26/2024 18:25:18 05/09/2023 US, chest wall completed [email or web address] Informatio n not available 07/26/2024 18:28:07 05/26/2024 US, duplex, carotid artery completed [email or web address] Information not available 07/26/2024 18:32:25 05/21/2023 electrocardiogram completed [email or web address] Informa tion not available 07/26/2024 18:37:01 07/23/2024 XR, chest completed Information no t available 07/27/2024 07:02:36 07/07/2023 imaging/diagnostic result completed [email or web address] Information not available 07/29/2024 10:24:50 05/04/2023 XR, chest, 2 view completed [email or web address] Inform ation not available 07/29/2024 10:26:11 04/29/2024 US, duplex, pelvis, limited completed [email or web address] Information not available 08/06/2024 10:53:03 04/29/2024 US, pelvis completed [email or web address] Information no t available 08/06/2024 10:51:18 05/21/2023 CT, head, w/o contrast completed [email or web address] Information not available 07/29/2024 10:36:27 04/07/2024 CT, chest, w/o contrast completed [email or web address] Information not available 07/29/2024 10:37:59 09/04/2023 CT, chest, w/o contrast completed [email or web address] Information not available 07/29/2024 10:51:15 11/16/2021 CT, abdomen + pelvis, w/ contrast completed [email or web address] Information not available 07/29/2024 10:52:50 05/09/2023 US, chest wall completed [email or web address] Informati on not available 07/29/2024 10:54:12 07/25/2023 CT, abdomen + pelvis, w/ contrast completed Information not available 07/29/2024 10:55:49 08/08/2023 XR, abdomen completed [email or web address] Information not available 07/29/2024 10:56:51 08/19/2023 MRI, lumbar spine, w/o contrast completed [email or web address] Information not available 07/29/2024 10:57:36 08/03/2024 XR, upper gastrointestinal series completed [email or web address] Information not available 08/06/2024 06:12:49 07/14/2024 XR, abdomen, complete completed [email or web address] Information not available 08/06/2024 07:33:12 12/21/2022 hydrogen breath test (PROC) active Information not available 08/09/2024 13:44:15 Procedure Notes None recorded. Medical Equipment None Reported. Medications Name Sig Start Date Stop Date Status Note LastModified by Organization Details LastModified Time cromolyn 100 mg/5 mL oral concentrate TAKE 10 ML BY MOUTH FOUR TIMES DAILY 08/07 completed Not Available Not Available Not Available venlafaxine ER 37.5 mg capsule,ext ended release 24 hr TAKE 1 CAPSULE BY MOUTH DAILY 08/07 completed Not Available Not Available Not Available senna 8.6 mg tablet TAKE 2 TABLETS BY MOUTH AT BEDTIME FOR CONSTIPAT ION 08/07 completed Not Available Not Available Not Available risperidone 0.25 mg tablet TAKE 1 TABLET BY MOUTH EVERY DAY AT BEDTIME 08/07 completed Not Available Not Available Not Available amlodipine 2.5 mg tablet TAKE 1 TABLET BY MOUTH EVERY DAY 08/07 completed Not Available Not Available Not Available cyproheptad ine 4 mg tablet TAKE 1/2 TO 1 TABLET BY MOUTH AT BEDTIME 08/07 completed Not Available Not Available Not Available metoclopram claudia 5 mg tablet TAKE ONE-HALF TABLET BY MOUTH EVERY DAY 4 TIMES A DAY BEFORE MEAL/BEDT MELBA 08/07 completed Not Available Not Available Not Available hyoscyamine 0.125 mg sublingual tablet DISSOLVE 1 TABLET UNDER THE TONGUE EVERY 6 HOURS NEEDED FOR CRAMPING 08/07 completed Not Available Not Available Not Available Infants Gas Relief 40 mg/0.6 mL oral drops,suspe nsion TAKE 1.8 ML BY MOUTH THREE TIMES DAILY BEFORE MEALS AND AT BEDTIME active Not Available Not Available No t Available alcohol swabs USE TWICE DAILY DIRECTED FOR MONITORIN G GLUCOSE 08/07 completed Not Available Not Available Not Available zolpidem 5 mg tablet Take 2 tablets every day by oral route. 2024 active Not Available Not Available Not Avai lable esomeprazol e magnesium 20 mg capsule,del ayed release TAKE 1 CAPLET BY MOUTH DAILY 08/07 completed Not Available Not Available Not Available cinacalcet 30 mg tablet TAKE 1 TABLET BY MOUTH DAILY 08/07 completed Not Available Not Available Not Available nitrofurant oin monohydrate /macrocryst als 100 mg capsule TAKE 1 CAPSULE BY MOUTH EVERY 12 HOURS FOR 7 DAYS 08/07 completed Not Available Not Available Not Available pregabalin 25 mg capsule TAKE 1 CAPSULE BY MOUTH EVERY DAY 08/07 completed Not Available Not Available Not Available pregabalin 75 mg capsule TAKE 1 CAPSULE BY MOUTH AT BEDTIME FOR A WEEK THEN 1 TWICE DAILY 08/07 completed Not Available Not Available Not Available simethicone infants; 1 tsp night;y 08/07 completed Not Available Not Available Not Available Benadryl 5-10mg qhs active Not Available Not Available No t Available quetiapine 50 mg tablet TAKE 1/2 TO 1 TABLET BY MOUTH TWICE DAILY NEEDED DIRECTED FOR ANXIETY OR INSOMNIA 08/07 completed Not Available Not Available Not Available Savella 12.5 mg tablet FOR 1ST WEEK TAKE 1 TABLET BY MOUTH DAILY THEN TAKE 1 TABLET TWICE DAILY TOLERATED active Not Available Not Available No t Available estradiol 10 mcg vaginal tablet INSERT 1 TABLET VAGINALLY EVERY DAY FOR 14 DAYS THEN TWICE WEEKLY 08/07 completed Not Available Not Available Not Available Xifaxan 550 mg tablet TAKE 1 TABLET BY MOUTH THREE TIMES DAILY FOR 2 WEEKS active Not Available Not Available No t Available CLOUD CONSULTANT Thyroid 15 mg tablet Take by oral route. active Not Available Not Available No t Available Phosphorous Supplement 280 mg-160 mg-250 mg oral powder packet TAKE 1 PACKET BY MOUTH 4 TIMES A DAY 08/07 completed Not Available Not Available Not Available BinaxNOW COVID-19 Ag Self Test kit USE 1 KIT NEEDED BY MISCELLAN EOUS ROUTE 08/07 completed Not Available Not Available Not Available Vitals Date Recorded Oxygen saturation Oxygen saturation in Arterial blood by Pulse oximetry Heart rate Body temperature Systolic blood pressure Diastolic blood pressure Provider Name and Address Organization Details Last Updated DateTime 97 % 97 % 90 /min 97.8 [degF] 120 mm[Hg] 72 mm[Hg] July [facility] 14:07:11 Date Recorded Body temperature Oxygen saturation Oxygen saturation in Arterial blood by Pulse oximetry Heart rate Systolic blood pressure Diastolic blood pressure Provider Name and Address Organization Details Last Updated DateTime 97.1 [degF] 98 % 98 % 83 /min 122 mm[Hg] 72 mm[Hg] [facility] 12:54:47 Social History Question Answer Notes LastModified by Organizat ion Details LastModified Time Are You Currently Employed? 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 Mental Status None recorded. Family History Nothing Reported. Medical History No medical history recorded. Gynecological HistoryNo gynecological history recorded. Obstetrics History GPAL:G 0 P 0 0 0 0 Past Encounters Encounter ID Performer Location Encounter Start Date Encounter Closed Date Diagnosis/Indication Diagnosis SNOMED-CT Code Diagnosis ICD10 Code Diagnosis Note [id number] Ronald Collins MD Main Office [address] [place] [phone] 07/23/2024 14:06:28 07/27/2024 08:03:44 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 578258744 T78.1XXA big hx of allergies Alletess, food eliminatio n is reasonable Malignant tumor of breast 224227367 C50.911 requested info Hyponatremia 01625198 E8 7.1 review prev workup Small judah l bacterial overgrowth syndrome 932302490 K63.8228 review findings of testing in past Abdominal pain 47404945 R10.9 considerat ions+ Gastroesop hageal Reflux Disease [...] review more records/pr ev work upfu soon [id number] Ronald Collins MD Main Office [address] [place] [phone] 08/06/2024 12:54:25 08/06/2024 14:57:13 Abdominal pain 87323648 R10.9 hypothetic al components : GERD, SIBO, histamine intoleranc e important topics-EBV ... starting monolaurin ; consider pyramid, further testingele vated blood mercury, arsenic... consider HM testing06/04 gi effects data..disc uss with clinical specialist 2021 alletess likely+ Gastroesop hageal Reflux Disease (GERD), on robinia nicotiana others+ Celiac disease- TTG neg in past...HLA testing+ Irritable bowel syndrome: SIBO, HI, EE; request records, food diary+ Functional Dyspepsia. .+ heavy metal toxicity.. .rec provoked testing+ Gallbladde r Disease (Cholecyst itis or Cholelithi asis): HIDA being discussed- on hold for now+ Gas...+ Eosinophil ic Esophagiti s...?food impaction, or diff swallowing rare+ Esophageal Spasm: Abnormal muscle+ Pancreatit is... elevated in past in records; poss chronic pancreatit s; CTs have been negative; pain radiates to the back. The pain typically begins about 15-60 minutes after eating and can be quite severe. Other symptoms of chronic pancreatit is include weight loss, oily stools, and digestive problems.+ Intestinal Obstructio n+ Mesenteric Artery ischemia ....ruled out with ml imaging fu end of month 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 07026444 1 T78.1XXA big hx of medication allergies Alletess review food eliminatio n is reasonable ; but should be done in a measured way Malignant tumor of breast 547355840 C50.911 reviewing info Hyponatremia 40616132 E8 7.1 still need more of the work upreview records Small judah l bacterial overgrowth syndrome 594981584 K63.8219 review findings of testing in past Muscle weakness 23149691 M62.81 often in wheelchair fatigueMB Health Concerns Section Related Observation LastModified by Organization Detai ls LastModified Time None Recorded Concern Status LastModified by Organization Details LastModified Time None Recorded Advance Directives Directive None Recorded Payers Encounter Date Sequence Insurance Name Policy Number Policy Santos Covered Member ID Santos Member ID Guarantor Name 07/23/2024 2 [place]MEDICARE [place]AC[place] PPO) [id number] Umm Guillen [id number] Umm Guillen 07/23/2024 1 [place] Umm Guillen [id number] Umm Guillen 08/06/2024 2 [place]MED[place] PPO) [id number] Umm Guillen [id number] Umm Guillen 08/06/2024 1 [place] [facility] [place] Umm Guillen [id number] Umm Guillen Notes Date Note Type Note Provider Name and Address Organization Details Recorded Time 07/24/19 25 text/htm l 68yo in relatively good health, active,COVID Feb 2021[facility] old [employer] She[employer]3 colonoscopies end 2021, early 2022- upper [...] weakness ++hyponatremiaeating more salt Ronald Collins MD [address] [place] [address], [phone], [facility] [employer] [place] [facility] 07/26/2024 22:26:41 08/07/19 25 text/htm l Pt here to fu on abd paincomponents: GERD, SIBO, histamine intolerance important topics EBV...elevated blood mercury, arsenic06/04/24 gi effects [id number] alletess no meds nowthyroid NPzolpidembenadrylsimethecone hx constipation,diarrhea chemo in 2000after stomache Lyme disease in , 07months of antibiotics hx gastroparesis 2012 after chemo in 1999and constipationworked with Dr Hoskinsweight was 105-110lbtreated with Mag citrate, smooth move- now off all thatEvie Alejandro naturopathhydrotherapy, homeopathy,no gluten no nuts no soy sees Reji 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 gas sx lingeredSIBO diagnosis olyp found- colon surgery 2022 Dr Laura early 2023 low sodiumjan to august, prob goes back to oct Abdominal pain- pain low chest after eatingcan be 60 min after eating, can be sooner latelyexcruciating pain since 08/03 upper gican cause her to call out;-gassy bloatybelches; no flatulencedifferent food- keeping track asks re Gallbladder HIDA scan coming up Ronald Collins MD [address] [place] [address], [phone], [facility] [employer] [facility] [place] 08/07/2024 21:25:02 OBGyn Episode No OBEpisode recorded.
--- OUTSIDE RECORDS SUMMARY | 2024-08-09 13:54 | XMS_ITS | Data Portability ---
Author Organization [facility], FP, EHC, OFFICE Address [address] [place] [address] Care Team Providers Care Career Development Director Name Role Phone KARLEY PAULSONEN Primary Care Provider [facility] OTHER [phone] [facility] R[facility]K ASSESSMENT O THER SLICK ROGER Wine Cellar Stock Clerk JORGE MANCIA General Surgeon DELFINA WILKES PHYSICAL THERAPY Phys. Med. & R ehab [facility] Straw Baler RU FLYNN White Lead Grinder VINNIE BARBOSA Identity Management Consultant NAMRATA LOPEZ Urologist [phone] CALLY JOHNSON Identity Management Consultant Assessment Encounter Date Assessment Date Assessment LastModified by Organization Details LastModified Time 06/10/2024 06/10/2024 Patient agreed t o this visit via a secure telehealth platform. Patient understands this is a scheduled visit and the usual procedures with regard to billing and confidentiality apply. Patient was notified that the provider location is [facility] Patient location: home During the visit the patient? s medical history and medical record were reviewed. The patient was notified to call our office for worsening or urgent symptoms. Patient agreed to this visit via phone or secure telehealth platform. Patient understands this is a scheduled visit and the usual procedures with regard to billing and confidentiality apply. Over 40 minutes spent with patient and reviewing specialist notes and making plan Not available 06/10/2024 12:22:58 06/23/2024 06/23/2024 Patient agreed t o this visit via a secure telehealth platform. Patient understands this is a scheduled visit and the usual procedures with regard to billing and confidentiality apply. Patient was notified that the provider location is [facility] Patient location: home During the visit the patient? s medical history and medical record were reviewed. The patient was notified to call our office for worsening or urgent symptoms. Patient agreed to this visit via phone or secure telehealth platform. Patient understands this is a scheduled visit and the usual procedures with regard to billing and confidentiality apply. Over 40 minutes spent with patient and reviewing specialist notes and making plan Not available 06/23/2024 15:23:47 07/02/2024 07/02/2024 Pt seeking psychopharm consultation management of: Sleep difficulty and overwhelm in the unclear context of elevated blood pressure and history of aneurysm with head chest pain and tingling. Primary care at: [facility] Initial Therapy History: Working with [employer] therapist on and off. Prior to 2021 had been working with other therapist more longitudinally in [place]. Also works with a naturapath Linda Hernandez. Initial HISTORIC (Dx/ Tx/ life events): in 1979. Lives with partner Patrick with whom he tries but he does not know how to help me... Terminated into halfway with redundancy at age 63. 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 Originally from this area [place]. Only family in the areas of brother in [place]. No prior psychiatric hospitalizations, but was [facility] BH[facility] but was directed to a medical hospitalization for hyponatremia. No prior suicide attempts. No prior psychosis. No prior zack. Some history of difficulties with depression disappointment and stress reaction, but considers main behavioral health difficulties be insomnia historically. Primary CARE provider was interested in alternative to Ambien continued since cancer treatment. Working with other psychopharmacologic digital marketing consultant here, was offered trials for alternatives. [...] hospitalized for low sodium and loosing 30# ([facility] Apr-Jun) feeling destroyed... A psychiatric hosp was offered to coordinate BH and GI distress at [facility] (did not find it theraputic) May 2023. Quickly signed out. At home feeling Patrick couldn't/ wouldn't provided sufficient support. Subsequent medical hosp could not arrange the level of a care she feel she needs. Currently feels doesn't believe her needs and limitations. Worked with [facility] she was not happy with and changed to [facility] (was horrific). Reports continued terrible pain, [...] discussion: ambien 5-10 mg nightly continues. nortriptyline I told them to take it off my med list... I took it just to prove it wouldn't help (GI)... considers harmful to her vision. Not taking. Over the interval OPTED OUT of trial of novel SNRI milnacipran with low dose titration 12.5-25mg in divided dosing (range 50-100 could be goal if tolerated). What I said was, 'I can't try it now (having looked into the medication and holding concern that it could worsen her alread difficult to tolerated GI Sx).' Has not started, but might consider in the future. Initial Risk and strengths: Low/ moderate. Illness anxiety potential complicating factor Follow up in: As request by PCP. At follow up consider: N/A [email or web address] Not available 07/02/2024 10:57:43 07/08/2024 07/08/2024 Patient agreed t o this visit via a secure telehealth platform. Patient understands this is a scheduled visit and the usual procedures with regard to billing and confidentiality apply. Patient was notified that the provider location is [facility] Patient location: home During the visit the patient? s medical history and medical record were reviewed. The patient was notified to call our office for worsening or urgent symptoms. Patient agreed to this visit via phone or secure telehealth platform. Patient understands this is a scheduled visit and the usual procedures with regard to billing and confidentiality apply. Over 40 minutes spent with patient and reviewing specialist notes and making plan Not available 07/08/2024 16:30:13 07/21/2024 07/21/2024 Patient agreed t o this visit via a secure telehealth platform. Patient understands this is a scheduled visit and the usual procedures with regard to billing and confidentiality apply. Patient was notified that the provider location is [facility] Patient location: home During the visit the patient? s medical history and medical record were reviewed. The patient was notified to call our office for worsening or urgent symptoms. Patient agreed to this visit via phone or secure telehealth platform. Patient understands this is a scheduled visit and the usual procedures with regard to billing and confidentiality apply. Over 40 minutes spent with patient and reviewing specialist notes and making plan Not available 07/21/2024 12:37:30 Plan of Treatment Reminders Order Date Submit Date Provider Last Modified By Organization Details Last Modified Time Details Appointments Virtual Visit 2024 09:00A Kasandra Paulson MD Not available Not available Not available Follow Up, 2024 11:30A Kasandra Paulson MD Not available Not available Not available Same Day Appt, 2024 11:30A Kasandra Paulson MD Not available Not available Not available Lab None recorded . Referral None recorded . Procedures Sitz marker study (PROC) - 68 y/o with slow bowels, please perform KUB with repeat x-ray every 24 hours until gone. 2024 025 [email or web address] [facility] Central Scheduling, [address] [facility], [place], [address], 06/24/2024 08:18:00 Surgeries None recorded . Imaging None recorded . Medication Orders None recorded . Patient TargetsNo targets recorded. Patient Instructions Encounter Date Encounter Id Patient Instructions Last Modified By Organization Details Last Modified Time 06/10/2024 [id number] -The imaging of the thoracic spine shows inconclusive findings at T4 vertebrae which is why they recommended CT - I recommend asking O'Nancie if that is recommended with contrast or not and if they can see anything without contrast -The skin biopsy neurology wants has to have specific staining, it's important that that's done at [facility] to make sure it's processed correctly to look for small nerve fiber disease -If GI asks, you have a history of hives/rash with omeprazole and pantoprazole -I would ask them how they can determine if you have too much acid or too little before starting medication given your allergy -I am going to ask [facility] allergy if there are any tests they want ahead of time, and if they are familiar with testing KATARZYNA -I would recommend working with a therapist for support - I'll see if anybody has any information. Not available 06/10/2024 12:21:03 06/23/2024 [id number] -I have ordered Sitz Markers to be done 24 hours until markers cleared - Ordered at [facility] -Will wait on bladder testing until results are in -Follow-up as scheduled with me -I am going to talk to Lisandra again about testing and let him know that [facility] hasn't really been doing anything other than focusing on diagnostic testing. Not available 06/23/2024 15:34:11 07/08/2024 [id number] -Let's plan on you doing the Sitz markers test first next week instead of the other -I'm going to talk to Dr. Johnson about adding back the upper GI with the small bowel follow through instead -We'll get copies of the [facility] labs (we'll look next week) -Could consider xyzal with famotidine as the H1 and H2 combination Not available 07/08/2024 16:40:52 07/21/2024 [id number] -Apply plain bacitracin twice daily to the leg area -This should improve in the next couple of weeks -I would expect a result to be back in the next two weeks -Consider xyzal (levocetirizine) 5mg 3x daily OR magali (fexofenadine) 180mg twice daily -That should help to reduce the benadryl load -Keep appointment with Lisandra as scheduled in August -Keep follow-up with me as scheduled Not available 07/21/2024 12:36:41 Reason for Referral None Reported. Results Created Date Observation Date Name Description Value Unit Range Abnormal Flag Note LastModifiedBy Organization Detail LastModifiedTime 05/26/1905/26/2024 CBC WBC 7.34 K/uL 4.00-1 1.00 Not Available [facility] [address] [place], [id number], 05/26/2024 13:21:42 05/26/19 25 05/26/2024 CBC RBC 5.25 M/uL 4.00-5 .20 high Not Available [facility] [address] [place], [address], 05/26/2024 13:21:42 05/26/19 25 05/26/2024 CBC HGB 15.2 g/dL 12.0-1 6.0 Not Available [facility] [address] [place], [address], 05/26/2024 13:21:42 05/26/1905/26/2024 CBC HCT 47.6 % 36.0-4 6.0 high Not Available [facility] [address] [place], [address], 05/26/2024 13:21:42 05/26/19 25 05/26/2024 CBC plt 302 K/uL 150-45 0 Not Available [facility] [address] [place], [address], 05/26/2024 13:21:42 05/26/19 25 05/26/2024 CBC MCV 90.7 fL 80.0-1 00.0 Not Available [facility] [address] [place], [address], 05/26/2024 13:21:42 05/26/19 25 05/26/2024 CBC MCH 29.0 pg 27.0-3 1.0 Not Available [facility] [address] [place], [address], 05/26/2024 13:21:42 05/26/19 25 05/26/2024 CBC MCHC 31.9 g/dL 32.0-3 6.0 low Not Available [facility] [address] [place], [address], 05/26/2024 13:21:42 05/26/19 25 05/26/2024 CBC RDW 13.5 % 11.5-1 4.5 Not Available [facility] [address] [place], [address], 05/26/2024 13:21:42 05/26/19 25 05/26/2024 CBC MPV 10.3 fL 8.4-12 .0 Not Available [facility] [address] [place], [address], 05/26/2024 13:21:42 05/26/19 25 05/26/2024 CBC NRBC 0.00 /100_ WBCs 0.00 Not Available [facility] [address] [place], [address], 05/26/2024 13:21:42 05/26/19 25 05/26/2024 CBC absolute NRBC 0.00 K/uL 0.00 Not Available [facility] [address] [place], [address], 05/26/2024 13:21:42 05/26/19 25 05/26/2024 PREAL BUMIN prealbumin 34 mg/dL 20-40 Not Available [facility] [address] [place], [address], 05/26/2024 13:25:30 05/26/19 25 05/26/2024 PHOSP HORUS phosphorus 3.6 mg/dL 2.7-4. 5 Not Available [facility] [address] [place], [address], 05/26/2024 13:26:02 05/26/19 25 05/26/2024 COMPR EHENS RONY METAB OLIC PANEL sodium 138 mmol/ L 133-14 6 Not Available [facility] [address] [place], [address], 05/26/2024 13:26:05 05/26/19 25 05/26/2024 COMPR EHENS RONY METAB OLIC PANEL potassium 4.4 mmol/ L 3.3-5. 1 Not Available [facility] [address] [place], [address], 05/26/2024 13:26:05 05/26/19 25 05/26/2024 COMPR EHENS RONY METAB OLIC PANEL chloride 101 mmol/ L 96-108 Not Available [facility] [address] [place], [address], 05/26/2024 13:26:05 05/26/19 25 05/26/2024 COMPR EHENS RONY METAB OLIC PANEL CO2 26 mmol/ L 21-35 Not Available [facility] [address] [place], [address], 05/26/2024 13:26:05 05/26/19 25 05/26/2024 COMPR EHENS RONY METAB OLIC PANEL BUN 20 mg/dL 6-19 high Not Available [facility] [address] [place], [address], 05/26/2024 13:26:05 05/26/19 25 05/26/2024 COMPR EHENS RONY METAB OLIC PANEL creatinine 0.60 mg/dL 0.5-1. 5 Not Available [facility] [address] [place], [address], 05/26/2024 13:26:05 05/26/19 25 05/26/2024 COMPR EHENS RONY METAB OLIC PANEL glucose 105 mg/dL 70-99 high Not Available [facility] [address] [place], [address], 05/26/2024 13:26:05 05/26/19 25 05/26/2024 COMPR EHENS RONY METAB OLIC PANEL albumin 4.1 g/dL 3.9-4. 8 Not Available [facility] [address] [place], [address], 05/26/2024 13:26:05 05/26/19 25 05/26/2024 COMPR EHENS RONY METAB OLIC PANEL total protein 8.1 g/dL 6.5-8. 0 high Not Available [facility] [address] [place], [address], 05/26/2024 13:26:05 05/26/19 25 05/26/2024 COMPR EHENS RONY METAB OLIC PANEL calcium 10.0 mg/dL 8.4-10 .3 Not Available [facility] [address] [place], [address], 05/26/2024 13:26:05 05/26/19 25 05/26/2024 COMPR EHENS RONY METAB OLIC PANEL alkaline phosphatase 125 U/L 39-117 high Not Available [facility] [address] [place], [address], 05/26/2024 13:26:05 05/26/19 25 05/26/2024 COMPR EHENS RONY METAB OLIC PANEL total bilirubin 0.3 mg/dL 0.0-1. 2 Not Available [facility] [address] [place], [address], 05/26/2024 13:26:05 05/26/19 25 05/26/2024 COMPR EHENS RONY METAB OLIC PANEL AST 25 U/L 0-37 Not Available [facility] [address] [place], [address], 05/26/2024 13:26:05 05/26/19 25 05/26/2024 COMPR EHENS RONY METAB OLIC PANEL ALT 19 U/L 0-40 Not Available [facility] [address] [place], [address], 05/26/2024 13:26:05 05/26/19 25 05/26/2024 COMPR EHENS RONY METAB OLIC PANEL globulin 4.0 g/dL 1-4.8 Not Available [facility] [address] [place], [address], 05/26/2024 13:26:05 05/26/19 25 05/26/2024 COMPR EHENS RONY METAB OLIC PANEL eGFR 97 mL/mi n/1.7 3m2 >59 Estim ated glome rular filtr ation rate calcu lated using the CKD-E PI refit equat ion. Not Available [facility] [address] [place], [address], 05/26/2024 13:26:05 05/26/19 25 05/26/2024 COMPR EHENS RONY METAB OLIC PANEL anion gap 15 mmol/ L 10-20 Not Available [facility] [address] [place], [address], 05/26/2024 13:26:05 05/26/19 25 05/27/2024 TISSU E TRANS GLUTA REECE E IGG ttg antibody IgG 4.0 U/mL <6.0 (negat rony) Not Available [facility] [address] [place], [address], 05/27/2024 19:44:35 05/26/19 25 05/28/2024 GLIAD IN DEAMI DATED ANTIB LEEANNA, IGG/I GA gliadin Ab IgA <10.0 U <20.0 (negat rony) Not Available [facility] [address] [place], [address], 05/28/2024 19:38:37 05/26/19 25 05/28/2024 GLIAD IN DEAMI DATED ANTIB LEEANNA, IGG/I GA gliadin Ab IgG <10.0 U <20.0 (negat rony) Not Available [facility] [address] [place], [address], 05/28/2024 19:38:37 05/26/19 25 05/28/2024 TISSU E TRANS GLUTA REECE E IGA ttg IgA antibody <1.2 U/mL <4.0 (negat rony) Not Available [facility] [address] [place], [address], 05/28/2024 19:38:39 06/23/19 25 06/23/2024 MAGNE SIUM magnesium 2.2 mg/dL 1.6-2. 6 Not Available [facility] [address] [place], [address], 06/23/2024 12:45:39 06/23/19 25 06/23/2024 URINA LYSIS WITH SEDIM ENT WBC NONE SEEN /hpf none seen Not Available [facility] [address] [place], [address], 06/23/2024 14:13:16 06/23/19 25 06/23/2024 URINA LYSIS WITH SEDIM ENT RBC NONE SEEN /hpf none seen Not Available [facility] [address] [place], [address], 06/23/2024 14:13:16 06/23/19 25 06/23/2024 URINA LYSIS WITH SEDIM ENT urine epithelial 0-4 none seen abnormal Not Available [facility] [address] [place], [address], 06/23/2024 14:13:16 06/23/19 25 06/23/2024 URINA LYSIS WITH SEDIM ENT mucus NONE SEEN /hpf none seen Not Available [facility] [address] [place], [address], 06/23/2024 14:13:16 06/23/19 25 06/23/2024 URINA LYSIS WITH SEDIM ENT bacteria NONE SEEN /hpf none seen Not Available [facility] [address] [place], [address], 06/23/2024 14:13:16 06/23/19 25 06/23/2024 URINA LYSIS WITH SEDIM ENT color STRAW yellow abnormal Not Available [facility] [address] [place], [address], 06/23/2024 14:13:16 06/23/19 25 06/23/2024 URINA LYSIS WITH SEDIM ENT clarity CLEAR Not Available [facility] [address] [place], [address], 06/23/2024 14:13:16 06/23/19 25 06/23/2024 URINA LYSIS WITH SEDIM ENT glucose NEGATI VE negati ve Not Available [facility] [address] [place], [address], 06/23/2024 14:13:16 06/23/19 25 06/23/2024 URINA LYSIS WITH SEDIM ENT bili NEGATI VE negati ve Not Available [facility] [address] [place], [address], 06/23/2024 14:13:16 06/23/19 25 06/23/2024 URINA LYSIS WITH SEDIM ENT ketones NEGATI VE negati ve Not Available [facility] [address] [place], [address], 06/23/2024 14:13:16 06/23/19 25 06/23/2024 URINA LYSIS WITH SEDIM ENT specific gravity 1.015 1.005- 1.030 Not Available [facility] [address] [place], [address], 06/23/2024 14:13:16 06/23/19 25 06/23/2024 URINA LYSIS WITH SEDIM ENT blood TRACE negati ve abnormal Not Available [facility] [address] [place], [address], 06/23/2024 14:13:16 06/23/19 25 06/23/2024 URINA LYSIS WITH SEDIM ENT pH 6.0 5.0-8. 0 Not Available [facility] [address] [place], [address], 06/23/2024 14:13:16 06/23/19 25 06/23/2024 URINA LYSIS WITH SEDIM ENT protein NEGATI VE negati ve Not Available [facility] [address] [place], [address], 06/23/2024 14:13:16 06/23/19 25 06/23/2024 URINA LYSIS WITH SEDIM ENT nitrite NEGATI VE negati ve Not Available [facility] [address] [place], [address], 06/23/2024 14:13:16 06/23/19 25 06/23/2024 URINA LYSIS WITH SEDIM ENT leukocyte esterase, ur NEGATI VE negati ve Not Available [facility] [address] [place], [address], 06/23/2024 14:13:16 06/23/19 25 06/24/2024 MARGA IC, BLOOD arsenic 1 NG/mL <13 (NOTE ) ----- ----- ----- ----A DDITI ONAL INFOR MATIO N---- ----- ----- ----- This test was devel oped and its perfo rmanc e rhett cteri stics deter mined by [employer] in a maday r consi stent with CLIA requi remen ts. This test has not been clear ed or appro chino by the U.S. Food and Drug Admin istra tion. Not Available [facility] [address] [place], [address], 06/24/2024 18:10:01 06/23/19 25 06/24/2024 MERCU RY, BLOOD bld mercury 9 NG/mL <10 (NOTE ) ----- ----- ----- ----A DDITI ONAL INFOR MATIO N---- ----- ----- ----- This test was devel oped and its perfo rmanc e rhett cteri stics deter mined by [employer] in a maday r consi stent with CLIA requi remen ts. This test has not been clear ed or appro chino by the U.S. Food and Drug Admin istra tion. Not Available [facility] [address] [place], [address], 06/24/2024 18:10:03 06/23/1906/23/2024 URINE CULTU RE special requests NONE Not Available [facility] [address] [place], [address], 06/25/2024 09:12:16 06/23/19 25 06/25/2024 URINE CULTU RE urine culture abnormal 10,00 0 to 100,0 00 colon y formi ng units per mL MIXED JESSI (3 OR MORE COLON Y TYPES ) Cultu re indic ates conta minat ion. Pleas e resub kyle if neces aditya. Not Available [facility] [address] [place], [address], 06/25/2024 09:12:16 06/23/19 25 06/25/2024 TRYPT ASE tryptase 3.8 NG/mL <11.5 Not Available [facility] [address] [place], [address], 06/25/2024 21:28:17 07/09/19 25 07/08/2024 CBC WBC 6.74 K/uL 4.00-1 1.00 Not Available [facility] [address] [place], [address], 07/08/2024 14:06:26 07/09/19 25 07/08/2024 CBC RBC 5.26 M/uL 4.00-5 .20 high Not Available [facility] [address] [place], [address], 07/08/2024 14:06:26 07/09/19 25 07/08/2024 CBC HGB 15.4 g/dL 12.0-1 6.0 Not Available [facility] [address] [place], [address], 07/08/2024 14:06:26 07/09/19 25 07/08/2024 CBC HCT 47.7 % 36.0-4 6.0 high Not Available [facility] [address] [place], [address], 07/08/2024 14:06:26 07/09/19 25 07/08/2024 CBC plt 291 K/uL 150-45 0 Not Available [facility] [address] [place], [address], 07/08/2024 14:06:26 07/09/19 25 07/08/2024 CBC MCV 90.7 fL 80.0-1 00.0 Not Available [facility] [address] [place], [address], 07/08/2024 14:06:26 07/09/19 25 07/08/2024 CBC MCH 29.3 pg 27.0-3 1.0 Not Available [facility] [address] [place] [address], [address], 07/08/2024 14:06:26 07/09/19 25 07/08/2024 CBC MCHC 32.3 g/dL 32.0-3 6.0 Not Available [facility] [address] [place] [address], [address], 07/08/2024 14:06:26 07/09/19 25 07/08/2024 CBC RDW 13.5 % 11.5-1 4.5 Not Available [facility] [address] [place] [address], [address], 07/08/2024 14:06:26 07/09/19 25 07/08/2024 CBC MPV 10.9 fL 8.4-12 .0 Not Available [facility] [address] [place] [address], [id number], 07/08/2024 14:06:26 07/09/19 25 07/08/2024 CBC NRBC 0.00 /100_ WBCs 0.00 Not Available [facility] [address] [place] [address], [address], 07/08/2024 14:06:26 07/09/19 25 07/08/2024 CBC absolute NRBC 0.00 K/uL 0.00 Not Available [facility] [address] [place], [address], 07/08/2024 14:06:26 07/09/19 25 07/08/2024 COMPR EHENS RONY METAB OLIC PANEL sodium 139 mmol/ L 133-14 6 Not Available [facility] [address] [place], [address], 07/08/2024 14:43:51 07/09/19 25 07/08/2024 COMPR EHENS RONY METAB OLIC PANEL potassium 4.4 mmol/ L 3.3-5. 1 Not Available [facility] (Outpatient) [address] [place], [address], 07/08/2024 14:43:51 07/09/19 25 07/08/2024 COMPR EHENS RONY METAB OLIC PANEL chloride 102 mmol/ L 96-108 Not Available [facility] (Outpatient) [address] [place], [address], 07/08/2024 14:43:51 07/09/19 25 07/08/2024 COMPR EHENS RONY METAB OLIC PANEL CO2 24 mmol/ L 21-35 Not Available [facility] (Outpatient) [address] [place], [address], 07/08/2024 14:43:51 07/09/19 25 07/08/2024 COMPR EHENS RONY METAB OLIC PANEL BUN 13 mg/dL 6-19 Not Available [facility] (Outpatient) [address] [place], [address], 07/08/2024 14:43:51 07/09/19 25 07/08/2024 COMPR EHENS RONY METAB OLIC PANEL creatinine 0.60 mg/dL 0.5-1. 5 Not Available [facility] (Outpatient) [address] [place], [address], 07/08/2024 14:43:51 07/09/19 25 07/08/2024 COMPR EHENS RONY METAB OLIC PANEL glucose 96 mg/dL 70-99 Not Available [facility] (Outpatient) [address] [place], [address], 07/08/2024 14:43:51 07/09/19 25 07/08/2024 COMPR EHENS RONY METAB OLIC PANEL albumin 4.4 g/dL 3.9-4. 8 Not Available [facility] (Outpatient) [address] [place], [address], 07/08/2024 14:43:51 07/09/19 25 07/08/2024 COMPR EHENS RONY METAB OLIC PANEL total protein 8.1 g/dL 6.5-8. 0 high Not Available [facility] (Outpatient) [address] [place] [address], [address], 07/08/2024 14:43:51 07/09/19 25 07/08/2024 COMPR EHENS RONY METAB OLIC PANEL calcium 9.7 mg/dL 8.4-10 .3 Not Available [facility] (Outpatient) [address] [place], [address], 07/08/2024 14:43:51 07/09/19 25 07/08/2024 COMPR EHENS RONY METAB OLIC PANEL alkaline phosphatase 110 U/L 39-117 Not Available [facility] (Outpatient) [address] [place], [address], 07/08/2024 14:43:51 07/09/19 25 07/08/2024 COMPR EHENS RONY METAB OLIC PANEL total bilirubin 0.4 mg/dL 0.0-1. 2 Not Available [facility] (Outpatient) [address] [place] [address], [address], 07/08/2024 14:43:51 07/09/19 25 07/08/2024 COMPR EHENS RONY METAB OLIC PANEL AST 25 U/L 0-37 Not Available [facility] (Outpatient) [address] [place] [address], [address], 07/08/2024 14:43:51 07/09/19 25 07/08/2024 COMPR EHENS RONY METAB OLIC PANEL ALT 17 U/L 0-40 Not Available [facility] (Outpatient) [address] [place] [address], [address], 07/08/2024 14:43:51 07/09/19 25 07/08/2024 COMPR EHENS RONY METAB OLIC PANEL globulin 3.7 g/dL 1-4.8 Not Available [facility] (Outpatient) [address] [place] [address], [address], 07/08/2024 14:43:51 07/09/19 25 07/08/2024 COMPR EHENS RONY METAB OLIC PANEL eGFR 97 mL/mi n/1.7 3m2 >59 Estim ated glome rular filtr ation rate calcu lated using the CKD-E PI refit equat ion. Not Available [facility] (Outpatient) [address] [place] [address], [address], 07/08/2024 14:43:51 07/09/19 25 07/08/2024 COMPR EHENS RONY METAB OLIC PANEL anion gap 17 mmol/ L 10-20 Not Available [facility] (Outpatient) [address] [place] [address], [address], 07/08/2024 14:43:51 07/29/19 25 07/28/2024 CBC WBC 6.76 K/uL 4.00-1 1.00 Not Available [facility] (Outpatient) [address] [place] [address], [address], 07/28/2024 14:56:13 07/29/19 25 07/28/2024 CBC RBC 5.21 M/uL 4.00-5 .20 high Not Available [facility] (Outpatient) [address] [place], [address], 07/28/2024 14:56:13 07/29/19 25 07/28/2024 CBC HGB 15.2 g/dL 12.0-1 6.0 Not Available [facility] (Outpatient) [address] [place], [address], 07/28/2024 14:56:13 07/29/19 25 07/28/2024 CBC HCT 46.7 % 36.0-4 6.0 high Not Available [facility] (Outpatient) [address] [place] [address], [address], 07/28/2024 14:56:13 07/29/19 25 07/28/2024 CBC plt 257 K/uL 150-45 0 Not Available [facility] (Outpatient) [address] [place] [address], [address], 07/28/2024 14:56:13 07/29/19 25 07/28/2024 CBC MCV 89.6 fL 80.0-1 00.0 Not Available [facility] (Outpatient) [address] [place] [address], [address], 07/28/2024 14:56:13 07/29/19 25 07/28/2024 CBC MCH 29.2 pg 27.0-3 1.0 Not Available [facility] (Outpatient) [address] [place] [address], [address], 07/28/2024 14:56:13 07/29/19 25 07/28/2024 CBC MCHC 32.5 g/dL 32.0-3 6.0 Not Available [facility] (Outpatient) [address] [place] [address], [address], 07/28/2024 14:56:13 07/29/19 25 07/28/2024 CBC RDW 13.5 % 11.5-1 4.5 Not Available [facility] (Outpatient) [address] [place], [address], 07/28/2024 14:56:13 07/29/19 25 07/28/2024 CBC MPV 10.7 fL 8.4-12 .0 Not Available [facility] (Outpatient) [address] [place], [address], 07/28/2024 14:56:13 07/29/19 25 07/28/2024 CBC NRBC 0.00 /100_ WBCs 0.00 Not Available [facility] (Outpatient) [address] [place], [address], 07/28/2024 14:56:13 07/29/19 25 07/28/2024 CBC absolute NRBC 0.00 K/uL 0.00 Not Available [facility] (Outpatient) [address] [place], [address], 07/28/2024 14:56:13 07/29/19 25 07/28/2024 COMPR EHENS RONY METAB OLIC PANEL sodium 141 mmol/ L 133-14 6 Not Available [facility] (Outpatient) [address] [place], [address], 07/28/2024 15:25:09 07/29/19 25 07/28/2024 COMPR EHENS RONY METAB OLIC PANEL potassium 4.4 mmol/ L 3.3-5. 1 Not Available [facility] (Outpatient) [address] [place], [address], 07/28/2024 15:25:09 07/29/19 25 07/28/2024 COMPR EHENS RONY METAB OLIC PANEL chloride 102 mmol/ L 96-108 Not Available [facility] (Outpatient) [address] [place], [address], 07/28/2024 15:25:09 07/29/19 25 07/28/2024 COMPR EHENS RONY METAB OLIC PANEL CO2 27 mmol/ L 21-35 Not Available [facility] (Outpatient) [address] [place], [address], 07/28/2024 15:25:09 07/29/19 25 07/28/2024 COMPR EHENS RONY METAB OLIC PANEL BUN 17 mg/dL 6-19 Not Available [facility] (Outpatient) [address] [place], [address], 07/28/2024 15:25:07/29/19 25 07/28/2024 COMPR EHENS RONY METAB OLIC PANEL creatinine 0.70 mg/dL 0.5-1. 5 Not Available [facility] (Outpatient) [address] [place], [address], 07/28/2024 15:25:09 07/29/19 25 07/28/2024 COMPR EHENS RONY METAB OLIC PANEL glucose 93 mg/dL 70-99 Not Available [facility] (Outpatient) [address] [place], [address], 07/28/2024 15:25:07/29/19 25 07/28/2024 COMPR EHENS RONY METAB OLIC PANEL albumin 4.4 g/dL 3.9-4. 8 Not Available [facility] (Outpatient) [address] [place], [address], 07/28/2024 15:25:09 07/29/19 25 07/28/2024 COMPR EHENS RONY METAB OLIC PANEL total protein 7.8 g/dL 6.5-8. 0 Not Available [facility] (Outpatient) [address] [place] [address], [address], 07/28/2024 15:25:07/29/19 25 07/28/2024 COMPR EHENS RONY METAB OLIC PANEL calcium 9.6 mg/dL 8.4-10 .3 Not Available [facility] (Outpatient) [address] [place] [address], [address], 07/28/2024 15:25:09 07/29/19 25 07/28/2024 COMPR EHENS RONY METAB OLIC PANEL alkaline phosphatase 111 U/L 39-117 Not Available [facility] (Outpatient) [address] [place], [address], 07/28/2024 15:25:09 07/29/19 25 07/28/2024 COMPR EHENS RONY METAB OLIC PANEL total bilirubin 0.3 mg/dL 0.0-1. 2 Not Available [facility] (Outpatient) [address] [place] [address], [address], 07/28/2024 15:25:09 07/29/19 25 07/28/2024 COMPR EHENS RONY METAB OLIC PANEL AST 22 U/L 0-37 Not Available [facility] (Outpatient) [address] [place] [address], [address], 07/28/2024 15:25:09 07/29/19 25 07/28/2024 COMPR EHENS RONY METAB OLIC PANEL ALT 17 U/L 0-40 Not Available [facility] (Outpatient) [address] [place] [address], [address], 07/28/2024 15:25:09 07/29/19 25 07/28/2024 COMPR EHENS RONY METAB OLIC PANEL globulin 3.4 g/dL 1-4.8 Not Available [facility] (Outpatient) [address] [place] [address], [address], 07/28/2024 15:25:09 07/29/19 25 07/28/2024 COMPR EHENS RONY METAB OLIC PANEL eGFR 94 mL/mi n/1.7 3m2 >59 Estim ated glome rular filtr ation rate calcu lated using the CKD-E PI refit equat ion. Not Available [facility] (Outpatient) [address] [place] [address], [address], 07/28/2024 15:25:09 07/29/19 25 07/28/2024 COMPR EHENS RONY METAB OLIC PANEL anion gap 16 mmol/ L 10-20 Not Available [facility] (Outpatient) [address] [place], [address], 07/28/2024 15:25:09 07/29/19 25 08/02/2024 TRYPT ASE tryptase 3.2 NG/mL <11.5 Not Available [facility] (Outpatient) [address] [place], [address], 08/02/2024 21:59:46 06/10/19 25 06/08/2024 MRI, cervi thor spine , w/o contr ast No observ ation record ed. [email or web address] [facility] [place] [address], [address], 06/11/2024 15:49:40 06/10/19 25 06/08/2024 MRI, thora cic spine , w/o contr ast No observ ation record ed. [email or web address] [facility] [place] [address], [address], 06/11/2024 15:52:37 06/22/19 25 06/21/2024 CT, thora cic spine , w/o contr ast No observ ation record ed. [facility] [address], [address], 06/22/2024 14:18:20 07/16/19 25 07/14/2024 XR, abdom en No observ [facility]ion [email or web address] [address], [address], 08/03/2024 14:29:10 08/04/19 25 08/03/2024 RF, upper gastr ointe milla l tract + small bowel , w/ contr ast PO No observ ation record ed. [email or web address], [place], [address], 08/05/2024 17:27:39 08/06/19 25 07/14/2024 XR, abdom en No observ ation record ed. [facility] (Medical Records) [address] [place], [address], 08/05/2024 16:48:20 08/07/19 25 07/14/2024 XR, abdom en, compl ete No observ ation record ed. [facility] [address] [place], [address], 08/06/2024 14:22:52 08/07/19 25 07/12/2024 XR, abdom en, compl ete No observ ation record ed. [facility] [address] [place], [address], 08/06/2024 14:30:23 08/07/19 25 07/12/2024 XR, abdom en, compl ete No observ ation record ed. [facility] [address] [place], [address], 08/06/2024 14:33:16 08/07/19 25 07/13/2024 XR, abdom en No observ ation record ed. [facility] [address] [place], [address], 08/06/2024 15:35:17 08/07/19 25 07/14/2024 XR, abdom en No observ ation record ed. [facility] [address] [place], [address], 08/06/2024 15:36:50 08/07/19 25 07/12/2024 XR, abdom en, compl ete No observ ation record ed. [facility] [address] [place], [address], 08/06/2024 16:20:54 08/07/19 25 07/12/2024 XR, abdom en, compl ete No observ ation record ed. [address], [address], 08/06/2024 16:21:58 08/07/19 25 07/12/2024 XR, abdom en, compl ete No observ ation record ed. [facility] (Imaging) [address] [place] [address], [address], 08/06/2024 16:30:10 Result Notes None recorded. Procedures Surgical History Date Name Laterality Status Provider Name and Address Organization Details Recorded Time 4 Emily - EGD completed Dieudonne Diaz MD [address] [place] [address], [phone], [facility] 06/13/2023 14:04:52 3 Emily - Colonoscopy completed Dieudonne Diaz MD [address] [place] [address], [phone], [facility] 12/20/2022 12:45:26 Imaging Results Imaging Date Name Status LastModified by Organization Details LastModified Time 06/08/2024 MRI, cervical spine, w/o contrast completed [email or web address] [facility] [place] [address] [address], [address], 06/11/2024 15:49:40 06/08/2024 MRI, thoracic spine, w/o contrast completed [email or web address] [facility] [place] [address], [address], 06/11/2024 15:52:37 06/21/2024 CT, thoracic spine, w/o contrast completed [facility] [place] [address], [address], 06/22/2024 14:18:20 07/14/2024 [facility] [address], [address], 08/03/2024 14:29:10 08/03/2024 RF, upper gastrointestinal tract + small bowel, w/ contrast PO completed [address], [address], 08/05/2024 17:27:39 07/14/2024 XR, abdomen completed [address] (Medical Records) [address] [place] [address], [address], 08/05/2024 16:48:20 07/14/2024 XR, abdomen, complete active [address], [address], 08/06/2024 14:22:52 07/12/2024 XR, abdomen, complete active [address], [address], 08/06/2024 14:30:23 07/12/2024 XR, abdomen, complete active [address], [address], 08/06/2024 14:33:16 07/13/2024 XR, abdomen active [address], [address], 08/06/2024 15:35:17 07/14/2024 XR, abdomen active [address], [address], 08/06/2024 15:36:50 07/12/2024 XR, abdomen, complete active [address], [address], 08/06/2024 16:20:54 07/12/2024 XR, abdomen, complete active [address], [address], 08/06/2024 16:21:58 07/12/2024 XR, abdomen, complete active [facility] (Imaging) [address] [place], [address], 08/06/2024 16:30:10 Procedure Notes None recorded. Medical Equipment None Reported. Allergies Allergen ID Allergen Name Allergen Category Reaction Reaction Severity Criticality Documentation Date Start Date Code Code System Note Provider Name and Address Organization Details Recorded Time 916777 codeine medicatio n vomiting Not available Not available 12/19/2022 2670 RxNorm Hermelinda Cali RN null, [facility] 3 15:40:08 396990 Levaquin medicatio n rash Not available Not available 12/19/2022 18658 2 RxNorm Hermelinda Cali RN null, [facility] 3 15:40:22 603909 Sudafed medicatio n rash Not available Not available 12/19/2022 77004 2 RxNorm Hermelinda Cali RN null, [facility] 3 15:40:56 571662 pantopraz ole medicatio n other Not available Not available 06/12/2023 40553 RxNorm pain Nancy Paige RN null, [facility] 4 13:43:27 906441 Ativan medicatio n other Not available Not available 06/12/2023 21827 9 RxNorm hyper activ ity Nancy Paige RN null, [facility] 4 13:44:08 698241 propranol ol medicatio n confusion Not available Not available 06/12/2023 8787 RxNorm Nancy Paige RN null, [facility] 4 13:44:34 385505 hydroxyzi ne Not available other Not available Not available 06/12/2023 5553 RxNorm unkno wn Nancy Paige RN null, [facility] 4 13:44:59 584073 lisinopri l medicatio n Not available Not available Not available 06/12/2023 78054 RxNorm unkno wn rx Nancy Paige RN [facility] 13:45:14 Medications Name Sig Start Date Stop [...] Not Available nortripty line 10 mg capsule 07/02 completed didn't help Not Available Not Available Not Available clotrimaz [...] Infants Gas Relief 40 mg/0.6 mL oral drops,br[employer] pension TAKE 1.8 ML BY MOUTH THREE TIMES DAILY BEFORE MEALS AND AT BEDTIME active Not Available Not Available No t Available alcohol swabs USE TWICE DAILY DIRECTED FOR MONITORI NG GLUCOSE active Not Available Not Available No t Available lisinopri l 5 mg tablet TAKE [...] Available Not Available Savella 12.5 mg tablet 07/02 completed Not Available Not Available Not Available estradiol [...] 3 times a day by oral route. 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 None [email or web address] Information not available 07/18/2015 How Much Tobacco Do You Chew? None [email or web address] Information not available 07/18/2015 Are You Currently Employed? No Information not available 11/07/2022 What Type Of Diet Are You Following? VEGETARIAN No Gluten, Dairy, Soy, Sugar, Meat, Rosalia, Nuts, Fruit, Chocolate (she Does Do Eggs [...] Or The Highest Degree You Have Received? [id number] Information not available 11/07/2022 What Is Your Occupation? Retired Position Terminated By Juan 07/07/2020, Pt Finally On [employer] Information not available 11/07/2022 Have There Been Any Changes To Your Family Or Social Situation? No Information not available 11/07/2022 Are There Any Guns Present In Your Home? Yes Secured Information not available 07/18/2016 Patient Has Health Care Proxy Signed And [...] Use Any Illicit Or Recreational Drugs? No [email or web address] Information not available 11/13/2023 Do You Use Sunscreen Routinely? Yes [email or web address] Information not available 07/18/2015 Do You Or [...] Not available 05/06/2023 12:39:45 Brother Lyme disease [email or web address] Not avai lable 06/19/2022 08:57:22 Father Problem 90 ?AAA [email or web address] Not available 06/19/2022 08:57:22 Notes:No family hx breast/co jorge alberto [place] Maternal aunts with pancreatic, ovarian, stomach Medical History Condition Response Breast Cancer Y Lyme Disease Y GASTROINTESTINAL Y Migraine Headaches Y Gynecological History Statement/Question Response Hysterectomy Y Age at Menarche 12 Obstetrics History GPAL:G 0 P 0 0 0 0 Past Encounters Encounter ID Performer Location Encounter Start Date Encounter Closed Date Diagnosis/Indication Diagnosis SNOMED-CT Code Diagnosis ICD10 Code Diagnosis Note [id number] Louise Stacy MD , [facility], OFFICE [address] [facility] [place] [address] 04/30/2012 08:56:53 04/30/2012 10:00:41 [id number] , [facility], OFFICE [address] [place] [address] [place] [address] 06/23/2012 08:28:16 06/23/2012 09:43:51 [id number] Roxanna Mccauley [facility], OFFICE [address] [facility] [place] [address] 07/21/2012 09:14:35 07/21/2012 10:05:14 [id number] [facility], OFFICE [address] [facility] [place] [address] 10/20/2012 08:03:10 10/20/2012 08:47:09 [id number] Alex Paulson , [facility], OFFICE [address] [place] [address] 12/03/2012 11:51:31 12/03/2012 12:30:11 [id number] Roxanna Mccauley , [facility], OFFICE [address] [facility] [place] [address] 12/16/2012 08:11:02 12/16/2012 08:56:36 [id number] Emily Henson LPN , [facility], OFFICE [address] [facility] [place] [address] 01/11/2013 13:33:36 01/11/2013 14:06:58 [id number] Alex Paulson , [facility], OFFICE [address] [facility] [place] [address] 01/27/2013 11:54:29 01/27/2013 13:00:33 [id number] Kim Hernandez , [facility], OFFICE [address] [place] [address] 03/30/2013 07:58:43 03/30/2013 08:34:01 [id number] , [facility], OFFICE [address] [facility] [place] [address] 06/22/2013 08:01:23 06/22/2013 08:41:55 [id number] , [facility], OFFICE [address] [place] [address] 09/30/2013 09:17:58 09/30/2013 10:24:59 [id number] , [facility], OFFICE [address] [facility] [place] [address] 12/09/2013 08:49:06 12/09/2013 09:49:21 [id number] , [facility], OFFICE [address] [facility] [place] [address] 07/13/2014 08:08:36 07/13/2014 09:27:53 [id number] Delma Barton , [facility], OFFICE [address] [facility] [place] [address] 01/09/2015 08:01:10 01/09/2015 09:04:01 [id number] Mary Moralez , [facility], OFFICE [address] [facility] [place] [address] 07/18/2015 08:27:35 07/18/2015 09:47:33 [id number] Joaquim De La Fuente, DPM Podiatry, [facility] [address] [facility] [place] [address] 08/31/2015 10:44:14 08/31/2015 13:06:02 [id number] Alex Paulson , [facility], OFFICE [address] [facility] [place] [address] 01/18/2016 08:02:08 01/18/2016 08:48:19 [id number] Alex Paulson , [facility], OFFICE [address] [facility] [place] [address] 07/16/2016 08:00:21 07/16/2016 08:51:00 [id number] Alex Paulson , [facility], OFFICE [address] [facility] [place] [address] 07/18/2016 08:18:14 07/18/2016 09:15:08 [id number] Alex MAYERS, [facility], OFFICE [address] [facility] [place] [address] 02/17/2017 11:35:31 02/17/2017 12:45:41 [id number] Alex MAYERS, [facility], OFFICE [address] [facility] [place] [address] 07/30/2017 08:25:26 07/30/2017 09:20:12 [id number] Alex MAYERS, [facility], OFFICE [address] [facility] [place] [address] 10/27/2017 12:05:07 10/27/2017 12:48:55 [id number] Alex MAYERS, [facility], OFFICE [address] [facility] [place] [address] 11/25/2017 16:22:54 11/25/2017 16:34:00 [id number] Alex MAYERS, [facility], OFFICE [address] [facility] [place] [address] 01/28/2018 08:54:54 01/28/2018 09:36:55 [id number] Alex MAYERS, [facility], OFFICE [address] [facility] [place] [address] 04/27/2018 11:26:53 04/27/2018 12:05:51 [id number] JOSE MARIA Fernando, [facility], OFFICE [address] [facility] [place] [address] 06/15/2018 08:07:50 06/15/2018 10:38:08 [id number] Dinora Holt, PhD , [facility] [address] [place] [address] 07/06/2018 12:36:55 07/06/2018 13:49:51 [id number] Dinora Holt, PhD , [facility] [address] [facility] [place] [address] 07/16/2018 14:44:25 07/16/2018 16:05:01 [id number] Dinora Holt, PhD , [facility] [address] [facility] [address] [facility] [place] [address] 08/06/2018 11:53:23 08/06/2018 13:01:15 [id number] Alex MAYERS, [facility], OFFICE [address] [facility] [address] [facility] [place] [address] 08/11/2018 15:40:40 08/12/2018 13:23:43 [id number] Dinora Holt, PhD , [facility] [address] [place] [address] 08/12/2018 11:43:18 08/12/2018 14:38:07 [id number] Dinora Holt, PhD , [facility] [address] [place] [address] 08/19/2018 11:48:38 08/19/2018 12:48:59 [id number] Dinora Holt, PhD , [facility] [address] [facility] [address] [facility] [place] [address] 09/24/2018 11:50:41 09/24/2018 12:57:12 [id number] Alex MAYERS, [facility], OFFICE [address] [place] [address] on [facility] [place] [address] 11/03/2018 14:31:12 11/03/2018 15:29:40 [id number] Alex MAYERS, [facility], OFFICE [address] [facility] [address] [facility] [place] [address] 02/08/2019 10:08:28 02/08/2019 11:14:27 [id number] Alex MAYERS, [facility], OFFICE [address] [facility] [address] [facility] [place] [address] 04/15/2019 11:24:39 04/15/2019 14:10:22 [id number] ANDRES Cope, [facility], OFFICE [address] [facility] [address] [facility] [place] [address] 05/12/2019 15:46:05 05/12/2019 17:12:21 [id number] Alex MAYERS, [facility], OFFICE [address] [facility] [place] [address] 06/21/2019 08:52:54 06/21/2019 09:46:57 [id number] Alex MAYERS, [facility], OFFICE [address] [facility] [place] [address] 09/01/2019 16:04:07 09/02/2019 15:09:10 [id number] Alex MAYERS, [facility], OFFICE [address] [facility] [place] [address] 11/03/2019 11:52:38 11/04/2019 13:52:07 [id number] Alex MAYERS, [facility], OFFICE [address] [facility] [place] [address] 11/17/2019 10:16:20 11/18/2019 13:03:35 [id number] Alex MAYERS, [facility], OFFICE [address] [facility] [place] [address] 12/16/2019 11:40:18 12/17/2019 12:58:29 [id number] Alex MAYERS, [facility], OFFICE [address] [facility] [place] [address] 02/23/2020 12:07:12 02/25/2020 19:20:21 [id number] Alex MAYERS, [facility], OFFICE [address] [facility] [place] [address] 05/23/2020 15:15:26 05/24/2020 16:53:21 [id number] Alex MAYERS, [facility], OFFICE [address] [facility] [place] [address] 09/14/2020 15:43:04 09/14/2020 17:12:45 [id number] Alex MAYERS, [facility], OFFICE [address] [facility] [place] [address] 10/12/2020 15:25:57 10/12/2020 16:46:17 [id number] Alex MAYERS, [facility], OFFICE [address] [place] [facility] [place] [address] 03/13/2021 15:30:10 03/16/2021 16:46:19 [id number] MD RIANA Montilla, [facility], OFFICE [address] [facility] [place] [facility] [place] [address] 04/17/2021 17:33:06 04/23/2021 15:18:24 [id number] Alex MAYERS, [facility], OFFICE [address] [facility] [place] [facility] [place] [address] 6 04/24/2021 10:58:01 05/08/2021 12:57:49 [id number] Alex MAYERS, [facility], OFFICE [address] [facility] [place] [facility] [place] [address] 6 05/07/2021 13:28:29 05/08/2021 13:49:37 [id number] Alex MAYERS, [facility], OFFICE [address] [facility] [place] [address] 6 06/14/2021 13:49:38 06/14/2021 15:19:13 [id number] Slick Roger MD Endocrino logy, [address] [address] 07/30/2021 14:45:42 07/30/2021 19:41:02 [id number] Alex MAYERS, [facility], OFFICE [address] [place] [address] 6 08/16/2021 13:13:16 08/16/2021 14:29:02 [id number] MD RIANA Montilla, [facility], OFFICE [address] [place] [address] 6 11/13/2021 16:46:03 11/15/2021 11:47:55 [id number] Slick Roger MD Endocrino logy, [address] [address] 11/29/2021 14:22:58 12/04/2021 08:22:39 [id number] Alex MAYERS, [facility], OFFICE [address] [place] [address] 6 12/17/2021 09:58:58 12/17/2021 11:50:45 [id number] Mandy Kilpatrick RN [facility], [address] [address] 1 01/23/2022 11:27:51 01/23/2022 14:17:11 [id number] , [facility], OFFICE [address] [facility] [place] [address] 02/07/2022 15:40:25 02/07/2022 16:55:52 [id number] Alex MAYERS, [facility], OFFICE [address] [facility] [place] [address] 02/20/2022 10:04:50 03/14/2022 13:38:25 [id number] Alex MAYERS, [facility], OFFICE [address] [facility] [place] [address] 03/14/2022 08:49:25 03/14/2022 09:59:08 [id number] Alex MAYERS, [facility], OFFICE [address] [facility] [place] [address] 6 04/24/2022 11:43:51 04/24/2022 13:28:53 [id number] Arlet Rodas RN , [facility], OFFICE [address] [facility] [place] [address] 6 04/25/2022 14:05:55 04/26/2022 15:52:37 [id number] Alex MAYERS, [facility], OFFICE [address] [facility] [place] [address] 06/19/2022 08:57:13 06/19/2022 10:29:26 [id number] Alex MAYERS, [facility], OFFICE [address] [facility] [place] [address] 6 07/23/2022 08:29:06 07/24/2022 11:44:44 [id number] Alex MAYERS, [facility], OFFICE [address] [facility] [place] [address] 6 08/15/2022 13:23:01 08/15/2022 14:23:53 [id number] Alex MAYERS, [facility], OFFICE [address] [place] [facility] [place] [address] 6 08/28/2022 13:49:35 08/28/2022 15:04:46 [id number] Alex MAYERS, [facility], OFFICE [address] [facility] [place] [address] 6 09/12/2022 11:36:49 09/12/2022 12:58:04 [id number] Alex MAYERS, [facility], OFFICE [address] [facility] [place] [address] 10/03/2022 11:58:12 10/03/2022 12:53:39 [id number] Alex MAYERS, [facility], OFFICE [address] [facility] [place] [address] 6 11/07/2022 11:33:40 11/07/2022 13:09:58 [id number] Alex MAYERS, [facility], OFFICE [address] [facility] [place] [facility] [place] [address] 12/12/2022 10:50:33 12/12/2022 11:59:24 [id number] Katie Sinclair RN Endoscopy , [address] [address] 12/20/2022 10:51:50 12/20/2022 13:29:31 [id number] Alex MAYERS, [facility], OFFICE [address] [facility] [place] [facility] [place] [address] 01/02/2023 11:27:49 01/02/2023 12:47:47 [id number] Alex MAYERS, [facility], OFFICE [address] [facility] [place] [facility] [place] [address] 01/29/2023 10:52:38 01/29/2023 12:19:51 [id number] Alex MAYERS, [facility], OFFICE [address] [facility] [place] [facility] [place] [address] 6 02/06/2023 11:31:07 02/06/2023 12:37:23 [id number] Easton Dennison, CHARLESP, [employer] Psychiatr y, [facility] [address] [facility] [place] [facility] [address] 03/04/2023 14:58:14 03/12/2023 15:21:15 [id number] Alex MAYERS, [facility], OFFICE [address] [facility] [place] [facility] [place] [address] 03/13/2023 11:38:36 03/13/2023 13:18:29 [id number] Catarina Genet , [facility], OFFICE [address] [facility] [place] [address] 6 04/02/2023 11:41:28 04/02/2023 12:59:58 [id number] Easton Dennison, PMHNP, [employer] Psychiatr y, [facility] [address] [facility] [place] [facility] [address] 6 04/07/2023 14:16:00 04/14/2023 11:17:55 [id number] Amanda Yvette FP, [facility], OFFICE [address] [facility] [place] [facility] [place] [address] 05/01/2023 14:57:23 05/05/2023 09:21:29 [id number] Alex MAYERS, [facility], OFFICE [address] [facility] [place] [address] 6 05/06/2023 11:46:18 05/08/2023 10:15:39 [id number] Erlin Duarte MD Psychiatr y, [facility] [address] [place] [address] 05/22/2023 14:34:13 05/26/2023 12:32:15 [id number] RIANA, [facility], OFFICE [address] [facility] [place] [facility] [place] [address] 05/21/2023 12:01:51 05/21/2023 13:54:30 [id number] Alex MAYERS, [facility], OFFICE [address] [facility] [place] [facility] [place] [address] 6 05/27/2023 10:55:02 05/27/2023 12:47:08 [id number] William Hilton MD , [facility], OFFICE [address] [facility] [place] [facility] [place] [address] 05/30/2023 11:14:35 06/02/2023 12:10:57 [id number] Alex MAYERS, [facility], OFFICE [address] [facility] [place] [facility] [place] [address] 6 06/03/2023 11:39:56 06/03/2023 13:00:04 [id number] Roxann Almendarez RN Endoscopy , [address] [address] 06/13/2023 11:04:30 06/13/2023 14:11:38 [id number] Alex Paulson , [facility], OFFICE [address] [facility] [place] [address] 06/17/2023 11:24:51 06/18/2023 15:01:40 [id number] Alex MAYERS, [facility], OFFICE [address] [facility] [place] [address] 06/25/2023 12:04:00 06/26/2023 10:24:29 [id number] Alex MAYERS, [facility], OFFICE [address] [facility] [place] [address] 6 07/03/2023 12:12:47 07/04/2023 11:20:35 [id number] Alex MAYERS, [facility], OFFICE [address] [facility] [place] [address] 6 07/28/2023 13:27:12 07/29/2023 10:58:05 [id number] Alex MAYERS, [facility], OFFICE [address] [facility] [place] [address] 08/14/2023 13:57:47 08/14/2023 16:27:49 [id number] RIANA, [facility], OFFICE [address] [facility] [place] [address] 08/28/2023 12:16:38 08/29/2023 10:23:50 [id number] Alex MAYERS, [facility], OFFICE [address] [facility] [place] [address] 09/08/2023 11:27:45 09/09/2023 13:29:54 [id number] Alex MAYERS, [facility], OFFICE [address] [facility] [place] [address] 09/25/2023 14:23:20 09/25/2023 22:28:46 [id number] Alex MAYERS, [facility], OFFICE [address] [facility] [place] [address] 10/09/2023 11:31:00 10/09/2023 15:46:33 [id number] Alex Paulson , [facility], OFFICE [address] [facility] [place] [address] 10/20/2023 12:08:45 10/20/2023 16:03:36 [id number] Alex MAYERS, [facility], OFFICE [address] [facility] [place] [address] 11/03/2023 11:57:59 11/05/2023 19:36:58 [id number] Alex MAYERS, [facility], OFFICE [address] [facility] [place] [address] 11/13/2023 14:25:56 11/13/2023 16:13:39 [id number] Alex MAYERS, [facility], OFFICE [address] [facility] [place] [address] 11/26/2023 11:45:32 11/26/2023 12:44:41 [id number] Alex MAYERS, [facility], OFFICE [address] [facility] [place] [address] 6 12/01/2023 11:27:53 12/01/2023 14:44:48 [id number] Alex MAYERS, [facility], OFFICE [address] [facility] [place] [address] 12/11/2023 13:28:23 12/16/2023 10:45:22 [id number] Alex MAYERS, [facility], OFFICE [address] [facility] [place] [address] 6 12/25/2023 11:27:57 12/25/2023 13:08:54 [id number] Alex MAYERS, [facility], OFFICE [address] [facility] [place] [address] 01/08/2024 13:33:26 01/08/2024 14:47:00 [id number] STEFFANY Moreno, [facility], OFFICE [address] [facility] [place] [address] 02/12/2024 09:34:05 02/25/2024 08:54:26 [id number] STEFFANY Moreno, [facility], OFFICE [address] [facility] [place] [address] 02/25/2024 09:31:55 03/02/2024 11:09:07 [id number] STEFFANY Moreno FP, [facility], OFFICE [address] [facility] [place] [address] 03/17/2024 11:27:36 03/22/2024 16:03:36 [id number] Catarina De León , [facility], OFFICE [address] [facility] [place] [address] 03/17/2024 12:15:40 03/17/2024 14:26:49 [id number] Alex Paulson , [facility], OFFICE [address] [facility] [place] [address] 03/31/2024 12:04:40 03/31/2024 17:25:16 [id number] Alex MAYERS, [facility], OFFICE [address] [facility] [place] [address] 04/15/2024 14:27:24 04/15/2024 15:47:11 [id number] Alex Paulson , [facility], OFFICE [address] [facility] [place] [address] 6 05/04/2024 12:16:13 05/06/2024 18:35:59 [id number] Alex MAYERS, [facility], OFFICE [address] [facility] [place] [address] 6 05/11/2024 11:30:04 05/11/2024 17:03:19 [id number] Erlin Duarte MD Psychiatr , [facility] [address] [place] [address] 05/20/2024 08:32:36 05/27/2024 17:12:00 [id number] Alex MAYERS, [facility], OFFICE [address] [facility] [place] [address] 6 06/02/2024 14:25:45 06/03/2024 13:54:53 [id number] Alex MAYERS, [facility], OFFICE [address] [facility] [place] [address] 6 06/10/2024 11:28:02 06/10/2024 15:49:58 [id number] Alex Paulson , [facility], OFFICE [address] [place] [address] 6 06/23/2024 14:25:52 06/23/2024 17:57:46 [id number] Erlin Duarte MD Psychiatr , [facility] [address] [place] [address] 07/02/2024 10:28:36 07/03/2024 14:21:04 [id number] Alex MAYERS, [facility], OFFICE [address] [place] [address] 6 07/08/2024 15:37:58 07/09/2024 10:08:25 [id number] Alex MAYERS, [facility], OFFICE [address] [place] [address] 6 07/21/2024 11:43:43 07/21/2024 13:28:52 Health Concerns Section Related Observation LastModified by Organization Detai ls LastModified Time None Recorded Concern Status LastModified by Organization Details LastModified Time None Recorded Advance Directives Directive None Recorded Payers Encounter Date Sequence Insurance Name Policy Number Policy Santos Covered Member ID Santos Member ID Guarantor Name 06/10/2024 1 [facility]: MEDICARE PPO BLUE (MEDICARE REPLACEMENT PPO) [id number] Umm Guillen [id number] Umm Guillen 06/23/2024 1 [facility]: MEDICARE PPO BLUE (MEDICARE REPLACEMENT PPO) [id number] Umm Guillen [id number] Umm Guillen 07/02/2024 1 [facility]: MEDICARE PPO BLUE (MEDICARE REPLACEMENT PPO) [id number] Umm Guillen [id number] Umm Guillen 07/08/2024 1 [facility]: MEDICARE PPO BLUE (MEDICARE REPLACEMENT PPO) [id number] Umm Guillen [id number] Umm Guillen 07/21/2024 1 [facility]: MEDICARE PPO BLUE (MEDICARE REPLACEMENT PPO) [id number] Umm Guillen [id number] Umm Guillen OBGyn Episode No OBEpisode recorded.
--- OUTSIDE RECORDS SUMMARY | 2024-08-09 13:54 | XMS_ITS | Continuity of Care Document ---
Author Organization [facility] Fiordaliza Levlr, Main Office Address [address] [place] [phone] Assessment Encounter Date Assessment Date Assessment LastModified by Organization Details LastModified Time 08/06/2024 08/06/2024 heavy metals testing, SIBO test, allestess IgG 184 repeat, labs: EBV, HLA testing celiac, TSh SIBO treatment discussion gi effects appt... then GI MAP with zonulin 75 min spent with patient rx: NOW, rei dumas, ...add AMBAR [email or web address] Not available 08/07/2024 21:24:31 Plan of Treatment [...] defec ogram No observ ation record ed. [email or web address] Not Available 2024 16:11:55 07/23/19 25 06/08/2024 MRI, cervi thor spine , w/o contr ast No observ ation record ed. [email or web address] Not Available 2024 23:05:46 07/23/19 25 06/08/2024 MRI, thora cic spine , w/o contr ast No observ ation record ed. [email or web address] Not Available 2024 23:08:05 07/23/19 25 06/21/2024 CT, thora cic spine , w/o contr ast No observ ation record ed. [email or web address] Not Available 2024 18:39:28 07/24/19 25 08/27/2022 CT, abdom en + pelvi s, w/ contr ast No observ ation record ed. [email or web address] Not Available 2024 18:18:47 07/24/19 25 08/19/2023 XR, abdom en No observ ation record ed. [email or web address] Not Available 2024 18:22:08 07/24/19 25 01/21/2024 US, renal No observ ation record ed. [email or web address] Not Available 2024 17:34:27 07/24/19 25 01/21/2024 US, mesen teric arter y No observ ation record ed. [email or web address] Not Available 2024 17:36:34 07/24/19 25 11/18/2023 bone densi ty No observ ation record ed. [email or web address] Not Available 2024 17:38:51 07/24/19 25 01/16/2024 MRI, brain , w/o contr ast No observ ation record ed. Not Available 2024 17:40:30 07/24/19 25 11/12/2023 elvia r monit or No observ ation record ed. Not Available 2024 17:41:32 07/24/19 25 07/16/2022 elvia r monit or No observ ation record ed. Not Available 2024 17:44:13 07/24/19 25 02/23/2024 US, echoc ardio gram, trans thora cic, limit ed No observ ation record ed. [email or web address] Not Available 2024 17:47:02 07/24/19 25 02/23/2024 elect rocar diogr am No observ ation record ed. [email or web address] Not Available 2024 17:48:24 07/24/19 25 01/19/2024 elect rocar diogr am No observ ation record ed. [email or web address] Not Available 2024 17:49:06 07/24/[address], angio gram, abdom en + pelvi s, w/ contr ast No observ ation record ed. Not Available 2024 07:01:55 07/24/19 25 05/13/2023 MRI, brain , w/wo contr ast No observ ation record ed. [email or web address] Not Available 2024 18:23:17 07/24/19 25 08/19/2023 XR, chest , 2 view No observ ation record ed. [email or web address] Not Available 2024 18:24:08 07/24/19 25 05/11/2023 XR, chest , 2 view No observ ation record ed. [email or web address] Not Available 2024 18:25:18 07/24/19 25 05/09/2023 US, chest wall No observ ation record ed. Not Available 2024 18:28:07 07/24/19 25 05/26/2024 US, duple x, carot id arter y No observ ation record ed. [email or web address] Not Available 2024 18:32:25 07/24/19 25 05/21/2023 elect black anna am No observ ation record ed. [email or web address] Not Available 2024 18:37:01 07/24/19 25 XR, chest No observ ation record ed. Not Available 2024 07:02:36 07/30/19 25 07/07/2023 imagi ng/di agnos tic resul t No observ ation record ed. [email or web address] Not Available 06/2024 10:24:50 07/30/19 25 05/04/2023 XR, chest , 2 view No observ ation record ed. [email or web address] Not Available 06/2024 10:26:11 07/30/19 25 04/29/2024 US, duple x, pelvi s, limit ed No observ ation record ed. [email or web address] Not Available 2024 10:53:03 07/30/19 25 04/29/2024 US, pelvi s No observ ation record ed. [email or web address] Not Available 2024 10:51:18 07/30/19 25 05/21/2023 CT, head, w/o contr ast No observ ation record ed. [email or web address] Not Available 06/2024 10:36:27 07/30/19 25 04/07/2024 CT, chest , w/o contr ast No observ ation record ed. [email or web address] Not Available 06/2024 10:37:59 07/30/19 25 09/04/2023 CT, chest , w/o contr ast No observ ation record ed. [email or web address] Not Available 06/2024 10:51:15 07/30/19 25 11/16/2021 CT, abdom en + pelvi s, w/ contr ast No observ ation record ed. [email or web address] Not Available 06/2024 10:52:50 07/30/19 25 05/09/2023 US, chest wall No observ ation record ed. [email or web address] Not Available 06/2024 10:54:12 07/30/19 25 07/25/2023 CT, abdom en + pelvi s, w/ contr ast No observ ation record ed. Not Available 06/2024 10:55:49 07/30/19 25 08/08/2023 XR, abdom en No observ ation record ed. [email or web address] Not Available 06/2024 10:56:51 07/30/19 25 08/19/2023 MRI, lumba r spine , w/o contr ast No observ ation record ed. [email or web address] Not Available 06/2024 10:57:36 08/07/19 25 08/03/2024 XR, upper gastr ointe milla l serie s No observ ation record ed. [email or web address] Not Available 2024 06:12:49 08/07/19 25 07/14/2024 XR, abdom en, compl ete No observ ation record ed. [email or web address] Not Available 2024 07:33:12 0412/21/2022 hydro gen breat h test (PROC ) No observ ation record ed. Not Available 2024 13:44:15 Result Notes None recorded. Problems Name Problem SNOMED Code Status Onset Date Resolution Date Notes Provider Name and Address Organization Details Recorded Time Constipati on 21857924 Active anal hypocontra ctility, rectal dyssynergy , inadequate rectal relaxation , Ronald Collins MD [address] [place] [address], [phone], [facility] 5 16:07:43 Internal hemorrhoid s 80929313 Active MILD, colonoscop y 12/20/22 Ronald Collins MD [address] [place] [address], [phone], [facility] 5 16:08:20 Anxiety 87061478 Active Ronald Collins MD [address] [place] [address], [phone] 6, [facility] 5 16:22:45 Malignant tumor of breast 169932748 Active right breast Jan 28, 2000; double mastectomy l LN dissection on right; chemo adriamycin , cytoxan Ronald Collins MD [address] [place] [address], [phone] 6, [facility] 5 14:19:23 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 Ronald Collins MD [address] [place] [address], [phone] 6, [facility] 5 22:39:11 Posttrauma tic stress disorder 72698141 Active Ronald Collins MD [address] [place] [address], [phone], [facility] 5 22:47:38 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 , medication intoleranc e, GF, DF, soy free; Ronald Collins MD [address] [place] [address], [phone], [facility] 5 14:32:44 Gastropare sis syndrome 673392062 Active 2011- lev adam; Dr Hoskins, [place]; weight 105lb; [facility] ([place], [place]); 2013, 2016, 2018; Ronald Collins MD [address] [place] [address], [phone] 6, [facility] 5 14:31:34 Hyponatrem ia 65905106 Active Ronald Collins MD [address] [place] [address], [phone] 6, [facility] 5 15:07:44 Small bowel bacterial overgrowth syndrome 424170367 Active diagnosed in 2021; diet issues Ronald Collins MD [address] [place] [address], [phone] 6, [facility] 5 15:08:51 Arsenic measuremen t Active 2023 Ronald Collins MD [address] [place] [address], [phone], [facility] 5 17:10:04 Problem Notes None recorded. Procedures Surgical History Date Name Laterality Status Provider Name and Address Organization Details Recorded Time 06/27/19 20 excision of bilateral breasts completed Ronald Collins MD [address] [place] [address], [phone], [facility] 07/22/2024 22:42:50 02/26/19 87 Appendectomy completed Ronald Collins MD [address] [place] [address], [phone], [facility] 07/23/2024 14:34:28 07/27/18 87 hysterectomy completed Ronald Collins MD [address] [place] [address], [phone], [facility] 07/23/2024 14:34:39 Imaging Results None recorded. Procedure Notes None [...] Not Available Not Available No t Available DIRECTOR AND PROFESSOR Thyroid 15 mg tablet Take by oral route. active Not Available Not Available No t Available Phosphorous Supplement 280 mg-160 mg-250 mg oral powder packet TAKE 1 PACKET BY MOUTH 4 TIMES A DAY 08/07 completed Not Available Not Available Not Available BinaxNOW COVID-19 Ag Self Test kit USE 1 KIT NEEDED BY MISCELLLOU EOUS ROUTE 08/07 completed Not Available Not Available Not Available Vitals Date Recorded Body temperature Oxygen saturation Oxygen saturation in Arterial blood by Pulse oximetry Heart rate Systolic blood pressure Diastolic blood pressure Provider Name and Address Organization Details Last Updated DateTime 5 97.1 [degF] 98 % 98 % 83 /min 122 mm[Hg] 72 mm[Hg] [facility] 5 12:54:47 Social History Question Answer Notes LastModified by Organizat ion Details LastModified Time Are You Currently Employed? 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 Mental Status None recorded. Family History Nothing Reported. Medical History No medical history recorded. Gynecological HistoryNo gynecological history recorded. Obstetrics History GPAL:G 0 P 0 0 0 0 Past Encounters Encounter ID Performer Location Encounter Start Date Encounter Closed Date Diagnosis/Indication Diagnosis SNOMED-CT Code Diagnosis ICD10 Code Diagnosis Note [id number] Ronald Collins MD Main Office [address] [place] [phone] 07/23/2024 14:06:28 07/27/2024 08:03:44 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 563921309 T78.1XXA big hx of allergies Alletess, food eliminatio n is reasonable Malignant tumor of breast 708363352 C50.911 requested info Hyponatremia 07814900 E8 7.1 review prev workup Small judah l bacterial overgrowth syndrome 876514343 K63.8219 review findings of testing in past Abdominal pain 23864531 R10.9 considerat ions+ Gastroesop hageal Reflux Disease [...] review more records/pr ev work upfu soon [id number] Ronald Collins MD Main Office [address] [place] [phone] 08/06/2024 12:54:25 08/06/2024 14:57:13 Abdominal pain R10.9 hypothetic al components : GERD, SIBO, [...] fu end of month 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 48114784 1 T78.1XXA big hx of medication allergies Alletess review food eliminatio n is reasonable ; but should be done in a measured way Malignant tumor of breast 919351290 C50.911 reviewing info Hyponatremia 56786370 E8 7.1 still need more of the work upreview records Small judah l bacterial overgrowth syndrome 876310255 K63.8219 review findings of testing in past Muscle weakness 09940833 M62.81 often in wheelchair fatigueMB Health Concerns Section Related Observation LastModified by Organization Detai ls LastModified Time None Recorded Concern Status LastModified by Organization Details LastModified Time None Recorded Payers Encounter Date Sequence Insurance Name Policy Number Policy Santos Covered Member ID Santos Member ID Guarantor Name 08/06/2024 2 [id number] (MEDICARE REPLACEMENT PPO) [id number] Umm Guillen [id number] Umm Guillen 08/06/2024 1 [place] [employer] Umm Guillen [id number] Umm Guillen Notes Date Note Type Note Provider Name and Address Organization Details Recorded Time 08/07/19 25 text/htm l Pt here to fu on abd paincomponents: GERD, SIBO, histamine intolerance important topics EBV...elevated blood mercury, arsenic06/04/24 gi effects [id number] alletess no meds nowthyroid NPzolpidembenadrylsimethecone hx constipation,diarrhea chemo in 2000after stomache Lyme disease in 06, 07months of antibiotics hx gastroparesis 2012 after chemo in 1999and constipationworked with Dr Hoskinsweight was 105-110lbtreated with Mag citrate, smooth move- now off all thatEvanna Allen naturopathhydrotherapy, homeopathy,no gluten no nuts no soy sees Reji Quiñones director of institutional 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
== END 2024-08-09 12:34 | disposition home or self-care (01) ==
LOC: HO.HGI 11:50
PROVIDERS: PCP Family Medicine; Visit Provider Internal Medicine Gastroenterology
DX: R10.13 Epigastric pain (principal)
CPT/HCPCS: 99214

== ENCOUNTER → 2024-08-09 11:50 | Outpatient (BNVA) | payer MEDICARE, SELFPAY | PROVIDERS: PCP Family Medicine; Visit Provider Internal Medicine Gastroenterology | DX: R10.13 Epigastric pain (principal); G62.9 Polyneuropathy, unspecified; Z85.3 Personal history of malignant neoplasm of breast; Z90.13 Acquired absence of bilateral breasts and nipples | CPT/HCPCS: 99212 ==

== ENCOUNTER 2024-09-02 12:58 | Outpatient (AMB) | payer MEDICARE, SELFPAY ==
--- NOTE | 2024-09-02 13:49 | AM.OFFVISNUR ---
Intake Visit Reasons: UDS Allergies Benzodiazepines Allergy (Severe, Verified 08/09/24 11:51) Agitated codeine Allergy (Severe, Verified 08/09/24 11:51) Vomiting gluten Allergy (Severe, Verified 08/09/24 11:51) Gastrointestinal Upset hydroxyzine Allergy (Severe, Verified 08/09/24 11:51) Agitated metoprolol Allergy (Severe, Verified 08/09/24 11:51) throat swelling, confusion Milk Containing Products (Dairy) Allergy (Severe, Verified 08/09/24 11:51) Gastrointestinal Upset propranolol Allergy (Severe, Verified 08/09/24 11:51) Throat swelling, confusion soy Allergy (Severe, Verified 08/09/24 11:51) gastric problems levofloxacin [From Levaquin] Allergy (Mild, Verified 08/09/24 11:51) Rash nortriptyline Allergy (Unknown, Verified 08/09/24 11:51) Unknown pseudoephedrine [From Sudafed] Adverse Reaction (Intermediate, Verified 08/09/24 11:51) Palpitations Sulcrafate Allergy (Severe, Uncoded 02/16/24 13:57) Swelling in throat Office Procedures Urodynamic Studies Consent Discussed risk and benefit or proposed procedure with the patient. Information consent for procedure given to the patient. Discussed technical aspects, risks, benefits and alternatives in full. Addressed all of the patient's questions and concerns regarding the procedure. The patient demonstrated knowledge and understanding. They wish to proceed with this procedure. Preparation The patient was prepped in the usual manner. A electric hoist operator was present and in the room. Genitalia was prepped with betadine solution in a sterile manner. Prep: The patient was prepped in the usual manner. A electric hoist operator was present and in the room. Genitalia was prepped with betadine solution in a sterile manner. Assessment & Plan Assessment & Plan Orders: Orders AMB Urinalysis Automated Today Z13.9 - Encounter for screening, unspecified AMB Urodynamics Studies Today R39.14 - Feeling of incomplete bladder emptying Medications: New nitrofurantoin monohyd/m-cryst 100 mg 100 mg PO ONCE 1 cap 0RF R39.14 - Feeling of incomplete bladder emptying Coding
--- NOTE | 2024-09-02 13:50 | A.OFFVIS_ITS ---
Intake Visit Reasons: UDS Allergies Benzodiazepines Allergy (Severe, Verified 08/09/24 11:51) Agitated codeine Allergy (Severe, Verified 08/09/24 11:51) Vomiting gluten Allergy (Severe, Verified 08/09/24 11:51) Gastrointestinal Upset hydroxyzine Allergy (Severe, Verified 08/09/24 11:51) Agitated metoprolol Allergy (Severe, Verified 08/09/24 11:51) throat swelling, confusion Milk Containing Products (Dairy) Allergy (Severe, Verified 08/09/24 11:51) Gastrointestinal Upset propranolol Allergy (Severe, Verified 08/09/24 11:51) Throat swelling, confusion soy Allergy (Severe, Verified 08/09/24 11:51) gastric problems levofloxacin [From Levaquin] Allergy (Mild, Verified 08/09/24 11:51) Rash nortriptyline Allergy (Unknown, Verified 08/09/24 11:51) Unknown pseudoephedrine [From Sudafed] Adverse Reaction (Intermediate, Verified 08/09/24 11:51) Palpitations Sulcrafate Allergy (Severe, Uncoded 02/16/24 13:57) Swelling in throat HPI Comments Details: 09/02/24--Umm is here for urodynamics. The patient has complaints of urinary incontinence. Interpretation: During the filling phase there sensory urgency was noted, strong desire was noted at 243 mL. Leakage was not observed during cough or valsalva stress. Findings consistent with sensery urgency EMG- Appropriate changes in the waveforms were noted through out the study. Discussion Notes I reviewed the patient's symptoms and past medical interventions, noting the presence of bladder spasms, possible pelvic floor dysfunction, and past surgical history. I discussed the potential benefit of commencing Mirabegron 50 mg daily to alleviate bladder spasms and pressure. We also talked about pelvic floor physical therapy, a crucial facet of the management plan. We explored the option of physical therapy with Swati Hernandez and agreed that sending referrals there and to an alternative location would be beneficial. I advised that trials of bladder medication might assist with pressure, though it might not resolve all present sensations. The necessity of routine gynecologic evaluation after many years without was highlighted, and a referral was agreed upon. 12/12/23--Rufina Moreno) is here with complaints of changes in urination. She states that in April, she was hospitalized for low sodium. She was rehospitalized in May, june, and July. She states that she has had issues with her GI system and has lost about 25 lb since April,. She states that she leaks urine. She states she was treated for urinary tract infection. She does not feel like she completely empties her bladder. States had hysterectomy age 27 for endometriosis and then she states she was told she did not have endometriosis. On examination- vaginal atrophy, no pelvic floor prolapse visualized, positive leakage with coughing. Catheterized urine 160 mL. [facility] Medical History Depression with anxiety Panic disorder Adult failure to thrive 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 Mother No problems noted. Brother Heart valve replaced Social History Household Members: Significant Other Housing: House Do you presently have visiting nurse or other home services: Yes Patient Tobacco Use Status: Never used Tobacco e-Cigarette/Vaping Use: Never Used Second Hand Smoke Exposure: No service: No Sexual orientation: Straight/Heterosexual Office Procedures Urodynamic Studies Consent Discussed risk and benefit or proposed procedure with the patient. Information consent for procedure given to the patient. Discussed technical aspects, risks, benefits and alternatives in full. Addressed all of the patient's questions and concerns regarding the procedure. The patient demonstrated knowledge and understanding. They wish to proceed with this procedure. Preparation The patient was prepped in the usual manner. A rental coordinator was present and in the room. Genitalia was prepped with betadine solution in a sterile manner. Procedure Complex Uroflow Complex uroflow performed by: Yasmin Walsh Maximum urinary flow rate (mL/second): 31 Voiding time (seconds): 88 Voided volume (mL): 328ml Residual urine (mL): 35ml Cystometrogram ? Vaginal/rectal catheter type: Vaginal First sensation at (mL): 35 mL First desire at (mL): 58 mL Strong desire to void occurred at (mL): 243 mL Strong desire detrusor pressure (cm H2O): 0.1 Maximum Capacity (mL): 302 mL Voiding Summary Voided with max detrusor pressure of (cm H2O): 27 Maximum flow rate (mL/second): 16 mL/s Voided volume (mL): ? 260 Calculated PVR: 0 mL Stress Testing Stress Test at 200mL: Absent leak with Valsalva, Absent leak with cough DO Dry: Absent DO Wet: Absent Patient reports that she does not get a strong desire to void, she just gets a lot of pressure and pain in her pelvic area States she always feels like her vagina is pushing out. 06941-Evndntgmcvowqg w/ BACK END ENGINEER 78668-Qwwwtvp-Odvzhoqbkdop 31631-Rufy/Urinary Muscle Study 82296-Ldwlf-Ixsrsoxfj Pressure Test Procedure code (CPT) selection complete Office Meds nitrofurantoin monohydrate/macrocrystals 100 mg capsule Performing Provider: Yasmin Walsh MD Performing Location: [facility] [place] [facility] Administered by: Emily Harris RN on 09/02/24 13:50 Dose Route Admin Location Dispensed Lot Number Expiration Date NDC Bilingual Recruiter 100 mg PO 1 cap Results AMB Urinalysis, Automated UA Leukoctes 0 Boo/uL Last Edit by Emily Harris RN on 09/02/24 14:19 UA Nitrite Negative Last Edit by Emily Harris RN on 09/02/24 14:19 UA Urobilinogen 0.2 mg/dL Last Edit by Emily Harris RN on 09/02/24 14: 19 UA Protein 0 mg/dL Last Edit by Emily Harris RN on 09/02/24 14:19 UA pH 6.5 Last Edit by Emily Harris RN on 09/02/24 14:19 UA Blood 0 Omid/uL Last Edit by Emily Harris RN on 09/02/24 14:19 UA Specific Walton 1.0 Last Edit by Emily Harris RN on 09/02/24 14:1 9 UA Ketone Negative Last Edit by Emily Harris RN on 09/02/24 14:19 UA Bilirubin 0 mg/dL Last Edit by Emily Harris RN on 09/02/24 14:19 UA Glucose 0 mg/dL Last Edit by Emily Harris RN on 09/02/24 14:19 Assessment & Plan Assessment & Plan Plan Patient Instructions - Begin taking Mirabegron 50 mg daily as prescribed. - Follow up with referrals for pelvic floor therapy as schedule allows. - Expect a follow-up appointment in three months to discuss the effectiveness of the treatments. - Await contact from gynecology for routine evaluation. - Monitor symptoms and seek care sooner if they worsen or new ones develop. Orders: Orders AMB Urinalysis Automated Today Z13.9 - Encounter for screening, unspecified AMB Urodynamics Studies Today R39.14 - Feeling of incomplete bladder emptying Medications: New mirabegron ER (Myrbetriq) 50 mg PO DAILY 30 tabs 5RF Patient Instructions: The patient had an opportunity to ask questions regarding treatment plan. The patient expressed understanding and agreement with the above treatment plan. The patient is aware they should contact our office by phone for worsening of their current condition or the appearance of new symptoms. Compliance is encouraged with any medications and followup testing that is ordered. It is a privilege to be allowed the opportunity to participate in the urologic care of your patient. If you have any questions or concerns regarding treatment for the above conditions please do not hesitate to contact me. The office telephone contact is [phone]. This note is constructed in part using voice recognition software. While every effort has been made to ensure accuracy cloth washer back tender errors may have been included. Yours sincerely, Yasmin Walsh MD Scribe Plan - Not visible on output: Patient was informed and verbally consented to the use of an ambient scribe for clinic note documentation during this visit. Coding Level of Care Code Est Pt Level 3 (57421) CPT Codes Urodynamic Studies - CPT: 57792-Fvmcvioxwyuzdq w/ BACK END ENGINEER ([id number]) Urodynamic Studies - CPT: 73381-Zljllov-Ryyxuhvoyxpi ([id number]) Urodynamic Studies - CPT: 88852-Mjpm/Urinary Muscle Study ([id number]) Urodynamic Studies - CPT: 33223-Tujlu-Tcovjsweu Pressure Test ([id number])
--- OUTSIDE RECORDS SUMMARY | 2024-09-02 14:04 | XMS_ITS | Data Portability ---
Author Organization [facility]S [facility] Address [address] [place] [phone] Assessment Encounter Date Assessment Date Assessment LastModified by Organization Details LastModified Time 07/23/2024 07/23/2024 Igg food profile, EBV panel, Lyme 2007 immunoblot, CMP amylase, lipase, 75 min spent with patient [email or web address] Not available 07/26/2024 22:24:20 08/06/2024 08/06/2024 heavy metals testing, SIBO test, allestess IgG 184 repeat, labs: EBV, HLA testing celiac, TSh SIBO treatment discussion gi effects appt... then GI MAP with zonulin 75 min spent with patient rx: NOW, rei alesia, ...add MB Not available 08/07/2024 21:24:31 08/19/2024 08/19/2024 70 minutes f2f visit Not available 08/24/2024 07:49:23 08/25/2024 08/25/2024 65 min spent with patient and [email or web address] Not available 08/25/2024 22:09:23 Plan of Treatment Reminders Order Date Submit Date Provider Last Modified By Organization Details Last Modified Time Details Appointments Telehealt h Consult 60 2024 11:00A M Dr. Ronald Collins Not available Not available Not available Lab None recorded. Referral None recorded. Procedures None recorded. Surgeries None recorded. Imaging None recorded. Medication Orders None recorded. Patient TargetsNo targets recorded. Patient Instructions Encounter Date Encounter Id Patient Instructions Last Modified By Organization Details Last Modified Time 08/19/2024 [id number] med list updated. Not availab le 08/19/2024 11:32:47 Reason for Referral None Reported. Results Created Date Observation Date Name Description Value Unit Range Abnormal Flag Note LastModifiedBy Organization Detail LastModifiedTime 07/29/1907/28/2024 lead, blood lead 2.2 mcg/d L <3.5 normal Not Available [facility] [address] [place] [address], [id number], 07/31/2024 12:36:48 07/29/19 25 07/28/2024 epste in carr virus DNA, QN, viral load, PCR, serum or plasm a ebv PCR undete cted normal Not Available [address], [id number], 07/31/2024 13:01:05 07/29/19 25 07/28/2024 mercu ry, serum mercury 7 normal Not Available [facility] [address] [place] [address], [id number], 07/31/2024 18:09:28 07/29/19 25 07/28/2024 CBC w/ diff WBC 6.76 normal Not Available [facility] (Out[facility]) [address] [place] [address], [id number], 07/28/2024 15:28:19 07/29/19 25 07/28/2024 CBC w/ diff HGB 15.2 normal Not Available [facility] (Outpatient) [address] [place] [address], [id number], 07/28/2024 15:28:19 07/29/19 25 07/28/2024 CBC w/ diff platelets 257 normal Not Available [facility] (Outpatient) [address] [place] [address], [id number], 07/28/2024 15:28:19 07/29/19 25 07/28/2024 lipas e, serum or plasm a lipase 54 normal Not Available [facility] [address] [place] [address], [id number], 08/04/2024 14:22:32 07/29/19 25 07/28/2024 amyla se, serum or plasm a amylase 89 normal Not Available [facility] [address] [place] [address], [id number], 08/04/2024 14:18:02 08/19/19 25 08/18/2024 CMP, serum or plasm a T4 free 1.3 normal Not Available [facility] [address] [place] [address], [id number], 08/18/2024 19:23:54 08/19/19 25 08/18/2024 CMP, serum or plasm a T3 free 3.2 normal Not Available [facility] [address] [place] [address], [id number], 08/18/2024 19:23:54 08/19/19 25 08/18/2024 CMP, serum or plasm a TSH 1.79 normal Not Available [facility] [address] [place] [address], [id number], 08/18/2024 19:23:54 08/20/19 25 08/25/2024 EPSTE IN CARR VIRUS EVALU ATION vca-IgG Ab (ebv capsid Ag) Positi ve negati ve abnormal Not Available [address] [place] [address] [address] [place] [address], [id number], 08/25/2024 10:12:27 08/20/19 25 08/25/2024 EPSTE IN CARR VIRUS EVALU ATION vca-IgM Ab (ebv capsid Ag) Negati ve negati ve Not Available [address] [place] [address], [id number], 08/25/2024 10:12:27 08/20/19 25 08/25/2024 EPSTE IN CARR VIRUS EVALU ATION ebna-1 IgG Ab (ebv nuclear Ag) Positi ve negati ve abnormal Not Available [address] [place] [address] [facility] [place] [address], [address], 08/25/2024 10:12:27 08/20/19 25 08/25/2024 EPSTE IN CARR VIRUS EVALU ATION ea(D) IgG Ab (ebv early Ag) Positi ve negati ve abnormal For inter preti ve guide lines , see table below : Condi tion VCA IgG VCA IgM EBNA- 1 IgG EA(D) IgG ----- ----- ----- -- ----- -- ----- -- ----- ----- ----- ---- EBV seron egati ve - - - - Prima ry infec tion + + - + or - Past Infec tion + - + - React ivate d chron ic + - + + Indet ermin ate VCA IgG only + - - - VCA IgM only - + - - EBNA IgG only - - + - Conva lesce nt + + or - + - Not Available [address] [place] [address] [address] [place] [address], [id number], 08/25/2024 10:12:27 08/20/19 25 08/25/2024 RAST IGE FOOD PANEL W/RFX peanut (F13) IgE <0.10 kU/L normal Not Available [address] [facility] [address] [place] [address], [id number], 08/25/2024 23:28:52 08/20/19 25 08/25/2024 RAST IGE FOOD PANEL W/RFX class peanut (F13) 0 Not Available [address] [facility] [address] [place] [address], [address], 08/25/2024 23:28:52 08/20/19 25 08/25/2024 RAST IGE FOOD PANEL W/RFX codfish (F3) IgE <0.10 kU/L normal Not Available [address] [facility] [address] [place] [address], [address], 08/25/2024 23:28:52 08/20/19 25 08/25/2024 RAST IGE FOOD PANEL W/RFX class codfish (F3) 0 Not Available [address] [place] [address], [address], 08/25/2024 23:28:52 08/20/19 25 08/25/2024 RAST IGE FOOD PANEL W/RFX shrimp (F24) IgE <0.10 kU/L normal Not Available [address] [facility] [address] [place] [address], [address], 08/25/2024 23:28:52 08/20/19 25 08/25/2024 RAST IGE FOOD PANEL W/RFX class shrimp (F24) 0 Not Available [address] [facility] [address] [place] [address], [address], 08/25/2024 23:28:52 08/20/19 25 08/25/2024 RAST IGE FOOD PANEL W/RFX egg white (F1) IgE <0.10 kU/L normal Not Available [address] [facility] Station [address] [place] [address], [address], 08/25/2024 23:28:52 08/20/19 25 08/25/2024 RAST IGE FOOD PANEL W/RFX class egg white (F1) 0 Not Available [address] [facility] [address] Drawing Station [address] [place] [address], [address], 08/25/2024 23:28:52 08/20/19 25 08/25/2024 RAST IGE FOOD PANEL W/RFX cow's milk (F2) IgE <0.10 kU/L normal Not Available [address] [facility] Station [address] [place] [address], [address], 08/25/2024 23:28:52 08/20/19 25 08/25/2024 RAST IGE FOOD PANEL W/RFX class cow's milk (F2) 0 Not Available [address] [facility] [address] [place] [address], [address], 08/25/2024 23:28:52 08/20/19 25 08/25/2024 RAST IGE FOOD PANEL W/RFX wheat (F4) IgE <0.10 kU/L normal Not Available [address] [facility] [address] Drawing Station [address] [place] [address], [address], 08/25/2024 23:28:52 08/20/19 25 08/25/2024 RAST IGE FOOD PANEL W/RFX class wheat (F4) 0 Not Available [address] [facility] [address] Drawing Station [address] [place] [address], [id number], 08/25/2024 23:28:52 08/20/19 25 08/25/2024 RAST IGE FOOD PANEL W/RFX soybean (F14) IgE <0.10 kU/L normal Not Available [address] [facility] [address] Drawing Station [address] [place] [address], [address], 08/25/2024 23:28:52 08/20/19 25 08/25/2024 RAST IGE FOOD PANEL W/RFX class soybean (F14) 0 Not Available [address] [facility] [address] Drawing Station [address] [place] [address], [address], 08/25/2024 23:28:52 08/20/19 25 08/25/2024 RAST IGE FOOD PANEL W/RFX walnut (F256) IgE <0.10 kU/L normal Not Available [address] [facility] Drawing Station [address] [place] [address], [address], 08/25/2024 23:28:52 08/20/19 25 08/25/2024 RAST IGE FOOD PANEL W/RFX class walnut (F256) 0 Not Available [address] [facility] [address] Drawing Station [address] [place] [address], [address], 08/25/2024 23:28:52 08/20/19 25 08/25/2024 RAST IGE FOOD PANEL W/RFX sesame seed (F10) IgE <0.10 kU/L normal Not Available [address] [facility] [address] Drawing Station [address] [place] [address], [address], 08/25/2024 23:28:52 08/20/19 25 08/25/2024 RAST IGE FOOD PANEL W/RFX class sesame seed (F10) 0 Not Available [address] [facility] [address] Drawing Station [address] [place] [address], [address], 08/25/2024 23:28:52 08/20/19 25 08/25/2024 RAST IGE FOOD PANEL W/RFX almond (F20) IgE <0.10 kU/L normal Not Available [address] [facility] [address] Drawing Station [address] [place] [address], [address], 08/25/2024 23:28:52 08/20/19 25 08/25/2024 RAST IGE FOOD PANEL W/RFX class almond (F20) 0 Not Available [address] Drawing Station [address] [place] [address], [address], 08/25/2024 23:28:52 08/20/19 25 08/25/2024 RAST IGE FOOD PANEL W/RFX scallop (F338) IgE <0.10 kU/L normal Not Available [address] Drawing Station [address] [place] [address], [address], 08/25/2024 23:28:52 08/20/19 25 08/25/2024 RAST IGE FOOD PANEL W/RFX class scallop (F338) 0 Not Available [address] Drawing Station [address] [place] [address], 26799, 08/25/2024 23:28:52 08/20/19 25 08/25/2024 RAST IGE FOOD PANEL W/RFX tuna (F40) IgE <0.10 kU/L normal Not Available [address] [facility] [address] Drawing Station [address] [place] [address], [address], 08/25/2024 23:28:52 08/20/19 25 08/25/2024 RAST IGE FOOD PANEL W/RFX class tuna (F40) 0 Not Available [address] [facility] [address] Drawing Station [address] [place] [address], [address], 08/25/2024 23:28:52 08/20/19 25 08/25/2024 RAST IGE FOOD PANEL W/RFX hazelnut (F17) IgE <0.10 kU/L normal Not Available [address] Drawing Station [address] [place] [address], [address], 08/25/2024 23:28:52 08/20/19 25 08/25/2024 RAST IGE FOOD PANEL W/RFX class hazelnut (F17) 0 Not Available [address] [facility] [address] Drawing Station [address] [place] [address], [address], 08/25/2024 23:28:52 08/20/19 25 08/25/2024 RAST IGE FOOD PANEL W/RFX salmon (F41) IgE <0.10 kU/L normal Not Available [address] [facility] [address] [place] [address], [address], 08/25/2024 23:28:52 08/20/19 25 08/25/2024 RAST IGE FOOD PANEL W/RFX class salmon (F41) 0 Not Available [address] [facility] [address] [place] [address], [address], 08/25/2024 23:28:52 08/20/19 25 08/25/2024 RAST IGE FOOD PANEL W/RFX cashew nut (F202) IgE <0.10 kU/L normal Not Available [facility] Drawing Station [address] [place] [address], [address], 08/25/2024 23:28:52 08/20/19 25 08/25/2024 RAST IGE FOOD PANEL W/RFX class cashew nut (F202) 0 Not Available [facility] Drawing [facility] [address] [place] [address], [address], 08/25/2024 23:28:52 08/20/19 25 08/25/2024 RAST IGE FOOD PANEL W/RFX interpretati on See Below Speci fic Level of Aller gen IGE Class kU/L Speci fic IGE Antib jt ----- ----- ---- ----- ----- ----- ---- 0 <0.10 Absen t/Und etect able 0/1 0.10- 0.34 Very Low Level 1 0.35- 0.69 Low Level 2 0.70- 3.49 Moder ate Level 3 3.50- 17.4 High Level 4 17.5- 49.9 Very High Level 5 50-10 0 Very High Level 6 >100 Very High Level The clini thor relev ance of aller gen resul ts of 0.10- 0.34 kU/L are undet ermin ed and inten ded for speci alist use. Aller gens denot ed with a inclu de resul ts using one or more graciela te speci fic reage nts. In those cases , the test was devel oped and its graciela tical perfo rmanc e rhett cteri stics have been deter mined by [employer]. It has not been clear ed or appro chino by the U.S. Food and Drug Admin istra tion. This assay has been valid ated pursu ant to the CLIA regul ation s and is used for clini thor purpo ses. THIS TEST WAS PERFO RMED AT: [facility] [address] [place] [address] MELANI JAUREGUI MD Not Available [address] [place] [address], [place], [address], 08/25/2024 23:28:52 07/23/19 25 08/13/2022 XR, defec ogram No observ ation record ed. Not Available 2024 16:11:55 07/23/19 25 06/08/2024 MRI, cervi thor spine , w/o contr ast No observ ation record ed. [email or web address] Not Available 2024 23:05:46 07/23/19 25 06/08/2024 MRI, thora cic spine , w/o contr ast No observ ation record ed. Not Available 2024 23:08:05 07/23/19 25 06/21/2024 CT, thora cic spine , w/o contr ast No observ ation record ed. [email or web address] Not Available 2024 18:39:28 07/24/19 25 08/27/2022 CT, abdom en + pelvi s, w/ contr ast No observ ation record ed. [email or web address] Not Available 2024 18:18:47 07/24/19 25 08/19/2023 XR, abdom en No observ ation record ed. [email or web address] Not Available 2024 18:22:08 07/24/19 25 01/21/2024 US, renal No observ ation record ed. [email or web address] Not Available 2024 17:34:27 07/24/19 25 01/21/2024 US, mesen teric arter y No observ ation record ed. [email or web address] Not Available 2024 17:36:34 07/24/19 25 11/18/2023 bone densi ty No observ ation record ed. [email or web address] Not Available 2024 17:38:51 07/24/19 25 01/16/2024 MRI, brain , w/o contr ast No observ ation record ed. Not Available 2024 17:40:30 07/24/19 25 11/12/2023 elvia r monit or No observ ation record ed. Not Available 2024 17:41:32 07/24/19 25 07/16/2022 elvia r monit or No observ ation record ed. [email or web address] Not Available 2024 17:44:13 07/24/19 25 02/23/2024 US, echoc ardio gram, trans thora cic, limit ed No observ ation record ed. [email or web address] Not Available 2024 17:47:02 07/24/19 25 02/23/2024 elect rocar diogr am No observ ation record ed. [email or web address] Not Available 2024 17:48:24 07/24/19 25 01/19/2024 elect rocar diogr am No observ ation record ed. [email or web address] Not Available 2024 17:49:06 07/24/19 CT, angio gram, abdom en + pelvi s, w/ contr ast No observ ation record ed. Not Available 2024 07:01:55 07/24/19 25 05/13/2023 MRI, brain , w/wo contr ast No observ ation record ed. [email or web address] Not Available 2024 18:23:17 07/24/19 25 08/19/2023 XR, chest , 2 view No observ ation record ed. [email or web address] Not Available 2024 18:24:08 07/24/19 25 05/11/2023 XR, chest , 2 view No observ ation record ed. [email or web address] Not Available 2024 18:25:18 07/24/19 25 05/09/2023 US, chest wall No observ ation record ed. [email or web address] Not Available 2024 18:28:07 07/24/19 25 05/26/2024 US, duple x, carot id arter y No observ ation record ed. [email or web address] Not Available 2024 18:32:25 07/24/19 25 05/21/2023 elect rocar diogr am No observ ation record ed. [email or web address] Not Available 2024 18:37:01 07/24/19 25 XR, chest No observ ation record ed. Not Available 2024 07:02:36 07/30/19 25 07/07/2023 imagi ng/di agnos tic resul t No observ ation record ed. [email or web address] Not Available 06/2024 10:24:50 07/30/19 25 05/04/2023 XR, chest , 2 view No observ ation record ed. [email or web address] Not Available 06/2024 10:26:11 07/30/19 25 04/29/2024 US, duple x, pelvi s, limit ed No observ ation record ed. [email or web address] Not Available 2024 10:53:03 07/30/19 25 04/29/2024 US, pelvi s No observ ation record ed. [email or web address] Not Available 2024 10:51:18 07/30/19 25 05/21/2023 CT, head, w/o contr ast No observ ation record ed. [email or web address] Not Available 06/2024 10:36:27 07/30/19 25 04/07/2024 CT, chest , w/o contr ast No observ ation record ed. [email or web address] Not Available 06/2024 10:37:59 07/30/19 25 09/04/2023 CT, chest , w/o contr ast No observ ation record ed. [email or web address] Not Available 06/2024 10:51:15 07/30/19 25 11/16/2021 CT, abdom en + pelvi s, w/ contr ast No observ ation record ed. [email or web address] Not Available 06/2024 10:52:50 07/30/19 25 05/09/2023 US, chest wall No observ ation record ed. [email or web address] Not Available 06/2024 10:54:12 07/30/19 25 07/25/2023 CT, abdom en + pelvi s, w/ contr ast No observ ation record ed. [email or web address] Not Available 06/2024 10:55:49 07/30/19 25 08/08/2023 XR, abdom en No observ ation record ed. Not Available 06/2024 10:56:51 07/30/19 25 08/19/2023 MRI, lumba r spine , w/o contr ast No observ ation record ed. [email or web address] Not Available 06/2024 10:57:36 08/07/19 25 08/03/2024 XR, upper gastr ointe milla l serie s No observ ation record ed. [email or web address] Not Available 2024 06:12:49 08/07/19 25 07/14/2024 XR, abdom en, compl ete No observ ation record ed. [email or web address] Not Available 2024 07:33:12 Result Notes None recorded. Problems Name Problem SNOMED Code Status Onset Date Resolution Date Notes Provider Name and Address Organization Details Recorded Time Constipa tion 84847230 Completed 08/19/2024 anal hypocontr actility, rectal dyssynerg y, inadequat e rectal relaxatio Leslie adam, ANDRES [address] [place] [address], [phone] [place] [address] 5 11:48:02 Internal hemorrho ids 35125389 Active MILD, colonosco py 12/20/22 Ronald Collins MD [address] [place] [address], [phone], [facility] 5 16:08:20 Anxiety 80431445 Active Ronald Collins MD [address] [place] [address], [phone] 6, [facility] 5 16:22:45 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 Jan 28, 2000; double mastectom yl LN dissectio n on right; chemo adriamyci n, cytoxan Ronald Collins MD [address] [place] [address], [phone] 6, [facility] 5 14:19:23 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 Ronald Collins MD [address] [place] [address], [phone] 6, [facility] 5 22:39:11 Posttrau matic stress disorder 34478253 Active Ronald Collins MD [address] [place] [address], [phone] 6, [facility] 5 22:47:38 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, medicatio n intoleran ce, GF, DF, soy free; Ronald Collins MD [address] [place] [address], [phone] , [facility] 5 14:32:44 Gastropa resis syndrome 732489295 Active 2011- adriamyci an; Dr Hoskins, [place] ; weight 105lb; [facility] (Matthew broussard [place]); 2013, 2016, 2018; Ronald Collins MD [address] [place] [address], [phone] 6, [facility] 5 14:31:34 Hyponatr emia 95868634 Active Ronald Collins MD [address] [place] [address], [phone] 6, [facility] 5 15:07:44 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 Procedures Surgical History Date Name Laterality Status Provider Name and Address Organization Details Recorded Time 06/27/19 excision of bilateral breasts completed Ronald Collins MD [address] [place] [address], [phone], [facility] 07/22/2024 22:42:50 02/26/19 87 Appendectomy completed Ronald Collins MD [address] [place] [address], [phone], [facility] 07/23/2024 14:34:28 07/27/18 87 hysterectomy completed Ronald Collins MD [address] [place] [address], [phone], [facility] 07/23/2024 14:34:39 Imaging Results Imaging Date Name Status LastModified by Organization Details LastModified Time 08/13/2022 XR, defecogram completed [email or web address] Informatio n not available 07/22/2024 16:11:55 06/08/2024 MRI, cervical spine, w/o contrast completed [email or web address] Information not available 07/22/2024 23:05:46 06/08/2024 MRI, thoracic spine, w/o contrast completed [email or web address] Information not available 07/22/2024 23:08:05 06/21/2024 CT, thoracic spine, w/o contrast completed [email or web address] Information not available 07/26/2024 18:39:28 08/27/2022 CT, abdomen + pelvis, w/ contrast completed [email or web address] Information not available 07/26/2024 18:18:47 08/19/2023 XR, abdomen completed [email or web address] Information n ot available 07/26/2024 18:22:08 01/21/2024 US, renal completed [email or web address] Information no t available 07/26/2024 17:34:27 01/21/2024 US, mesenteric artery completed Information not available 07/26/2024 17:36:34 11/18/2023 bone density completed Information not available 07/26/2024 17:38:51 01/16/2024 MRI, brain, w/o contrast completed Information not available 07/26/2024 17:40:30 11/12/2023 holter monitor completed [email or web address] Informatio n not available 07/26/2024 17:41:32 07/16/2022 holter monitor completed Informatio n not available 07/26/2024 17:44:13 02/23/2024 US, echocardiogram, transthoracic, limited completed Information not available 07/26/2024 17:47:02 02/23/2024 electrocardiogram completed [email or web address] Informa tion not available 07/26/2024 17:48:24 01/19/2024 electrocardiogram completed [email or web address] Informa tion not available 07/26/2024 17:49:06 07/23/2024 CT, angiogram, abdomen + pelvis, w/ contrast completed Information not available 07/27/2024 07:01:55 05/13/2023 MRI, brain, w/wo contrast completed [email or web address] Information not available 07/26/2024 18:23:17 08/19/2023 XR, chest, 2 view completed [email or web address] Informa tion not available 07/26/2024 18:24:08 05/11/2023 XR, chest, 2 view completed Informa tion not available 07/26/2024 18:25:18 05/09/2023 US, chest wall completed [email or web address] Informatio n not available 07/26/2024 18:28:07 05/26/2024 US, duplex, carotid artery completed [email or web address] Information not available 07/26/2024 18:32:25 05/21/2023 electrocardiogram completed [email or web address] Informa tion not available 07/26/2024 18:37:01 07/23/2024 XR, chest completed Information no t available 07/27/2024 07:02:36 07/07/2023 imaging/diagnostic result completed [email or web address] Information not available 07/29/2024 10:24:50 05/04/2023 XR, chest, 2 view completed [email or web address] Inform ation not available 07/29/2024 10:26:11 04/29/2024 US, duplex, pelvis, limited completed Information not available 08/06/2024 10:53:03 04/29/2024 US, pelvis completed [email or web address] Information no t available 08/06/2024 10:51:18 05/21/2023 CT, head, w/o contrast completed [email or web address] Information not available 07/29/2024 10:36:27 04/07/2024 CT, chest, w/o contrast completed [email or web address] Information not available 07/29/2024 10:37:59 09/04/2023 CT, chest, w/o contrast completed [email or web address] Information not available 07/29/2024 10:51:15 11/16/2021 CT, abdomen + pelvis, w/ contrast completed [email or web address] Information not available 07/29/2024 10:52:50 05/09/2023 US, chest wall completed [email or web address] Informati on not available 07/29/2024 10:54:12 07/25/2023 CT, abdomen + pelvis, w/ contrast completed Information not available 07/29/2024 10:55:49 08/08/2023 XR, abdomen completed [email or web address] Information not available 07/29/2024 10:56:51 08/19/2023 MRI, lumbar spine, w/o contrast completed [email or web address] Information not available 07/29/2024 10:57:36 08/03/2024 XR, upper gastrointestinal series completed [email or web address] Information not available 08/06/2024 06:12:49 07/14/2024 XR, abdomen, complete completed [email or web address] Information not available 08/06/2024 07:33:12 Procedure Notes None recorded. Medical Equipment None Reported. Medications Name Sig Start Date Stop Date Status Note LastModified by Organization Details LastModified Time cromolyn 100 mg/5 mL oral concentra te TAKE 10 ML BY MOUTH FOUR TIMES DAILY 08/07 completed Not Available Not Available Not Available venlafaxi ne ER 37.5 mg capsule,e xtended release 24 hr TAKE 1 CAPSULE BY MOUTH DAILY 08/07 completed Not Available Not Available Not Available senna 8.6 mg tablet TAKE 2 TABLETS BY MOUTH AT BEDTIME FOR CONSTIPA TION 08/07 completed Not Available Not Available Not Available sucralfat e 1 gram tablet TAKE 1 TABLET BY MOUTH FOUR TIMES DAILY BEFORE A MEAL / BEDTIME 08/19 completed Not Available Not Available Not Available risperido ne 0.25 mg tablet TAKE 1 TABLET BY MOUTH EVERY DAY AT BEDTIME 08/07 completed Not Available Not Available Not Available amlodipin e 2.5 mg tablet TAKE 1 TABLET BY MOUTH EVERY DAY 08/07 completed Not Available Not Available Not Available cyprohept adine 4 mg tablet TAKE 1/2 TO 1 TABLET BY MOUTH AT BEDTIME 08/07 completed Not Available Not Available Not Available metoclopr amide 5 mg tablet TAKE ONE-HALF TABLET BY MOUTH EVERY DAY 4 TIMES A DAY BEFORE MEAL/BED TIME 08/07 completed Not Available Not Available Not Available hyoscyami ne 0.125 mg sublingua l tablet DISSOLVE 1 TABLET UNDER THE TONGUE EVERY 6 HOURS NEEDED FOR CRAMPING 08/07 completed Not Available Not Available Not Available Infants Gas Relief 40 mg/0.6 mL oral drops,bronson pension TAKE 1.8 ML BY MOUTH THREE TIMES DAILY BEFORE MEALS AND AT BEDTIME active pure simethic one prn Not Available Not Available Not Available alcohol swabs USE TWICE DAILY DIRECTED FOR MONITORI NG GLUCOSE 08/07 completed Not Available Not Available Not Available zolpidem 5 mg tablet TAKE 1 TO 2 TABLETS BY MOUTH AT BEDTIME NEEDED active Not Available Not Available No t Available esomepraz ole magnesium 20 mg capsule,d [...] Not Available pregabali n 75 mg capsule TAKE 1 CAPSULE BY MOUTH AT BEDTIME FOR A WEEK THEN 1 TWICE DAILY 08/07 completed Not Available Not Available Not Available simethico ne infants; 1 tsp night;y 08/07 completed Not Available Not Available Not Available Benadryl 5-10mg qhs active Not Available Not Available No t Available quetiapin e 50 mg tablet TAKE 1/2 TO 1 TABLET BY MOUTH TWICE DAILY NEEDED DIRECTED FOR ANXIETY OR INSOMNIA 08/07 completed Not Available Not Available Not Available Savella 12.5 mg tablet FOR 1ST WEEK TAKE 1 TABLET BY MOUTH DAILY THEN TAKE 1 TABLET TWICE DAILY TOLERATE D 08/19 completed Not Available Not Available Not Available estradiol 10 mcg vaginal tablet INSERT 1 TABLET VAGINALL Y EVERY DAY FOR 14 DAYS THEN TWICE WEEKLY 08/07 completed Not Available Not Available Not Available Xifaxan 550 mg tablet TAKE 1 TABLET BY MOUTH THREE TIMES DAILY FOR 2 WEEKS active Not Available Not Available No t Available 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 active Not Available Not Available No t Available Phosphoro us Supplemen t 280 mg-160 mg-250 mg oral powder packet TAKE 1 PACKET BY MOUTH 4 TIMES A DAY 08/07 completed Not Available Not Available Not Available BinaxNOW COVID-19 Ag Self Test kit USE 1 KIT NEEDED BY MISCELLA NEOUS ROUTE 08/07 completed Not Available Not Available Not Available Vitals Date Recorded Oxygen saturation Oxygen saturation in Arterial blood by Pulse oximetry Heart rate Body temperature Systolic blood pressure Diastolic blood pressure Provider Name and Address Organization Details Last Updated DateTime 5 97 % 97 % 90 /min 97.8 [degF] 120 mm[Hg] 72 mm[Hg] July formerly [facility] 5 14:07:11 Date Recorded Body temperature Oxygen saturation Oxygen saturation in Arterial blood by Pulse oximetry Heart rate Systolic blood pressure Diastolic blood pressure Provider Name and Address Organization Details Last Updated DateTime 97.1 [degF] 98 % 98 % 83 /min 122 mm[Hg] 72 mm[Hg] [facility] 12:54:47 Date Recorded Oxygen saturation Oxygen saturation in Arterial blood by Pulse oximetry Heart rate Body temperature Systolic blood pressure Diastolic blood pressure Provider Name and Address Organization Details Last Updated DateTime 5 98 % 98 % 88 /min 97.8 [degF] 116 mm[Hg] 72 mm[Hg] [facility] 10:56:52 Date Recorded Body weight Provider Name an d Address Organization Details Last Updated DateTime 08/19/2024 83861.23 g Leslie rivera, ADJUSTMENT SUPERVISOR [address] [place] [address], [phone], [facility] 08/19/2024 11:12:06 Date Recorded Body temperature Oxygen saturation Oxygen saturation in Arterial blood by Pulse oximetry Heart rate Systolic blood pressure Diastolic blood pressure Provider Name and Address Organization Details Last Updated DateTime 97.3 [degF] 100 % 100 % 78 /min 130 mm[Hg] 78 mm[Hg] [facility] 14:03:39 Social History Question Answer Notes LastModified by [employer] ion Details LastModified Time Are You Currently Employed? No Retired [employer]; [employer] [id number] Information not available 07/23/2024 Sex: Unknown Functional Status None recorded. Mental Status None recorded. Family History Nothing Reported. Medical History No medical history recorded. Gynecological HistoryNo gynecological history recorded. Obstetrics History GPAL:G 0 P 0 0 0 0 Past Encounters Encounter ID Performer Location Encounter Start Date Encounter Closed Date Diagnosis/Indication Diagnosis SNOMED-CT Code Diagnosis ICD10 Code Diagnosis Note [id number] Ronald Collins MD Main Office [address] [place] [id number] 07/23/2024 14:06:28 07/27/2024 08:03:44 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 535766284 T78.1XXA big hx of allergies Alletess, food eliminatio n is reasonable Malignant tumor of breast 148128714 C50.911 requested info Hyponatremia 08765862 E8 7.1 review prev workup Small judah l bacterial overgrowth syndrome 473014480 K63.8219 review findings of testing in past Abdominal pain R10.9 considerat ions+ Gastroesop hageal Reflux Disease [...] review more records/pr ev work upfu soon [id number] Ronald Collins MD Main Office [address] [place] [id number] 08/06/2024 12:54:25 08/06/2024 14:57:13 Abdominal pain R10.9 hypothetic al components : GERD, SIBO, histamine intoleranc e important topics-EBV ... starting monolaurin ; consider pyramid, further testingele vated blood mercury, arsenic... consider HM testing06/04 gi effects data..disc uss with clinical specialist 2021 alletess likely+ Gastroesop hageal Reflux Disease (GERD), on marva still others+ Celiac disease- TTG neg in past...HLA [...] fu end of month 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 87202706 1 T78.1XXA big hx of medication allergies Alletess review food eliminatio n is reasonable ; but should be done in a measured way Malignant tumor of breast 091646962 C50.911 reviewing info Hyponatremia 86256064 E8 7.1 still need more of the work upreview records Small judah l bacterial overgrowth syndrome 356907978 K63.8219 review findings of testing in past Muscle weakness 95815520 M62.81 often in wheelchair fatigue [id number] Leslie Mcghee NP Main Office [address] [place] [id number] 6 08/19/2024 10:53:41 08/26/2024 09:44:30 Gastroparesis syndrome 569920109 K31.84 Chamomile abd compress after lunch dailydefer red discussion of lab results for FU when all labs resulted, she will have additional labs drawn prior to next FU Small judah l bacterial overgrowth syndrome 390293825 K63.8219 consider [place] health consult... . Onychomyco sis of toenails 898186088 B35.1 discussed options, defer treatment for now Anxiety 90455039 F41.9 support provided [id number] Ronald Collins MD Main Office [address] [place] [id number] 6 08/25/2024 13:57:19 08/26/2024 09:27:04 Small bowel bacterial overgrowth syndrome 182296680 K63.8219 1. send adhesion approach massage videos2. rx methane pos sibo- start slowa) xifaximin 550 tid x 21 db) Allimed 450 TID3. Add sS boulardi4. zoom fu next week5. motility select Jimenez nutrition- slow6. EBV-monola uren- slow7. diet- cont current reg- consider adding fish and chelation future:rep eat Health Concerns Section Related Observation LastModified by Organization Detai ls LastModified Time None Recorded Concern Status LastModified by Organization Details LastModified Time None Recorded Advance Directives Directive None Recorded Payers Encounter Date Sequence Insurance Name Policy Number Policy Santos Covered Member ID Santos Member ID Guarantor Name 07/23/2024 1 [place] PPO) [id number] Umm Hernandezloud [id number] Umm Mindy 07/23/2024 2 [place] [facility] Umm Hernandezloud [id number] Umm Mindy 08/06/2024 1 [facility]EMENT PPO) [id number] Umm Kasandra Mindy [id number] Umm Mindy 08/06/2024 2 [place] [facility] Umm Kasandra HernandezMindy [id number] Umm Hernandezloud 08/19/2024 1 [facility] PPO) [id number] Umm Kasandra HernandezMindy [id number] Umm Hernandezloud 08/19/2024 2 [place] [facility] Umm Slaughter Mindy [id number] Umm Hernandezloud 08/25/2024 1 [facility] PPO) [id number] Umm Kasandra HernandezMindy [id number] Umm Hernandezloud 08/25/2024 2 [place] [facility] Umm Kasandra HernandezMindy [id number] Umm Dumontud Notes Date Note Type Note Provider Name and Address Organization Details Recorded Time 07/24/19 25 text/htm l 68yo in relatively good health, active,COVID Feb 2021forced care home month old Kinyarwanda Shepard3 colonoscopies end 2021, early 2022- upper Gi issues - pain after eating- swallow acid or hot coals- shakes and stuff PAIN AFTER EATINGusually there is a delay of 60 pluslarge work up- wants a coordinator Apr 2023 felt fainthyponatremia Na 119 or so; hosp for 4 daysfe2023 low sodiumMarch 2023 ++pain low chest after eatingcan cause her to call outweak in a wheelchair turkey, sweet potatoe at noon todaypain comes after a delay ++pelvic painurinary changes- leaking peewhen rectum gets full bladder is affected ++legs- weakness ++hyponatremiaeating more salt Ronald Collins MD [address] [place] [address], [phone], [facility] 07/26/2024 22:26:41 08/07/19 25 text/htm l Pt here to fu on abd paincomponents: GERD, SIBO, histamine intolerance important topics EBV...elevated blood mercury, arsenic06/04/24 gi effects [id number] alletess no meds nowthyroid NPzolpidembenadrylsimethecone hx constipation,diarrhea chemo in 2000after stomache Lyme disease in , 07months of antibiotics hx gastroparesis 2012 after chemo in 1999and constipationworked with Dr Hoskinsweight was 105-110lbtreated with Mag citrate, smooth move- now off all thatEvie Alejandro naturopathhydrotherapy, homeopathy,no gluten no nuts no soy sees Reji Quiñones 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 In the last 4 weeks has worsened considerably. Has burning across chest and as food leaves belly and into intestines, has lots of bloating. Belches a lot and mo flatus. describes burning in the chest and belly. When she awakens in the morning no pain, this is my reprieve . Does not matter what she eats I think we're fighting histamine, dysbiosis, and reflux. Takes Benadryl at night, and this helps the belly. Mostly eats low-histamine foods. Has a cough always Yesterday ate half a banana, and itching started. Partner is frustrated with food FODMAP and low histamine, can't prepare anything. took Robinia Nicotiana as instructed and got very little relief, and then it may have made her worse. Seen by a footcare RN, she expressed concern about her perfusion to her feet. At times her feet turn purple and they are cold, hands do so also. has not yet started monolaurin avail ate 2 hours ago uses castor oil compresses on the belly occasionally has daily BMs. daily, rabbit poops Ronald Collins MD [address] [place] [address], [phone], [facility] 08/24/2024 12:21:20 08/26/19 25 text/htm l Pt here to fu on abd paincomponents: GERD, SIBO, histamine intolerance important topics EBV...abn in labLyme disease in , months of antibioticselevated blood mercury, arsenic06/04/24 gi effects [id number] alletess medsthyroid NPzolpidembenadrylsimethecone hx constipation,diarrhea hx endometriosis, appy, hysterectomyhx visceral massage therapyhx gastroparesis 2011 after chemo in 1999 just passed barium bolus from study 17 days agopain after eating still persists Abdominal pain- pain low chest after eatingcan be 60 min after eating, can be sooner latelyexcruciating pain since 08/03 upper gican cause her to call out;-gassy bloatybelches; no flatulencedifferent food- keeping track not clearly different since EGD in Jandiscussed hydrogen positive SIBO (mrkristen not testeddiscussed recent oral testing with high methanediscussed pos results with Xifaxan in past discussed Gallbladder HIDA scandiscussed EGD repeat Ronald Collins MD [address] [place] [address], [phone], [facility] 08/25/2024 22:09:50 OBGyn Episode No OBEpisode recorded.
--- OUTSIDE RECORDS SUMMARY | 2024-09-02 14:04 | XMS_ITS | Clinical Summary ---
Author Organization [facility] Address [address] [address] Care Team Providers Care Insurance Claim Auditor Name Role Phone Katrin Paulson MD Primary [...] patient's age to complete this topic Insurance [facility] Care Teams Insurance Claim Auditor Relationship Specialty Start Date End Date Katrin Paulson MD [address] [place] [address] PCP - General Family Medicine 05/15/23
--- OUTSIDE RECORDS SUMMARY | 2024-09-02 14:04 | XMS_ITS | Clinical Summary ---
Author Organization [facility] Address [address] [place] [address] Care Team Providers Care Carpenters Helper Name Role Phone Katrin Paulson Primary Care Provider [phone] Allergies No known active allergies Medications thyroid [...] Description 10/06/2024 10:30 AM EDT Office Visit [facility] [address] [place] [address] Vladimir Rodas MD [address] [place] [phone] Scheduled Procedures Name Priority Associated Diagnoses Date/Ti [...] Insurance BCBS MCR REPLACE PPO Care Teams Carpenters Helper Relationship Specialty Start Date End Date Katrin Paulson [address] [place] [address] PCP - General 12/23/23
--- OUTSIDE RECORDS SUMMARY | 2024-09-02 14:04 | XMS_ITS | Referral Summary ---
Author Organization [facility] Address [address] [place] [address] Care Team Providers Care Refinery Operator Name Role Phone Katrin Paulson Primary Care Provider [phone] Allergies No known active allergies Medications thyroid [...] Description 10/06/2024 10:30 AM EDT Office Visit [facility] [address] [place] [address] Vladimir Rodas MD [address] [place] [phone] Scheduled Procedures Name Priority Associated Diagnoses Date/Ti me UPPER ENDOSCOPY WITH POSSIBL E BIOPSY AND/OR POLYPECTOMY AND POSSIBLE MODERATE SEDATION Functional dyspepsia Bloating Insurance BS MCR REPLACE PPO Care Teams Refinery Operator Relationship Specialty Start Date End Date Katrin Paulson [address] [place] [address] PCP - General 12/23/23
--- OUTSIDE RECORDS SUMMARY | 2024-09-02 14:05 | XMS_ITS | Data Portability ---
Author Organization [facility], FP, EHC, OFFICE Address [address] [place] [address] Care Team Providers Care Slipcover Cutter Name Role Phone KARLEY PAULSONEN Primary Care Provider [facility] OTHER [phone] [facility] R[facility]K ASSESSMENT O THER SLICK ROGER Computer Art Instructor JORGE MANCIA General Surgeon DELFINA WILKES PHYSICAL THERAPY Phys. Med. & R ehab [facility] Machine Pecan Picker RU FLYNN Cardio Tech VINNIE BARBOSA Field Sampling Technician NAMRATA LOPEZ Urologist [phone] CALLY JOHNSON Field Sampling Technician [phone] Assessment Encounter Date Assessment Date Assessment LastModified by Organization Details LastModified Time 06/23/2024 06/23/2024 Patient agreed t o this visit via a secure telehealth platform. Patient understands this is a scheduled visit and the usual procedures with regard to billing and confidentiality apply. Patient was notified that the provider location is [facility] Patient location: home During the visit the [...] chest pain and tingling. Primary care at: [facility] Initial Therapy History: Working with [facility]'s therapist on and off. Prior to 2021 had been working with other therapist more longitudinally in [place]. Also works with a naturapath Linda Hernandez. Initial HISTORIC (Dx/ Tx/ life events): in 1979. Lives with partner Patrick with whom he tries but he does not know how to help me... Terminated into intermediate with redundancy at age 63. 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 Originally from this area [place]. Only family in the areas of brother in [facility] [place]. No prior psychiatric hospitalizations, but was interested in a BH/ detox assistance from [facility] when she last went to the ED but was directed to a medical hospitalization for hyponatremia. No prior suicide attempts. No prior psychosis. No prior zack. Some history of difficulties with depression disappointment and stress reaction, but considers main behavioral health difficulties be insomnia historically. Primary CARE provider was interested in alternative to Ambien continued since cancer treatment. Working with other psychopharmacologic b2b sales consultant here, was offered trials for alternatives. [...] hospitalized for low sodium and loosing 30# ([facility] hosp Apr-Jun) feeling destroyed... A psychiatric hosp was offered to coordinate BH and GI distress at [facility] (did not find it theraputic) May 2023. Quickly signed out. At home feeling Patrick couldn't/ wouldn't provided sufficient support. Subsequent medical hosp could not arrange the level of a care she feel she needs. Currently feels doesn't believe her needs and limitations. Worked with [facility] she was not happy with and changed to [facility] (was horrific). Reports continued terrible pain, [...] by PCP. At follow up consider: N/A [email or web address] Not available 07/02/2024 10:57:43 07/08/2024 07/08/2024 Patient agreed t o this visit via a secure telehealth platform. Patient understands this is a scheduled visit and the usual procedures with regard to billing and confidentiality apply. Patient was notified that the provider location is [facility] Patient location: home During the visit the [...] was notified that the provider location is [facility] Patient location: home During the visit the [...] and making plan Not available 07/21/2024 12:37:30 08/18/2024 08/18/2024 Over 40 minutes spent reviewing records, charts, ordering labwork Not available 08/18/2024 12:34:11 Plan of Treatment Reminders Order Date Submit Date Provider Last Modified By Organization Details Last Modified Time Details Appointments Same Day Appt, 2024 11:30A M Alex Paulson MD Not available Not available Not available Lab TSH, serum or plasma 2024 025 [facility] (Outpatient), [address] [place] [address], [id number], 08/23/2024 14:01:37 phosphoru s, serum or plasma 2024 025 [facility] (Outpatient), [address] [place] [address], [id number], 08/23/2024 14:01:37 CMP, serum or plasma 2024 025 [facility] (Outpatient), [address] [place] [address], [id number], 08/18/2024 18:52:01 CBC 2024 025 [facility] (Outpatient), [address] [place] [address], [id number], 08/18/2024 15:13:54 CBC 2024 [facility] (Outpatient), [address] [place], [address], 08/18/2024 15:13:54 CMP, serum or plasma 2024 [facility] (Outpatient), [address] [place], [address], 08/18/2024 18:52:01 tryptase, serum - Pt to come in when symptomat ic and tell lab when to draw 2024 [facility] (Outpatient), [address] [place], [address], 08/23/2024 14:01:37 vitamin B12, serum 2024 [facility] (Outpatient), [address] [place], [address], 08/23/2024 14:01:37 magnesium , QN, serum or plasma 2024 [facility] (Outpatient), [address] [place], [address], 08/23/2024 14:01:37 vitamin D, 25-hydrox y, total, serum 2024 [facility] (Outpatient), [address] [place], [address], 08/23/2024 14:01:37 Referral None recorded. Procedures Sitz marker study (PROC) - 68 y/o with slow bowels, please perform KUB with repeat x-ray every 24 hours until gone. 2024 [email or web address] [facility] Scheduling, [address] [place], [address], 06/24/2024 08:18:00 Surgeries None recorded. Imaging None recorded. Medication Orders JAILER Thyroid 15 mg tablet 2024 025 [id number], [address], [place], [id number], 08/18/2024 12:25:56 zolpidem 5 mg tablet 2024 025 [facility][id number], [address], [place], [id number], 08/18/2024 12:25:59 Patient TargetsNo targets recorded. Patient Instructions Encounter Date Encounter Id Patient Instructions Last Modified By Organization Details Last Modified Time 06/23/2024 [id number] -I have ordered Sitz Markers to be done 24 hours until markers cleared - Ordered at [facility] -Will wait on bladder testing until results are in -Follow-up as scheduled with me -I am going to talk to Lisandra again about testing and let him know that Jareth hasn't really been doing anything other than focusing on diagnostic testing. Not available 06/23/2024 15:34:11 07/08/2024 [id number] -Let's plan on you doing the Sitz markers test first next week instead of the other -I'm going to talk to Dr. Johnson about adding back the upper GI with the small bowel follow through instead -We'll get copies of the [facility] labs (we'll look next week) -Could consider xyzal with famotidine as the H1 and H2 combination Not available 07/08/2024 16:40:52 07/21/2024 [id number] -Apply plain bacitracin twice daily to the [...] August -Keep follow-up with me as scheduled [email or web address] Not available 07/21/2024 12:36:41 08/18/2024 [id number] -B12 should not be taken for 12 hours prior to draw - I ordered B12 and vitamin D as well as TSH with this round -Standing labs are currently CBC, CMP, phos, tryptase as needed, and magnesium -If ever able to take meds by mouth, would recommend xyzal (levocetirizine) 5mg 3x daily OR magali (fexofenadine) 180mg twice daily -That should help to reduce the benadryl load -Can try a half dose of the carafate to see if this reduces the constipation effect -I'm going to see if there is any way that Lisandra could have you do an inpatient prep for EGD and colonoscopy -I will ask Lisandra directly about what he thinks about the test results that you had done for the stool to treat for dysbiosis -I am going to discuss your case with Dr. Cortes before your next appointment as well Not available 08/18/2024 12:44:37 Reason for Referral None Reported. Results Created Date Observation Date Name Description Value Unit Range Abnormal Flag Note LastModifiedBy Organization Detail LastModifiedTime 05/26/19 25 05/26/2024 CBC WBC 7.34 K/uL 4.00-1 1.00 Not Available [facility] (Outpatient) [address] [place] [address], [id number], 05/26/2024 13:21:42 05/26/19 25 05/26/2024 CBC RBC 5.25 M/uL 4.00-5 .20 high Not Available [facility] (Outpatient) [address] [place], [address], 05/26/2024 13:21:42 05/26/19 25 05/26/2024 CBC HGB 15.2 g/dL 12.0-1 6.0 Not Available [facility] (Outpatient) [address] [place] [address], [address], 05/26/2024 13:21:42 05/26/19 25 05/26/2024 CBC HCT 47.6 % 36.0-4 6.0 high Not Available [facility] (Outpatient) [address] [place], [address], 05/26/2024 13:21:42 05/26/19 25 05/26/2024 CBC plt 302 K/uL 150-45 0 Not Available [facility] (Outpatient) [address] [place], [address], 05/26/2024 13:21:42 05/26/19 25 05/26/2024 CBC MCV 90.7 fL 80.0-1 00.0 Not Available [facility] (Outpatient) [address] [place] [address], [address], 05/26/2024 13:21:42 05/26/19 25 05/26/2024 CBC MCH 29.0 pg 27.0-3 1.0 Not Available [facility] (Outpatient) [address] [place] [address], [address], 05/26/2024 13:21:42 05/26/19 25 05/26/2024 CBC MCHC 31.9 g/dL 32.0-3 6.0 low Not Available [facility] (Outpatient) [address] [place], [address], 05/26/2024 13:21:42 05/26/19 25 05/26/2024 CBC RDW 13.5 % 11.5-1 4.5 Not Available [facility] (Outpatient) [address] [place], [address], 05/26/2024 13:21:42 05/26/19 25 05/26/2024 CBC MPV 10.3 fL 8.4-12 .0 Not Available [facility] (Outpatient) [address] [place], [address], 05/26/2024 13:21:42 05/26/19 25 05/26/2024 CBC NRBC 0.00 /100_ WBCs 0.00 Not Available [facility] (Outpatient) [address] [place], [address], 05/26/2024 13:21:42 05/26/19 25 05/26/2024 CBC absolute NRBC 0.00 K/uL 0.00 Not Available [facility] (Outpatient) [address] [place], [address], 05/26/2024 13:21:42 05/26/19 25 05/26/2024 PREAL BUMIN prealbumin 34 mg/dL 20-40 Not Available [facility] (Outpatient) [address] [place], [address], 05/26/2024 13:25:30 05/26/19 25 05/26/2024 PHOSP HORUS phosphorus 3.6 mg/dL 2.7-4. 5 Not Available [facility] (Outpatient) [address] [place], [address], 05/26/2024 13:26:02 05/26/19 25 05/26/2024 COMPR EHENS RONY METAB OLIC PANEL sodium 138 mmol/ L 133-14 6 Not Available [facility] (Outpatient) [address] [place], [address], 05/26/2024 13:26:05 05/26/19 25 05/26/2024 COMPR EHENS RONY METAB OLIC PANEL potassium 4.4 mmol/ L 3.3-5. 1 Not Available [facility] (Outpatient) [address] [place], [address], 05/26/2024 13:26:05 05/26/19 25 05/26/2024 COMPR EHENS RONY METAB OLIC PANEL chloride 101 mmol/ L 96-108 Not Available [facility] (Outpatient) [address] [place], [address], 05/26/2024 13:26:05 05/26/19 25 05/26/2024 COMPR EHENS RONY METAB OLIC PANEL CO2 26 mmol/ L 21-35 Not Available [facility] (Outpatient) [address] [place], [address], 05/26/2024 13:26:05 05/26/19 25 05/26/2024 COMPR EHENS RONY METAB OLIC PANEL BUN 20 mg/dL 6-19 high Not Available [facility] (Outpatient) [address] [place], [address], 05/26/2024 13:26:05 05/26/19 25 05/26/2024 COMPR EHENS RONY METAB OLIC PANEL creatinine 0.60 mg/dL 0.5-1. 5 Not Available [facility] (Outpatient) [address] [place], [address], 05/26/2024 13:26:05 05/26/19 25 05/26/2024 COMPR EHENS RONY METAB OLIC PANEL glucose 105 mg/dL 70-99 high Not Available [facility] (Outpatient) [address] [place], [address], 05/26/2024 13:26:05 05/26/19 25 05/26/2024 COMPR EHENS RONY METAB OLIC PANEL albumin 4.1 g/dL 3.9-4. 8 Not Available [facility] (Outpatient) [address] [place], [address], 05/26/2024 13:26:05 05/26/19 25 05/26/2024 COMPR EHENS RONY METAB OLIC PANEL total protein 8.1 g/dL 6.5-8. 0 high Not Available [facility] (Outpatient) [address] [place], [address], 05/26/2024 13:26:05 05/26/19 25 05/26/2024 COMPR EHENS RONY METAB OLIC PANEL calcium 10.0 mg/dL 8.4-10 .3 Not Available [facility] (Outpatient) [address] [place], [address], 05/26/2024 13:26:05 05/26/19 25 05/26/2024 COMPR EHENS RONY METAB OLIC PANEL alkaline phosphatase 125 U/L 39-117 high Not Available [facility] (Outpatient) [address] [place], [address], 05/26/2024 13:26:05 05/26/19 25 05/26/2024 COMPR EHENS RONY METAB OLIC PANEL total bilirubin 0.3 mg/dL 0.0-1. 2 Not Available [facility] (Outpatient) [address] [place], [address], 05/26/2024 13:26:05 05/26/19 25 05/26/2024 COMPR EHENS RONY METAB OLIC PANEL AST 25 U/L 0-37 Not Available [facility] (Outpatient) [address] [place], [address], 05/26/2024 13:26:05 05/26/19 25 05/26/2024 COMPR EHENS RONY METAB OLIC PANEL ALT 19 U/L 0-40 Not Available [facility] (Outpatient) [address] [place], [address], 05/26/2024 13:26:05 05/26/19 25 05/26/2024 COMPR EHENS RONY METAB OLIC PANEL globulin 4.0 g/dL 1-4.8 Not Available [facility] (Outpatient) [address] [place], [address], 05/26/2024 13:26:05 05/26/19 25 05/26/2024 COMPR EHENS RONY METAB OLIC PANEL eGFR 97 mL/mi n/1.7 3m2 >59 Estim ated glome rular filtr ation rate calcu lated using the CKD-E PI refit equat ion. Not Available [facility] (Outpatient) [address] [place], [address], 05/26/2024 13:26:05 05/26/19 25 05/26/2024 COMPR EHENS RONY METAB OLIC PANEL anion gap 15 mmol/ L 10-20 Not Available [facility] (Outpatient) [address] [place], [address], 05/26/2024 13:26:05 05/26/19 25 05/27/2024 TISSU E TRANS GLUTA REECE E IGG ttg antibody IgG 4.0 U/mL <6.0 (negat rony) Not Available [facility] (Outpatient) [address] [place], [address], 05/27/2024 19:44:35 05/26/19 25 05/28/2024 GLIAD IN DEAMI DATED ANTIB LEEANNA, IGG/I GA gliadin Ab IgA <10.0 U <20.0 (negat rony) Not Available [facility] (Outpatient) [address] [place], [address], 05/28/2024 19:38:37 05/26/19 25 05/28/2024 GLIAD IN DEAMI DATED ANTIB LEEANNA, IGG/I GA gliadin Ab IgG <10.0 U <20.0 (negat orny) Not Available [facility] (Outpatient) [address] [place], [address], 05/28/2024 19:38:37 05/26/19 25 05/28/2024 TISSU E TRANS GLUTA REECE E IGA ttg IgA antibody <1.2 U/mL <4.0 (negat rony) Not Available [facility] (Outpatient) [address] [place], [address], 05/28/2024 19:38:39 06/23/19 25 06/23/2024 MAGNE SIUM magnesium 2.2 mg/dL 1.6-2. 6 Not Available [facility] (Outpatient) [address] [place], [address], 06/23/2024 12:45:39 06/23/19 25 06/23/2024 URINA LYSIS WITH SEDIM ENT WBC NONE SEEN /hpf none seen Not Available [facility] (Outpatient) [address] [place], [address], 06/23/2024 14:13:16 06/23/19 25 06/23/2024 URINA LYSIS WITH SEDIM ENT RBC NONE SEEN /hpf none seen Not Available [facility] (Outpatient) [address] [place], [address], 06/23/2024 14:13:16 06/23/19 25 06/23/2024 URINA LYSIS WITH SEDIM ENT urine epithelial 0-4 none seen abnormal Not Available [facility] (Outpatient) [address] [place], [address], 06/23/2024 14:13:16 06/23/19 25 06/23/2024 URINA LYSIS WITH SEDIM ENT mucus NONE SEEN /hpf none seen Not Available [facility] (Outpatient) [address] [place], [address], 06/23/2024 14:13:16 06/23/19 25 06/23/2024 URINA LYSIS WITH SEDIM ENT bacteria NONE SEEN /hpf none seen Not Available [facility] (Outpatient) [address] [place], [address], 06/23/2024 14:13:16 06/23/19 25 06/23/2024 URINA LYSIS WITH SEDIM ENT color STRAW yellow abnormal Not Available [facility] (Outpatient) [address] [place], [address], 06/23/2024 14:13:16 06/23/19 25 06/23/2024 URINA LYSIS WITH SEDIM ENT clarity CLEAR Not Available [facility] (Outpatient) [address] [place], [address], 06/23/2024 14:13:16 06/23/19 25 06/23/2024 URINA LYSIS WITH SEDIM ENT glucose NEGATI VE negati ve Not Available [facility] (Outpatient) [address] [place], [address], 06/23/2024 14:13:16 06/23/19 25 06/23/2024 URINA LYSIS WITH SEDIM ENT bili NEGATI VE negati ve Not Available [facility] (Outpatient) [address] [place], [address], 06/23/2024 14:13:16 06/23/19 25 06/23/2024 URINA LYSIS WITH SEDIM ENT ketones NEGATI VE negati ve Not Available [facility] (Outpatient) [address] [place], [address], 06/23/2024 14:13:16 06/23/19 25 06/23/2024 URINA LYSIS WITH SEDIM ENT specific gravity 1.015 1.005- 1.030 Not Available [facility] (Outpatient) [address] [place], [address], 06/23/2024 14:13:16 06/23/19 25 06/23/2024 URINA LYSIS WITH SEDIM ENT blood TRACE negati ve abnormal Not Available [facility] (Outpatient) [address] [place], [address], 06/23/2024 14:13:16 06/23/19 25 06/23/2024 URINA LYSIS WITH SEDIM ENT pH 6.0 5.0-8. 0 Not Available [facility] (Outpatient) [address] [place], [address], 06/23/2024 14:13:16 06/23/19 25 06/23/2024 URINA LYSIS WITH SEDIM ENT protein NEGATI VE negati ve Not Available [facility] (Outpatient) [address] [place], [address], 06/23/2024 14:13:16 06/23/19 25 06/23/2024 URINA LYSIS WITH SEDIM ENT nitrite NEGATI VE negati ve Not Available [facility] (Outpatient) [address] [place], [address], 06/23/2024 14:13:16 06/23/19 25 06/23/2024 URINA LYSIS WITH SEDIM ENT leukocyte esterase, ur NEGATI VE negati ve Not Available [facility] (Outpatient) [address] [place], [address], 06/23/2024 14:13:16 06/23/19 25 06/24/2024 MARGA IC, BLOOD arsenic 1 NG/mL <13 (NOTE ) ----- ----- ----- ----A DDITI ONAL INFOR MATIO N---- ----- ----- ----- This test was varinder vital and its perfo rmanc e rhett schaferri stics deter mined by [employer] in a maday r consi stent with CLIA requi remen ts. This test has not been clear ed or appro chino by the U.S. Food and Drug Admin istra tion. Not Available [facility] (Outpatient) [address] [place], [address], 06/24/2024 18:10:01 06/23/1906/24/2024 MERCU RY, BLOOD bld mercury 9 NG/mL <10 (NOTE ) ----- ----- ----- ----A DDITI ONAL INFOR MATIO N---- ----- ----- ----- This test was devel oped and its perfo rmanc e rhett cteri stics deter mined by [employer] in a maday r consi stent with CLIA requi remen ts. This test has not been clear ed or appro chino by the U.S. Food and Drug Admin istra tion. Not Available [facility] (Outpatient) [address] [place], [address], 06/24/2024 18:10:03 06/23/19 25 06/23/2024 URINE CULTU RE special requests NONE Not Available [facility] (Outpatient) [address] [place] [address], [address], 06/25/2024 09:12:16 06/23/19 25 06/25/2024 URINE CULTU RE urine culture abnormal 10,00 0 to 100,0 00 colon y formi ng units per mL MIXED JESSI (3 OR MORE COLON Y TYPES ) Cultu re indic ates conta minat ion. Pleas e resub kyle if neces aditya. Not Available [facility] (Outpatient) [address] [place], [address], 06/25/2024 09:12:16 06/23/19 25 06/25/2024 TRYPT ASE tryptase 3.8 NG/mL <11.5 Not Available [facility] (Outpatient) [address] [place], [address], 06/25/2024 21:28:17 07/09/19 25 07/08/2024 CBC WBC 6.74 K/uL 4.00-1 1.00 Not Available [facility] (Outpatient) [address] [place], [address], 07/08/2024 14:06:26 07/09/19 25 07/08/2024 CBC RBC 5.26 M/uL 4.00-5 .20 high Not Available [facility] (Outpatient) [address] [place], [address], 07/08/2024 14:06:26 07/09/19 25 07/08/2024 CBC HGB 15.4 g/dL 12.0-1 6.0 Not Available [facility] (Outpatient) [address] [place], [address], 07/08/2024 14:06:26 07/09/19 25 07/08/2024 CBC HCT 47.7 % 36.0-4 6.0 high Not Available [facility] (Outpatient) [address] [place], [address], 07/08/2024 14:06:26 07/09/19 25 07/08/2024 CBC plt 291 K/uL 150-45 0 Not Available [facility] (Outpatient) [address] [place], [address], 07/08/2024 14:06:26 07/09/19 25 07/08/2024 CBC MCV 90.7 fL 80.0-1 00.0 Not Available [facility] (Outpatient) [address] [place] [address], [address], 07/08/2024 14:06:26 07/09/19 25 07/08/2024 CBC MCH 29.3 pg 27.0-3 1.0 Not Available [facility] (Outpatient) [address] [place], [address], 07/08/2024 14:06:26 07/09/19 25 07/08/2024 CBC MCHC 32.3 g/dL 32.0-3 6.0 Not Available [facility] (Outpatient) [address] [place], [address], 07/08/2024 14:06:26 07/09/19 25 07/08/2024 CBC RDW 13.5 % 11.5-1 4.5 Not Available [facility] (Out[facility]) [address] [place], [address], 07/08/2024 14:06:26 07/09/19 25 07/08/2024 CBC MPV 10.9 fL 8.4-12 .0 Not Available [facility] (Out[facility]) [address] [place], [address], 07/08/2024 14:06:26 07/09/19 25 07/08/2024 CBC NRBC 0.00 /100_ WBCs 0.00 Not Available [facility] (Outpatient) [address] [place], [address], 07/08/2024 14:06:26 07/09/19 25 07/08/2024 CBC absolute NRBC 0.00 K/uL 0.00 Not Available [facility] (Out[facility]) [address] [place], [address], 07/08/2024 14:06:26 07/09/19 25 07/08/2024 COMPR EHENS RONY METAB OLIC PANEL sodium 139 mmol/ L 133-14 6 Not Available [facility] (Outpatient) [address] [place], [address], 07/08/2024 14:43:51 07/09/19 25 07/08/2024 COMPR EHENS RONY METAB OLIC PANEL potassium 4.4 mmol/ L 3.3-5. 1 Not Available [facility] (Outpatient) [address] [place], [address], 07/08/2024 14:43:51 07/09/19 25 07/08/2024 COMPR EHENS RONY METAB OLIC PANEL chloride 102 mmol/ L 96-108 Not Available [facility] (Outpatient) [address] [place], [address], 07/08/2024 14:43:51 07/09/19 25 07/08/2024 COMPR EHENS RONY METAB OLIC PANEL CO2 24 mmol/ L 21-35 Not Available [facility] (Outpatient) [address] [place], [address], 07/08/2024 14:43:51 07/09/19 25 07/08/2024 COMPR EHENS RONY METAB OLIC PANEL BUN 13 mg/dL 6-19 Not Available [facility] (Outpatient) [address] [place], [address], 07/08/2024 14:43:51 07/09/19 25 07/08/2024 COMPR EHENS RONY METAB OLIC PANEL creatinine 0.60 mg/dL 0.5-1. 5 Not Available [facility] (Outpatient) [address] [place], [address], 07/08/2024 14:43:51 07/09/19 25 07/08/2024 COMPR EHENS RONY METAB OLIC PANEL glucose 96 mg/dL 70-99 Not Available [facility] (Outpatient) [address] [place] [address], [address], 07/08/2024 14:43:51 07/09/19 25 07/08/2024 COMPR EHENS RONY METAB OLIC PANEL albumin 4.4 g/dL 3.9-4. 8 Not Available [facility] (Outpatient) [address] [place], [address], 07/08/2024 14:43:51 07/09/19 25 07/08/2024 COMPR EHENS RONY METAB OLIC PANEL total protein 8.1 g/dL 6.5-8. 0 high Not Available [facility] (Outpatient) [address] [place], [address], 07/08/2024 14:43:51 07/09/19 25 07/08/2024 COMPR EHENS RONY METAB OLIC PANEL calcium 9.7 mg/dL 8.4-10 .3 Not Available [facility] (Out[facility]) [address] [place] [address], [address], 07/08/2024 14:43:51 07/09/19 25 07/08/2024 COMPR EHENS RONY METAB OLIC PANEL alkaline phosphatase 110 U/L 39-117 Not Available [facility] (Outpatient) [address] [place] [address], [address], 07/08/2024 14:43:51 07/09/19 25 07/08/2024 COMPR EHENS RONY METAB OLIC PANEL total bilirubin 0.4 mg/dL 0.0-1. 2 Not Available [facility] (Outpatient) [address] [place], [address], 07/08/2024 14:43:51 07/09/19 25 07/08/2024 COMPR EHENS RONY METAB OLIC PANEL AST 25 U/L 0-37 Not Available [facility] (Outpatient) [address] [place], [address], 07/08/2024 14:43:51 07/09/19 25 07/08/2024 COMPR EHENS RONY METAB OLIC PANEL ALT 17 U/L 0-40 Not Available [facility] (Outpatient) [address] [place], [address], 07/08/2024 14:43:51 07/09/19 25 07/08/2024 COMPR EHENS RONY METAB OLIC PANEL globulin 3.7 g/dL 1-4.8 Not Available [facility] (Outpatient) [address] [place], [address], 07/08/2024 14:43:51 07/09/19 25 07/08/2024 COMPR EHENS RONY METAB OLIC PANEL eGFR 97 mL/mi n/1.7 3m2 >59 Estim ated glome rular filtr ation rate calcu lated using the CKD-E PI refit equat ion. Not Available [facility] (Outpatient) [address] [place], [address], 07/08/2024 14:43:51 07/09/19 25 07/08/2024 COMPR EHENS RONY METAB OLIC PANEL anion gap 17 mmol/ L 10-20 Not Available [facility] (Outpatient) [address] [place] [address], [address], 07/08/2024 14:43:51 07/29/19 25 07/28/2024 CBC WBC 6.76 K/uL 4.00-1 1.00 Not Available [facility] (Outpatient) [address] [place], [address], 07/28/2024 14:56:13 07/29/19 25 07/28/2024 CBC RBC 5.21 M/uL 4.00-5 .20 high Not Available [facility] (Outpatient) [address] [place], [address], 07/28/2024 14:56:13 07/29/19 25 07/28/2024 CBC HGB 15.2 g/dL 12.0-1 6.0 Not Available [facility] (Outpatient) [address] [place] [address], [address], 07/28/2024 14:56:13 07/29/19 25 07/28/2024 CBC HCT 46.7 % 36.0-4 6.0 high Not Available [facility] (Outpatient) [address] [place], [address], 07/28/2024 14:56:13 07/29/19 25 07/28/2024 CBC plt 257 K/uL 150-45 0 Not Available [facility] (Outpatient) [address] [place] [address], [address], 07/28/2024 14:56:13 07/29/19 25 07/28/2024 CBC MCV 89.6 fL 80.0-1 00.0 Not Available [facility] (Outpatient) [address] [place] [address], [address], 07/28/2024 14:56:13 07/29/19 25 07/28/2024 CBC MCH 29.2 pg 27.0-3 1.0 Not Available [facility] (Outpatient) [address] [place] [address], [address], 07/28/2024 14:56:13 07/29/19 25 07/28/2024 CBC MCHC 32.5 g/dL 32.0-3 6.0 Not Available [facility] (Outpatient) [address] [place], [address], 07/28/2024 14:56:13 07/29/19 25 07/28/2024 CBC RDW 13.5 % 11.5-1 4.5 Not Available [facility] (Outpatient) [address] [place], [address], 07/28/2024 14:56:13 07/29/19 25 07/28/2024 CBC MPV 10.7 fL 8.4-12 .0 Not Available [facility] (Outpatient) [address] [place] [address], [address], 07/28/2024 14:56:13 07/29/19 25 07/28/2024 CBC NRBC 0.00 /100_ WBCs 0.00 Not Available [facility] (Outpatient) [address] [place], [address], 07/28/2024 14:56:13 07/29/19 25 07/28/2024 CBC absolute NRBC 0.00 K/uL 0.00 Not Available [facility] (Outpatient) [address] [place] [address], [address], 07/28/2024 14:56:13 07/29/19 25 07/28/2024 COMPR EHENS RONY METAB OLIC PANEL sodium 141 mmol/ L 133-14 6 Not Available [facility] (Outpatient) [address] [place] [address], [address], 07/28/2024 15:25:09 07/29/19 25 07/28/2024 COMPR EHENS RONY METAB OLIC PANEL potassium 4.4 mmol/ L 3.3-5. 1 Not Available [facility] (Outpatient) [address] [place], [address], 07/28/2024 15:25:09 07/29/19 25 07/28/2024 COMPR EHENS RONY METAB OLIC PANEL chloride 102 mmol/ L 96-108 Not Available [facility] (Outpatient) [address] [place], [address], 07/28/2024 15:25:09 07/29/19 25 07/28/2024 COMPR EHENS RONY METAB OLIC PANEL CO2 27 mmol/ L 21-35 Not Available [facility] (Outpatient) [address] [place], [address], 07/28/2024 15:25:09 07/29/19 25 07/28/2024 COMPR EHENS RONY METAB OLIC PANEL BUN 17 mg/dL 6-19 Not Available [facility] (Outpatient) [address] [place], [address], 07/28/2024 15:25:09 07/29/19 25 07/28/2024 COMPR EHENS RONY METAB OLIC PANEL creatinine 0.70 mg/dL 0.5-1. 5 Not Available [facility] (Outpatient) [address] [place], [address], 07/28/2024 15:25:09 07/29/19 25 07/28/2024 COMPR EHENS RONY METAB OLIC PANEL glucose 93 mg/dL 70-99 Not Available [facility] (Outpatient) [address] [place], [address], 07/28/2024 15:25:09 07/29/19 25 07/28/2024 COMPR EHENS RONY METAB OLIC PANEL albumin 4.4 g/dL 3.9-4. 8 Not Available [facility] (Outpatient) [address] [place], [address], 07/28/2024 15:25:09 07/29/19 25 07/28/2024 COMPR EHENS RONY METAB OLIC PANEL total protein 7.8 g/dL 6.5-8. 0 Not Available [facility] (Outpatient) [address] [place], [address], 07/28/2024 15:25:09 07/29/19 25 07/28/2024 COMPR EHENS RONY METAB OLIC PANEL calcium 9.6 mg/dL 8.4-10 .3 Not Available [facility] (Outpatient) [address] [place], [address], 07/28/2024 15:25:09 07/29/19 25 07/28/2024 COMPR EHENS RONY METAB OLIC PANEL alkaline phosphatase 111 U/L 39-117 Not Available [facility] (Outpatient) [address] [place], [address], 07/28/2024 15:25:09 07/29/19 25 07/28/2024 COMPR EHENS RONY METAB OLIC PANEL total bilirubin 0.3 mg/dL 0.0-1. 2 Not Available [facility] (Outpatient) [address] [place], [address], 07/28/2024 15:25:09 07/29/19 25 07/28/2024 COMPR EHENS RONY METAB OLIC PANEL AST 22 U/L 0-37 Not Available [facility] (Outpatient) [address] [place], [address], 07/28/2024 15:25:09 07/29/19 25 07/28/2024 COMPR EHENS RONY METAB OLIC PANEL ALT 17 U/L 0-40 Not Available [facility] (Outpatient) [address] [place] [address], [address], 07/28/2024 15:25:09 07/29/19 25 07/28/2024 COMPR EHENS RONY METAB OLIC PANEL globulin 3.4 g/dL 1-4.8 Not Available [facility] (Outpatient) [address] [place], [address], 07/28/2024 15:25:09 07/29/19 25 07/28/2024 COMPR EHENS RONY METAB OLIC PANEL eGFR 94 mL/mi n/1.7 3m2 >59 Estim ated glome rular filtr ation rate calcu lated using the CKD-E PI refit equat ion. Not Available [facility] (Outpatient) [address] [place], [address], 07/28/2024 15:25:09 07/29/19 25 07/28/2024 COMPR EHENS RONY METAB OLIC PANEL anion gap 16 mmol/ L 10-20 Not Available [facility] (Out[facility]) [address] [place], [address], 07/28/2024 15:25:09 07/29/19 25 08/02/2024 TRYPT ASE tryptase 3.2 NG/mL <11.5 Not Available [facility] (Out[facility]) [address] [place], [address], 08/02/2024 21:59:46 08/19/19 25 08/18/2024 CBC WBC 8.71 K/uL 4.00-1 1.00 Not Available [facility] (Out[facility]) [address] [place], [address], 08/18/2024 15:13:54 08/19/19 25 08/18/2024 CBC RBC 5.07 M/uL 4.00-5 .20 Not Available [facility] (Outpatient) [address] [place], [address], 08/18/2024 15:13:54 08/19/19 25 08/18/2024 CBC HGB 14.9 g/dL 12.0-1 6.0 Not Available [facility] (Outpatient) [address] [place], [address], 08/18/2024 15:13:54 08/19/19 25 08/18/2024 CBC HCT 46.1 % 36.0-4 6.0 high Not Available [facility] (Outpatient) [address] [place], [address], 08/18/2024 15:13:54 08/19/19 25 08/18/2024 CBC plt 277 K/uL 150-45 0 Not Available [facility] (Outpatient) [address] [place], [address], 08/18/2024 15:13:54 08/19/19 25 08/18/2024 CBC MCV 90.9 fL 80.0-1 00.0 Not Available [facility] (Outpatient) [address] [place] [address], [address], 08/18/2024 15:13:54 08/19/19 25 08/18/2024 CBC MCH 29.4 pg 27.0-3 1.0 Not Available [facility] (Outpatient) [address] [place], [address], 08/18/2024 15:13:54 08/19/19 25 08/18/2024 CBC MCHC 32.3 g/dL 32.0-3 6.0 Not Available [facility] (Outpatient) [address] [place], [address], 08/18/2024 15:13:54 08/19/19 25 08/18/2024 CBC RDW 13.7 % 11.5-1 4.5 Not Available [facility] (Outpatient) [address] [place], [address], 08/18/2024 15:13:54 08/19/19 25 08/18/2024 CBC MPV 10.4 fL 8.4-12 .0 Not Available [facility] (Outpatient) [address] [place], [address], 08/18/2024 15:13:54 08/19/19 25 08/18/2024 CBC NRBC 0.00 /100_ WBCs 0.00 Not Available [facility] (Outpatient) [address] [place], [address], 08/18/2024 15:13:54 08/19/19 25 08/18/2024 CBC absolute NRBC 0.00 K/uL 0.00 Not Available [facility] (Outpatient) [address] [place], [address], 08/18/2024 15:13:54 08/19/19 25 08/18/2024 COMPR EHENS RONY METAB OLIC PANEL sodium 138 mmol/ L 133-14 6 Not Available [facility] (Outpatient) [address] [place], [address], 08/18/2024 18:52:01 08/19/19 25 08/18/2024 COMPR EHENS RONY METAB OLIC PANEL potassium 4.4 mmol/ L 3.3-5. 1 Not Available [facility] (Outpatient) [address] [place], [address], 08/18/2024 18:52:01 08/19/19 25 08/18/2024 COMPR EHENS RONY METAB OLIC PANEL chloride 103 mmol/ L 96-108 Not Available [facility] (Outpatient) [address] [place], [address], 08/18/2024 18:52:01 08/19/19 25 08/18/2024 COMPR EHENS RONY METAB OLIC PANEL CO2 26 mmol/ L 21-35 Not Available [facility] (Outpatient) [address] [place] [address], [address], 08/18/2024 18:52:01 08/19/19 25 08/18/2024 COMPR EHENS RONY METAB OLIC PANEL BUN 17 mg/dL 6-19 Not Available [facility] (Outpatient) [address] [place], [address], 08/18/2024 18:52:01 08/19/19 25 08/18/2024 COMPR EHENS RONY METAB OLIC PANEL creatinine 0.80 mg/dL 0.5-1. 5 Not Available [facility] (Outpatient) [address] [place], [address], 08/18/2024 18:52:01 08/19/19 25 08/18/2024 COMPR EHENS RONY METAB OLIC PANEL glucose 101 mg/dL 70-99 high Not Available [facility] (Outpatient) [address] [place], [address], 08/18/2024 18:52:01 08/19/19 25 08/18/2024 COMPR EHENS RONY METAB OLIC PANEL albumin 4.4 g/dL 3.9-4. 8 Not Available [facility] (Outpatient) [address] [place], [address], 08/18/2024 18:52:01 08/19/19 25 08/18/2024 COMPR EHENS RONY METAB OLIC PANEL total protein 7.9 g/dL 6.5-8. 0 Not Available [facility] (Outpatient) [address] [place], [address], 08/18/2024 18:52:01 08/19/19 25 08/18/2024 COMPR EHENS RONY METAB OLIC PANEL calcium 9.7 mg/dL 8.4-10 .3 Not Available [facility] (Outpatient) [address] [place], [address], 08/18/2024 18:52:01 08/19/19 25 08/18/2024 COMPR EHENS RONY METAB OLIC PANEL alkaline phosphatase 114 U/L 39-117 Not Available [facility] (Outpatient) [address] [place], [address], 08/18/2024 18:52:01 08/19/19 25 08/18/2024 COMPR EHENS RONY METAB OLIC PANEL total bilirubin 0.4 mg/dL 0.0-1. 2 Not Available [facility] (Outpatient) [address] [place] [address], [address], 08/18/2024 18:52:01 08/19/19 25 08/18/2024 COMPR EHENS RONY METAB OLIC PANEL AST 24 U/L 0-37 Not Available [facility] (Outpatient) [address] [place], [address], 08/18/2024 18:52:01 08/19/19 25 08/18/2024 COMPR EHENS RONY METAB OLIC PANEL ALT 17 U/L 0-40 Not Available [facility] (Outpatient) [address] [place], [address], 08/18/2024 18:52:01 08/19/19 25 08/18/2024 COMPR EHENS RONY METAB OLIC PANEL globulin 3.5 g/dL 1-4.8 Not Available [facility] (Outpatient) [address] [place] [address], [address], 08/18/2024 18:52:01 08/19/19 25 08/18/2024 COMPR EHENS RONY METAB OLIC PANEL eGFR 80 mL/mi n/1.7 3m2 >59 Estim ated glome rular filtr ation rate calcu lated using the CKD-E PI refit equat ion. Not Available [facility] (Outpatient) [address] [place], [address], 08/18/2024 18:52:01 08/19/19 25 08/18/2024 COMPR EHENS RONY METAB OLIC PANEL anion gap 13 mmol/ L 10-20 Not Available [facility] (Outpatient) [address] [place], [address], 08/18/2024 18:52:01 06/10/19 25 06/08/2024 MRI, cervi thor spine , w/o contr ast No observ ation record ed. [email or web address] [facility] [place] [address] [facility], [place], [address], 06/11/2024 15:49:40 06/10/19 25 06/08/2024 MRI, thora cic spine , w/o contr ast No observ ation record ed. [email or web address] [facility] [place] [address], [place], [address], 06/11/2024 15:52:37 06/22/19 25 06/21/2024 CT, thora cic spine , w/o contr ast No observ ation record ed. [place] [id number] [facility] [place] [address] [place] [address], [place], [address], 06/22/2024 14:18:20 07/16/19 25 07/14/2024 XR, abdom en No observ ation record ed. [facility] [address] [place], [address], 08/03/2024 14:29:10 08/04/19 25 08/03/2024 RF, upper gastr ointe milla l tract + small bowel , w/ contr ast PO No observ ation record ed. [facility] [address] [place], [address], 08/05/2024 17:27:39 08/06/19 25 07/14/2024 XR, abdom en No observ ation record ed. [address] (Medical Records) [address] [place], [address], 08/05/2024 16:48:20 08/07/19 25 07/13/2024 XR, abdom en No observ ation record ed. [address] [place], [address], 08/11/2024 14:46:09 0407/14/2024 XR, abdom en No observ ation record ed. [facility] [address] [place], [address], 08/25/2024 07:58:48 08/07/1907/12/2024 XR, abdom en, compl ete No observ ation record ed. [address] (Imaging) [address] [place], [address], 08/11/2024 14:47:10 Result Notes None recorded. Procedures Surgical History Date Name Laterality Status Provider Name and Address Organization Details Recorded Time 4 Emily - EGD completed Dieudonne Diaz MD [address] [place] [address], [phone], [facility] 06/13/2023 14:04:52 3 Emily - Colonoscopy completed Dieudonne Diaz MD [address] [place] [address], [phone], [facility] 12/20/2022 12:45:26 Imaging Results Imaging Date Name Status LastModified by Organization Details LastModified Time 06/08/2024 MRI, cervical spine, w/o contrast completed [place] [id number] [facility] [address], [address], 06/11/2024 15:49:40 06/08/2024 MRI, thoracic spine, w/o contrast [place] [address] [facility] [place] [address], [address], 06/11/2024 15:52:37 06/21/2024 CT, thoracic spine, w/o contrast [place] [address] [facility] [place] [address], [address], 06/22/2024 14:18:20 07/14/2024 XR, abdomen completed [facility] [address] [place], [address], 08/03/2024 14:29:10 08/03/2024 RF, upper gastrointestinal tract + small bowel, w/ contrast PO completed [facility] [address] [place], [address], 08/05/2024 17:27:39 07/14/2024 XR, abdomen completed [address] (Medical Records) [address] [place], [address], 08/05/2024 16:48:20 07/13/2024 XR, abdomen completed [address] [place] [address], [address], 08/11/2024 14:46:09 07/14/2024 XR, abdomen completed [email or web address] [address] [place], [address], 08/25/2024 07:58:48 07/12/2024 XR, abdomen, complete completed [address] (Imaging) [address] [place], [address], 08/11/2024 14:47:10 Procedure Notes None recorded. Medical Equipment None Reported. Allergies Allergen ID Allergen Name Allergen Category Reaction Reaction Severity Criticality Documentation Date Start Date Code Code System Note Provider Name and Address Organization Details Recorded Time 386131 codeine medicatio n vomiting Not available Not available 12/19/2022 2670 RxNorm DIANA Amin, [facility] 3 15:40:08 [id number] Levaquin medicatio n rash Not available Not available 12/19/2022 20577 2 RxNorm DIANA Amin, [facility] 3 15:40:22 [id number] Sudafed medicatio n rash Not available Not available 12/19/2022 54586 2 RxNorm DIANA Amin, [facility] 3 15:40:56 [id number] pantopraz ole medicatio n other Not available Not available 06/12/2023 49883 RxNorm pain Nancy Paige, RN null, [facility] 4 13:43:27 [id number] Ativan medicatio n other Not available Not available 06/12/2023 91941 9 RxNorm hyper activ ity Nancy Paige, RN null, [facility] 4 13:44:08 464218 propranol ol medicatio n confusion Not available Not available 06/12/2023 8787 RxNorm Archerhomer Paige, RN null, [facility] 4 13:44:34 268195 hydroxyzi ne Not available other Not available Not available 06/12/2023 5553 RxNorm unkno wn Nancy Paige, RN null, [facility] 4 13:44:59 280734 lisinopri l medicatio n Not available Not available Not available 06/12/2023 63654 RxNorm unkno wn rx Nancy DIANA Paige null, [facility] 4 13:45:14 Medications Name Sig Start Date [...] TIMES DAILY BEFORE A MEAL / BEDTIME active Not Available Not Available No t Available famotidin e 40 mg tablet TAKE [...] 06/15/18- Not Available Not Available Not Available cyprohept [...] Not Available zolpidem 5 mg tablet Take 1-2 tablets by mouth at bedtime as needed 2024 active Not Available Not Available Not Avai lable gabapenti n 100 mg capsule TAKE 1 [...] 3 times a day by oral route. 08/18 completed Not Available Not Available Not Available Probiotic 08/11 completed Not Available Not Available Not Available JAILER Thyroid 30 mg tablet Take 1 tablet [...] completed Not Available Not Available Not Available JAILER Thyroid 15 mg tablet Take 1 tab by mouth once daily on an empty stomach 2024 active Not Available Not Available Not Avai lable Clenpiq 10 mg-3.5 gram-12 gram/160 mL oral [...] Is Your Level Of Caffeine Consumption? None [email or web address] Information not available 07/18/2015 How Much Tobacco Do You Chew? None [email or web address] Information not available 07/18/2015 Are You Currently Employed? No Information not available 11/07/2022 What Type Of Diet Are You Following? VEGETARIAN No Gluten, Dairy, Soy, Sugar, Meat, [place], Nuts, Fruit, Chocolate (she Does Do Eggs [...] Or The Highest Degree You Have Received? [id number] Information not available 11/07/2022 What Is Your [...] Date Of Your Most Recent Tobacco Screening? 08/18/2024 [email or web address] Information not available 08/18/2024 How Many Children Do You Have? 0 [...] Use Any Illicit Or Recreational Drugs? No [email or web address] Information not available 11/13/2023 Do You Use Sunscreen Routinely? Yes [email or web address] Information not available 07/18/2015 Do You Or [...] Not available 05/06/2023 12:39:45 Brother Lyme disease [email or web address] Not avai lable 06/19/2022 08:57:22 Father Problem 90 ?AAA [email or web address] Not available 06/19/2022 08:57:22 Notes:No family hx breast/co jorge ablerto [place] Maternal aunts with pancreatic, ovarian, stomach Medical History Condition Response Breast Cancer Y Lyme Disease Y GASTROINTESTINAL Y Migraine Headaches Y Gynecological History Statement/Question Response Hysterectomy Y Age at Menarche 12 Obstetrics History GPAL:G 0 P 0 0 0 0 Past Encounters Encounter ID Performer Location Encounter Start Date Encounter Closed Date Diagnosis/Indication Diagnosis SNOMED-CT Code Diagnosis ICD10 Code Diagnosis Note [id number] MD RIANA Mascorro, [facility], OFFICE [address] [place] [phone] 04/30/2012 08:56:53 04/30/2012 10:00:41 [id number] Alex MAYERS [facility], OFFICE [address] [place] [address] 06/23/2012 08:28:16 06/23/2012 09:43:51 [id number] Alex MAYERS [facility], OFFICE [address] [place] [address] 07/21/2012 09:14:35 07/21/2012 10:05:14 [id number] Alex MAYERS, [facility], OFFICE [address] [facility] [place] [address] 10/20/2012 08:03:10 10/20/2012 08:47:09 [id number] JOSE MARIA Richards, [facility], OFFICE [address] [facility] [place] [address] 12/03/2012 11:51:31 12/03/2012 12:30:11 [id number] Alex MAYERS, [facility], OFFICE [address] [facility] [place] [address] 12/16/2012 08:11:02 12/16/2012 08:56:36 [id number] Alex MAYERS, [facility], OFFICE [address] [facility] [place] [address] 01/11/2013 13:33:36 01/11/2013 14:06:58 [id number] Alex MAYERS, [facility], OFFICE [address] [facility] [place] [address] 01/27/2013 11:54:29 01/27/2013 13:00:33 [id number] Alex MAYERS, [facility], OFFICE [address] [facility] [place] [address] 03/30/2013 07:58:43 03/30/2013 08:34:01 [id number] Alex MAYERS, [facility], OFFICE [address] [facility] [place] [address] 06/22/2013 08:01:23 06/22/2013 08:41:55 [id number] Alex MAYERS, [facility], OFFICE [address] [facility] [place] [address] 09/30/2013 09:17:58 09/30/2013 10:24:59 [id number] Alex MAYERS, [facility], OFFICE [address] [facility] [place] [address] 12/09/2013 08:49:06 12/09/2013 09:49:21 [id number] Alex MAYERS, [facility], OFFICE [address] [facility] [place] [address] 07/13/2014 08:08:36 07/13/2014 09:27:53 [id number] Alex MAYERS, [facility], OFFICE [address] [facility] [place] [address] 01/09/2015 08:01:10 01/09/2015 09:04:01 [id number] Alex MAYERS, [facility], OFFICE [address] [facility] [place] [address] 07/18/2015 08:27:35 07/18/2015 09:47:33 [id number] Joaquim De La Fuente, DPM Podiatry, [facility] [address] [facility] [place] [address] 08/31/2015 10:44:14 08/31/2015 13:06:02 [id number] Alex MAYERS, [facility], OFFICE [address] [facility] [place] [address] 01/18/2016 08:02:08 01/18/2016 08:48:19 [id number] Alex MAYERS, [facility], OFFICE [address] [facility] [place] [address] 07/16/2016 08:00:21 07/16/2016 08:51:00 [id number] Alex MAYERS, [facility], OFFICE [address] [facility] [place] [address] 07/18/2016 08:18:14 07/18/2016 09:15:08 [id number] Alex MAYERS, [facility], OFFICE [address] [facility] [place] [address] 02/17/2017 11:35:31 02/17/2017 12:45:41 [id number] Alex MAYERS, [facility], OFFICE [address] [facility] [place] [address] 07/30/2017 08:25:26 07/30/2017 09:20:12 [id number] Alex MAYERS, [facility], OFFICE [address] [place] [address] 10/27/2017 12:05:07 10/27/2017 12:48:55 [id number] Alex MAYERS, [facility], OFFICE [address] [facility] [place] [address] 11/25/2017 16:22:54 11/25/2017 16:34:00 [id number] Alex Paulson , [facility], OFFICE [address] [facility] [place] [address] 01/28/2018 08:54:54 01/28/2018 09:36:55 [id number] Alex MAYERS, [facility], OFFICE [address] [facility] [place] [address] 04/27/2018 11:26:53 04/27/2018 12:05:51 [id number] Alex MAYERS, [facility], OFFICE [address] [facility] [place] [address] 06/15/2018 08:07:50 06/15/2018 10:38:08 [id number] Dinora Holt PhD , [facility] [address] [place] [address] 07/06/2018 12:36:55 07/06/2018 13:49:51 [id number] Dinora Holt PhD , [facility] [address] [facility] [place] [address] 07/16/2018 14:44:25 07/16/2018 16:05:01 [id number] Dinora Holt PhD , [facility] [address] [facility] [address] 08/06/2018 11:53:23 08/06/2018 13:01:15 [id number] Alex MAYERS, [facility], OFFICE [address] [facility] [place] [address] 08/11/2018 15:40:40 08/12/2018 13:23:43 [id number] Dinora Holt PhD , [facility] [address] [place] [address] 08/12/2018 11:43:18 08/12/2018 14:38:07 [id number] Dinora Holt PhD , [facility] [address] [place] [address] 6 08/19/2018 11:48:38 08/19/2018 12:48:59 [id number] Dinora Holt PhD , [facility] [address] [facility] [place] [address] 09/24/2018 11:50:41 09/24/2018 12:57:12 [id number] Alex Paulson , [facility], OFFICE [address] [facility] [place] [address] 11/03/2018 14:31:12 11/03/2018 15:29:40 [id number] Alex MAYERS, [facility], OFFICE [address] [facility] [place] [address] 6 02/08/2019 10:08:28 02/08/2019 11:14:27 [id number] Alex MAYERS, [facility], OFFICE [address] [facility] [place] [address] 6 04/15/2019 11:24:39 04/15/2019 14:10:22 [id number] MD RIANA Mascorro, [facility], OFFICE [address] [facility] [place] [address] 6 05/12/2019 15:46:05 05/12/2019 17:12:21 [id number] Alex MAYERS, [facility], OFFICE [address] [facility] [place] [address] 6 06/21/2019 08:52:54 06/21/2019 09:46:57 [id number] Alex MAYERS, [facility], OFFICE [address] [facility] [place] [address] 6 09/01/2019 16:04:07 09/02/2019 15:09:10 [id number] Alex MAYERS, [facility], OFFICE [address] [facility] [place] [address] 6 11/03/2019 11:52:38 11/04/2019 13:52:07 [id number] Alex MAYERS, [facility], OFFICE [address] [facility] [place] [address] 6 11/17/2019 10:16:20 11/18/2019 13:03:35 [id number] Alex MAYERS, [facility], OFFICE [address] [facility] [place] [address] 6 12/16/2019 11:40:18 12/17/2019 12:58:29 [id number] Alex MAYERS, [facility], OFFICE [address] [facility] [place] [address] 6 02/23/2020 12:07:12 02/25/2020 19:20:21 [id number] Alex Paulson , [facility], OFFICE [address] [facility] [place] [address] 6 05/23/2020 15:15:26 05/24/2020 16:53:21 [id number] Alex MAYERS, [facility], OFFICE [address] [facility] [place] [address] 6 09/14/2020 15:43:04 09/14/2020 17:12:45 [id number] Alex MAYERS, [facility], OFFICE [address] [facility] [place] [address] 6 10/12/2020 15:25:57 10/12/2020 16:46:17 [id number] Alex MAYERS, [facility], OFFICE [address] [facility] [place] [address] 6 03/13/2021 15:30:10 03/16/2021 16:46:19 [id number] MD RIANA Montilla, [facility], OFFICE [address] [facility] [place] [address] 04/17/2021 17:33:06 04/23/2021 15:18:24 [id number] Alex MAYERS, [facility], OFFICE [address] [facility] [place] [address] 6 04/24/2021 10:58:01 05/08/2021 12:57:49 [id number] Alex MAYERS, [facility], OFFICE [address] [facility] [place] [address] 6 05/07/2021 13:28:29 05/08/2021 13:49:37 [id number] Alex MAYERS, [facility], OFFICE [address] [facility] [place] [address] 6 06/14/2021 13:49:38 06/14/2021 15:19:13 [id number] Slick Roger MD [facility] [address] [address] 07/30/2021 14:45:42 07/30/2021 19:41:02 [id number] Alex MAYERS, [facility], OFFICE [address] [facility] [place] [address] 6 08/16/2021 13:13:16 08/16/2021 14:29:02 [id number] MD RIANA Montilla, [facility], OFFICE [address] [place] [address] 6 11/13/2021 16:46:03 11/15/2021 11:47:55 [id number] Slick Roger MD Endocrino [facility], [address] [address] 11/29/2021 14:22:58 12/04/2021 08:22:39 [id number] Alex MAYERS, [facility], OFFICE [address] [facility] [place] [address] 6 12/17/2021 09:58:58 12/17/2021 11:50:45 [id number] Dieudonne Diaz MD [facility], [address] [address] 01/23/2022 11:27:51 01/23/2022 14:17:11 [id number] Alex MAYERS, [facility], OFFICE [address] [facility] [place] [address] 02/07/2022 15:40:25 02/07/2022 16:55:52 [id number] Alex MAYERS, [facility], OFFICE [address] [facility] [place] [address] 02/20/2022 10:04:50 03/14/2022 13:38:25 [id number] Alex MAYERS, [facility], OFFICE [address] [facility] [place] [address] 6 03/14/2022 08:49:25 03/14/2022 09:59:08 [id number] Alex MAYERS, [facility], OFFICE [address] [place] [address] 6 04/24/2022 11:43:51 04/24/2022 13:28:53 [id number] Alex MAYERS, [facility], OFFICE [address] [facility] [place] [address] 6 04/25/2022 14:05:55 04/26/2022 15:52:37 [id number] Alex Paulson , [facility], OFFICE [address] [facility] [place] [address] 6 06/19/2022 08:57:13 06/19/2022 10:29:26 [id number] Alex MAYERS, [facility], OFFICE [address] [facility] [place] [address] 6 07/23/2022 08:29:06 07/24/2022 11:44:44 [id number] Alex MAYERS, [facility], OFFICE [address] [facility] [place] [address] 6 08/15/2022 13:23:01 08/15/2022 14:23:53 [id number] Alex MAYERS, [facility], OFFICE [address] [facility] [place] [address] 6 08/28/2022 13:49:35 08/28/2022 15:04:46 [id number] Alex MAYERS, [facility], OFFICE [address] [facility] [place] [address] 6 09/12/2022 11:36:49 09/12/2022 12:58:04 [id number] Alex MAYERS, [facility], OFFICE [address] [facility] [place] [address] 10/03/2022 11:58:12 10/03/2022 12:53:39 [id number] Alex MAYERS, [facility], OFFICE [address] [facility] [place] [address] 11/07/2022 11:33:40 11/07/2022 13:09:58 [id number] Alex MAYERS, [facility], OFFICE [address] [facility] [place] [address] 6 12/12/2022 10:50:33 12/12/2022 11:59:24 [id number] Dieudonne Diaz MD Endoscopy , [facility] [address] [place] [address] 12/20/2022 10:51:50 12/20/2022 13:29:31 [id number] Alex Paulson , [facility], OFFICE [address] [facility] [place] [address] 01/02/2023 11:27:49 01/02/2023 12:47:47 [id number] Alex MAYERS, [facility], OFFICE [address] [facility] [place] [address] 6 01/29/2023 10:52:38 01/29/2023 12:19:51 [id number] Alex MAYERS, [facility], OFFICE [address] [facility] [place] [address] 02/06/2023 11:31:07 02/06/2023 12:37:23 [id number] Erlin Duarte MD Psychiatr y, [facility] [address] [facility] [place] [facility] [place] [address] 03/04/2023 14:58:14 03/12/2023 15:21:15 [id number] SABIHA Payne , [facility], OFFICE [address] [facility] [place] [address] 03/13/2023 11:38:36 03/13/2023 13:18:29 [id number] Alex MAYERS, [facility], OFFICE [address] [facility] [place] [address] 04/02/2023 11:41:28 04/02/2023 12:59:58 [id number] Erlin Duarte MD Psychiatr y, [facility] [address] [facility] [place] [facility] [place] [address] 6 04/07/2023 14:16:00 04/14/2023 11:17:55 [id number] MD RIANA Montilla, [facility], OFFICE [address] [facility] [place] [address] 05/01/2023 14:57:23 05/05/2023 09:21:29 [id number] Alex MAYERS, [facility], OFFICE [address] [facility] [place] [address] 6 05/06/2023 11:46:18 05/08/2023 10:15:39 [id number] Erlin Duarte MD Psychiatr y, [facility] [address] [place] [address] 05/22/2023 14:34:13 05/26/2023 12:32:15 [id number] Alex Paulson , [facility], OFFICE [address] [facility] [address] [facility] [place] [address] 05/21/2023 12:01:51 05/21/2023 13:54:30 [id number] Alex MAYERS, [facility], OFFICE [address] [facility] [place] [address] 6 05/27/2023 10:55:02 05/27/2023 12:47:08 [id number] William Hilton MD , [facility], OFFICE [address] [facility] [address] [facility] [place] [address] 6 05/30/2023 11:14:35 06/02/2023 12:10:57 [id number] Alex MAYERS, [facility], OFFICE [address] [facility] [place] [address] 6 06/03/2023 11:39:56 06/03/2023 13:00:04 [id number] Dieudonne Diaz MD [facility] , [address] [address] 06/13/2023 11:04:30 06/13/2023 14:11:38 [id number] Alex MAYERS, [facility], OFFICE [address] [facility] [place] [address] 6 06/17/2023 11:24:51 06/18/2023 15:01:40 [id number] Alex MAYERS, [facility], OFFICE [address] [facility] [address] [facility] [place] [address] 06/25/2023 12:04:00 06/26/2023 10:24:29 [id number] Alex MAYERS, [facility], OFFICE [address] [facility] [place] [address] 07/03/2023 12:12:47 07/04/2023 11:20:35 [id number] Alex MAYERS, [facility], OFFICE [address] [facility] [place] [address] 6 07/28/2023 13:27:12 07/29/2023 10:58:05 [id number] Alex MAYERS, [facility], OFFICE [address] [facility] [place] [address] 08/14/2023 13:57:47 08/14/2023 16:27:49 [id number] Alex MAYERS, [facility], OFFICE [address] [facility] [place] [address] 6 08/28/2023 12:16:38 08/29/2023 10:23:50 [id number] Alex MAYERS, [facility], OFFICE [address] [facility] [place] [address] 09/08/2023 11:27:45 09/09/2023 13:29:54 [id number] Alex MAYERS, [facility], OFFICE [address] [facility] [place] [address] 6 09/25/2023 14:23:20 09/25/2023 22:28:46 [id number] Alex MAYERS, [facility], OFFICE [address] [facility] [place] [address] 10/09/2023 11:31:00 10/09/2023 15:46:33 [id number] Alex MAYERS, [facility], OFFICE [address] [facility] [place] [address] 6 10/20/2023 12:08:45 10/20/2023 16:03:36 [id number] Alex MAYERS, [facility], OFFICE [address] [facility] [place] [address] 6 11/03/2023 11:57:59 11/05/2023 19:36:58 [id number] Alex MAYERS, [facility], OFFICE [address] [facility] [place] [address] 6 11/13/2023 14:25:56 11/13/2023 16:13:39 [id number] Alex MAYERS, [facility], OFFICE [address] [facility] [place] [address] 6 11/26/2023 11:45:32 11/26/2023 12:44:41 [id number] Alex MAYERS, [facility], OFFICE [address] [facility] [place] [address] 12/01/2023 11:27:53 12/01/2023 14:44:48 [id number] Alex MAYERS, [facility], OFFICE [address] [facility] [place] [address] 6 12/11/2023 13:28:23 12/16/2023 10:45:22 [id number] Alex MAYERS, [facility], OFFICE [address] [facility] [place] [address] 6 12/25/2023 11:27:57 12/25/2023 13:08:54 [id number] Alex MAYERS, [facility], OFFICE [address] [facility] [place] [address] 6 01/08/2024 13:33:26 01/08/2024 14:47:00 [id number] STEFFANY Moreno, [facility], OFFICE [address] [facility] [place] [address] 02/12/2024 09:34:05 02/25/2024 08:54:26 [id number] STEFFANY Moreno, [facility], OFFICE [address] [facility] [place] [address] 6 02/25/2024 09:31:55 03/02/2024 11:09:07 [id number] STEFFANY Moreno, [facility], OFFICE [address] [facility] [place] [address] 6 03/17/2024 11:27:36 03/22/2024 16:03:36 [id number] Alex MAYERS, [facility], OFFICE [address] [facility] [place] [address] 6 03/17/2024 12:15:40 03/17/2024 14:26:49 [id number] Alex MAYERS, [facility], OFFICE [address] [facility] [place] [address] 6 03/31/2024 12:04:40 03/31/2024 17:25:16 [id number] Alex MAYERS, [facility], OFFICE [address] [facility] [place] [address] 6 04/15/2024 14:27:24 04/15/2024 15:47:11 [id number] Alex Paulson , [facility], OFFICE [address] [facility] [place] [address] 05/04/2024 12:16:13 05/06/2024 18:35:59 [id number] Alex MAYERS, [facility], OFFICE [address] [facility] [place] [address] 05/11/2024 11:30:04 05/11/2024 17:03:19 [id number] Erlin Duarte MD Psychiatr y, [facility] [address] [place] [address] 05/20/2024 08:32:36 05/27/2024 17:12:00 [id number] Alex MAYERS, [facility], OFFICE [address] [facility] [place] [address] 6 06/02/2024 14:25:45 06/03/2024 13:54:53 [id number] Alex MAYERS, [facility], OFFICE [address] [facility] [place] [address] 6 06/10/2024 11:28:02 06/10/2024 15:49:58 [id number] Alex MAYERS, [facility], OFFICE [address] [facility] [place] [address] 6 06/23/2024 14:25:52 06/23/2024 17:57:46 [id number] Erlin Duarte MD Psychiatr y, [facility] [address] [place] [address] 07/02/2024 10:28:36 07/03/2024 14:21:04 [id number] JOSE MARIA Fernando, [facility], OFFICE [address] [facility] [place] [address] 07/08/2024 15:37:58 07/09/2024 10:08:25 [id number] JOSE MARIA Fernando, [facility], OFFICE [address] [facility] [place] [address] 07/21/2024 11:43:43 07/21/2024 13:28:52 [id number] JOSE MARIA Fernando, [facility], OFFICE [address] [place] [address] 08/18/2024 11:31:39 08/18/2024 16:17:29 Health Concerns Section Related Observation LastModified by Organization Detai ls LastModified Time None Recorded Concern Status LastModified by Organization Details LastModified Time None Recorded Advance Directives Directive None Recorded Payers Encounter Date Sequence Insurance Name Policy Number Policy Santos Covered Member ID Santos Member ID Guarantor Name 06/23/2024 1 [facility]: [place] BLUE (MEDICARE REPLACEMENT PPO) [id number] Umm Hernandezloud [id number] Umm Guillen 07/02/2024 1 [facility]UE (MEDICARE REPLACEMENT PPO) [id number] Umm Hernandezloud [id number] Umm Hernandezloud 07/08/2024 1 [facility]UE (MEDICARE REPLACEMENT PPO) [id number] Umm Hernandezloud [id number] Umm Guillen 07/21/2024 1 [facility]UE (MEDICARE REPLACEMENT PPO) [id number] Umm Hernandezloud [id number] Umm Guillen 08/18/2024 1 [facility]: [place] BLUE (MEDICARE REPLACEMENT PPO) [id number] Umm Hernandezloud [id number] Umm Guillen OBGyn Episode No OBEpisode recorded.
== END 2024-09-02 14:33 | disposition home or self-care (01) ==
LOC: HO.HUSH 12:58
PROVIDERS: PCP Family Medicine; Visit Provider Urology
DX: R39.14 Feeling of incomplete bladder emptying (principal); Z13.9 Encounter for screening, unspecified
CPT/HCPCS: 51728; 51741; 51784; 51797

== ENCOUNTER → 2024-09-02 12:58 | Outpatient (BNVA) | payer MEDICARE, SELFPAY | PROVIDERS: PCP Family Medicine; Visit Provider Urology | DX: N32.81 Overactive bladder (principal); N32.89 Other specified disorders of bladder | CPT/HCPCS: 51728; 51741; 51784; 51797; 81003; 99212 ==

== ENCOUNTER 2024-12-20 12:01 | Outpatient (AMB) | payer MEDICARE, SELFPAY ==
--- NOTE | 2024-12-20 12:01 | MHC.OFFVIS ---
Intake Visit Reasons: 4 mo Postprandial epigastric pain Machine Stemmer Required: No Allergies Benzodiazepines Allergy (Severe, Verified 12/20/24 12:02) Agitated codeine Allergy (Severe, Verified 12/20/24 12:02) Vomiting gluten Allergy (Severe, Verified 12/20/24 12:02) Gastrointestinal Upset hydroxyzine Allergy (Severe, Verified 12/20/24 12:02) Agitated metoprolol Allergy (Severe, Verified 12/20/24 12:02) throat swelling, confusion Milk Containing Products (Dairy) Allergy (Severe, Verified 12/20/24 12:02) Gastrointestinal Upset propranolol Allergy (Severe, Verified 12/20/24 12:02) Throat swelling, confusion soy Allergy (Severe, Verified 12/20/24 12:02) gastric problems levofloxacin (From Levaquin) Allergy (Mild, Verified 12/20/24 12:02) Rash nortriptyline Allergy (Unknown, Verified 12/20/24 12:02) Unknown pseudoephedrine (From Sudafed) Adverse Reaction (Intermediate, Verified 12/20/24 12:02) Palpitations Sulcrafate Allergy (Severe, Uncoded 12/20/24 12:02) Swelling in throat HPI HPI 4 mo Postprandial epigastric pain: Details: 69 yr old f w hx of breast ca and b/l mastectomy here for f/u RECAP: She has histamine intolerance, she has issues with abdominal pain with food she can get immediate pain with food she has tried rifaximin and it maybe helped --tried 07/19 she has belching and bloating she is scared to eat she was taking simethicone she is wheelchair bound now and waiting to see neurologist --up till recently she was independent and horse riding etc so dramatic change she has tingling in hands and feet she had colonoscopy 2021- surgical resection --repeat colonoscopy was ok last EGD 2022--- normal she has raynauds she denies joint swelling I checked her labs which revealed high levels of arsenic and mercury she was advised to come to the ED she was seen by psych and advised to stop eating fish, considered as likely cause of her elevated heavy metals I had ordered a CTA-- no evidence of vasculitis, no ischemia, or impingement syndromes, degenerative pain noted in spine LABS: Tick serologies- neg Imaging: Small bowel follow thru hypervascularity of stomach with gastric erosions INTERIM: she feels like she is continuing to worsen she has ongoing issues with bloating worse with eating I sent her vonoprazon, and she did not take it, blaming a lot of symptoms on motility she said the punch bx were negative she hired an cco & president, and he will call me to r/v A/P: 1/ Multitude of sx, suspect this is mostly neurological in origin, possibly from arsenic and mercury poisioning or another pathology, CT Abdo neg for vasculitis, other labs neg thus far--ddx: CJD or other neurodegenerative disease --having mostly upper GI symptoms, PLAN: 1/ discussed EGD with avila and colo/sigmoid with bx, also blood work for micro plastics --she will consider, also discussed methane, and breath testing -- and also 24 hr urine methyhistamine and prostaglandins she will consider these and call me back [facility] Medical History Depression with anxiety Panic disorder Adult failure to thrive 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 Mother No problems noted. Brother Heart valve replaced Social History Household Members: Significant Other Housing: House Do you presently have visiting nurse or other home services: Yes Patient Tobacco Use Status: Never used Tobacco e-Cigarette/Vaping Use: Never Used Second Hand Smoke Exposure: No service: No Sexual orientation: Straight/Heterosexual Telehealth Telehealth Telehealth Platform: Telephone Location of provider rendering services: practice address Location of patient: address on file Patient Identification confirmed using: Name, : Yes Telehealth method: voice only Patient verbally consented to treatment: Yes Patient verbally consented to billing insurance company: Yes Patient informed of any privacy concerns related to visit: Yes Minutes spent on Phone/Video with Pt.: 13 Assessment & Plan Assessment & Plan (1) Small intestinal bacterial overgrowth (SIBO), hydrogen subtype: Code(s): K63.8211 - Small intestinal bacterial overgrowth, hydrogen-subtype Category: Medical Plan: as above Coding Level of Care Code Tele Est Pt Level 3 (33284) Diagnoses Small intestinal bacterial overgrowth (SIBO), hydrogen subtype K63.8211
--- OUTSIDE RECORDS SUMMARY | 2024-12-20 13:25 | XMS_ITS | Clinical Summary ---
Author Organization [facility] Address [address] [place] [address] Care Team Providers Care Control Room Tender Name Role Phone Katrin Paulson Primary Care Provider [phone] Allergies No known active allergies Medications thyroid [...] day. 2 times weekly if needed Active Encounters Date Type Department Care Team Description 10/04/2024 Telephone [facility] [address] [place] [phone] Office Director: Yee Garcia Telephone Intake, Staff PAC Appt Request - Established from Last 3 Months Social History Tobacco Use Types Packs/Day Years [...] 104 01/02/2024 10:38 AM EDT Temperature 36.8 C (98.2 F) 01/02/2024 10:38 AM EDT Respiratory Rate 18 01/02/2024 10:38 AM EDT Oxygen Saturation - - Inhaled Oxygen Concentration - - Weight 49.9 kg (110 lb) 01/02/2024 10:38 AM EDT Height - - Body Mass Index - - Plan of Treatment Scheduled Procedures Name Priority Associated Diagnoses Date/Ti [...] of Health Annual Screening 04/28/2024 Influenza Vaccine (#1) 2024 0, 02/11/2019 RSV Vaccine (60+ years old a nd patients) (1 - 1-dose 75+ series) 2029 Hepatitis B Vaccines Aged Out No long er eligible based on patient's age to complete this topic Insurance BCBS MCR REPLACE PPO Care Teams Control Room Tender Relationship Specialty Start Date End Date Katrin Paulson [address] [place] [address] PCP - General 12/23/23
--- OUTSIDE RECORDS SUMMARY | 2024-12-20 13:25 | XMS_ITS | Encounter Summary ---
Author Organization [facility] Address [address] [place] [address] [place] [phone] Phone Care Team Providers Care Trades Helper Name Role Phone Katrin Paulson MD Primary Care Provider [phone] Kenneth Schwartz MD Unavailable [phone] Katrin Paulson MD Primary Care Provider [phone] Roseline Sebastian Unavailable [phone] Reason for Referral * MRI/CAT Scan - Closed Specialty Diagnoses / Procedures Referred By Nicolasa ruiz Referred To Contact Radiology Diagnoses Bloating Change in bowel habits Gas pain Constipation, slow transit Procedures CT Abdomen/Pelvis CHG CT SCAN,ABDOMENT AND PELVIS,W CONTRAST CHG CT SCAN,ABDOMENT AND PELVIS,W/O CONTRAST CHG CT SCAN,ABDOMENT AND PELVIS,COMBO Dieudonne Diaz MD Phone: tel: fax: [email or web address] Referral ID Status Reason Start Date Expiration Date Visits Re quested Visits Authorized [id number] Closed 09/26/2021 2021 1 1 Encounter Details Date Type Department Care Team (Latest Contact Info) Description 09/26/2021 Transcribe Orders [facility] Department [address] [place] [address] Dieudonne Diaz MD [address] [place] [phone] [email or web address] Bloating (Primary Dx); Change in bowel habits; Gas pain; Constipation, slow transit Social History Tobacco Use Types Packs/Day Years Used Date Smoking Tobacco: Never Smokeless Tobacco: Never Comments Unknown Sex and Gender Information Value Date Recorded Sex Assigned at Female 07/03/2023 3:53 PM EST Legal Sex Female 9:55 PM EDT Gender Identity Female 07/04/2023 6:49 AM EST Sexual Orientation Straight 07/04/2023 6: 49 AM EST documented as of this encounter Plan of Treatment Upcoming Encounters Date Type Department Care Team (Late st Contact Info) Description 04/07/2024 Procedure Pass [facility] Scan [address] [id number] 01/26/2025 10:00 AM EDT Office Visit [facility] [address] [place] [phone] Diane Giordano MD [address] [facility], [address] [address] [email or web address] 04/25/2025 12:30 PM EST Appointment [facility] [address] [address] Roseline Sebastian MBBS [address] [place] [phone] [email or web address] 04/26/2025 11:00 AM EST Appointment [facility], Nuclear Medicine [address] [address] Roseline Sebastian MBBS [address] [place] [phone] [email or web address] 04/26/2025 2:00 PM EST Appointment [facility], Nuclear Medicine - [address] [address] Roseline Sebastian MBBS [address] [place] [phone] [email or web address] 05/04/2025 3:30 PM EST Telemedicine - audio only [facility] at [address] [address] Roseline Sebastian MBBS [address] [place] [phone] [email or web address] 05/19/2025 2:00 PM EST Telemedicine [facility] Department of Neurology [address] [facility], 8th Floor, [address] [place] [address] Moisés Lazar MD [address] [place] [address] [email or web address] documented as of this encounter Results * CT ABDOMEN/PELVIS WITH CONTRAST (11/16/2021 11:31 AM EDT) Anatomical Region Laterality Modality Abdomen, Pelvis Computed Tomogra phy 11/16/2021 12:3 0 PM EDT Impressions 11/16/2021 12:44 PM EDT 1.No significant intra-abdominal or retroperitoneal pathology or other interval change from 07/25/2011 apparent. Narrative 11/16/2021 12:[address] ABDOMEN/PELVIS WITH CONTRAST TECHNIQUE: Multidetector-row CT of the abdomen and pelvis was performed after administration of intravenous contrast using tailored dose modulation techniques. Images were reconstructed in the axial, coronal, and sagittal planes. COMPARISON: 07/25/2011 CT FINDINGS: Lower Chest: No focal infiltrate, pleural effusion, or worrisome parenchymal nodule. Liver: No hepatic mass or cyst apparent. No hepatic enlargement. Biliary: Gallbladder unremarkable in appearance. No evidence of bile duct dilatation. Spleen: Normal. No splenomegaly or focal lesions. Pancreas: No pancreatic mass, duct dilatation, or peripancreatic inflammatory change apparent. Adrenal Glands: Normal. No nodules. Kidneys/Ureters: No focal mass, cyst, hydronephrosis, or perinephric stranding have developed. There is a small stable right upper pole cyst versus angiomyolipoma. Bowel: Gastric contours unremarkable. No evidence of small bowel obstruction. Appendix again not visualized. Moderate colonic stool. No luminal distention, significant diverticular disease, or paracolic inflammatory infiltration detected. Peritoneum/Retroperitoneum: No ascites or mass lesions. Lymph Nodes: No pathologically enlarged mesenteric, para-aortic, iliac chain, or inguinal lymph nodes demonstrated. Pelvic Organs/Bladder: Status post hysterectomy. Stable adnexal regions. No mass or free fluid apparent. Bladder is collapsed. Vessels: No evidence of aortoiliac aneurysm. Incidental left retrocardiac renal vein. Portal vein grossly patent. Bones/Soft Tissues: No abdominal wall mass or hernia. Chronic scoliosis with progression of degenerative disc disease particularly at the L3-4 level but without traumatic or destructive skeletal lesion apparent. Procedure Note William Rausch MD - 11/16/2021 CT ABDOMEN/PELVIS WITH CONTRAST TECHNIQUE: Multidetector-row CT of the abdomen and pelvis was performedafter administration of intravenous contrast using tailored dosemodulation techniques. Images were reconstructed in the axial, coronal,and sagittal planes. COMPARISON: 07/25/2011 CT FINDINGS: Lower Chest: No focal infiltrate, pleural effusion, or worrisomeparenchymal nodule. Liver: No hepatic mass or cyst apparent. No hepatic enlargement. Biliary: Gallbladder unremarkable in appearance. No evidence of bile ductdilatation. Spleen: Normal. No splenomegaly or focal lesions. Pancreas: No pancreatic mass, duct dilatation, or peripancreaticinflammatory change apparent. Adrenal Glands: Normal. No nodules. Kidneys/Ureters: No focal mass, cyst, hydronephrosis, or perinephricstranding have developed. There is a small stable right upper pole cystversus angiomyolipoma. Bowel: Gastric contours unremarkable. No evidence of small bowelobstruction. Appendix again not visualized. Moderate colonic stool. Noluminal distention, significant diverticular disease, or paracolicinflammatory infiltration detected. Peritoneum/Retroperitoneum: No ascites or mass lesions. Lymph Nodes: No pathologically enlarged mesenteric, para-aortic, iliacchain, or inguinal lymph nodes demonstrated. Pelvic Organs/Bladder: Status post hysterectomy. Stable adnexal regions.No mass or free fluid apparent. Bladder is collapsed. Vessels: No evidence of aortoiliac aneurysm. Incidental left retrocardiacrenal vein. Portal vein grossly patent. Bones/Soft Tissues: No abdominal wall mass or hernia. Chronic scoliosiswith progression of degenerative disc disease particularly at the L3-4level but without traumatic or destructive skeletal lesion apparent. IMPRESSION: 1.No significant intra-abdominal or retroperitoneal pathology or otherinterval change from 07/25/2011 apparent. Dieudonne Diaz MD IMG CT ABD/PELVIS Final Result documented in this encounter Visit Diagnoses Diagnosis Bloating- Primary Flatulence, eructation, and gas pain Change in bowel habits Other symptoms involving digestive system Gas pain Flatulence, eructation, and gas pain Constipation, slow transit Slow transit constipation Bloating Flatulence, eructation, and gas pain Change in bowel habits Other symptoms involving digestive system Gas pain Flatulence, eructation, and gas pain Constipation, slow transit Slow transit constipation documented in this encounter Additional Health Concerns Infection Onset Date Last Indicated Resolved Time CoV-Risk 08/19/2023 08/19/2023 08/30/2023 1:21 AM EDT documented as of this encounter Care Teams Trades Helper Relationship Specialty Start Date End Date Katrin Paulson MD [email or web address] PCP - General 02/11/17 05/10/23 Katrin Paulson MD [address] [place] [phone] [email or web address] PCP - General Family Medicine 05/11/23 Kenneth Schwartz MD [address] [place] [address] [email or web address] Medical Oncology 04/17/23 10/31/24 Roseline Sebastian MBBS [address] [place] [phone] [email or web address] Primary Oncologist Medical Oncology 06/19/23 documented as of this encounter Additional Source Comments The information contained in this document represents components of the legal health record. It is not the complete legal health record.[facility]
--- OUTSIDE RECORDS SUMMARY | 2024-12-20 13:25 | XMS_ITS | Clinical Summary ---
Author Organization [facility] Address [address] [address] Care Team Providers Care Office Machine Servicer Name Role Phone Katrin Paulson MD Primary [...] Cancer Screening: Sigmoidoscopy 11/25/2003 Influenza Vaccine (#1) 2024 0, 02/11/2019 Hepatitis B Vaccine Aged Out No longe r eligible based on patient's age to complete this topic Insurance [facility] Care Teams Office Machine Servicer Relationship Specialty Start Date End Date Katrin Paulson MD [address] [place] [phone] PCP - General Family Medicine 05/15/23
== END 2024-12-20 14:42 | disposition home or self-care (01) ==
LOC: HO.HGI 12:01
PROVIDERS: PCP Family Medicine; Visit Provider Internal Medicine Gastroenterology
DX: K63.8211 Small intestinal bacterial overgrowth, hydrogen-subtype (principal)
CPT/HCPCS: 99213

== ENCOUNTER 2025-01-17 16:20 | Outpatient (AMB) | payer MEDICARE, SELFPAY ==
--- NOTE | 2025-01-17 16:20 | A.OFFVIS_ITS ---
Intake Visit Reasons: 3m follow up- pt wants a regular call to landline Intake Note: Patient is present via telehealth for a 3m follow up Urology Med: Estradiol Antibiotic Allergy: Levofloxacin Blood Thinner: None Wide Area Network Systems Administrator Required: No Allergies Benzodiazepines Allergy (Severe, Verified 01/17/25 16:20) Agitated codeine Allergy (Severe, Verified 01/17/25 16:20) Vomiting gluten Allergy (Severe, Verified 01/17/25 16:20) Gastrointestinal Upset hydroxyzine Allergy (Severe, Verified 01/17/25 16:20) Agitated metoprolol Allergy (Severe, Verified 01/17/25 16:20) throat swelling, confusion Milk Containing Products (Dairy) Allergy (Severe, Verified 01/17/25 16:20) Gastrointestinal Upset propranolol Allergy (Severe, Verified 01/17/25 16:20) Throat swelling, confusion soy Allergy (Severe, Verified 01/17/25 16:20) gastric problems levofloxacin (From Levaquin) Allergy (Mild, Verified 01/17/25 16:20) Rash nortriptyline Allergy (Unknown, Verified 01/17/25 16:20) Unknown pseudoephedrine (From Sudafed) Adverse Reaction (Intermediate, Verified 01/17/25 16:20) Palpitations Sulcrafate Allergy (Severe, Uncoded 12/20/24 12:02) Swelling in throat HPI Comments Details: 01/17/25--Umm is being evaluated for lower urinary tract symptoms, voiding dysfunction including urgency and incontinence. She was last seen in the office 09/02/2024 UDS performed, sensory urgency was noted and Myrbetriq 50 mg was prescribed. The patient states she did not use the medication. She states she had urine tested for Toxicology done by a [place] lab they found heavy metals micro-plastics and mold, and she attributes this to her voiding issues. At this time we will have her follow-up on a PRN basis. 09/02/24--Umm is here for urodynamics. The patient has complaints of urinary incontinence. Interpretation: During the filling phase there sensory urgency was noted, strong desire was noted at 243 mL. Leakage was not observed during cough or valsalva stress. Findings consistent with sensery urgency EMG- Appropriate changes in the waveforms were noted through out the study. Discussion Notes I reviewed the patient's symptoms and past medical interventions, noting the presence of bladder spasms, possible pelvic floor dysfunction, and past surgical history. I discussed the potential benefit of commencing Mirabegron 50 mg daily to alleviate bladder spasms and pressure. We also talked about pelvic floor physical therapy. The necessity of routine gynecologic evaluation after many years without was highlighted. 12/12/23--Rufina Selby (Sola) is here with complaints of changes in urination. She states that in April, she was hospitalized for low sodium. She was rehospitalized in May, june, and July. She states that she has had issues with her GI system and has lost about 25 lb since April,. She states that she leaks urine. She states she was treated for urinary tract infection. She does not feel like she completely empties her bladder. States had hysterectomy age 27 for endometriosis and then she states she was told she did not have endometriosis. On examination- vaginal atrophy, no pelvic floor prolapse visualized, positive leakage with coughing. Catheterized urine 160 mL. 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 Mother No problems noted. Brother Heart valve replaced Social History Household Members: Significant Other Housing: House Do you presently have visiting nurse or other home services: Yes Patient Tobacco Use Status: Never used Tobacco e-Cigarette/Vaping Use: Never Used Second Hand Smoke Exposure: No service: No Sexual orientation: Straight/Heterosexual Review of Systems Const All systems reviewed & are unremarkable except as noted in HPI and below Reports no additional complaints Eyes Reports no additional complaints ENT Reports no additional complaints Card Reports no additional complaints Resp Reports no additional complaints GI Reports no additional complaints Reports as per HPI Musc Reports no additional complaints Skin/Breast Reports system reviewed and no additional complaints, except as documented Neuro Reports no additional complaints Psych Reports no additional complaints Endo Reports no additional complaints Eleazar/Lymph Reports no additional complaints Aller/Immun Reports no additional complaints Telehealth Telehealth Telehealth Platform: Telephone Location of provider rendering services: practice address Location of patient: address on file Patient Identification confirmed using: Name, : Yes Telehealth method: voice only Patient verbally consented to treatment: Yes Patient verbally consented to billing insurance company: Yes Patient informed of any privacy concerns related to visit: Yes Minutes spent on Phone/Video with Pt.: 14 Assessment & Plan Assessment & Plan (1) Voiding dysfunction: Code(s): N39.8 - Other specified disorders of urinary system Category: Medical Plan Follow-up PRN Patient Instructions: The patient had an opportunity to ask questions regarding treatment plan. The patient expressed understanding and agreement with the above treatment plan. The patient is aware they should contact our office by phone for worsening of their current condition or the appearance of new symptoms. Compliance is encouraged with any medications and followup testing that is ordered. It is a privilege to be allowed the opportunity to participate in the urologic care of your patient. If you have any questions or concerns regarding treatment for the above conditions please do not hesitate to contact me. The office telephone contact is [phone]. This note is constructed in part using voice recognition software. While every effort has been made to ensure accuracy electrical engineering director errors may have been included. Yours sincerely, Yasmin Walsh MD Coding Level of Care Code Tele Est Pt Level 3 (54238) Diagnoses Voiding dysfunction N39.8
--- OUTSIDE RECORDS SUMMARY | 2025-01-17 18:12 | XMS_ITS | Encounter Summary ---
Demographics Address [address] [place] [id number]
--- OUTSIDE RECORDS SUMMARY | 2025-01-17 18:12 | XMS_ITS | Encounter Summary ---
Demographics Address [address] [place], [place] [id number] Home Phone Mobile Phone
== END 2025-01-17 16:30 | disposition home or self-care (01) ==
LOC: HO.HUSH 16:20
PROVIDERS: PCP Family Medicine; Visit Provider Urology
DX: N39.8 Other specified disorders of urinary system (principal)
CPT/HCPCS: 99213